=== PATIENT | male | born 1960 | race Caucasian/White ===

== ENCOUNTER → 2020-01-10 08:23 | Outpatient (REF) | payer BC, SELFPAY | LOC: ANHLAB 08:23 | PROVIDERS: PCP Family Medicine; Visit Provider Nurse Practitioner Family | DX: C44.329 Squamous cell carcinoma of skin of other parts of face (principal); C44.41 Basal cell carcinoma of skin of scalp and neck; C44.612 Basal cell carcinoma of skin of right upper limb, including shoulder | CPT/HCPCS: 88305; 88331; 88332 ==

== ENCOUNTER 2020-01-11 14:37 | Outpatient (CLI) | payer BC, SELFPAY ==
--- NOTE | 2020-01-11 14:39 | ECG_ITS ---
Measurements Intervals [place] Rate: 72 P: 19 ND: 157 QRS: -34 QRSD: 102 T: 13 QT: 359 QTc: 393 Interpretive Statements SINUS RHYTHM LEFT AXIS DEVIATION INCOMPLETE RIGHT BUNDLE BRANCH BLOCK DELAYED PRECORDIAL R/S TRANSITION BASELINE ARTIFACT- I, II, III, AVR, AVL, AVF, V6 BORDERLINE ECG Electronically Signed On 01-11-2020 14:56:02 [employer] by Edgar Jacobson D.O.
[2020-01-11 15:15] LABS: Hematocrit 38.8 % (42.0-52.0); Hemoglobin 12.1 g/dL (14.0-18.0)
[2020-01-11 15:26] LABS: INR 1.8; Prothrombin Time 20.2 Seconds (11.1-14.7)
[2020-01-11 15:27] LABS: Blood Urea Nitrogen 20 mg/dL (9-20); Calcium 9.1 mg/dL (8.4-10.2); Carbon Dioxide 29 mmol/L (22-30); Chloride 99 mmol/L (98-107); Estimated Glomerular Filt Rate 44; Glucose 108 mg/dL (75-110); Potassium 4.7 mmol/L (3.4-5.0); Sodium 138 mmol/L (137-145)
== END 2020-01-11 14:38 | disposition home or self-care (01) ==
PROVIDERS: Anesthesiology; PCP Family Medicine; Visit Provider Surgery Plastic and Reconstructive Surgery
DX: I10 Essential (primary) hypertension (principal); N28.9 Disorder of kidney and ureter, unspecified; Z79.01 Long term (current) use of anticoagulants; D64.9 Anemia, unspecified
CPT/HCPCS: 36415; 80048; 85014; 85018; 85610; 85730; 93005

== ENCOUNTER 2020-01-18 02:18 | Day surgery (SDC) | payer BC, SELFPAY ==
[2020-01-11 10:11] VITALS: BMI 28.5
--- NOTE | 2020-01-17 11:41 | WPDANESEPPF ---
Anes - Initial Pre Proc Eval Procedure: Operation Date: 01/18/20 09:00 Proposed Procedures p Excision Squamous Cell Carcinoma Left Cheek with Frozen Section and Closure - Smooth Simpson MD Date/Time: 01/17/20 11:41 Surgeon: Smooth Simpson MD Pre Op Diagnosis: sq cell ca left cheek Patient Data Age: 59 Gender: M Height: 6 ft 2 in Weight: 100.9 kg Allergies Allergy/AdvReac Type Severity Reaction Status Date / Time No Known Allergies Allergy Mild Verified 01/18/20 07:33 Home Medications Medication Instructions Recorded Confirmed Type lisinopril 10 mg tablet 10 mg PO DAILY 11/30/19 01/18/20 History amlodipine 5 mg PO DAILY 01/11/20 01/18/20 History aspirin [Aspir-81] 81 mg PO DAILY 01/11/20 01/18/20 History atorvastatin 40 mg PO DAILY 01/11/20 01/18/20 History carvedilol phosphate [Coreg CR] 10 mg PO BID 01/11/20 01/18/20 History cholecalciferol (vitamin D3) 2,000 unit PO DAILY 01/11/20 01/18/20 History ferrous sulfate 325 mg PO DAILY 01/11/20 01/18/20 History prednisone 5 mg PO DAILY 01/11/20 01/18/20 History tacrolimus [Envarsus XR] 2 mg PO BID 01/11/20 01/18/20 History omeprazole 20 mg PO DAILY 01/18/20 01/18/20 History tamsulosin [Flomax] 0.4 mg PO HS 01/18/20 01/18/20 History warfarin [Coumadin] See Rx Instructions .ROUTE .COMPLEX 01/18/20 01/18/20 History warfarin [Coumadin] See Rx Instructions .ROUTE .COMPLEX 01/18/20 01/18/20 History warfarin [Coumadin] See Rx Instructions .ROUTE .COMPLEX 01/18/20 01/18/20 History Patient hx anesthesia problems: none Family hx anesthesia problems: none PMFSH Past Medical History Medical History (Updated 01/17/20 @ 11:41 by Angel Carson MD) History of actinic keratoses History of basal cell carcinoma (BCC) History of pulmonary embolism History of SCC (squamous cell carcinoma) of skin Hyperlipidemia Hypertension BARRY (obstructive sleep apnea) Other pulmonary embolism without acute cor pulmonale Surgical History Surgical History (Updated 01/17/20 @ 11:41 by Angel Carson MD) H/O kidney transplant Social History Social History Smoking status: Never smoker Alcohol intake: current Anes - Eval Final PreProcedure Day of Procedure 01/17/20 11:41 Patient weight: overweight Heart: regular rate and rhythm Lungs: clear to auscultation Airway: Mallampati scale class II Neurological: alert and oriented Last oral intake: >/= 8 hours ASA classification: III Emergent: no Anesthetic plan: proceed Anesthesia type and monitoring: general LMA and standard monitoring Informed Consent: The patient's anesthetic plan and its attendant risks and benefits were discussed with the patient/family/POA. Questions were solicited and answers provided to the satisfaction of the patient/family/POA.
[2020-01-18 07:11] VITALS: BP 140/77; PULSE 61; RESP 18; TEMP 36.6; O2SAT 100
[2020-01-18 07:53] LABS: INR 1.3; Prothrombin Time 15.7 Seconds (11.1-14.7)
[2020-01-18] MEDS: LACTATED RINGERS 1,000 ML 30 ML IV CONT ×2 (07:58→11:11)
--- NOTE | 2020-01-18 08:36 | WPDHPUPDATE1 ---
History and Physical Update Update Date/Time: 01/18/20 08:36 History and Physical has been reviewed, including an updated exam of the patient. There are NO changes in the patient's condition. Excision left cheek SCC with closure. Risks, benefits, and alternatives have been discussed and questions answered. Patient agrees to proceed with procedure.
[2020-01-18] MEDS: ceFAZolin 2 GM/D5W 50 ML 2 GM/50 ML BAG IVPB (09:09)
[2020-01-18] MEDS: LIDO 1%/EPINEPHRINE 1:100,000 20 ML VIAL INFILTRATE (09:39)
--- NOTE | 2020-01-18 10:53 | SUR.OPER ---
Ebl=30ml
[2020-01-18 11:15] VITALS: BP 129/76; PULSE 70; RESP 10; TEMP 37.1; O2SAT 94
[2020-01-18 11:30] VITALS: BP 129/79; PULSE 62; RESP 12; O2SAT 97
[2020-01-18 11:47] VITALS: BP 128/80; PULSE 65; RESP 10; O2SAT 92
[2020-01-18 11:50] VITALS: BP 137/85; PULSE 61; RESP 16
[2020-01-18 12:20] VITALS: BP 127/80; PULSE 58; RESP 16
--- NOTE | 2020-01-18 16:51 | PM.PROC ---
Procedure Note - Detailed Date of procedure: 01/18/20 Pre-op diagnosis: sq cell ca left cheek Post-op diagnosis: same Procedure performed: 1. Wide excision of SCC with frozen section left cheek 5.2 cm 2. Closure of left cheek 5.2 cm Description of procedure: Patient was marked in the preoperative holding area with his verification. We had discussed the risks, benefits, alternatives in great detail with his family. I want them to be realistic about the risks involved as well as expectations. We discussed local anatomy in the risks to these structures. In particular facial nerve given the already excised depth I want him to be clear that there could be risk of injury to this nerve. I was also very upfront the risk of recurrence. We discussed possible closure options. answered all of his questions to his satisfaction today. Consent was obtained. He was taken to the operating room placed supine on operating table. Anesthesia provided by anesthesiology and prepped and draped in a standard sterile fashion. Surgical time-out was taken. 1% lidocaine with 0.25% Marcaine with epinephrine was used anesthetize locally. Fifteen blade used to excise the wound and SCC. I want to pathology looked over this with pathologist as it was clear there was some small nerve branches present at this location. The pathologist was confident that the deep margin was positive and I needed proceed. He marked out exactly where this was that we proceed to the operating room for excision of this piece only removing was absolutely necessary. Pathology returned as clear. I copiously irrigated with saline solution and verified a strict hemostasis. I closed in many layers to obliterate all space. 4-0 Vicryl on the SMAS, 4-0 Monocryl subdermal and 5 0 nylon in the skin. Dressing was placed. He tolerated well. Anesthesia: GLMA Surgeon: Smooth Simpson MD Estimated blood loss (mL): 30 Drains: No Packing: No Pathology: yes (SCC left cheek. I went with pathology to view this with the pathologist to ensure we were in full agreement of location given the critical anatomy in this location.) Complications: No immediate complications Condition: stable Disposition: PACU
== END 2020-01-18 12:40 | disposition home or self-care (01) ==
PROVIDERS: Anesthesiology; PCP Family Medicine; Visit Provider Surgery Plastic and Reconstructive Surgery
PROC: (CPT 11646; principal; 2020-01-18 09:00)
DX: C44.329 Squamous cell carcinoma of skin of other parts of face (principal); I10 Essential (primary) hypertension; E78.5 Hyperlipidemia, unspecified; G47.33 Obstructive sleep apnea (adult) (pediatric); Z86.711 Personal history of pulmonary embolism; Z79.01 Long term (current) use of anticoagulants; Z79.82 Long term (current) use of aspirin; Z94.0 Kidney transplant status
CPT/HCPCS: 11646; 13132; 36415; 85610; 88305; 88331; 88332; J0690; J1100; J2250; J2405; J2704; J3010; J7120

== ENCOUNTER → 2020-02-21 12:11 | Outpatient (REF) | payer OTHER, SELFPAY | LOC: ANHLAB 12:11 | PROVIDERS: PCP Family Medicine; Visit Provider Surgery Plastic and Reconstructive Surgery | DX: C44.329 Squamous cell carcinoma of skin of other parts of face (principal) | CPT/HCPCS: 88305 ==

== ENCOUNTER → 2020-09-26 14:20 | Outpatient (REF) | payer OTHER, SELFPAY | LOC: ANHLAB 14:20 | PROVIDERS: PCP Family Medicine; Visit Provider Nurse Practitioner | DX: L57.0 Actinic keratosis (principal) | CPT/HCPCS: 88305; 88342 ==

== ENCOUNTER 2021-03-10 09:22 | Emergency (ER) | payer OTHER, SELFPAY ==
[2021-03-10] VITALS (10 sets, daily range): BP systolic 97–120; BP diastolic 52–67; PULSE 68–72; RESP 18–20; TEMP 36; O2SAT 99–100
--- NOTE | ~2021-03-10 | US_ITS ---
EXAMINATION: US venous doppler LE RT DATE: 03/10/2021 10:27 INDICATION: Right lower limb edema. TECHNIQUE: Grayscale ultrasound images without and with compression and Doppler ultrasound images of the right lower extremity veins were obtained. COMPARISON: Ultrasound 06/15/2012 FINDINGS: The visualized portions of right common femoral vein, profunda (deep) femoral vein, femoral vein, pop liteal vein, peroneal veins, posterior tibial veins, and greater saphenous vein outflow are patent. IMPRESSION: 1. No deep venous thrombosis. Reviewed, dictated and finalized at location A.
--- NOTE | 2021-03-10 10:03 | ED.LOWEXIN ---
HPI - Extremity Injury (Lower) General Chief Complaint: Extremity Injury, Lower Stated Complaint: ?leg infection Time Seen by Provider: 03/10/21 09:33 Source: patient Mode of arrival: ambulatory Limitations: no limitations History of Present Illness HPI Narrative: This is a 60-year-old male that presents the emergency department for right lower extremity edema and erythema x5 days. Reports he had recently traveled and noticed it on his way back home. Reports pain to the calf, especially with walking. Reports he has history of metastatic basal cell carcinoma and is currently on chemotherapy. He is on Eliquis, he has been taking this as prescribed. He has an IVC filter. Denies fever, chest pain, or shortness of breath. Related Data Home Medications Medication Instructions Recorded Confirmed lisinopril 10 mg tablet 10 mg PO DAILY 11/30/19 08/01/20 aspirin [Aspir-81] 81 mg PO DAILY 01/11/20 08/01/20 atorvastatin 40 mg PO DAILY 01/11/20 08/01/20 cholecalciferol (vitamin D3) 2,000 unit PO DAILY 01/11/20 08/01/20 ferrous sulfate 325 mg PO DAILY 01/11/20 08/01/20 prednisone 5 mg PO DAILY 01/11/20 08/01/20 omeprazole 20 mg PO DAILY 01/18/20 08/01/20 tamsulosin [Flomax] 0.4 mg PO HS 01/18/20 08/01/20 warfarin [Coumadin] See Rx Instructions .ROUTE .COMPLEX 01/18/20 08/01/20 warfarin [Coumadin] See Rx Instructions .ROUTE .COMPLEX 01/18/20 08/01/20 tacrolimus 1 mg tablet,extended 2 mg PO .QD tablet 07/05/20 08/01/20 release 24 hr carvedilol phosphate 10 mg 10 mg PO DAILY cap 07/11/20 08/01/20 capsule,[id number] multiphase Allergies Allergy/AdvReac Type Severity Reaction Status Date / Time No Known Allergies Allergy Mild Verified 03/10/21 09:32 Review of Systems Review of Systems: Narrative: CONSTITUTIONAL: Denies fever SKIN: Reports erythema and edema MUSCULOSKELETAL: Reports myalgia. NEUROLOGIC: Denies numbness All systems reviewed & are unremarkable except as noted in HPI and below PMFSH Past Medical History Medical History (Updated 03/10/21 @ 12:35 by Yaneth Plasencia PA-C) Atrial fibrillation History of actinic keratoses History of basal cell carcinoma (BCC) History of pulmonary embolism History of SCC (squamous cell carcinoma) of skin Hyperlipidemia Hypertension BARRY (obstructive sleep apnea) Other pulmonary embolism without acute cor pulmonale Surgical History Surgical History H/O kidney transplant History of prostate surgery Family History Family History Mother Hypertension Family history of diabetes mellitus in first degree relative Grandparent Diabetes mellitus Social History Social History Smoking status: Never smoker Alcohol intake: current Exam Narrative: Exam Narrative: GENERAL: Well-appearing, well-nourished, and in no acute distress. HEAD: Normocephalic, atraumatic. EYES: EOMI. CHEST: Clear to auscultation. No respiratory distress. No wheezes rales or rhonchi HEART: Regular rate and rhythm. No murmur heard. Normal peripheral pulses. EXTREMITIES: Normal range of motion. Edema with overlying patchy erythema to the right lower leg extending into the foot. Normal DP pulses. Normal sensation SKIN: Warm, dry, no rash. NEURO: No focal deficits. Alert and oriented x3. PSYCH: Normal mood and affect Course Vital Signs Vital signs: Vital Signs Temperature 96.8 F L 03/10/21 09:26 Pulse Rate 72 03/10/21 09:26 Respiratory Rate 20 03/10/21 09:26 Blood Pressure 97/54 L 03/10/21 09:26 Pulse Oximetry 100 03/10/21 09:26 Temperature 96.8 F L 03/10/21 09:26 Pulse Rate 72 03/10/21 09:26 Respiratory Rate 20 03/10/21 09:26 Blood Pressure 108/61 03/10/21 12:01 Pulse Oximetry 100 03/10/21 09:26 MDM - Extremity Injury (Lower) MDM Narrative Medical decision making narrative: Humberto
[2021-03-10 10:39] LABS: Basophils Percent Auto 0.1 % (0.2-1.2); Eosinophils Percent Auto 0.3 % (0-4.4); Hematocrit 35.5 % (42.0-52.0); Hemoglobin 10.5 g/dL (14.0-18.0); Immature Granulocyte Absolute 0.17 K/mm3 (0.00-0.031); Immature Granulocyte Percent A 1.4 % (0-0.5); Lymphocytes Absolute Auto 0.67 K/mm3 (0.9-3.2); Lymphocytes Percent Auto 5.5 % (18.3-44.2); Mean Corpuscular HGB Conc 29.6 g/dl (32-36); Mean Corpuscular Hemoglobin 24.2 pg (26-34); Mean Platelet Volume 8.2 fl (7.4-10.4); Monocytes Percent Auto 8.4 % (2.6-8.5); Neutrophils Absolute Auto 10.3 K/mm3 (1.3-6.7); Neutrophils Percent Auto 84.3 % (45.5-73.1); Platelet Count Result 231 k/mm3 (150-375); Red Blood Count 4.33 M/mm3 (4.6-6.20); Red Cell Distribution Width 19.5 % (11.5-14.5); White Blood Count 12.2 K/mm3 (4.5-10.0)
[2021-03-10 10:46] LABS: Hypochromasia 1+ (NORMAL); Ovalocytes 2+ (NORMAL); Platelet Estimate Adequate (Adequate)
[2021-03-10 10:49] LABS: INR 1.2; Prothrombin Time 16.1 Seconds (11.1-14.7)
[2021-03-10 10:50] LABS: Partial Thromboplastin Time 33.2 SECONDS (22.3-36.8)
[2021-03-10 10:53] LABS: Anion Gap 0 mmol/L (8-16); Blood Urea Nitrogen 22 mg/dL (9-20); Calcium 8.4 mg/dL (8.4-10.2); Carbon Dioxide 30 mmol/L (22-30); Chloride 103 mmol/L (98-107); Estimated CRCL calculation 58 ml/min; Estimated Glomerular Filt Rate 52; Glucose 118 mg/dL (75-110); Potassium 4.7 mmol/L (3.4-5.0); Sodium 133 mmol/L (137-145)
[2021-03-10 11:02] LABS: CRP 14.9 mg/dL (<1.0)
[2021-03-10 11:15] LABS: Erythrocyte Sedimentation Rate 36 mm/hr (0-20)
== END 2021-03-10 12:47 | disposition home or self-care (01) ==
PROVIDERS: Physician Assistant; Emergency Provider Family Medicine; PCP Family Medicine
DX: L03.115 Cellulitis of right lower limb (principal); I48.91 Unspecified atrial fibrillation; Z86.711 Personal history of pulmonary embolism; E78.5 Hyperlipidemia, unspecified; I10 Essential (primary) hypertension; G47.33 Obstructive sleep apnea (adult) (pediatric); Z85.828 Personal history of other malignant neoplasm of skin; Z79.01 Long term (current) use of anticoagulants; Z79.82 Long term (current) use of aspirin; Z94.0 Kidney transplant status
CPT/HCPCS: 36415; 80048; 85025; 85610; 85652; 85730; 86140; 93971; 99284

== ENCOUNTER 2022-05-17 13:55 | Emergency (ER) | payer OTHER, SELFPAY ==
[2022-05-17 14:03] VITALS: BP 137/60; PULSE 73; RESP 18; TEMP 37.2; O2SAT 98
--- NOTE | 2022-05-17 14:16 | ED.GENADULT ---
HPI - General Adult General Chief complaint: Skin/Abscess/Foreign Body Stated complaint: Rt Side Face History of Present Illness HPI narrative: patient is a 61 y/o male who presents to the via POV accompanied by adult daughter for evaluation of a wound evisceration noted to right cheek that was noticed yesterday. Patient had multiple areas of squamous cell carcinoma removed from face. Surgical wounds closed with sutures by derm. He believes sneezing might have eviscerated wound. He also has been draining a serous drainage. He did recently finish a 5-day course of antibiotics prescribed by dermatology. He has a follow-up appointment on May 19, 2022 Related Data Home Medications Medication Instructions Recorded Confirmed lisinopril 10 mg tablet 10 mg PO DAILY 11/30/19 05/17/22 aspirin 81 mg tablet,delayed 81 mg PO DAILY 01/11/20 05/17/22 release (Aspir-) atorvastatin 40 mg tablet 40 mg PO DAILY 01/11/20 05/17/22 cholecalciferol (vitamin D3) 50 2,000 unit PO DAILY 01/11/20 05/17/22 mcg (2,000 unit) chewable tablet ferrous sulfate 325 mg (65 mg 325 mg PO DAILY 01/11/20 05/17/22 iron) tablet omeprazole 20 mg tablet,delayed 20 mg PO DAILY 01/18/20 05/17/22 release tamsulosin 0.4 mg capsule (Flomax) 0.4 mg PO HS 01/18/20 05/17/22 carvedilol phosphate 10 mg 10 mg PO BID 03/14/21 05/17/22 capsule,[id number] multiphase (Coreg CR) tacrolimus 1 mg tablet,extended 1 mg PO DAILY 03/14/21 05/17/22 release 24 hr (Envarsus XR) Allergies Allergy/AdvReac Type Severity Reaction Status Date / Time No Known Allergies Allergy Mild Verified 05/17/22 13:58 Review of Systems Review of Systems: Denies injury. Pertinent negatives fever, chills, sweats, malaise, poor p.o. intake, change in appetite, headache, LOC, dizziness, streaking, pain,numbness, tingling, loss of sensation, foreign body sensation, deformity, sob, chest pain, and heart palpitations/murmurs. [facility] Past Medical History Medical History (Updated 05/17/22 @ 14:38 by Aashish Reynolds, [facility], ) Atrial fibrillation History of actinic keratoses History of basal cell carcinoma (BCC) History of pulmonary embolism History of SCC (squamous cell carcinoma) of skin Hyperlipidemia Hypertension BARRY (obstructive sleep apnea) Other pulmonary embolism without acute cor pulmonale Surgical History Surgical History H/O kidney transplant History of prostate surgery Family History Family History Mother Hypertension Family history of diabetes mellitus in first degree relative Grandparent Diabetes mellitus Social History Social History Smoking status: Former smoker Alcohol intake: current Comments I have reviewed and agree with the patient's past medical, surgical, social, and family hx as documented by the RN. There is no relevant family history pertinent to the presenting complaint. Exam Narrative: GENERAL: Well-appearing, well-nourished, and in no acute distress. HEAD: Normocephalic. No facial swelling appreciated. EYES: PERRLA and EOMI. No evidence of erythema, swelling, or drainage. ENT: Nares clear, no rhinorrhea or epistaxis.Mucous membranes moist and pink. Uvula is midline without erythema and swelling. No evidence of obstruction, petechial rash, cobblestoning, lesions, ulcers, erythema, swelling, exudates, peritonsillar abscess, tenting, or drooling. Breath odor and voice normal. NECK: Supple. No Lymphadenopathy or nuchal rigidity appreciated. CHEST: Bilateral lung fuchs are clear to auscultation. No respiratory distress. No evidence of cough or pleuritic cp upon examination. HEART: Regular rate and rhythm. No murmur, gallop, or rub heard. EXTREMITIES: Normal range of motion. No edema. SKIN: Warm, dry. Multiple surgical wounds noted to bilat face and left ch
== END 2022-05-17 14:42 | disposition home or self-care (01) ==
PROVIDERS: Emergency Provider Nurse Practitioner Family; PCP Family Medicine
DX: T81.31XA Disruption of external operation (surgical) wound, not elsewhere classified, initial encounter (principal); C44.320 Squamous cell carcinoma of skin of unspecified parts of face; I48.91 Unspecified atrial fibrillation; I10 Essential (primary) hypertension; E78.5 Hyperlipidemia, unspecified; Z86.711 Personal history of pulmonary embolism; Z79.82 Long term (current) use of aspirin; Z87.891 Personal history of nicotine dependence; Z98.890 Other specified postprocedural states
CPT/HCPCS: 99212; G0463

== ENCOUNTER 2024-02-02 10:08 | Outpatient (CLI) | payer BC, SELFPAY ==
--- NOTE | ~2024-02-02 | XR_ITS ---
Left wrist Technique: PA, oblique, lateral, and ulnar deviation views were obtained. Clinical History: Injury Findings: No acute fracture or dislocation is seen. There is moderate degenerative change of the daisy caphe joint. Soft tissues are unremarkable. 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 Reviewed, dictated and finalized at [facility]. 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
== END 2024-02-02 10:09 ==
PROVIDERS: PCP Nurse Practitioner Adult Health; Visit Provider Nurse Practitioner Adult Health
DX: S69.92XA Unspecified injury of left wrist, hand and finger(s), initial encounter (principal); X58.XXXA Exposure to other specified factors, initial encounter; M19.032 Primary osteoarthritis, left wrist
CPT/HCPCS: 73110

== ENCOUNTER 2025-01-29 09:25 | Emergency (ER) | payer BC, MEDICARE, SELFPAY ==
--- NOTE | ~2025-01-29 | XR_ITS ---
EXAMINATION: XR chest 2V DATE: 01/29/2025 09:59 INDICATION: One week of cough TECHNIQUE: frontal and lateral views of the chest were obtained. COMPARISON: Chest CT dated 05/27/2011 FINDINGS: Right internal jugular central venous port catheter with distal tip at the caudal superior vena cava. Streaky and bandlike opacities at the left lower lung zones. No pulmonary edema, pleural effusion or pneumothorax. The cardiomediastinal silhouette is normal. IMPRESSION: 1. Opacities in the left lower lung zone with appearance consistent with discoid atelectasis although differential includes pneumonia. Reviewed, dictated and finalized at location A. IMPRESSION: 1. Opacities in the left lower lung zone with appearance consistent with discoi d atelectasis although differential includes pneumonia.
--- NOTE | 2025-01-29 09:27 | ED_ITS ---
HPI - URI/Sore Throat General Chief Complaint: Upper Respiratory Infection Stated Complaint: Cough / Congestion Time Seen by Provider: 01/29/25 09:43 Source: patient, RN notes reviewed and old records reviewed Mode of arrival: ambulatory Limitations: no limitations History of Present Illness HPI Narrative: 64-year-old male with a history of a kidney transplant, AFib presents to the [facility] with complaints cough and congestion. Reports symptoms started 1 week ago on Wednesday. Denies fevers. Denies chest pain. Reports over the last couple days increased shortness of breath. Related Data Home Medications ?Medication ?Instructions ?Recorded ?Confirmed ?Last Taken ?Type aspirin 81 mg tablet,delayed 81 mg PO DAILY 01/11/20 02/02/24 01/14/20 History release (Aspir-) atorvastatin 40 mg tablet 40 mg PO DAILY 01/11/20 02/02/24 01/17/20 History cholecalciferol (vitamin D3) 50 2,000 unit PO DAILY 01/11/20 02/02/24 01/14/20 History mcg (2,000 unit) chewable tablet ferrous sulfate 325 mg (65 mg 325 mg PO DAILY 01/11/20 02/02/24 01/14/20 History iron) tablet omeprazole 20 mg tablet,delayed 20 mg PO DAILY 01/18/20 02/02/24 01/18/20 History release tamsulosin 0.4 mg capsule (Flomax) 0.4 mg PO HS 01/18/20 02/02/24 01/17/20 History tacrolimus 1 mg tablet,extended 1 mg PO DAILY 03/14/21 02/02/24 Unknown History release 24 hr (Envarsus XR) carvedilol 25 mg tablet 25 mg PO Q12H 07/28/22 02/02/24 Unknown History hydralazine 25 mg tablet 75 mg PO TID 07/28/22 02/02/24 Unknown History magnesium oxide 400 mg (241.3 mg mg PO DAILY 12/30/23 02/02/24 Unknown History magnesium) tablet prednisone 5 mg tablet mg PO DAILY 12/30/23 02/02/24 Unknown History Allergies Allergy/AdvReac Type Severity Reaction Status Date / Time No Known Allergies Allergy Mild Verified 01/29/25 09:32 Review of Systems Review of Systems: All systems reviewed & are unremarkable except as noted in HPI and below Constitutional: Constitutional: Reports no additional constitutional complaints ENT: Reports system reviewed and no additional complaints, except as documented Cardiovascular: Cardiovascular: Reports no additional cardiovascular complaints, Denies chest pain and Denies dyspnea Respiratory: Respiratory: Reports as per HPI, Reports chest congestion, Reports cough and Reports dyspnea Musculoskeletal: Musculoskeletal: Reports no additional musculoskeletal complaints Integumentary/Breasts: Skin/Breast: Reports system reviewed and no additional complaints, except as docu PMFSH Past Medical History Medical History Hematoma of left wrist Left wrist injury Prostate cancer screening Screening for thyroid disorder Anemia Atrial fibrillation BARRY (obstructive sleep apnea) Hyperlipidemia Hypertension History of actinic keratoses History of SCC (squamous cell carcinoma) of skin History of basal cell carcinoma (BCC) History of pulmonary embolism Other pulmonary embolism without acute cor pulmonale Surgical History Surgical History History of prostate surgery H/O kidney transplant Family History Family History Mother Hypertension Family history of diabetes mellitus in first degree relative Grandparent Diabetes mellitus Father No problems noted. Sibling No problems noted. Social History Social History Smoking status: Never smoker Alcohol intake: current Substance use: never Substance use type: does not use Do You Feel Safe in your Home?: Yes Lack of Transportation: No Lack of Food: Never True Current Housing: I Have Housing Concerned About Future Housing: No Difficulty Paying Gas/Electric Bills: No Difficulty Paying for Meds: No Currently Unemployed: No Difficulty w/ Childcare or Family Care: No Comments At the time of my signature, I reviewed and agree with the nursing past medical, surgical, social, and family history. There is no relevant family history pertinent to the patient complaint. Exam Const: General: cooperative, comfortable, no acute distress, well developed, alert, ill appearing chronically; not acutely and well nourished Nutritional Appearance: well nourished Orientation/consciousness: patient oriented x3 Limitations: no limitations HENMT: Head: normal to inspection Ears: hearing grossly normal bilaterally, external ears normal, TM's normal bilaterally, EAC's normal, mastoids normal and no periauricular adenopathy Mouth: Yes lip normal and Yes moist mucous mem branes Eyes: General: appearance normal, both eyes and all related structures Alignment and Position: alignment normal Neck: Neck: normal visual inspection, full ROM, no lymphadenopathy and no meningeal signs Chest: Chest palpation & inspection: normal inspection of the chest Resp: Effort & Inspection: normal respiratory effort and able to speak in complete sentences Auscultation: no crackles, no rales, no rhonchi and wheezes expiratory wheezes and left lower Cardio: Rate: regular rate Skin: General skin exam: normal color and no rashes or lesions noted Neuro: General: patient oriented x3, gait normal, moves all extremities and no meningeal signs Cognition (Neuro): normal cognition Speech: normal speech Gait exam (Neuro): Normal gait present Extrem: General: normal to inspection, full ROM, capillary refill normal and normal gait Psych: Appearance: grossly normal and well kempt Mental Status: mental status grossly normal Speech and movement: Normal speech and movement present and Clear speech present Affect: normal affect Attitude: cooperative Course Course Level of Care: Express Care Visit Vital Signs Vital signs: Vital Signs Temperature 98.2 F 01/29/25 09:36 Pulse Rate 76 01/29/25 09:36 Respiratory Rate 20 01/29/25 09:36 Blood Pressure 148/55 H 01/29/25 09:36 Pulse Oximetry 96 01/29/25 09:36 Oxygen Delivery Room Air 01/29/25 09:36 Temperature 98.2 F 01/29/25 09:36 Pulse Rate 76 01/29/25 09:36 Respiratory Rate 20 01/29/25 09:36 Blood Pressure 148/55 H 01/29/25 09:36 Pulse Oximetry 96 01/29/25 09:36 Oxygen Delivery Room Air 01/29/25 09:36 Reviewed MDM - URI/Sore Throat MDM Narrative Medical decision making narrative: Patient sitting in exam room. Nontoxic, vitals stable. Patient presents with 1 week history of cough and congestion. X-ray shows atelectasis versus pneumonia. Will treat with an antibiotic. Patient appropriate for outpatient treatment with close follow-up. Discharge instructions reviewed with patient, as well as provided in writing per nursing staff. The instructions also include specific and strict return/GO TO THE ER as well as f/u information. All questions have been answered, and the patient deny any further questions with discharge and discharge plan. Some parts of this dictation were generated by voice recognition software and may contain typographical and/or grammatical inaccuracies. Differential Diagnosis Differential diagnosis: Likely upper respiratory infection, otitis media, sinusitis, viral infection, bronchitis, influenza and pharyngitis Imaging Data Radiologist's impression: EXAMINATION: XR chest 2V DATE: 01/29/2025 09:59 INDICATION: One week of cough TECHNIQUE: frontal and lateral views of the chest were obtained. COMPARISON: Chest CT dated 05/27/2011 FINDINGS: Right internal jugular central venous port catheter with distal tip at the caudal superior vena cava. Streaky and bandlike opacities at the left lower lung zones. No pulmonary edema, pleural effusion or pneumothorax. The cardiomediastinal silhouette is normal. IMPRESSION: 1. Opacities in the left lower lung zone with appearance consistent with discoid atelectasis although differential includes pneumonia. Critical Care Time Critical Care Time Critical Care Time: No Discharge Plan Discharge Clinical Impression: Atelectasis Pneumonia Qualifiers: Pneumonia type: due to unspecified organism Laterality: left Lung location: lower lobe of lung Qualified Code(s): J18.9 - Pneumonia, unspecified organism Patient Disposition: Home, Self-Care Condition: Stable Instructions: Antibiotic Form, Pneumonia (ED), Atelectasis (ED) Additional Instructions: Is important that you take 10 deep breaths every hour while awake. Take antibiotic as prescribed Follow-up with primary care provider within 1-2 weeks both [facility] follow-up and to have your blood pressure checked. Today your blood pressure was 148/55. For new or worsening symptoms please go directly to the emergency room Patient Language: Polish Prescriptions: New doxycycline monohydrate 100 mg tablet 100 mg PO BID Qty: 20 0RF No Action prednisone 5 mg tablet PO DAILY magnesium oxide 400 mg (241.3 mg magnesium) tablet PO DAILY carvedilol 25 mg tablet 25 mg PO Q12H Rx Instructions: must administer with a meal/food hydralazine 25 mg tablet 75 mg PO TID atorvastatin 40 mg Tablet 40 mg PO DAILY aspirin [Aspir-81] 81 mg Tablet,Delayed Release (Dr/Ec) 81 mg PO DAILY ferrous sulfate 325 mg (65 mg iron) Tablet 325 mg PO DAILY cholecalciferol (vitamin D3) 2,000 unit Tablet,Chewable 2,000 unit PO DAILY tamsulosin [Flomax] 0.4 mg Capsule 0.4 mg PO HS omeprazole 20 mg Tablet,Delayed Release (Dr/Ec) 20 mg PO DAILY Envarsus XR 1 mg tablet extended release 24 hr 1 mg PO DAILY Eliquis 5 mg tablet 5 mg PO BID Qty: 60 2RF Follow-up/Referrals: Krishna Rosales MD [Primary Care Provider[facility] Time of Disposition: 10:08
[2025-01-29 09:36] VITALS: BP 148/55; PULSE 76; RESP 20; TEMP 36.8; O2SAT 96
--- OUTSIDE RECORDS SUMMARY | 2025-01-29 10:23 | XMS_ITS | Clinical Summary ---
Author Organization [facility] Address [address] [place] [address] Care Team Providers Care Underground Truck Operator Name Role Phone Krishna Rosales MD Primary Care Provider [phone] Allergies No known active allergies Medications predniSONE 5 mg tablet Take 5 mg by mouth daily. 01/01/2022 Active omeprazole 40 MG capsule Take 40 mg by mouth daily. 02/17/2022 Active Tacrolimus ER (ENVARSUS XR) 0.75 MG TABLET SR 24 HR Take 1.5 mg by mouth daily. 03/16/2022 Active carvedilol 25 MG tablet Take 1 tablet by mouth 2 (two) times daily. 10/21/2021 Active atorvastatin 40 MG tablet Take 40 mg by mouth nightly at bedtime. at bedtime. 02/17/2022 Active aspirin 81 MG tablet Take 81 mg by mouth daily. 10/29/2006 Active ELIQUIS 5 MG tablet Take 5 mg by mouth 2 (two) times daily. 04/29/2022 Active ferrous sulfate, 65 mg elemental, 325 (65 FE) MG tablet Take 325 mg by mouth 2 (two) times daily. Active tamsulosin 0.4 MG Cap Take 0.4 mg by mouth nightly. Active vitamin D3, cholecalciferol , 1000 UNIT Tab tablet Take 1,000 Units by mouth 2 (two) times a day. Active calcium carbonate 1500 (600 Ca) MG tablet Take 1,500 mg by mouth every evening. Active Active Problems Problem Noted Date Diagnosed Date TIA (transient ischemic attack) 05/12/2022 Squamous cell cancer of skin of left cheek 04/14 Iron deficiency anemia 02/07/2021 Overview (05/13/2022): Added automatically from request for surgery [id number] Secondary malignant neoplasm of bone ([facility] S/HCC) 01/20/2021 Recurrent squamous cell carcinoma of skin 2019 Overview (05/13/2022): History of multiple basal cell carcinomas and squamous cell carcinomas of the skin in sun-exposed areas, requiring local therapies. 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 Underwent excision with his local treating team followed by recurrence on 04/2020 for which he underwent WLE and parotidectomy and L neck dissection with path showing LN+ disease in 11/29 LNs -> adjuvant RT from 05/13/20 - 07/01/2020. On 09/20/20 CT Neck and Chest demonstrated new soft tissue nodule in the superior mediastinum, and new bilateral upper lobe spiculated groundglass nodules suspicious for recurrent metastatic disease. He then underwent CT guided Bx of the mediastinal mass on 10/03/20 with path revealing metastatic SCC. Patient established care with Dr. Angel on 10/2020. He was started on Pembrolizumab (C3 on 12/23/20). Last Assessment & Plan: -01/10 PET scan notable for diffuse and severe disease progression. -Most relevant to this admission is noted NEW osseous metastases within the right 7th rib, right T7 transverse process, L2 vertebral body, new erosion of the left posterior 9th and 10th ribs, and increased avidity of a C1 vertebral body lesion. -Per Dr. Angel note from 01/13/21 plan is for Carbo/Cetuximab inpatient if possible. However, does not qualify for inpatient per pharmacy. Dr. 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 CMV+ kidney into CMV+ recipient. EBV+ kidney into EBV+ recipient. Patient follows with renal transplant (Dr. Robert) and was last seen on 12/06/20. Patient has been off Myfortic for several years now given hx of BK viremia. Baseline sCr 1.4-1.6. Last Assessment & Plan: -tacro level 4.4, but not true trough -resume home tacro, continue home pred 5 qAM. Check true 24 hour trough, lvl is 1.9. Will not adjust at this time Renal cell carcinoma ([facility]) 5 Stage 5 chronic kidney disease ([facility]) 03/11/2015 Hyperparathyroidism due to renal insufficiency ( [facility]) 03/11/2015 Anemia due to chronic kidney disease 03/11/2015 Renal mass 04/03/2014 Essential hypertension 04/03/2014 Overview (05/13/2022): Last Assessment & Plan: -continue home Lisinopril 10 -Continue home Coreg 25BID Immunizations Name Administration Dates Next Due Influenza (Generic) 12/10/2017,09/15/2016 Influenza Adult (Generic) 08/21/2016,08/21/2015 Pneumococcal (Prevnar 13) 03/11/2015 Social History Tobacco Use Types Packs/Day Years Used Date Smoking Tobacco: Never Smokeless Tobacco: Never Alcohol Use Standard Drinks/Week Comments Yes 0 (1 standard drink = 0.6 oz pur e alcohol) socially Sex and Gender Information Value Date Recorded Sex Assigned at Not on file Legal Sex Male 7:55 PM CDT Gender Identity Not on file Sexual Orientation Not on file Last Filed Vital Signs Vital Sign Reading Time Taken Comments Blood Pressure 162/76 05/13/2022 12:03 PM CDT Pulse 65 05/13/2022 12:03 PM CDT Temperature 37.1 C (98.8 F) 05/13/2022 12:03 PM CDT Respiratory Rate 18 05/13/2022 12:0 3 PM CDT Oxygen Saturation 97% 05/13/2022 12: 03 PM CDT Inhaled Oxygen Concentration - - Weight 84.7 kg (186 lb 12.8 oz) 05/12/2022 8:45 PM CDT Height 188 cm (6' 2 ) 05/12/2022 8:45 PM CDT Body Mass Index 23.98 05/12/2022 8:45 PM CDT Plan of Treatment Health Maintenance Due Date Last Done Comments Colorectal Cancer Screening Colonoscopy (10 Years) 1959 Hepatitis C 1977 DTaP, Tdap and Td Vaccines (1 - Tdap) 1978 Zoster Vaccines (1 of 2) 1978 Pneumococcal Vaccine: 65+ Years (2 of 2 - PPSV23 or PCV20) 05/06/2015 03/11/2015 Pneumococcal Vaccine: Pediatrics (0 to 5 Years) and At-Risk Patients (6 to 64 Years) (2 of 2 - PPSV23 or PCV20) 05/06/2015 03/11/2015 RSV Immunization or 60+ Years (1 - Risk 60-74 years 1-dose series) 2019 COVID-19 Vaccine (3 - Moderna risk series) 04/02/2021 03/05/2021, 02/05/2021 ASCVD LDL 05/13/2023 05/13/2022 Influenza Adult (#1) 2024 12/10/2017, 09/15/2016, 08/21/2016, Additional history exists Meningococcal B Vaccine Aged Out No l onger eligible based on patient's age to complete this topic Meningococcal Vaccine Aged Out No edis colby eligible based on patient's age to complete this topic RSV Immunizations Under 20 Months Aged Out No longer eligible based on patient's age to complete this topic Procedures Procedure Name Priority Date/Time Associated Diagnosis Comments LIPID PANEL Routine 05/13/2022 5:28 AM CDT from Last 3 Months or Most Recently Relevant to Health Maintenance Results * LIPID PANEL (05/13/2022 5:28 AM CDT) CHOLESTEROL 128 <200 MG/DL 05/13/2022 6:39 AM T [facility] TRIGLYCERIDES 51 <150 MG/DL 05/13/2022 6:39 AM T [facility] HDL 49 >40.0 MG/DL 05/13/2022 6:39 AM T [facility] LDL (CALCULATED) 69 <100 MG/DL 05/13/20 6:39 AM T [facility] NON HDL CHOLESTEROL 79 <130 MG/DL 05/13 6:39 AM T [facility] Comment: NOTE: WHEN THE TRIGLYCERIDES ARE >200 mg/dL, NON HDL C IS A SECONDARY TARGET OF THERAPY, WITH A GOAL 30 mg/dL HIGHER THAN THE IDENTIFIED LDL C GOAL. CHOL/HDL RATIO 2.6 0.0 - 4.5 05/13/2022 6:39 AM T [facility] VLDL CALCULATION 10 5 - 55 MG/DL 05/13/2022 6:39 AM T [facility] LIPID INTERPRETATION 05/13/2022 6:39 AM T [facility] Comment: NIH CONCENSUS REPORT RECOMMENDATIONS: ADULT CHILD LOW RISK: CHOLESTEROL <200 <170 TRIGLYCERIDE <150 --- HDL >=60 --- LDL <100 <110 BORDERLINE: CHOLESTEROL 200-239 170-199 TRIGLYCERIDE 150-199 --- HDL 40-59 --- LDL 100-159 110-129 HIGH RISK: CHOLESTEROL >=240 >=200 TRIGLYCERIDE >=200 --- HDL <40 --- LDL >=160 >=130 05/13/2022 5:28 AM CDT Lynn Lcoo MD LABORATORY Final Result [facility] [address] [place] [address], from Last 3 Months or Most Recently Relevant to Health Maintenance [place] [address] Advance Directives * Full Code (Latest Code Status on File) Date Activated Date Inactivated Comments 05/13/2022 8:49 AM 05/13/2022 4:32 PM Care Teams Underground Truck Operator Relationship Specialty Start Date End Date Krishna Rosales MD [address] [place], [place] [id number] PCP - General FAMILY PRACTICE 10/12/20
--- OUTSIDE RECORDS SUMMARY | 2025-01-29 10:23 | XMS_ITS | Encounter Summary ---
Author Organization [facility] Address [facility] [place] [address] Care Team Providers Care Cooler Supervisor Name Role Phone Darlin Perez CRNA Primary Care Provider Unav ailable Krishna Rosales MD Primary Care Provider [phone] Krsihna Rosales MD Primary Care Provider [phone] Encounter Details Date Type Department Care Team (Late st Contact Info) Description 08/21/2014 Abstract [facility] CONVERSION [address] [place] [address] , Generic ConversionMD Social History Tobacco Use Types Packs/Day Years Used Date Smoking Tobacco: Never Assessed Sex and Gender Information Value Date Recorded Sex Assigned at Not on file Legal Sex Male 7:55 PM CDT Gender Identity Not on file Sexual Orientation Not on file documented as of this encounter Plan of Treatment Not on file documented as of this encounter Visit Diagnoses Not on filedocumented in this encounter Care Teams Cooler Supervisor Relationship Specialty Start Date End Date Darlin Perez CRNA PCP - General ANESTHESIOLOGY 03/08/20 10/04/20 Krishna Rosales MD [address] [address] PCP - General FAMILY PRACTICE 10/05/20 10/05/20 Krishna Rosales [place] [address] [address] PCP - General FAMILY PRACTICE 10/12/20 documented as of this encounter
--- OUTSIDE RECORDS SUMMARY | 2025-01-29 10:29 | XMS_ITS ---
Author Organization [facility] Address [address] [place] [address] Care Team Providers Care Independent Contractor Name Role Phone Delmi Peace RN Unavailable [phone] Krishna Rosales MD Primary Care Provider [phone] [facility] Un[facility] [phone] Mame Cast MD Unavailable [phone] Wilbur Angel MD Unavailable [phone] Tong Dubose MD Unavailable [phone] Transplant Episode Kidney Recipient [facility] ([place], [place]) [facility] Organ Received: Left Kidney Transplanted on 10/15/2015 Marked as Active Follow-up on 10/15/2015 Kidney CoordinatorMiross Peace RN Fax: N/A Email: N/A [place] Organ Diagnosis Organ Primary Contributory Kidney Renal Cell Carcinoma Retransplant Diagnosis Organ Primary Contributory Kidney Renal Cell Carcinoma Donor Information Organ ABO Source Meets Risk Criteria HLA Match Mismatches Cross Match Left Kidney Transplanted B Positive Live A: B: DR: Left Kidney Donor Serology Results Anti-CMV CMV IgG: Positive EBV IgG EBV VCA IgG: Positive Anti-HBcAb HBC Total: Negative HBsAg No results on file HBV DNA No results on file Anti-HCV HCV Ab: Negative Anti-HIV I/II HIV Ag/Ab Combo Assay: Nonreactive Anti-HTLV I/II No results on file RPR/VDRL RPR: Nonreactive EBV IgM No results on file HBsAb HBsAb: Negative EBNA No results on file SARS CoV-2 No results on file Care Team Name Role Phone Fax Email Delmi Peace RN Kidney Coordinator [phone] N/A N/A Lisa Pro, AFTAB Secondary Coordinator Secondary Kidney Coordinator [phone] N/A N/A Delmi Peace RN Blanket Folder [phone] N/A N/A Mackenzie Valdes Primary Bundle Wrapper N/A N/A N/A Nathalie Ospina [employer] [phone] N/A N/A Michelle Xiao Secondary Bundle Wrapper N/A N/A N/A Events Post-Transplant Pre-Transplant Admitted: 10/15/2015 Referred: 09/04/2014 Transplanted: 10/15/2015 Evaluation began: 4 Discharged: 10/22/2015 Center waitlisted: 5 Dialysis History Dialysis History Start End Type Comments Center 06/11/2015 10/15/2015 Hemo TTS [facility] D[facility] Information Center Phone Fax Address [facility] [phone] [address] [address]
--- OUTSIDE RECORDS SUMMARY | 2025-01-29 10:29 | XMS_ITS ---
Author Organization [facility] Address [address] [place] [address] Care Team Providers Care Steam Distribution Supervisor Name Role Phone Delmi Peace RN Unavailable [phone] Krishna Rosales MD Primary Care Provider + [phone] [facility] Unavailable [phone] Mame Cast MD Unavailable [phone] Wilbur Angel MD Unavailable [phone] Tong Dubose MD Unavailable [phone] Active Problems Patient Care Coordination No te Formatting of this note migh t be different from the original. 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 He demonstrates excellent healing and has been released from my care and has been instructed to continue comprehensive eye care as scheduled. Assessment & Plan (01/26/2023 9:05 PM CDT): Recurrent left lower lid (LLL) ectropion. Risks, benefits and alternatives were discussed. Risks included but were not limited to pain, infection, bleeding, scarring, eyelid asymmetry, need for additional procedures, and anesthetic morbidity. Following this discussion, the patient wishes to proceed with left lower lid (LLL) ectropion repair with full thickness skin graft. We will schedule this in the near future. Assessment & Plan (10/04/2022 6:32 PM COIN BOX COLLECTOR): Los Shultz is doing well after Left Lower Eyelid Ectropion Repair With Full Thickness Skin Graft - Left on 07/03/2022. He demonstrates excellent healing and has been released from my care and has been instructed to follow up in 4 months. Assessment & Plan (08/20/2022 5:21 PM CDT): Los Shultz is doing well after Left Lower Eyelid Ectropion Repair With Full Thickness Skin Graft - Left on 07/03/2022. He demonstrates excellent healing but demonstrates evidence of nasolacrimal duct (NLD) obstruction. We will trial pred forte (PF) and flonase and he will return in 1 month. Assessment & Plan (07/14/2022 10:49 PM CDT): Los Shultz is doing well after surgery. Continue topical ointment to incisions 1-2 times a day for 1 week or until crusting has resolved. He has been instructed to call for any concerns and will return to clinic for follow up in 4 weeks. 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 Risks, benefits and alternatives were discussed. Risks included but were not limited to pain, infection, bleeding, scarring, eyelid asymmetry, need for additional procedures, and anesthetic morbidity. Following this discussion, the patient wishes to proceed with left lower eyelid ectropion repair with full thickness skin graft. We will schedule this in the near future. 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 D/c vanc/cefepime Iron deficiency anemia 02/07/2021 Overview (02/07/2021): Added automatically from request for surgery [id number] Abnormal finding on GI tract imaging 02/07/2021 Overview (02/07/2021): Added automatically from request for surgery [id number] Metastasis to bone 01/20/2021 Head and neck cancer 01/17/2021 Tingling in extremities 01/13/2021 Overview (01/13/2021): Patient reporting 2-3 sujey hx of shock like onset of tingling to the b/l UEs. He reports the tingling travels down his posterior neck to the b/l arms and down to all fingers. It happens several times per hour but last only several seconds. He most notices this when he is sitting and stretches out his arms such as when driving. Over the past month he has noticed a similar sensation travelling from his lower back to his b/l legs down to his toes most notable when he hunches over when walking. He thinks there may be a slight weakness of the b/l UEs starting may be one month ago. His LEs are within normal limits. No changes to his gait. No bladder/bowel incontinence. Denies any numbness. Assessment & Plan (01/13/2021 8:03 PM COIN BOX COLLECTOR): Please note patient with noted C1 vertebral body metastatic involvement dating back to PET/CT on 10/2020 which was not seen on prior scan 03/2020. Most recent PET was notable for NEW L2 vertebral body involvement in addition to increased avidity of the noted C1 lesion. -Dex 10mg IV x once on arrival -f/u total spine MRI -Dex 4mg PO q6hrs until MRI results and ortho/spine recs -Hold home Pred 4 given steroids as above -ortho spine consult in AM, given stability can await to call team in AM -Rad Onc c/s in AM Assessment & Plan (01/13/2021 8:01 PM COIN BOX COLLECTOR): Please note patient with noted C1 vertebral body metastatic involvement dating back to PET/CT on 10/2020 which was not seen on prior scan 03/2020. Most recent PET was notable for NEW L2 vertebral body involvement in addition to increased avidity of the noted C1 lesion. -Dex 10mg IV x once on arrival -f/u total spine MRI -Dex 4mg PO q6hrs until MRI results and ortho/spine recs -Hold home Pred 4 given steroids as above -ortho spine consult in AM, given stability can await to call team in AM -Rad Onc c/s in AM History of recurrent deep vein thrombosis (DVT) 01/13/2021 Overview (01/15/2021): Hx of DVT dating back to 2009 s/p IVC filter. 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 Has been Eliquis for several years at this time. Last Eliquis dose on AM of 01/13/21 Assessment & Plan (03/19/2021 2:59 PM CDT): - Hx of thrombophilia - RLE duplex: There is chronic deep vein thrombosis (post-thrombotic changes) in the right lower extremity. Superficial vein thrombus in the right lower extremity - c/w apixaban. dvt is chronic and unclear which agent patient was on when this occurred. Assessment & Plan (01/15/2021 5:09 PM COIN BOX COLLECTOR): -hold home Eliquis in s/o possible surgical intervention -Heparin gtt -Resuming Eliquis as ortho spine recommends non-operative management Assessment & Plan (01/13/2021 7:48 PM COIN BOX COLLECTOR): -hold home Eliquis in s/o possible surgical intervention -Heparin gtt -can be restarted on home eliquis if surgical teams note no surgical indication Renal transplant recipient 01/13/2021 Overview (01/13/2021): End-stage renal disease secondary to unknown etiology [...] hx of BK viremia. Baseline sCr 1.4-1.6. Assessment & Plan (03/20/2021 2:56 PM CDT): -tacro level 4.4, but not true trough -resume home tacro, continue home pred 5 qAM. Check true 24 hour trough, lvl is 1.9. Will not adjust at this time Assessment & Plan (01/13/2021 8:09 PM COIN BOX COLLECTOR): -continue home Tacro XR 1mg PO daily -Goal Tacro trough in the s/o acitve cancer 2-3 -check AM tacro level on 01/14, ~ 30min-1hr prior to Tacro dosing -home pred held given steroids as elsewhere -on arrival sCr 1.69 and thus at baseline -May require renal transplant involvement if increasing sCr noted on daily labs -Monitor Is/Os Assessment & Plan (01/13/2021 7:55 PM COIN BOX COLLECTOR): -continue home Tacro 1PO BID -Goal Tacro trough in the s/o acitve cancer 2-3 -check AM tacro level on 01/14 -home pred held given steroids as elsewhere -on arrival sCr 1.69 and thus at baseline -May require renal transplant involvement if increasing sCr noted on daily labs -Monitor Is/Os 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 Squamous cell carcinoma of s kin of unspecified parts of face 04/09/2020 Overview (01/13/2021): History of multiple basal cell carcinomas and [...] dissection with path showing LN+ disease in 1/15 LNs -> adjuvant RT from 05/13/20 - [...] was started on Pembrolizumab (C3 on 12/23/20). Assessment & Plan (01/15/2021 5:09 PM COIN BOX COLLECTOR): -01/10 PET scan notable for diffuse and [...] now - and plan for Xgeva outpatient Assessment & Plan (01/13/2021 7:40 PM COIN BOX COLLECTOR): -01/10 PET scan notable for diffuse and severe disease progression. -Most relevant to this admission is noted NEW osseous metastases within the right 7th rib, right T7 transverse process, L2 vertebral body, new erosion of the left posterior 9th and 10th ribs, and increased avidity of a C1 vertebral body lesion. -Per Dr. Angel note from 01/13/21 plan is for Carbo/Cetuximab inpatient if possible -given noted plan for possible inpatient chemo will plan [facility] this admission - and plan for Xgeva outpatient Anemia 06/16/2019 Essential hypertension 06/16/2019 Assessment & Plan (01/13/2021 8:05 PM COIN BOX COLLECTOR): -continue home Lisinopril 10 -Continue home Coreg 25BID Assessment & Plan (01/13/2021 8:00 PM COIN BOX COLLECTOR): -continue home Coreg 25BID -continue home Lisinopril 10 daily Increased infection risk sta tus post immunosuppressive therapy 06/16/2019 Dyslipidemia 06/16/2019 Assessment & Plan (01/13/2021 8:05 PM COIN BOX COLLECTOR): -continue home Crestor Assessment & Plan (01/13/2021 8:00 PM COIN BOX COLLECTOR): -continue home Atorva 40 QHS High risk medications (not anticoagulants) long- term use 12/10/2017 Dyslipidemia 12/10/2017 Localized retinal edema 07/06/2017 Central serous chorioretinopathy 06/22/2017 Vitreous syneresis 06/22/2017 Anticoagulated on warfarin 12/26/2015 Lymphocele 11/20/2015 Abdominal fluid collection 11/06/2015 Aftercare following organ transplant 11/05/2015 Immunosuppression 11/05/2015 History of kidney transplant 11/05/2015 Renal cell carcinoma 06/28/2015 Anemia due to chronic kidney disease 03/11/2015 Hyperparathyroidism due to renal insufficiency 0 03/11/2015 Stage 5 chronic kidney disease 03/11/2015 End-stage renal disease 11/21/2014 Renal mass 04/03/2014 Hypertension 04/03/2014 Well child visit 03/29/2014 Current Treatment and Therapy Plans Hydration Therapy Plan & IV MAINTENANCE THERAPY PLAN* Plan Start Date:04/07/2021 Plan Provider:Wilbur Angel MD Linked Problems Head and neck cancer (HCC) Treatment Medications No medications scheduled. Past Treatment and Therapy Plans Oncology Chemotherapy Treatment Plan Name Start Date Discontinue Date Treatment Medications Discontinue Reason Plan Provider Cycles Pembrolizumab 21 Day Cycles 11/11/20 20 03/31/2021 pembrolizumab (KEYTRUDA)pembr olizumab (KEYTRUDA) IVPB in 100 mL Provider Discretion Wilbur Angel MD 3 of 24 cycles started Oncology Supportive Care Plan Name Start Date Discontinue Date Treatment Medications Discontinue Reason Plan Provider Denosumab (XGEVA) Injection 01/20/2021 01/25/2024 No medications scheduled. Automatic discontinuation of dormant plans Wilbur Angel MD Oncology Treatment (2) Plan Name Start Date Discontinue Date Treatment Medications Discontinue Reason Plan Provider Cycles CARBOplatin / Cetuximab 21 Day, Cetuximab only starting C7 01/20/2021 10/11/2023 CARBOplatin (PARAPLATIN)CA RBOplatin (PARAPLATIN) IVPB in 250 mLcetuximab (ERBITUX) Therapy Complete Wilbur Angel MD 40 of 41 cycles started Radiation Treatments * Course C3_[id number]_22 07/13/2022 - 08/10/2022 Treatment Period Energy Fraction Dose Fractions Total Dose Plans Planned RT CHEEK 07/13/2022 - 08/10/2022 250 20 / 5,000 Reference Points Delivered PTV_5000 07/13/2022 - 08/10/2022 5,000 * Course C2_C_spine_202002/17/2021 - 06/25/2022 Treatment Period Energy Fraction Dose Fractions Total Dose Plans Planned SBRT C1 SPINE 02/17/2021 - 06/25/2022 700 5 / 3,500 Reference Points Delivered PTV_C1 02/17/2021 - 06/25/2022 3,500 * Course C1 HN 201905/13/2020 - 02/17/2021 Treatment Period Energy Fraction Dose Fractions Total Dose Plans Planned LT PAROTID 05/13/2020 - 02/17/2021 200 15 / 6,600 RESC LT PAROT 06/04/2020 - 02/17/2021 275 1 / 5,500 RESC LT PAROT:1 06/05/2020 - 02/17/2021 275 19 / 5,225 Reference Points Delivered LT PAROTID_NECK 05/13/2020 - 02/17/2021 3,000 RESCAN HN 06/04/2020 - 02/17/2021 5,500 Lifetime Dose Tracking * Chemical Lifetime Dose Automatic Entry Manual Entr y Fluoro Time 0.6 minutes 0.6 minutes 0 minutes Air kerma at the reference point (Ka,r) 2 mGy 2 mGy 0 mGy DLP 18,810.3 mGycm 18,810.3 mGycm 0 mGycm Resolved Problems Problem Noted Date Diagnosed Date Resolved Date Encounter for aftercare foll owing kidney transplant 06/10/2018 01/13/2021 Kidney replaced by transplant 06/10/2018 01/13/2021 Encounter for long-term (cur rent) use of high-risk medication 06/10/2018 01/13/2021
--- OUTSIDE RECORDS SUMMARY | 2025-01-29 10:29 | XMS_ITS | Encounter Summary ---
Author Organization [facility] Address [address] [place] [address] Phone Care Team Providers Care Material Expeditor Name Role Phone Delmi Peace RN Unavailable [phone] Krishna Rosales MD Primary Care Provider + [phone] [phone] Unavailable [phone] Mame Cast MD Unavailable [phone] Wilbur Anegl MD Unavailable [phone] Nicole Grijalva MD Unavailable [phone] Tong Dubose MD Unavailable [phone] Encounter Details Date Type Department Care Team (Late st Contact Info) Description 06/04/2022 Orders Only [facility] Scanning, Provider Social History Tobacco Use Types Packs/Day Years Used Date Smoking Tobacco: Never Smokeless Tobacco: Never Alcohol Use Standard Drinks/Week Comments Yes 0 (1 standard drink = 0.6 oz pur e alcohol) 4 x week AUDIT-C Answer Date Recorded Q1: How often do you have a drink containing alc ohol? 2-3 times a week 05/07/2022 Q2: How many drinks containi ng alcohol do you have on a typical day when you are drinking? 1 or 2 05/07/2022 Q3: How often do you have si x or more drinks on one occasion? Never 05/07/2022 Sex and Gender Information Value Date Recorded Sex Assigned at Not on file Legal Sex Male 1:23 AM RN LABOR AND DELIVERY Gender Identity Male 07/03/2022 5:22 AM CDT Sexual Orientation Straight 12/01/2020 8: 14 PM RN LABOR AND DELIVERY documented as of this encounter Plan of Treatment Not on file documented as of this encounter Procedures Procedure Name Priority Date/Time Associated Diagnosis Comments SCAN - LABS 06/04/2022 documented in this encounter Results * SCAN - LABS (06/04/2022) us Provider Scanning Edited Result - Final documented in this encounter Visit Diagnoses Not on filedocumented in this encounter Care Teams Material Expeditor Relationship Specialty Start Date End Date Krishna Rosales MD [address] [place] [address] PCP - General Family Medicine 06/16/19 Delmi Peace RN [address] [place] [address] Bundler Seasonal Greenery 04/12/18 Smooth Simpson MD [address] [place] [address] Plastic Surgeon Plastic Surgery 04/05/20 Mame Cast MD [address] [place] [address] Radiation Oncologist Radiation Oncology 05/23/20 Wilbur Angel MD [address] [facility] [address] [place] [address] Medical Oncologist/Cardiology Coordinator Medical Oncology 10/24/20 Nicole Grijalva MD [address] [facility] [address] [place] [address] Radiation Oncologist Radiation Oncology 02/05/21 Tong Dubose MD [address] [facility] DEPT OTOLARYNGOLOGY, [address] [address] Surgeon Otolaryngology 06/11/22 documented as of this encounter
--- OUTSIDE RECORDS SUMMARY | 2025-01-29 10:29 | XMS_ITS | Encounter Summary ---
Author Organization [facility] Address [address] [place] [address] Care Team Providers Care Information Clerk Cashier Name Role Phone Delmi Peace RN Unavailable [phone] Krishna Rosales MD Primary Care Provider + [phone] [facility] Un[facility] [phone] Tatyana Up MD Unavailable [phone] Mame Cast MD Unavailable [phone] Wilbur Angel MD Unavailable [phone] Bhavesh Montana MD Unavailable [phone] Nicole Grijalva MD Unavailable [phone] Miscellaneous, Not In File Unavailable Unava ilable Tong Dubose MD Unavailable [phone] Encounter Details Date Type Department Care Team (Late st Contact Info) Description 04/25/2020 Telephone [facility] Imaging [address] [place] [address] Pj Rush, RT Social History Tobacco Use Types Packs/Day Years Used Date Smoking Tobacco: Never Smokeless Tobacco: Never Alcohol Use Standard Drinks/Week Comments Yes 0 (1 standard drink = 0.6 oz pur e alcohol) 4 x week Sex and Gender Information Value Date Recorded Sex Assigned at Not on file Legal Sex Male 1:23 AM BILLING CLINICIAN Gender Identity Male 07/03/2022 5:22 AM CDT Sexual Orientation Straight 12/01/2020 8: 14 PM BILLING CLINICIAN documented as of this encounter Plan of Treatment Not on file documented as of this encounter Visit Diagnoses Not on filedocumented in this encounter Care Teams Information Clerk Cashier Relationship Specialty Start Date End Date Krishna Rosales MD [address] [place] [address] PCP - General Family Medicine 06/16/19 Delmi Peace, AFTAB [address] [place] [address] Sequins Winder 04/12/18 [facility] [address] [place] [id number] Plastic Surgeon Plastic Surgery 04/05/20 Tatyana Up MD [address] [place] [id number] Radiation Oncologist Radiation Oncology 04/26/20 Mame Cast MD [address] [place] [id number] Radiation Oncologist Radiation Oncology 05/23/20 Wilbur Angel MD [address] [facility] [address] [place] [address] Medical Oncologist/Fire Control Officer Medical Oncology 10/24/20 Bhavesh Montana MD [address] [place] [address] Consulting Physician Radiation Oncology 01/14/21 Nicole Grijalva MD [address] [facility] [address] [place] [address] Radiation Oncologist Radiation Oncology 02/05/21 Miscellaneous, Not In File 03/20/21 04/13/22 Tong Dubose MD [address] [facility] DEPT OTOLARYNGOLOGY, [address] [address] Surgeon Otolaryngology 06/11/22 documented as of this encounter
--- OUTSIDE RECORDS SUMMARY | 2025-01-29 10:29 | XMS_ITS | Encounter Summary ---
Author Organization [facility] Address [address] [place] [address] Phone Care Team Providers Care Upholstery Repairer Name Role Phone Delmi Peace RN Unavailable [phone] Krishna Rosales MD Primary Care Provider + [phone] [facility] Unavailable [phone] Mame Cast MD Unavailable [phone] Wilbur Angel MD Unavailable [phone] Tong Dubose MD Unavailable [phone] Encounter Details Date Type Department Care Team (Late st Contact Info) Description 01/12/2025 Results Follow-Up [facility] Dermatology [address] [facility] [address] [place] [address] Shiva Luong MD [address] [facility] [address] [place] [address] Social History Tobacco Use Types Packs/Day Years Used Date Smoking Tobacco: Never Smokeless Tobacco: Never Alcohol Use Standard Drinks/Week Comments Yes 0 (1 standard drink = 0.6 oz pur e alcohol) 4 x week AUDIT-C Answer Date Recorded Q1: How often do you have a drink containing alcohol? 4 or more times a week 07/09/2023 Q2: How many drinks containi ng alcohol do you have on a typical day when you are drinking? 1 or 2 Q3: How often do you have si x or more drinks on one occasion? Never 07/09/2023 Personal Safety Answer Date Recorded Have you ever been in or are you currently in a harmful physical or emotional relationship or is someone making you feel afraid or unsafe? Denies 07/09/2023 Sex and Gender Information Value Date Recorded Sex Assigned at Not on file Legal Sex Male 1:23 AM CANVAS SHOP LABORER Gender Identity Male 07/03/2022 5:22 AM CDT Sexual Orientation Straight 12/01/2020 8: 14 PM CANVAS SHOP LABORER documented as of this encounter Miscellaneous Notes * Result Encounter Note - Shiva Luong MD - 01/12/2025 8:10 AM CANVAS SHOP LABORER Called and LVM with results. Please call and schedule mohs. Thanks! AS SHOP LABORER documented in this encounter Plan of Treatment Not on file documented as of this encounter Visit Diagnoses Not on filedocumented in this encounter Care Teams Upholstery Repairer Relationship Specialty Start Date End Date Krishna Rosales MD [address] [address] PCP - General Family Medicine 06/16/19 Delmi Peace RN [address] [address] Waste Management Specialist 04/12/18 Smooth Simpson MD [address] [place] [address] Plastic Surgeon Plastic Surgery 04/05/20 Mame Cast MD [address] [place] [address] Radiation Oncologist Radiation Oncology 05/23/20 Wilbur Angel MD [address] [facility] [address] [place] [address] Medical Oncologist/Car Ferry Captain Medical Oncology 10/24/20 Tong Dubose MD [address] [facility] DEPT OTOLARYNGOLOGY, [address] [place] [address] Surgeon Otolaryngology 06/11/22 documented as of this encounter
--- OUTSIDE RECORDS SUMMARY | 2025-01-29 10:29 | XMS_ITS | Referral Summary ---
Author Organization [facility] Address [address] [place] [address] Care Team Providers Care Aviation Ordnance Officer Name Role Phone Delmi Peace RN Unavailable [phone] Krishna Rosales MD Primary Care Provider [facility] BoulevardSmooth brock MD Unavailable [phone] Mame Cast MD Unavailable [phone] Wilbur Angel MD Unavailable [phone] Tong Dubose MD Unavailable Encounters Date Type Department Care Team Description 01/15/2025 Documentation [facility] Oncology [address] [facility] [address] [place] [phone] Sachin Pretty RN creatinine result 01/12/2025 Orders Only [facility] Nephrology [address] [facility] 5th [place] [address] [place] [address] Oleksandr Rice MD 01/12/2025 Results Follow-Up [facility] Dermatology [address] [facility] [address] [place] [address] Shiva Luong MD 01/09/2025 Orders Only [facility] [address] [place] [address] Shiva Luong MD Neoplasm of uncertain behavior of skin 01/09/2025 8:00 AM REHAB AID Office Visit [facility] Dermatology [address] [facility] [address] [place] [address] Shiva Luong MD Neoplasm of uncertain behavior of skin (Primary Dx); Actinic keratosis; Seborrheic keratoses; Multiple melanocytic nevi; History of nonmelanoma skin cancer; History of immunosuppressive therapy; High risk medications (not anticoagulants) long-term use; Actinic skin damage 01/08/2025 12:00 PM REHAB AID Lab [facility] [place] - Lab Collection [address] [facility] Floor 6 [place] [address] Squamous cell carcinoma of skin of unspecified parts of face; Head and neck cancer (HCC) 01/08/2025 1:40 PM REHAB AID Office Visit [facility] Oncology [facility] Floor 6 [place] [address] Wilbur Angel MD Head and neck cancer (HCC) 01/08/2025 11:45 AM REHAB AID Lab [facility] Oncology Lab [address] [facility] Floor 6 [place] [address] Head and neck cancer (HCC) 01/08/2025 10:08 AM REHAB AID - 01/08/2025 11:59 PM [facility] Hospital Encounter [facility] [address] [place] [address] Head and neck cancer (HCC) Discharge Disposition: Discharge to home or self care 01/01/2025 Orders Only [facility] Oncology [address] [facility] [address] [place] [address] Wilbur Angel MD Squamous cell carcinoma of skin of unspecified parts of face (Primary Dx) 12/05/2024 Orders Only [facility] Nephrology [address] [facility] 5th [place] [address] [place] [address] Oleksandr Rice MD 11/08/2024 Telephone [facility] Transplant Kidney [address] [facility] [address] Mailstop [phone] [place] [address] Niki Mathews RN After Hours; Abnormal Lab (/) 11/06/2024 Orders Only [facility] Nephrology [address] [facility] 5th [place] [address] [place] [address] Oleksandr Rice MD 11/02/2024 Telephone [facility] [address] [facility] [address] Mailstop [phone] [place] [address] Delmi Peace RN from Last 3 Months Allergies Active Allergy Reactions Criticality Noted Date Comments Iodinated Contrast Media Other (See comments) High 01/08/2025 RENAL TRANSPLANT - NO CONTRAST Medications cholecalciferol (VITAMIN D-3) 2,000 unit tabletIndications:P revention of Vitamin D Deficiency Take 1 tablet (2,000 Units total) by mouth blood collector before breakfast 015 Active ferrous sulfate 325 mg (65 mg of elemental iron) tabletIndications:I yohannes Deficiency Anemia Take 1 tablet (325 mg total) by mouth daily with breakfast Active acetaminophen (TYLENOL) 500 mg tablet Take 2 tablets (1,000 mg total) by mouth every 6 (six) hours as needed for pain For postoperative pain. 120 tablet 1 022 Active aspirin 81 mg enteric coated tabletIndications:p revention of thrombosis Take 1 tablet (81 mg total) by mouth every morning 006 Active apixaban (ELIQUIS) 5 mg tabletIndications:V enous Thrombosis Take 1 tablet (5 mg total) by mouth 2 (two) times a day 022 Active calcium carbonate (OS-KACIE) 1,500 mg (600 mg elemental) tabletIndications:H ypocalcemia Prevention Take 1 tablet (1,500 mg total) by mouth nightly Active clindamycin (CLEOCIN T) 1 % external solution Apply two times daily as needed to scalp for pustular rash 60 mL 3 023 Active mupirocin (BACTROBAN) 2 % ointmentIndications :Minor Bacterial Skin Infections Apply topically 3 (three) times a day 22 g 2 023 Active white petrolatum-mineral oiL ointment Apply 1 Application to left eye nightly 3.5 g 023 Active tamsulosin (FLOMAX) 0.4 mg extended release capsule Take 1 capsule by mouth once daily 90 capsule 3 024 Active omeprazole (PriLOSEC) 40 mg capsule Take 1 capsule by mouth in the morning 90 capsule 3 024 Active acitretin (SORIATANE) 25 mg capsuleIndications: History of immunosuppressive therapy,AK (actinic keratosis),History of nonmelanoma skin cancer,High risk medications (not anticoagulants) long-term use Take 2 capsules (50 mg total) by mouth daily 30 capsule 3 024 Active fluorouraciL (EFUDEX) 5 % cream Apply 2 times daily (once in AM, once in PM) to areas on left side of face and right ear for 14days 40 g 2 024 Active atorvastatin (LIPITOR) 80 mg tablet Take 1 tablet by mouth nightly 90 tablet 3 024 Active sirolimus (RAPAMUNE) 1 mg tabletIndications:i mmunosuppression Take 1 tablet (1 mg total) by mouth daily 30 tablet 11 024 10/11 Active hydrALAZINE (APRESOLINE) 25 mg tablet TAKE 3 TABLETS BY MOUTH THREE TIMES DAILY 270 tablet 11 024 Active carvediloL (COREG) 25 mg tablet Take 1 tablet by mouth twice daily 180 tablet 3 024 Active predniSONE (DELTASONE) 5 mg tablet Take 1 tablet by mouth once daily 90 tablet 3 025 Active predniSONE (DELTASONE) 5 mg tablet Take 1 tablet by mouth once daily 90 tablet 3 024 01/09 Discontinued Active Problems Patient Care Coordination No te Formatting of this note migh t be different from the original. Goal Sirolimus levels should be 4-6 [facility] [phone], [phone] Standing orders q-monthly, PT/INR, Sirolimus q3-Routine Exp.05/06/[phone] Problem Noted Date Diagnosed Date SCC (squamous [...] future. Assessment & Plan (10/04/2022 6:32 PM REHAB AID): Los Shultz is doing well after Left [...] (04/29/2021): Added automatically from request for surgery [id number] Cellulitis of leg, right 03/18/2021 Assessment & [...] (02/07/2021): Added automatically from request for surgery [id number] Abnormal finding on GI tract imaging 02/07/2021 Overview (02/07/2021): Added automatically from request for surgery [id number] Metastasis to bone 01/20/2021 Head and neck [...] numbness. Assessment & Plan (01/13/2021 8:03 PM REHAB AID): Please note patient with noted C1 vertebral [...] AM Assessment & Plan (01/13/2021 8:01 PM REHAB AID): Please note patient with noted C1 vertebral [...] time. Last Eliquis dose on AM of 3/1/21 Assessment & Plan (03/19/2021 2:59 PM CDT): - Hx of thrombophilia - RLE duplex: There is chronic deep vein thrombosis (post-thrombotic changes) in the right lower extremity. Superficial vein thrombus in the right lower extremity - c/w apixaban. dvt is chronic and unclear which agent patient was on when this occurred. Assessment & Plan (01/15/2021 5:09 PM REHAB AID): -hold home Eliquis in s/o possible surgical intervention -Heparin gtt -Resuming Eliquis as ortho spine recommends non-operative management Assessment & Plan (01/13/2021 7:48 PM REHAB AID): -hold home Eliquis in s/o possible surgical [...] time Assessment & Plan (01/13/2021 8:09 PM REHAB AID): -continue home Tacro XR 1mg PO daily -Goal Tacro trough in the s/o acitve cancer 2-3 -check AM tacro level on 01/14, ~ 30min-1hr prior to Tacro dosing -home pred held given steroids as elsewhere -on arrival sCr 1.69 and thus at baseline -May require renal transplant involvement if increasing sCr noted on daily labs -Monitor Is/Os Assessment & Plan (01/13/2021 7:55 PM REHAB AID): -continue home Tacro 1PO BID -Goal Tacro [...] (04/09/2020): Added automatically from request for surgery [id number] Metastatic squamous cell carcinoma to parotid gl and 04/09/2020 Cancer Staging:Pathologic stage from 04/15/2020:Stage IV(rpT3, pN2a, cM0) - Signed by Tatyana Up MD on 04/29/2020 Overview (04/09/2020): Added automatically from request for surgery [id number] Assessment & Plan (03/18/2021 1:44 PM CDT): [...] 12/23/20). Assessment & Plan (01/15/2021 5:09 PM REHAB AID): -01/10 PET scan notable for diffuse and [...] outpatient Assessment & Plan (01/13/2021 7:40 PM REHAB AID): -01/10 PET scan notable for diffuse and [...] 06/16/2019 Assessment & Plan (01/13/2021 8:05 PM REHAB AID): -continue home Lisinopril 10 -Continue home Coreg 25BID Assessment & Plan (01/13/2021 8:00 PM REHAB AID): -continue home Coreg 25BID -continue home Lisinopril 10 daily Increased infection risk sta tus post immunosuppressive therapy 06/16/2019 Dyslipidemia 06/16/2019 Assessment & Plan (01/13/2021 8:05 PM REHAB AID): -continue home Crestor Assessment & Plan (01/13/2021 8:00 PM REHAB AID): -continue home Atorva 40 QHS High risk [...] 04/03/2014 Hypertension 04/03/2014 Well child visit 03/29/2014 Resolved Problems Problem Noted Date Diagnosed Date Resolved Date Encounter for aftercare foll owing kidney transplant 06/10/2018 01/13/2021 Kidney replaced by transplant 06/10/2018 01/13/2021 Encounter for long-term (cur rent) use of high-risk medication 06/10/2018 01/13/2021 Immunizations Immunization Administration Dates Next Due Hep B, Dialysis 03/11/2015 Influenza, Quadrivalent, Hig h Dose, Preservative Free, Intrr 09/27/2020 Influenza, Quadrivalent, Spl it, Preservative Free, Intramuscular 08/21/2016,08/21/2015 Influenza, Trivalent, Preser vative Free, Intramuscular 12/10/2017 Influenza, Unspecified 12/10/2017,2015,08/21/2016,08/21 Moderna SARS-CoV-2 Monovalen t Vaccination (12+ YRS) 03/12/2021,02/05/2021,02/05/2021 Pneumococcal Conjugate PCV 13 03/11/2015 Tdap 09/02/2022 Social History Tobacco Use Types Packs/Day Years Used Date Smoking Tobacco: Never Smokeless Tobacco: Never Tobacco Cessation:Counseling Given: Not Answered Alcohol Use Standard Drinks/Week Comments Yes 0 [...] on file Legal Sex Male 1:23 AM REHAB AID Gender Identity Male 07/03/2022 5:22 AM CDT Sexual Orientation Straight 12/01/2020 8: 14 PM REHAB AID Last Filed Vital Signs Vital Sign Reading Time Taken Comments Blood Pressure 148/65 01/08/2025 12:44 PM REHAB AID Pulse 73 01/08/2025 12:44 PM REHAB AID Temperature 36.4 C (97.6 F) 01/08/2025 12:44 PM REHAB AID Respiratory Rate 18 10/09/2024 11:54 AM REHAB AID Oxygen Saturation 95% 01/08/2025 12:44 PM REHAB AID Inhaled Oxygen Concentration - - Weight 84.9 kg (187 lb 3.2 oz) 01/08/2025 12:44 PM REHAB AID Height 188 cm (6' 2 ) 10/09/2024 8:03 AM REHAB AID Body Mass Index 24.04 10/09/2024 8:03 AM REHAB AID Plan of Treatment Not on file Medical Devices Implanted Type Area Radiation Control Specialist Device Identifier Shelf Expiration Date Model / Serial / Lot [employer] [id number] Xcela 8fr 1.6mm 1 Lumen Power Injectable Attach Catheter Fill - [id number] Implanted:Qty: 1 on 09/18/2021 at [facility] [employer] 05/13/2026 [id number] / / [id number] Explanted Type Area Radiation Control Specialist Device Identifier Shelf Expiration Date Model / Serial / Lot Appian [id number] Clip Ligation Resolution 360 Ultra 235cm Braid Rotation Ctrl - [id number] Explanted:Qty: 1 on 04/22/2021 at [facility] [employer] 02/04/2024 [id number] / / [id number] [employer] [facility] [id number] Clip Ligation Resolution 360 Ultra 235cm Braid Rotation Ctrl - [id number] Explanted:Qty: 1 on 04/22/2021 at [facility] [employer] [facility] 02/04/2024 [id number] / / [id number] [facility] [id number] Clip Ligation Resolution 360 Ultra 235cm Braid Rotation Ctrl - [id number] Explanted:Qty: 1 on 04/22/2021 at [facility] [employer] [facility] 02/04/2024 [id number] / / [id number] [facility] [id number] Clip Ligation Resolution 360 Ultra 235cm Braid Rotation Ctrl - [id number] Explanted:Qty: 1 on 04/22/2021 at [facility] [employer] [facility] 02/04/2024 [id number] / / [id number] [facility] [id number] Clip Ligation Resolution 360 Ultra 235cm Braid Rotation Ctrl - [id number] Explanted:Qty: 1 on 04/22/2021 at [facility] [employer] [facility] 02/04/2024 [id number] / / [id number] Procedures Procedure Name Priority Date/Time Associated Diagnosis Comments SIROLIMUS LEVEL RANDOM Routine 01/12/2025 8:07 AM REHAB AID RENAL FUNCTION PANEL Routine 01/12/2025 8:07 AM REHAB AID CBC WITH AUTO DIFFERENTIAL Routine 01/12/2025 8:07 AM REHAB AID PROTIME-INR Routine 01/12/2025 8:07 AM REHAB AID COPY(IES) SENT TO: Routine 01/12/2025 8: 07 AM REHAB AID SURGICAL PATHOLOGY Routine 01/09/2025 12 :00 AM REHAB AID Neoplasm of uncertain behavior of skin EGFR Routine 01/08/2025 12:10 PM REHAB AID Head and neck cancer (HCC) DIFFERENTIAL AUTO Routine 01/08/2025 12: 10 PM REHAB AID Head and neck cancer (HCC) PHOSPHORUS Routine 01/08/2025 12:10 PM REHAB AID Squamous cell carcinoma of skin of unspecified parts of face MAGNESIUM Routine 01/08/2025 12:10 PM REHAB AID Head and neck cancer (HCC) THYROID FUNCTION CASCADE Routine 01/08/2025 12:10 PM REHAB AID Head and neck cancer (HCC) LACTATE DEHYDROGENASE Routine 01/08/2025 12:10 PM REHAB AID Head and neck cancer (HCC) COMPREHENSIVE METABOLIC PANEL Routine 01/08/2025 12:10 PM REHAB AID Head and neck cancer (HCC) CBC WITH AUTO DIFFERENTIAL Routine 01/08/2025 12:10 PM REHAB AID Head and neck cancer (HCC) CT CHEST ABDOMEN PELVIS W CONTRAST Schedule Routine, Read Routine (OP Routine) 01/08/2025 11:05 AM REHAB AID Head and neck cancer (HCC) CT SOFT TISSUE NECK W CONTRAST Schedule Routine, Read Routine (OP Routine) 01/08/2025 11:05 AM REHAB AID Head and neck cancer (HCC) POCT CREATININE - DEVICE Routine 01/08/2025 10:29 AM REHAB AID SIROLIMUS LEVEL RANDOM Routine 12/05/2024 7:54 AM REHAB AID CBC WITH AUTO DIFFERENTIAL Routine 12/05/2024 7:54 AM REHAB AID RENAL FUNCTION PANEL Routine 12/05/2024 7:54 AM REHAB AID HEPATIC FUNCTION PANEL, SERUM Routine 12/05/2024 7:54 AM REHAB AID LIPID PANEL Routine 12/05/2024 7:54 AM REHAB AID PROTIME-INR Routine 12/05/2024 7:54 AM REHAB AID COPY(IES) SENT TO: Routine 12/05/2024 7: 54 AM REHAB AID SIROLIMUS LEVEL RANDOM Routine 11/06/2024 7:58 AM REHAB AID TACROLIMUS, HIGHLY SENSITIVE, LC/MS/MS Routine 11/06/2024 7:58 AM REHAB AID RENAL FUNCTION PANEL Routine 11/06/2024 7:58 AM REHAB AID CBC WITH AUTO DIFFERENTIAL Routine 11/06/2024 7:58 AM REHAB AID PROTIME-INR Routine 11/06/2024 7:58 AM REHAB AID COPY(IES) SENT TO: Routine 11/06/2024 7: 58 AM REHAB AID COLONOSCOPY 04/22/2021 8:33 AM CDT SERUM HEPATITIS C AB Routine 09/30/2015 2:38 AM REHAB AID from Last 3 Months or Most Recently Relevant to Health Maintenance Results * COPY(IES) SENT TO: (01/12/2025 8:07 AM REHAB AID) COPY(IES) SENT TO: ALICE Comment: [facility] - COPY TO [facility] [address] [place] [address] 01/12/2025 8:07 AM REHAB AID 01/12/2025 8:08 AM REHAB AID Narrative [facility] - 01/16/2025 4:42 PM REHAB AID PAE us Oleksandr Rice MD LAB BLOOD ORDERABLES Final Resu lt [facility] * (ABNORMAL) CBC with auto differential (01/12/2025 8:07 AM REHAB AID) WBC 5.5 3.8 - 10.8 Thousand/u L [facility] RBC, POC 4.57 4.20 - 5.80 Million/uL [facility] Hgb 11.1(L) 13.2 - 17.1 g/dL [facility] Hct 36.4(L) 38.5 - 50.0 % [facility] MCV 79.6(L) 80.0 - 100.0 fL [facility] MCH 24.3(L) 27.0 - 33.0 pg [facility] MCHC 30.5(L) 32.0 - 36.0 g/dL [facility] Comment: For adults, a slight decrease in the calculated MCHC value (in the range of 30 to 32 g/dL) is most likely not clinically significant; however, it should be interpreted with caution in correlation with other red cell parameters and the patient's clinical condition. Rdw 13.7 11.0 - 15.0 % [facility] Platelets 236 140 - 400 Thousand/u L [facility] MPV 9.1 7.5 - 12.5 fL [facility] Neutrophils, abs 3,663 1,500 - 7,800 cells/uL [facility] Lymphocytes, abs 908 850 - 3,900 cells/uL [facility] Monocyte abs 611 200 - 950 cells/uL [facility] Eosinophils, abs 259 15 - 500 cells/uL [facility] Basophils, abs 61 0 - 200 cells/uL [facility] Neutrophils 66.6 % [facility] Lymphocyte pct 16.5 % [facility] Monocytes 11.1 % [facility] Eosinophils 4.7 % [facility] Basophils 1.1 % [facility] 01/12/2025 8:07 AM REHAB AID 01/12/2025 8:08 AM REHAB AID Narrative [facility] - 01/16/2025 4:42 PM REHAB AID PAE us Oleksandr Rice MD LAB BLOOD ORDERABLES Final Resu lt [facility] [address] [place] [address] * Sirolimus level random (01/12/2025 8:07 AM REHAB AID) Pathologist [facility] SIROLIMUS, LC/MS/MS 5.5 3.0 - 18.0 ng/mL [facility] Comment: This test was developed and its analytical performance characteristics have been determined by [employer]. It has not been cleared or approved by the FDA. This assay has been validated pursuant to the CLIA regulations and is used for clinical purposes. 01/12/2025 8:07 AM REHAB AID 01/12/2025 8:08 AM REHAB AID Narrative [facility] - 01/16/2025 4:42 PM REHAB AID PAE Result [facility] Oleksandr Rice MD LAB BLOOD ORDERABLES Final Resu lt Performing Organization Address [facility] Co de Phone Number [facility] [address] [place] [address] * Protime-INR (01/12/2025 8:07 AM REHAB AID) [facility] INR 1.0 [facility] Comment: Reference Range 0.9-1.1 Moderate-intensity Warfarin Therapy 2.0-3.0 Higher-intensity Warfarin Therapy 3.0-4.0 PT 10.7 9.0 - 11.5 sec [facility] Comment: For additional information, please refer to http://education.ScoreStream/faq/USH683 (This link is being provided for informational/ educational purposes only.) 01/12/2025 8:07 AM REHAB AID 01/12/2025 8:08 AM REHAB AID Narrative [facility] - 01/16/2025 4:42 PM REHAB AID PAE Oleksandr Rice MD LAB BLOOD ORDERABLES Final Resu lt Performing Organization Address City/[facility] Co de Phone Number [facility] [address] [place] [address] * (ABNORMAL) Renal function panel (01/12/2025 8:07 AM REHAB AID) [facility] Glucose 99 65 - 99 mg/dL [facility] Comment: Fasting reference interval BUN 25 7 - 25 mg/dL [facility] Creatinine 1.64(H) 0.70 - 1.35 mg/dL [facility] eGFR 46(L) > OR = 60 mL/min/1.7 3m2 [facility] BUN/creat ratio 15 6 - 22 (calc) [facility] Sodium 140 135 - 146 mmol/L [facility] Potassium, pl 4.3 3.5 - 5.3 mmol/L [facility] Chloride 104 98 - 110 mmol/L [facility] CO2 28 20 - 32 mmol/L [facility] Calcium 9.0 8.6 - 10.3 mg/dL [facility] Phosphorus, sr 2.8 2.1 - 4.3 mg/dL [facility] Albumin 4.0 3.6 - 5.1 g/dL [facility] 01/12/2025 8:07 AM REHAB AID 01/12/2025 8:08 AM REHAB AID Narrative [facility] - 01/16/2025 4:42 PM REHAB AID PAE us Oleksandr Rice MD LAB BLOOD ORDERABLES Final Resu lt [facility] [address] [place] [address] * Surgical pathology (01/09/2025 12:00 AM REHAB AID) Tissue (Skin, shave biopsy) 01/09/2025 01/09/2025 12:22 PM REHAB AID Narrative [facility] - 01/11/2025 4:28 PM REHAB AID EPIC results best viewed via link to PDF [facility] [address] [place] [address], [address], [place] [address] [email or web address] Note to Patients: This report may contain a detailed description of human tissue sent by a health care provider to the laboratory for pathologic evaluation. The content of this report is essential for diagnosis and may provide important critical findings. This information may be unfamiliar to patients to review without a medical professional present. It is advised that the patient review this report in the presence of a health care provider who can answer questions and explain the details. FINAL REPORT Patient Information: PATIENT NAME: LOS SHULTZ SEX: M : 1960 (Age: 64) Specimen Information: COLLECTED: 01/09/2025 RECEIVED: 01/09/2025 REPORTED: 01/11/2025 Submitting Physician Information: Shiva Luong M.D. Dermatology [place] [address] ([facility]), [address] [place] [address] [place] [address], DERMATOPATHOLOGY REPORT RESULTS DIAGNOSIS: SKIN, BASE OF RIGHT THUMB, SHAVE BIOPSY: SQUAMOUS CELL CARCINOMA, ACANTHOLYTIC TYPE exr/lac By this signature, I attest that the above diagnosis is based upon my personal examination of the slides(and/or other material indicated in the diagnosis). Ashely Shah M.D. Report Electronically Reviewed and Signed Out By Ashely Shah M.D. 01/11/2025 16:28:06 CLINICAL INFORMATION R/O SCC SPECIMEN DATA MICROSCOPIC DESCRIPTION: Atypical keratinocytes with abundant pink cytoplasms extend from the undersurface of the epidermis into the reticular dermis. There is acantholysis within the cellular aggregates. (C44.92) GROSS DESCRIPTION: Received in a formalin-containing bottle is a superficial fragment of pale martinez, finely scaling, and hair-bearing skin measuring 1.3 by 1.2 by 0.1 cm. The surgical margin is inked blue. The specimen bears a white, crusted, slightly raised area measuring 0.3 by 0.2 by 0.1 cm. The specimen is sectioned into 5 pieces and submitted entirely in a single cassette. Due to shrinkage, measurements may be different than those at the time of procedure. [facility] ICD-9 A; ZSD.1469 Clerical Data A; 33376 The characteristics of special, immunohistochemical, and immunofluorescence stains and in-situ hybridization tests performed by the [facility] were deemed acceptable in ongoing design quality engineer measures and in compliance with regulations drawn from the Clinical Laboratory Improvement Act rw5754 (CLIA '88). Control reactions for all stains performed were deemed adequate and appropriate by a pathologist prior to evaluation of patient tissue. Some diagnoses were rendered with the assistance of laboratory-developed tests utilizing analyte-specific reagents; the performance characteristic of these tests were determined by [facility] and are not cleared or approved by the [place] Food an Drug administration. Laboratory developed test may only be performed in a facility that is certified by the [facility] as a high-complexity laboratory under CLIA '88. These tests are used for clinical purposes and are not investigational. Shiva Luong MD LAB PATHOLOGY ORDERABL ES Final Result Performing Organization Address City/[facility]/ZIP Co de Phone Number [facility] [address] [place] [address] * (ABNORMAL) eGFR (01/08/2025 12:10 PM REHAB AID) eGFR 45(L) >=60 mL/min/1. 73 m2 Comment: Interpretive Data Reference Interval Normal >/= 90 mL/min/1.73m2 Mildly decreased* 60 - 89 mL/min/1.73m2 Mildly to moderately decreased 45 - 59 mL/min/1.73m2 Moderately to severely decreased 30 - 44 mL/min/1.73m2 Severely decreased 15 - 29 mL/min/1.73m2 Kidney Failure < 15 mL/min/1.73m2 *Relative to young adult level Estimated glomerular filtration rate is determined by the 2020 CKD-EPI equation recommended by the National Kidney Foundation (A Unifying Approach to GFR Estimation: Recommendations of the NKF-ASK Task Force on Reassessing the Inclusion of Race in Diagnosing Kidney Disease, JASN 2020). The CKD-EPI equation should not be used for patients with unstable renal function and has not been validated in children and those over 70. Current interpretive data was last reviewed 2021. Blood 01/08/2025 12:1 0 PM REHAB AID 01/08/2025 12:26 PM REHAB AID Pj Tobin NP LAB BLOOD ORDERABLES Susan l Result BOBBI RUIZ [facility] Department [place] [address] * (ABNORMAL) Differential, auto (01/08/2025 12:10 PM REHAB AID) Neutrophil abs 6.0 1.5 - 6.5 K/cumm Comment:Testing performed by : [facility], [address] [place] [phone] Lymphocyte abs 0.6(L) 0.8 - 3.3 K/cumm CERNER BJ Comment:Testing performed by : [facility], [address] [place], [place] [id number] Monocyte abs 0.3 0.2 - 0.8 K/cumm CERNER BJ Comment:Testing performed by : [facility], [address] [place] [phone] Eosinophil abs 0.1 0.0 - 0.5 K/cumm C[facility]ER BJ Comment:Testing performed by : [facility], [address] [place] [phone] Basophil abs 0.0 0.0 - 0.1 K/cumm CERNER BJ Comment:Testing performed by : [facility], [address] [place] [phone] Neutrophil pct 85.1 % [facility] BJ Comment: Interpretive Data Percent cell count reference ranges are not reported, since discordance with absolute values may lead to misinterpretation of CBC data. Current Interpretive Data was last revised on 2018. Testing performed by: [facility], [address] [place] [phone] Lymphocyte pct 7.9 % [facility] Comment: Interpretive Data Percent cell count reference ranges are not reported, since discordance with absolute values may lead to misinterpretation of CBC data. Current Interpretive Data was last revised on 2018. Testing performed by: [facility], [address] [place] [phone] Monocyte pct 4.8 % [facility] Comment: Interpretive Data Percent cell count reference ranges are not reported, since discordance with absolute values may lead to misinterpretation of CBC data. Current Interpretive Data was last revised on 2018. Testing performed by: [facility], [address] [place] [phone] Eosinophil pct 1.8 % [facility] Comment: Interpretive Data Percent cell count reference ranges are not reported, since discordance with absolute values may lead to misinterpretation of CBC data. Current Interpretive Data was last revised on 2018. Testing performed by: [facility], [address] [place] [phone] Basophil pct 0.4 % [facility] Comment: Interpretive Data Percent cell count reference ranges are not reported, since discordance with absolute values may lead to misinterpretation of CBC data. Current Interpretive Data was last revised on 2018. Testing performed by: [facility], [address] [place] [phone] Blood 01/08/2025 12:1 0 PM REHAB AID 01/08/2025 12:25 PM REHAB AID Pj Tobin NP LAB BLOOD ORDERABLES Susan l Result [facility] Department [place] [address] * Thyroid Function [place] (01/08/2025 12:10 PM REHAB AID) Pathologist [facility] TSH 2.36 0.30 - 4.20 mcIUnit/mL Blood 01/08/2025 12:1 0 PM REHAB AID 01/08/2025 12:26 PM REHAB AID Pj Tobin [employer]LEV[employer] LAB BLOOD ORDERABLES Susan l Result [facility] Department [place] [address] * (ABNORMAL) CBC with auto differential (01/08/2025 12:10 PM REHAB AID) WBC 7.1 3.8 - 9.9 K/cumm Comment:Testing performed by : [facility], [address] [place] [address] Hgb 11.1(L) 13.0 - 17.5 g/dL C[facility] BJ Comment:Testing performed by : [facility], [address] [place] [address] Hct 34.5(L) 38.9 - 50.3 % [facility] BJ Comment:Testing performed by : [facility], [address] [place], [place] [phone] Plt 243 150 - 400 K/cumm CERNER BJ Comment:Testing performed by : [facility], [address] [place], [place] [phone] MPV 6.9 6.8 - 10.4 fL [facility] Comment:Testing performed by : [facility], [address] [place] [address] RBC 4.66 4.30 - 5.80 M/cumm CERNER BJ Comment:Testing performed by : [facility], [address] [place] [address] MCV 74.1(L) 81.3 - 96.4 fL [facility]J Comment:Testing performed by : [facility], [address] [place], [place] [phone] MCH 23.8(L) 27.1 - 33.3 pg [facility] BJ Comment:Testing performed by : [facility], [address] [place] [address] MCHC 32.1(L) 32.3 - 35.7 g/dL [facility] Comment:Testing performed by : [facility], [address] [place] [address] RDW CV 15.7(H) 11.1 - 14.9 % [facility] Comment:Testing performed by : [facility], [address] [place] [address] NRBC abs 0.00 0.00 - 0.01 K/cumm CERNER BJ Comment:Testing performed by : [facility], [address] [place] [phone] Blood 01/08/2025 12:1 0 PM REHAB AID 01/08/2025 12:25 PM REHAB AID Pj Tobin NP LAB BLOOD ORDERABLES Susan l Result Performing Organization Address [facility] Co de Phone Number [facility] [place] [address] * Phosphorus (01/08/2025 12:10 PM REHAB AID) Phosphorus, pl 2.9 2.3 - 4.5 mg/dL Blood 01/08/2025 12:1 0 PM REHAB AID 01/08/2025 12:26 PM REHAB AID Wilbur Angel MD LAB BLOOD ORDERABLES Final Res ult Performing Organization Address [facility] Co de Phone Number [facility] [place] [address] * Magnesium (01/08/2025 12:10 PM REHAB AID) Magnesium 2.0 1.4 - 2.5 mg/dL Blood 01/08/2025 12:1 0 PM REHAB AID 01/08/2025 12:26 PM REHAB AID Pj Tobin NP LAB BLOOD ORDERABLES Susan l Result Performing Organization Address [facility] Co de Phone Number [facility] [place] [address] * Lactate dehydrogenase (LD) (01/08/2025 12:10 PM REHAB AID) Lactate dehydrogenase (LDH) 245 100 - 250 Units/L Blood 01/08/2025 12:1 0 PM REHAB AID 01/08/2025 12:26 PM REHAB AID Pj Tobin [employer]LEV[employer] LAB BLOOD ORDERABLES Susan joseph Result [facility] Department [place] [address] * (ABNORMAL) Comprehensive metabolic panel (01/08/2025 12:10 PM REHAB AID) Sodium 140 135 - 145 mmol/L Potassium, pl 4.5 3.3 - 4.9 mmol/L [facility] Chloride 104 97 - 110 mmol/L [facility] CO2 29 22 - 32 mmol/L [facility] Anion gap 7 2 - 15 mmol/L [facility] BUN 27(H) 6 - 25 mg/dL [facility] Creatinine 1.67(H) 0.80 - 1.30 mg/dL [facility] Glucose 100 70 - 199 mg/dL [facility] Comment: Interpretive Data Fasting glucose >/= 126 mg/dl is diagnostic for diabetes. Fasting is defined as no caloric intake for at least 8 hours. Fasting glucose between 100 mg/dl to 125 mg/dl is diagnostic of prediabetes. In a patient with classic symptoms of hyperglycemia or hyperglycemic crisis, a random glucose >/= 200 mg/dl is diagnostic for diabetes. In the absence of unequivocal hyperglycemia, results should be confirmed by repeat testing. The classification and Diagnosis of Diabetes Diabetes Care 202; 46: S19-S40. Current interpretive data was last revised 2022. Calcium 9.5 8.5 - 10.3 mg/dL [facility] Bilirubin, total 0.4 0.1 - 1.2 mg/dL [facility] Protein, pl 7.0 6.5 - 8.5 g/dL [facility] Albumin 3.9 3.5 - 5.0 g/dL [facility] Alk phos 75 40 - 130 Units/L [facility] ALT 26 7 - 55 Units/L [facility] AST 37 10 - 50 Units/L [facility] Blood 01/08/2025 12:1 0 PM REHAB AID 01/08/2025 12:26 PM REHAB AID Pj Tobin NP LAB BLOOD ORDERABLES Susan joseph Result BOBBI RUIZ [facility] Department [place] [address] * CT Chest Abdomen Pelvis W Contrast (01/08/2025 11:05 AM REHAB AID) Anatomical Region Laterality Modality Body N/A Computed Tomogra phy 01/08/2025 11:3 6 AM REHAB AID Impressions 01/08/2025 11:36 AM REHAB AID 1. Multiple new groundglass nodules in both lungs with stable appearance of existing groundglass nodules. Given the relatively quick development of these may be infectious/inflammatory, recommend attention on follow-up. 2. Anterior mediastinal soft tissue nodule/lymph node is stable to slightly decreased in size from prior. 3. No evidence of metastatic disease in the abdomen or pelvis. Electronically signed by: Antonio Jernigan MD, PHD Narrative 01/08/2025 11:36 AM REHAB AID EXAMINATION: Computed tomography of the chest, abdomen and pelvis with intravenous contrast HISTORY: Left cheek squamous cell carcinoma, restaging TECHNIQUE: Transaxial computed tomographic images of the chest, abdomen and pelvis were obtained with intravenous contrast according to the standard protocol after the uneventful administration of 115 mL Opti-Ray 350 intravenous contrast. COMPARISON: CT chest abdomen pelvis 10/09/2024 FINDINGS: Chest: Right internal jugular approach port catheter tip terminates at the superior cavoatrial junction. Unchanged 7 mm groundglass nodule in the left upper lobe (series 3 image 40) with additional scattered groundglass opacities are new from prior, including an adjacent 7 mm nodule more medially at the same slice and a 7 mm lesion in the left upper lobe slightly more inferiorly (series 3 image 47). There is also a new 3 mm right upper lobe nodule (series 3 image 64). Otherwise, no focal consolidation, pleural effusion, or pneumothorax. Normal heart size with no pericardial effusion. Mild atherosclerotic disease of the coronary arteries. Mild atherosclerotic disease in the thoracic aorta. Slightly decreased size of a 9 mm node in the anterior mediastinum (series 2 image 80). No supraclavicular, axillary, mediastinal, or hilar lymphadenopathy. Abdomen/Pelvis: No focal liver lesion. Gallbladder is normal. No biliary duct dilation. Pancreas, spleen, and adrenal glands are normal. [place] kidneys are atrophic with changes of cryoablation to the lower pole left kidney. The right iliac fossa transplant kidney with no hydronephrosis or perinephric collection. Urinary bladder is normal. Prostate gland is mildly enlarged. , Appendix, small bowel, and stomach are normal no mesenteric, retroperitoneal, pelvic, or inguinal lymphadenopathy. No intra-abdominal free air or free fluid. Multiple fat-containing left inguinal hernia. Moderate atherosclerotic disease in the abdominal aorta. Inferior vena cava filter is present. No suspicious osseous lesion or fracture. Procedure Note Antonio Jernigan MD PhD - 01/08/2025 EXAMINATION: Computed tomography of the chest, abdomen and pelvis with intravenous contrast HISTORY: Left cheek squamous cell carcinoma, restaging TECHNIQUE: Transaxial computed tomographic images of the chest, abdomen and pelvis were obtained with intravenous contrast according to the standard protocol after the uneventful administration of 115 mL Opti-Ray 350 intravenous contrast. COMPARISON: CT chest abdomen pelvis 10/09/2024 FINDINGS: Chest: Right internal jugular approach port catheter tip terminates at the superior cavoatrial junction. Unchanged 7 mm groundglass nodule in the left upper lobe (series 3 image 40) with additional scattered groundglass opacities are new from prior, including an adjacent 7 mm nodule more medially at the same slice and a 7 mm lesion in the left upper lobe slightly more inferiorly (series 3 image 47). There is also a new 3 mm right upper lobe nodule (series 3 image 64). Otherwise, no focal consolidation, pleural effusion, or pneumothorax. Normal heart size with no pericardial effusion. Mild atherosclerotic disease of the coronary arteries. Mild atherosclerotic disease in the thoracic aorta. Slightly decreased size of a 9 mm node in the anterior mediastinum (series 2 image 80). No supraclavicular, axillary, mediastinal, or hilar lymphadenopathy. Abdomen/Pelvis: No focal liver lesion. Gallbladder is normal. No biliary duct dilation. Pancreas, spleen, and adrenal glands are normal. [place] kidneys are atrophic with changes of cryoablation to the lower pole left kidney. The right iliac fossa transplant kidney with no hydronephrosis or perinephric collection. Urinary bladder is normal. Prostate gland is mildly enlarged. , Appendix, small bowel, and stomach are normal no mesenteric, retroperitoneal, pelvic, or inguinal lymphadenopathy. No intra-abdominal free air or free fluid. Multiple fat-containing left inguinal hernia. Moderate atherosclerotic disease in the abdominal aorta. Inferior vena cava filter is present. No suspicious osseous lesion or fracture. IMPRESSION: 1. Multiple new groundglass nodules in both lungs with stable appearance of existing groundglass nodules. Given the relatively quick development of these may be infectious/inflammatory, recommend attention on follow-up. 2. Anterior mediastinal soft tissue nodule/lymph node is stable to slightly decreased in size from prior. 3. No evidence of metastatic disease in the abdomen or pelvis. Electronically signed by: Antonio Jernigan MD, PHD us Pj Tobin NP IMG CT PROCEDURES Final R esult * CT Neck Soft Tissue W Contrast (01/08/2025 11:05 AM REHAB AID) Anatomical Region Laterality Modality Head and Neck N/A Computed Tomogra phy 01/08/2025 11:4 6 AM REHAB AID Impressions 01/08/2025 12:07 PM REHAB AID 1. Postoperative findings of left parotid resection and neck dissection without evidence of recurrent disease in the neck. Dictated by: Smooth Portillo M.D. The radiology attending physician has personally reviewed this study, and had reviewed and/or edited this written report and agrees with it. Electronically signed by: Atif Isidro M.D. 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 Patient had parotidectomy and left neck dissection in April 2020 followed by radiation therapy. Patient had history of mediastinal and pulmonary metastasis as well. TECHNIQUE: CT of the neck was performed according to the standard protocol with intravenous contrast. Contrast information: 115 mL Optiray-350 COMPARISON: 10/09/2024 and 07/10/2024 FINDINGS: Postoperative findings of left parotid resection and neck dissection. Unchanged asymmetry of the piriform sinus without a mass-like lesion likely related to collapsed mucosa in the setting of postsurgical and radiation changes. Scattered subcentimeter lymph nodes are seen in the neck. None are pathologically enlarged or abnormally enhancing. The muscles of the neck are normal. Vessels of the neck demonstrate normal course and caliber. Partially imaged right internal jugular approach port catheter. The fascial planes on the right are preserved. The fascial planes on the left including the rental coordinator, sternocleidomastoid, parotid, and vascular spaces are not preserved secondary postsurgical and radiation changes. Left mastoid effusion. The base of the skull and the temporal bones are normal. Limited views of the brain including the cerebellum and brainstem are normal. The limited view of the [place] is unremarkable. The visualized portions of the orbits are normal. The spinal canal is normal in caliber. Moderate multilevel degenerative disc disease throughout the cervical spine, worst at C6-C7. Multilevel facet and uncovertebral hypertrophy. Neural foramina are normal. Please refer to same day CT of the chest are findings in these regions. 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 Patient had parotidectomy and left neck dissection in April 2020 followed by radiation therapy. Patient had history of mediastinal and pulmonary metastasis as well. TECHNIQUE: CT of the neck was performed according to the standard protocol with intravenous contrast. Contrast information: 115 mL Optiray-350 COMPARISON: 10/09/2024 and 07/10/2024 FINDINGS: Postoperative findings of left parotid resection and neck dissection. Unchanged asymmetry of the piriform sinus without a mass-like lesion likely related to collapsed mucosa in the setting of postsurgical and radiation changes. Scattered subcentimeter lymph nodes are seen in the neck. None are pathologically enlarged or abnormally enhancing. The muscles of the neck are normal. Vessels of the neck demonstrate normal course and caliber. Partially imaged right internal jugular approach port catheter. The fascial planes on the right are preserved. The fascial planes on the left including the rental coordinator, sternocleidomastoid, parotid, and vascular spaces are not preserved secondary postsurgical and radiation changes. Left mastoid effusion. The base of the skull and the temporal bones are normal. Limited views of the brain including the cerebellum and brainstem are normal. The limited view of the [place] is unremarkable. The visualized portions of the orbits are normal. The spinal canal is normal in caliber. Moderate multilevel degenerative disc disease throughout the cervical spine, worst at C6-C7. Multilevel facet and uncovertebral hypertrophy. Neural foramina are normal. Please refer to same day CT of the chest are findings in these regions. IMPRESSION: 1. Postoperative findings of left parotid resection and neck dissection without evidence of recurrent disease in the neck. Dictated by: Smooth Portillo M.D. The radiology attending physician has personally reviewed this study, and had reviewed and/or edited this written report and agrees with it. Electronically signed by: Atif Isidro M.D. Pj Tobin NP IMG CT PROCEDURES Final R esult * (ABNORMAL) POCT creatinine (01/08/2025 10:29 AM REHAB AID) Creatinine POC 1.7(H) 0.8 - 1.3 mg/dL Blood 01/08/2025 10:2 9 AM REHAB AID 01/08/2025 10:29 AM REHAB AID Pj Tobin NP LAB POCT ORDERABLES - DEV ICE Final Result Performing Organization Address City/[facility]/ZIP Co de Phone Number [facility] [place] [address] * COPY(IES) SENT TO: (12/05/2024 7:54 AM REHAB AID) COPY(IES) SENT TO: [facility] Comment: [facility] - [facility] TO [facility] [address] [place] [address] 12/05/2024 7:54 AM REHAB AID 12/05/2024 7:55 AM REHAB AID Narrative [facility] - 12/09/2024 3:11 AM REHAB AID PAE Oleksandr Rice MD LAB BLOOD ORDERABLES Final Resu lt [facility] * Hepatic Function Panel, Serum (12/05/2024 7:54 AM REHAB AID) Pathologist [facility] Protein, sr 6.4 6.1 - 8.1 g/dL [facility] Albumin 4.0 3.6 - 5.1 g/dL [facility] GLOBULIN 2.4 1.9 - 3.7 g/dL (calc) [facility] Alb/glob ratio 1.7 1.0 - 2.5 (calc) [facility] Bilirubin, total 0.5 0.2 - 1.2 mg/dL [facility] Bilirubin, direct 0.1 < OR = 0.2 mg/dL [facility] Bilirubin, indirect 0.4 0.2 - 1.2 mg/dL (calc) [facility] Alk phos 62 35 - 144 U/L [facility] AST 29 10 - 35 U/L [facility] ALT (SGPT) 20 9 - 46 U/L [facility] 12/05/2024 7:54 AM REHAB AID 12/05/2024 7:55 AM REHAB AID Narrative [facility] - 12/09/2024 3:11 AM REHAB AID PAE us Oleksandr Rice MD LAB BLOOD ORDERABLES Final Resu lt [facility] [address] [place] [address] * (ABNORMAL) CBC with auto differential (12/05/2024 7:54 AM REHAB AID) Pathologist [facility] WBC 7.0 3.8 - 10.8 Thousand/u L [facility] RBC, POC 4.55 4.20 - 5.80 Million/uL [facility] Hgb 11.4(L) 13.2 - 17.1 g/dL [facility] Hct 37.2(L) 38.5 - 50.0 % [facility] MCV 81.8 80.0 - 100.0 fL [facility] MCH 25.1(L) 27.0 - 33.0 pg [facility] MCHC 30.6(L) 32.0 - 36.0 g/dL [facility] Comment: For adults, a slight decrease in the calculated MCHC value (in the range of 30 to 32 g/dL) is most likely not clinically significant; however, it should be interpreted with caution in correlation with other red cell parameters and the patient's clinical condition. Rdw 12.9 11.0 - 15.0 % [facility] Platelets 233 140 - 400 Thousand/u L [facility] MPV 9.4 7.5 - 12.5 fL [facility] Neutrophils, abs 5,264 1,500 - 7,800 cells/uL [facility] Lymphocytes, abs 728(L) 850 - 3,900 cells/uL [facility] Monocyte abs 742 200 - 950 cells/uL [facility] Eosinophils, abs 217 15 - 500 cells/uL [facility] Basophils, abs 49 0 - 200 cells/uL [facility] Neutrophils 75.2 % [facility] Lymphocyte pct 10.4 % [facility] Monocytes 10.6 % [facility] Eosinophils 3.1 % [facility] Basophils 0.7 % [facility] 12/05/2024 7:54 AM REHAB AID 12/05/2024 7:55 AM REHAB AID Narrative [facility] - 12/09/2024 3:11 AM REHAB AID PAE us Oleksandr Rice MD LAB BLOOD ORDERABLES Final Resu lt [facility] [address] [place] [phone] * Sirolimus level random (12/05/2024 7:54 AM REHAB AID) SIROLIMUS, LC/MS/MS 4.9 3.0 - 18.0 ng/mL [facility] Comment: This test was developed and its analytical performance characteristics have been determined by [employer]. It has not been cleared or approved by the FDA. This assay has been validated pursuant to the CLIA regulations and is used for clinical purposes. 12/05/2024 7:54 AM REHAB AID 12/05/2024 7:55 AM REHAB AID Narrative [facility] - 12/09/2024 3:11 AM REHAB AID PAE Oleksandr Rice MD LAB BLOOD ORDERABLES Final Resu lt Performing Organization Address [facility] de Phone Number [facility] [address] [place] [address] * Protime-INR (12/05/2024 7:54 AM REHAB AID) [facility].0 [facility] Comment: Reference Range 0.9-1.1 Moderate-intensity Warfarin Therapy 2.0-3.0 Higher-intensity Warfarin Therapy 3.0-4.0 PT 10.6 9.0 - 11.5 sec [facility] Comment: For additional information, please refer to http://education.ScoreStream/faq/MZU722 (This link is being provided for informational/ educational purposes only.) 12/05/2024 7:54 AM REHAB AID 12/05/2024 7:55 AM REHAB AID Narrative [facility] - 12/09/2024 3:11 AM REHAB AID PAE Oleksandr Rice MD LAB BLOOD ORDERABLES Final Resu lt Performing Organization Address [facility] Co de Phone Number [facility] [address] [place] [address] * (ABNORMAL) Renal function panel (12/05/2024 7:54 AM REHAB AID) Glucose 100(H) 65 - 99 mg/dL [facility] Comment: Fasting reference interval For someone without known diabetes, a glucose value between 100 and 125 mg/dL is consistent with prediabetes and should be confirmed with a follow-up test. BUN 26(H) 7 - 25 mg/dL [facility] Creatinine 1.85(H) 0.70 - 1.35 mg/dL [facility] eGFR 40(L) > OR = 60 mL/min/1.7 3m2 [facility] BUN/creat ratio 14 6 - 22 (calc) [facility] Sodium 139 135 - 146 mmol/L [facility] Potassium, pl 4.2 3.5 - 5.3 mmol/L [facility] Chloride 102 98 - 110 mmol/L [facility] CO2 31 20 - 32 mmol/L [facility] Calcium 9.1 8.6 - 10.3 mg/dL [facility] Phosphorus, sr 3.0 2.1 - 4.3 mg/dL [facility] Albumin 4.0 3.6 - 5.1 g/dL [facility] 12/05/2024 7:54 AM REHAB AID 12/05/2024 7:55 AM REHAB AID Narrative [facility] - 12/09/2024 3:11 AM REHAB AID PAE us Oleksandr Rice MD LAB BLOOD ORDERABLES Final Resu lt [facility] [address] [place] [address] * (ABNORMAL) Lipid panel (12/05/2024 7:54 AM REHAB AID) Cholesterol 199 <200 mg/dL [facility] HDL 67 > OR = 40 mg/dL [facility] Triglycerides 118 <150 mg/dL [facility] LDL 109(H) mg/dL (calc) [facility] Comment: Reference range: <100 Desirable range <100 mg/dL for primary prevention; <70 mg/dL for patients with CHD or diabetic patients with > or = 2 CHD risk factors. LDL-C is now calculated using the Nitesh calculation, which is a validated novel method providing better accuracy than the Friedewald equation in the estimation of LDL-C. Rogerio KC et al. MYCHAL. 2013;310(19): 8263-9201 (http://education.GapJumpers/faq/XCY466) Chol/HDL ratio 3.0 <5.0 (calc) [facility] Non-HDL, (LDL+VLDL) 132(H) <130 mg/dL (calc) [facility] Comment: For patients with diabetes plus 1 major ASCVD risk factor, treating to a non-HDL-C goal of <100 mg/dL (LDL-C of <70 mg/dL) is considered a therapeutic option. 12/05/2024 7:54 AM REHAB AID 12/05/2024 7:55 AM REHAB AID Narrative [facility] - 12/09/2024 3:11 AM REHAB AID PAE Oleksandr Rice MD LAB BLOOD ORDERABLES Final Resu lt Performing Organization Address [facility] de Phone Number [facility] [address] [place] [address] * (ABNORMAL) Tacrolimus, Highly Sensitive, LC/MS/MS (11/06/2024 7:58 AM REHAB AID) Pathologist [facility] Tacrolimus, Highly Sensitive, LC/MS/MS 1.6(L) mcg/L [facility] Comment: No definitive therapeutic or toxic ranges have been established. Optimal blood drug levels are influenced by type of transplant, patient response, time post- transplant, co-administration of other drugs, and drug formulation. The following trough range is a suggested guideline: 5.0-20.0 mcg/L. 11/06/2024 7:58 AM REHAB AID 11/06/2024 7:58 AM REHAB AID Narrative [facility] - 11/10/2024 8:11 AM REHAB AID PAE Oleksandr Rice MD LAB BLOOD ORDERABLES Final Resu lt Performing Organization Address [facility] Co de Phone Number [facility] [address] [place] [address] * COPY(IES) SENT TO: (11/06/2024 7:58 AM REHAB AID) COPY(IES) SENT TO: [facility] Comment: [facility] - COPY TO ACCT [address] [place] [address] 11/06/2024 7:58 AM REHAB AID 11/06/2024 7:58 AM REHAB AID Narrative [facility] - 11/10/2024 8:11 AM REHAB AID PAE us Oleksandr Rice MD LAB BLOOD ORDERABLES Final Resu lt [facility] * (ABNORMAL) CBC with auto differential (11/06/2024 7:58 AM REHAB AID) Pathologist [facility] WBC 5.2 3.8 - 10.8 Thousand/u L [facility] RBC, POC 4.33 4.20 - 5.80 Million/uL [facility] Hgb 11.4(L) 13.2 - 17.1 g/dL [facility] Hct 37.1(L) 38.5 - 50.0 % [facility] MCV 85.7 80.0 - 100.0 fL [facility] MCH 26.3(L) 27.0 - 33.0 pg [facility] MCHC 30.7(L) 32.0 - 36.0 g/dL [facility] Comment: For adults, a slight decrease in the calculated MCHC value (in the range of 30 to 32 g/dL) is most likely not clinically significant; however, it should be interpreted with caution in correlation with other red cell parameters and the patient's clinical condition. Rdw 12.8 11.0 - 15.0 % [facility] Platelets 237 140 - 400 Thousand/u L [facility] MPV 9.3 7.5 - 12.5 fL [facility] Neutrophils, abs 3,193 1,500 - 7,800 cells/uL [facility] Lymphocytes, abs 962 850 - 3,900 cells/uL [facility] Monocyte abs 764 200 - 950 cells/uL [facility] Eosinophils, abs 229 15 - 500 cells/uL [facility] Basophils, abs 52 0 - 200 cells/uL [facility] Neutrophils 61.4 % [facility] Lymphocyte pct 18.5 % [facility] Monocytes 14.7 % [facility] Eosinophils 4.4 % [facility] Basophils 1.0 % [facility] 11/06/2024 7:58 AM REHAB AID 11/06/2024 7:58 AM REHAB AID Narrative [facility] - 11/10/2024 8:11 AM REHAB AID PAE Oleksandr Rice MD LAB BLOOD ORDERABLES Final Resu lt Performing Organization Address [facility] Co de Phone Number [facility] [address] [place] [address] * Sirolimus level random (11/06/2024 7:58 AM REHAB AID) Pathologist [facility] SIROLIMUS, LC/MS/MS 6.2 3.0 - 18.0 ng/mL [facility] Comment: This test was developed and its analytical performance characteristics have been determined by [employer]. It has not been cleared or approved by the FDA. This assay has been validated pursuant to the CLIA regulations and is used for clinical purposes. 11/06/2024 7:58 AM REHAB AID 11/06/2024 7:58 AM REHAB AID Narrative [facility] - 11/10/2024 8:11 AM REHAB AID PAE Oleksandr Rice MD LAB BLOOD ORDERABLES Final Resu lt Performing Organization Address [facility] Co de Phone Number [facility] [address] [place] [address] * Protime-INR (11/06/2024 7:58 AM REHAB AID) INR 1.0 [facility] Comment: Reference Range 0.9-1.1 Moderate-intensity Warfarin Therapy 2.0-3.0 Higher-intensity Warfarin Therapy 3.0-4.0 PT 10.6 9.0 - 11.5 sec [facility] Comment: For additional information, please refer to http://education.ScoreStream/faq/ODB595 (This link is being provided for informational/ educational purposes only.) 11/06/2024 7:58 AM REHAB AID 11/06/2024 7:58 AM REHAB AID Narrative [facility] - 11/10/2024 8:11 AM REHAB AID PAE Oleksandr Rice MD LAB BLOOD ORDERABLES Final Resu lt [facility] [address] [place] [address] * (ABNORMAL) Renal function panel (11/06/2024 7:58 AM REHAB AID) Glucose 108(H) 65 - 99 mg/dL [facility] Comment: Fasting reference interval For someone without known diabetes, a glucose value between 100 and 125 mg/dL is consistent with prediabetes and should be confirmed with a follow-up test. BUN 27(H) 7 - 25 mg/dL [facility] Creatinine 1.72(H) 0.70 - 1.35 mg/dL [facility] eGFR 44(L) > OR = 60 mL/min/1.7 3m2 [facility] BUN/creat ratio 16 6 - 22 (calc) [facility] Sodium 139 135 - 146 mmol/L [facility] Potassium, pl 4.4 3.5 - 5.3 mmol/L [facility] Chloride 104 98 - 110 mmol/L [facility] CO2 31 20 - 32 mmol/L [facility] Calcium 9.3 8.6 - 10.3 mg/dL [facility] Phosphorus, sr 3.1 2.1 - 4.3 mg/dL [facility] Albumin 4.1 3.6 - 5.1 g/dL [facility] 11/06/2024 7:58 AM REHAB AID 11/06/2024 7:58 AM REHAB AID Narrative [facility] - 11/10/2024 8:11 AM REHAB AID PAE Oleksandr Rice MD LAB BLOOD ORDERABLES Final Resu lt [facility] [address] [address] * COLONOSCOPY (04/22/2021 8:33 AM CDT) Anatomical Region Laterality Modality Other Narrative Procedure Note Tamera Francois MD PhD - 04/22/2021 8:33 AM CDT ENDOSCOPY LAB Patient Name: Los Shultz Procedure Date: 04/22/2021 8:33 AM Date of : 1960 Admit Type: Outpatient Age: 60 Gender: Male Attending MD: Tamera Francois MD,PHD Room: [facility] ENDOSCOPY ROOM 02 Note Status: Finalized Procedure: Colonoscopy Indications: Iron deficiency anemia, Abnormal PET scan of the GI tract Providers: Tamera Francois MD, PHD Referring MD: Krishna Rosales M.D. Medicines: Monitored Anesthesia Care Complications: No immediate complications. Estimated Blood Loss: Estimated blood loss was minimal. Procedure: Pre-Anesthesia Assessment: - Immediately prior to administration ofmedications, the patient was re-assessed for adequacy to receive sedatives. The benefits, risks and alternatives of theprocedure and sedation were discussed and informed consentwas obtained. All questions were answered. Please referto the signed informed consent document in the medical record. The scope was passed under direct vision.The [id number] was introduced through the anusand advanced to the terminal ileum. The colonoscopy was performed without difficulty. The patient tolerated the procedure well. The quality of the bowel preparation was good. The quality of the bowel preparation was evaluated using the BBPS (BostonBowel Preparation Scale) with scores of: Right Colon = 3, Transverse Colon = 3 and Left Colon = 3 (entiremucosa seen well with no residual staining, smallfragments of stool or opaque liquid). The total BBPS score equals 9. The quality of the bowel preparation was evaluated using the BBPS (Maxwell Bowel Preparation Scale) with scores of: Right Colon = 2 (minoramount of residual staining, small fragments of stooland/or opaque liquid, but mucosa seen well), TransverseColon = 2 (minor amount of residual staining, small fragments of stool and/or opaque liquid, but mucosa seen well) and Left Colon = 3 (entire mucosa seenwell with no residual staining, small fragments of stoolor opaque liquid). The total BBPS score equals 7. The bowel preparation used was polyethylene glycol(PEG) via split dose instruction. Bowel prep was administered using a split dose. Findings: The perianal and digital rectal examinations were normal. The terminal ileum appeared normal. A 25 mm polyp was found in the proximal ascending colon. The polypwas Dipti classification Is (protruding, sessile). Preparations were made for mucosal resection. 3.5 mL of Orise gel was injected with adequate lift of the lesion from the muscularis propria. Piecemeal mucosal resection using a snare with Byrd net retrieval was performed. A 25mm area was resected. Resection and retrieval were complete. Arterial spurting occurred after resection. For hemostasis, five hemostaticclips were successfully placed (MR conditional). There was no bleeding atthe end of the procedure. Area was tattooed with an injection of 3 mL of Spot (carbon black). Impression: - The examined portion of the ileum was normal. - One 25 mm polyp in the proximal ascending colon, removed with mucosal resection. Resected and retrieved. Clips (MR conditional) were placed. - Mucosal resection was performed. Resection and retrieval were complete. Recommendation: - Await pathology results. - Repeat colonoscopy in 6 months (45 min) with a better prep for surveillance after piecemeal polypectomy, and to remove remaining colonpolyps. - Resume Eliquis after 3 days, if OK by thephysician prescribing it - In the unusual situation that you developabdominal pain, bleeding, or other significant problems inthe days following this procedure, please call [email or web address] at [phone] or [phone] to speak to my chiropractor assistant. After hours and weekends, please call [phone] and ask for the GI fellow dimension quarry supervisor.Please tell them that Dr. Francois did your procedure and that you were instructed to have the fellow call me orthe physician covering for me to discuss yourcondition. If you have an urgent problem, please go thenearest emergency room and have the ER doctor call shaina during the day or the GI fellow after hours and weekends. Attending Participation: I personally performed the entire procedure. Electronically signed by Tamera Francois MD. Tamera Francois MD, PHD 04/22/2021 9:32:33 AM Number of Addenda: 0 Note Initiated On: 04/22/2021 8:33 AM us Tamera Francois MD PhD ENDOSCOPY PROCEDURES Susan l Result * Serum Hepatitis C ab (09/30/2015 2:38 AM REHAB AID) HCV ab Negative NEG HISTORICAL RESULTS Serum 09/30/2015 2:38 AM REHAB AID Narrative HISTORICAL RESULTS - 09/30/2015 5:17 AM REHAB AID Interpretive Data If confirmation is required, call Laboratory Customer Service to request sample to be sent to [facility] for Hepatitis C Virus (HCV) RNA Detection and Quantitation by Real-Time Reverse Projection Camera Operator-PCR (RT-PCR). Current interpretive data was last revised on 2012 Tong Ann MD LAB BLOOD ORDERABLES Final Result HISTORICAL RESULTS from Last 3 Months or Most Recently Relevant to Health Maintenance Insurance BLUE [employer] [place] CHOICE [place]IC[place] OPEN ACCESS [facility] HUMANA CHOICE MEDICARE PPO Advance Directives For more information, please contact: [phone] * Full Code (Latest Code Status on File) Date Activated Date Inactivated Comments 09/18/2021 9:32 AM 09/18/2021 3:22 PM * Full Code Date Activated Date Inactivated Comments 07/08/2021 8:25 AM 07/08/2021 2:14 PM * Full Code Date Activated Date Inactivated Comments 04/22/2021 7:15 AM 04/22/2021 2:40 PM * Full Code Date Activated Date Inactivated Comments 03/17/2021 3:58 PM 03/20/2021 7:47 PM * Full Code Date Activated Date Inactivated Comments 01/13/2021 5:52 PM 01/15/2021 9:19 PM Care Teams Aviation Ordnance Officer Relationship Specialty Start Date End Date Krishna Rosales MD [address] [place] [address] PCP - General Family Medicine 06/16/19 Delmi Peace, RN [address] [place] [address] Software Verification Engineer 04/12/18 Smooth Simpson MD [address] [place] [address] Plastic Surgeon Plastic Surgery 04/05/20 Mame Cast MD [address] [place] [address] Radiation Oncologist Radiation Oncology 05/23/20 Wilbur Angel MD [address] [facility] [address] [place] [address] Medical Oncologist/Shell Fisherman Medical Oncology 10/24/20 Tong Dubose MD [address] [facility] DEPT OTOLARYNGOLOGY, [address] [place] [address] Surgeon Otolaryngology 06/11/22
--- OUTSIDE RECORDS SUMMARY | 2025-01-29 10:29 | XMS_ITS | Encounter Summary ---
Author Organization [facility] Address [address] [place] [address] Phone Care Team Providers Care Social Worker Assistant Name Role Phone Delmi Peace RN Unavailable [phone] Krishna Rosales MD Primary Care Provider + [phone] [facility] Unavailable [phone] Mame Cast MD Unavailable [phone] Wilbur Angel MD Unavailable [phone] Tong Dubose MD Unavailable [phone] Encounter Details Date Type Department Care Team (Latest Contact Info) Description 07/23/2023 Orders Only [facility] Scanning, Provider Social History Tobacco Use Types [...] on file 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 Gender Identity Male 07/03/2022 5:22 AM CDT Sexual Orientation Straight 12/01/2020 8: 14 PM FUR CUTTING 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 documented as of this encounter Plan of Treatment Not on file documented as of this encounter Procedures Procedure Name Priority Date/Time Associated Diagnosis Comments SCAN - PATHOLOGY 07/23/2023 2:19 PM CDT documented in this encounter Results * SCAN - PATHOLOGY (07/23/2023 2:19 PM CDT) us Provider Scanning Final Result documented in this encounter Visit Diagnoses Not on filedocumented in this encounter Care Teams Social Worker Assistant Relationship Specialty Start Date End Date Krishna Rosales MD [address] [facility] [address] [place] [address] PCP - General Family Medicine 06/16/19 Dlemi Peace, RN [address] [place] [address] Business Unit Director 04/12/18 [facility] [address] [place] [address] Plastic Surgeon Plastic Surgery 04/05/20 Mame Cast MD [address] [place] [address] Radiation Oncologist Radiation Oncology 05/23/20 Wilbur Angel MD [address] [facility] [address] [place] [address] Medical Oncologist/Osha Inspector Medical Oncology 10/24/20 Tong Dubose MD [address] [facility] DEPT OTOLARYNGOLOGY, [address] [address] Surgeon Otolaryngology 06/11/22 documented as of this encounter
--- OUTSIDE RECORDS SUMMARY | 2025-01-29 10:29 | XMS_ITS | Encounter Summary ---
Author Organization [facility] Address [address] [place] [address] Phone Care Team Providers Care Internal Audit Senior Manager Name Role Phone Delmi Peace RN Unavailable [phone] Krishna Rosales MD Primary Care Provider + [phone] [facility] Unavailable [phone] Mame Cast MD Unavailable [phone] Wilbur Angel MD Unavailable [phone] Tong Dubose MD Unavailable [phone] Encounter Details Date Type Department Care Team (Latest Contact Info) Description 02/10/2023 Orders Only [facility] Scanning, Provider Social History Tobacco Use Types Packs/Day Years Used Date Smoking Tobacco: Never Smokeless Tobacco: Never Alcohol Use Standard Drinks/Week Comments Yes 0 (1 standard drink = 0.6 oz pur e alcohol) 4 x week AUDIT-C Answer Date Recorded Q1: How often do you have a drink containing alc ohol? 2-3 times a week 01/22/2023 Q2: How many drinks containi ng alcohol do you have on a typical day when you are drinking? 1 or 2 01/22/2023 Q3: How often do you have si x or more drinks on one occasion? 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 Gender Identity Male 07/03/2022 5:22 AM CDT Sexual Orientation Straight 12/01/2020 8: 14 PM HOST/HOSTESS RESTAURANT documented as of this encounter Plan of Treatment Not on file documented as of this encounter Procedures Procedure Name Priority Date/Time Associated Diagnosis Comments SCAN - PATHOLOGY 02/10/2023 documented in this encounter Results * SCAN - PATHOLOGY (02/10/2023) us Provider Scanning Final Result documented in this encounter Visit Diagnoses Not on filedocumented in this encounter Care Teams Internal Audit Senior Manager Relationship Specialty Start Date End Date Krishna Rosales MD [address] [place] [address] PCP - General Family Medicine 06/16/19 Delmi Peace RN [address] [place] [address] Criminal Justice Professor 04/12/18 [facility] [address] [place] [address] Plastic Surgeon Plastic Surgery 04/05/20 Mame Cast MD [address] [place] [address] Radiation Oncologist Radiation Oncology 05/23/20 Wilbur Angel MD [address] [facility] [address] [place] [address] Medical Oncologist/Logistics Specialist Medical Oncology 10/24/20 Tong Dubose MD [address] [facility] DEPT OTOLARYNGOLOGY, [address] [place] [address] Surgeon Otolaryngology 06/11/22 documented as of this encounter
--- OUTSIDE RECORDS SUMMARY | 2025-01-29 10:29 | XMS_ITS | Encounter Summary ---
Author Organization [facility] Address [address] [place] [address] Phone Care Team Providers Care Retrieval Specialist Name Role Phone Delmi Peace RN Unavailable [phone] Krishna Rosales MD Primary Care Provider + [phone] [facility] Unavailable [phone] Mame Cast MD Unavailable [phone] Wilbur Angel MD Unavailable [phone] Tong Dubose MD Unavailable [phone] Encounter Details Date Type Department Care Team (Latest Contact Info) Description 04/26/2023 Orders Only [facility] Scanning, Provider Social History Tobacco Use Types Packs/Day Years Used Date Smoking Tobacco: Never Smokeless Tobacco: Never Alcohol Use Standard Drinks/Week Comments Yes 0 (1 standard drink = 0.6 oz pur e alcohol) 4 x week AUDIT-C Answer Date Recorded Q1: How often do you have a drink containing alc ohol? Never 02/17/2023 Q2: How many drinks containi ng alcohol do you have on a typical day when you are drinking? 1 or 2 02/17/2023 Q3: How often do you have six or more drinks on one occasion? 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 Gender Identity Male 07/03/2022 5:22 AM CDT Sexual Orientation Straight 12/01/2020 8: 14 PM HOSPITAL HOUSEKEEPER documented as of this encounter Plan of Treatment Not on file documented as of this encounter Procedures Procedure Name Priority Date/Time Associated Diagnosis Comments SCAN - PATHOLOGY 04/26/2023 documented in this encounter Results * SCAN - PATHOLOGY (04/26/2023) us Provider Scanning Final Result documented in this encounter Visit Diagnoses Not on filedocumented in this encounter Care Teams Retrieval Specialist Relationship Specialty Start Date End Date Krishna Rosales MD [address] [place] [address] PCP - General Family Medicine 06/16/19 Delmi Peace RN [address] [place] [address] Usps Letter Carrier 04/12/18 [facility] bro[facility] MD [address] [place] [address] Plastic Surgeon Plastic Surgery 04/05/20 Mame Cast MD [address] [place] [address] Radiation Oncologist Radiation Oncology 05/23/20 Wilbur Angel MD [address] [facility] [address] [place] [address] Medical Oncologist/Crook Operator Medical Oncology 10/24/20 Tong Dubose MD [address] [facility] DEPT OTOLARYNGOLOGY, [address] [place] [address] Surgeon Otolaryngology 06/11/22 documented as of this encounter
--- OUTSIDE RECORDS SUMMARY | 2025-01-29 10:29 | XMS_ITS | Clinical Summary ---
Author Organization [facility] Address [address] [place] [address] Care Team Providers Care Sales Assistant Name Role Phone Delmi Peace RN Unavailable [phone] Krishna Rosales MD Primary Care Provider + [phone] [facility] Unavailable [phone] Mame Cast MD Unavailable [phone] Wilbur Angel MD Unavailable [phone] Tong Dubose MD Unavailable [phone] Allergies Active Allergy Reactions Criticality Noted Date Comments Iodinated Contrast Media Other (See comments) High 01/08/2025 RENAL TRANSPLANT - NO CONTRAST Medications cholecalciferol (VITAMIN D-3) 2,000 unit tabletIndications:P revention of Vitamin D Deficiency Take 1 tablet (2,000 Units total) by mouth supply chain planner before breakfast 015 Active ferrous sulfate 325 [...] Goal Sirolimus levels should be 4-6 [facility] [phone], [phone] Standing orders q-monthly, PT/INR, Sirolimus q3-Routine Exp.05/06/25 [facility] ext [id number] Problem Noted Date Diagnosed Date SCC (squamous [...] future. Assessment & Plan (10/04/2022 6:32 PM PROCESS DEVELOPMENT MANAGER): Los Shultz is doing well after Left [...] (04/29/2021): Added automatically from request for surgery [id number] Cellulitis of leg, right 03/18/2021 Assessment & [...] (02/07/2021): Added automatically from request for surgery [id number] Abnormal finding on GI tract imaging 02/07/2021 Overview (02/07/2021): Added automatically from request for surgery [id number] Metastasis to bone 01/20/2021 Head and neck [...] numbness. Assessment & Plan (01/13/2021 8:03 PM PROCESS DEVELOPMENT MANAGER): Please note patient with noted C1 vertebral [...] AM Assessment & Plan (01/13/2021 8:01 PM PROCESS DEVELOPMENT MANAGER): Please note patient with noted C1 vertebral [...] occurred. Assessment & Plan (01/15/2021 5:09 PM PROCESS DEVELOPMENT MANAGER): -hold home Eliquis in s/o possible surgical intervention -Heparin gtt -Resuming Eliquis as ortho spine recommends non-operative management Assessment & Plan (01/13/2021 7:48 PM PROCESS DEVELOPMENT MANAGER): -hold home Eliquis in s/o possible surgical [...] time Assessment & Plan (01/13/2021 8:09 PM PROCESS DEVELOPMENT MANAGER): -continue home Tacro XR 1mg PO daily -Goal Tacro trough in the s/o acitve cancer 2-3 -check AM tacro level on 01/14, ~ 30min-1hr prior to Tacro dosing -home pred held given steroids as elsewhere -on arrival sCr 1.69 and thus at baseline -May require renal transplant involvement if increasing sCr noted on daily labs -Monitor Is/Os Assessment & Plan (01/13/2021 7:55 PM PROCESS DEVELOPMENT MANAGER): -continue home Tacro 1PO BID -Goal Tacro [...] (04/09/2020): Added automatically from request for surgery [id number] 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 Assessment & Plan (01/15/2021 5:09 PM PROCESS DEVELOPMENT MANAGER): -01/10 PET scan notable for diffuse and [...] outpatient Assessment & Plan (01/13/2021 7:40 PM PROCESS DEVELOPMENT MANAGER): -01/10 PET scan notable for diffuse and [...] 06/16/2019 Assessment & Plan (01/13/2021 8:05 PM PROCESS DEVELOPMENT MANAGER): -continue home Lisinopril 10 -Continue home Coreg 25BID Assessment & Plan (01/13/2021 8:00 PM PROCESS DEVELOPMENT MANAGER): -continue home Coreg 25BID -continue home Lisinopril 10 daily Increased infection risk sta tus post immunosuppressive therapy 06/16/2019 Dyslipidemia 06/16/2019 Assessment & Plan (01/13/2021 8:05 PM PROCESS DEVELOPMENT MANAGER): -continue home Crestor Assessment & Plan (01/13/2021 8:00 PM PROCESS DEVELOPMENT MANAGER): -continue home Atorva 40 QHS High risk [...] rent) use of high-risk medication 06/10/2018 01/13/2021 Encounters Date Type Department Care Team Description 01/15/2025 Documentation [facility] Oncology [address] [facility] [address] [place] [address] Sachin Pretty RN creatinine result 01/12/2025 Orders Only [facility] Nephrology [facility] [facility] 5th [place] [address] [place] [address] Oleksandr Rice MD 01/12/2025 Results Follow-Up [facility] Dermatology [address] [place] [address] Outpatient Health [address] [place] [phone] Shiva Luong MD 01/09/2025 8:00 AM PROCESS DEVELOPMENT MANAGER Office Visit [facility] Dermatology [address] [place] [address] [address] [place] [address] Shiva Luong MD Neoplasm of uncertain behavior of skin (Primary Dx); Actinic keratosis; Seborrheic keratoses; Multiple melanocytic nevi; History of nonmelanoma skin cancer; History of immunosuppressive therapy; High risk medications (not anticoagulants) long-term use; Actinic skin damage 01/09/2025 Orders Only [facility] [address] [place] [address] Shiva Luong MD Neoplasm of uncertain behavior of skin 01/08/2025 1:40 PM PROCESS DEVELOPMENT MANAGER Office Visit [facility] Oncology [address] [place] [address] Floor 6 [place] [address] Wilbur Angel MD Head and neck cancer (HCC) 01/08/2025 12:00 PM PROCESS DEVELOPMENT MANAGER Lab [facility] - Lab Collection [address] [facility] [address] [place] [address] Squamous cell carcinoma of skin of unspecified parts of face; Head and neck cancer (HCC) 01/08/2025 11:45 AM PROCESS DEVELOPMENT MANAGER Lab [facility] Oncology Lab [address] [place] [address] 6 [place] [address] Head and neck cancer (HCC) 01/08/2025 10:08 AM PROCESS DEVELOPMENT MANAGER - 01/08/2025 11:59 PM PROCESS DEVELOPMENT MANAGER Hospital Encounter [facility] [address] [place] [address] Head and neck cancer (HCC) Discharge Disposition: Discharge to home or self care 01/01/2025 Orders Only [facility] Oncology [address] [facility] [address] [place] [phone] Wilbur Angel MD Squamous cell carcinoma of skin of unspecified parts of face (Primary Dx) 12/05/2024 Orders Only [facility] Nephrology [address] [facility] 5th [place] [address] [place] [address] Oleksandr Rice MD 11/08/2024 Telephone [facility] Transplant Kidney [address] [facility] [address] [phone] [place] [address] Niki Mathews RN After Hours; Abnormal Lab (/) 11/06/2024 Orders Only [facility] Nephrology [address] [facility] 5th [place] [address] [place] [address] Oleksandr Rice MD 11/02/2024 Telephone [facility] and [facility] Transplant Kidney [address] [facility] [address] [phone] [place] [address] Delmi Peace, AFTAB from Last 3 Months Immunizations Immunization Administration Dates Next Due Hep B, Dialysis 03/11/2015 Influenza, Quadrivalent, Hig h Dose, Preservative Free, Intrr 09/27/2020 Influenza, Quadrivalent, Spl it, Preservative Free, Intramuscular 08/21/2016,08/21/2015 Influenza, Trivalent, Preser vative Free, Intramuscular 12/10/2017 Influenza, Unspecified 12/10/2017,2015,08/21/2016,08/21 Moderna SARS-CoV-2 Monovalen t Vaccination (12+ YRS) 03/12/2021,02/05/2021,02/05/2021 Pneumococcal Conjugate PCV 13 03/11/2015 Tdap 09/02/2022 Surgical History Surgery Date Site/Laterality Comments US GUIDED BIOPSY RENAL 07/14/2016 N/A ABSCESS CATHETER INJECTION 01/30/2016 N/A ABSCESS CATHETER INJECTION 01/13/2016 N/A ABSCESS TUBE EXCHANGE 01/03/2016 N/A ABSCESS CATHETER INJECTION 01/03/2016 N/A ABSCESS CATHETER INJECTION 12/30/2015 N/A CT GUIDED DRAINAGE PERITONEA L OR RETROPERITONEAL FLUID COLLECTION 12/16/2015 N/A US GUIDED BIOPSY RENAL 05/25/2014 N/A US GUIDED BIOPSY RENAL 12/25/2016 N/A PERCUTANEOUS NEEDLE BIOPSY LUNG LEFT 10/03/2020 Left SQUAMOUS CELL CARCINOMA EXCISION 0 - 05/14/2020 Left Face-wide exc., parotidectomy, selective neck dissection, advancement flap PORT PLACEMENT CHEST >5 YEARS 09/18/2021 N/A Right chest KIDNEY TRANSPLANT 10/15/2015 RENAL CRYOABLATION 11/15/2013 - 11/14/2014 INSERT VENA CAVA FILTER 11/15/2009 - 11/14/2010 ESOPHAGOGASTRODUODENOSCOPY 07/08/2021 Gastritis OTHER SURGICAL HISTORY 04/15/2020 Cervuco-facial flap PAROTIDECTOMY 04/15/2020 - 05/14/2020 US GUIDED LUNG BIOPSY 10/03/2020 SKIN CANCER EXCISION 11/15/2021 - 11/14/2022 right side of nose ORAL SURGERY 05/07/2022 Right right side of jaw COLONOSCOPY EYE SURGERY 07/03/2022 Left eyelid Medical History Medical History Date Comments History of skin cancer Mulitple SCCA and BCC neck, face and forehead s/p excisions Hypertension DXd ~2009 History of pulmonary embolus (PE) 2010 h/o Right DVT/PE ~2009-- Currently treated with Eliquis Metastatic squamous cell car cinoma to lymph node (HCC) 2017 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 2010 Cellulitis of right leg hospital [place] 03/20/21 History of renal cell carcinoma Right kidney CA dxd 2013 s/p multiple cryoablations (last 2013) and s/p kidney tx 10/2015 Hx of adenomatous polyp of colon 04/22/2021 piecemeal EMR Gastric erosion 04/22/2021 Personal history of COVID-19 08/2020 Not hospitalized History of DVT (deep vein thrombosis) 2010 h/o DVT RLE 2009 following traumatic injury to leg TIA (transient ischemic attack) 05/2022 GERD (gastroesophageal reflu x disease) Family History Medical History Relation Name Comments Prostate cancer Brother Skin cancer Mother Relation Name Status Comments Brother Alive Mother Social History Tobacco Use Types Packs/Day Years [...] on file Legal Sex Male 1:23 AM PROCESS DEVELOPMENT MANAGER Gender Identity Male 07/03/2022 5:22 AM CDT Sexual Orientation Straight 12/01/2020 8: 14 PM PROCESS DEVELOPMENT MANAGER Obstetrics History Last Filed Vital Signs Vital Sign Reading Time Taken Comments Blood Pressure 148/65 01/08/2025 12:44 PM PROCESS DEVELOPMENT MANAGER Pulse 73 01/08/2025 12:44 PM PROCESS DEVELOPMENT MANAGER Temperature 36.4 C (97.6 F) 01/08/2025 12:44 PM PROCESS DEVELOPMENT MANAGER Respiratory Rate 18 10/09/2024 11:54 AM PROCESS DEVELOPMENT MANAGER Oxygen Saturation 95% 01/08/2025 12:44 PM PROCESS DEVELOPMENT MANAGER Inhaled Oxygen Concentration - - Weight 84.9 kg (187 lb 3.2 oz) 01/08/2025 12:44 PM PROCESS DEVELOPMENT MANAGER Height 188 cm (6' 2 ) 10/09/2024 8:03 AM PROCESS DEVELOPMENT MANAGER Body Mass Index 24.04 10/09/2024 8:03 AM PROCESS DEVELOPMENT MANAGER Plan of Treatment Health Maintenance Due Date Last Done Comments Depression Screening 1959 Prostate Cancer Screening-PSA 1959 Zoster Vaccine (1 of 2) 1978 Pneumococcal vaccine 65+ (2 of 2 - PPSV23) 05/06/2015 03/11/2015 Fall Risk Assessment 07/09/2024 07/09/2023, 02/04/20 21 Covid-19 Vaccine (5 - 2023-2 5 season) 2024 09/02/2022, 03/12/2021, 02/05/2021, Additional history exists Influenza Vaccine (#1) 2024 , 12/10/2017, 12/10/2017, Additional history exists Well Visit 65+ 2024 Colon Cancer Screening-Colonoscopy 04/22/2031 04/22/2021 DTaP/Tdap/Td Vaccine (2 - Td or Tdap) 09/02/2032 09/02/2022 Hepatitis B Screening Completed 03/11/2015 Hepatitis C Screening Completed 09/30/2015 , 09/30/2015, 01/03/2015 Colon Cancer Screening-CT Colonography Discontinued 04/22/2021 Colon Cancer Screening-DNA Stool Discontinued 04/22/20 Colon Cancer Screening-FIT Discontinued 04/22/2021 Colon Cancer Screening-Sigmoidoscopy Discontinued 04/22/2021 Medical Devices Implanted Type Area Electrician Manager Device Identifier Shelf Expiration Date Model / Serial / Lot [employer] [id number] Xcela 8fr 1.6mm 1 Lumen Power Injectable Attach Catheter Fill - [id number] Implanted:Qty: 1 on 09/18/2021 at [facility] [employer] 05/13/2026 [id number] / / [id number] Explanted Type Area Electrician Manager Device Identifier Shelf Expiration Date Model / Serial / Lot [employer] [id number] Clip Ligation Resolution 360 Ultra 235cm Braid Rotation Ctrl - [id number] Explanted:Qty: 1 on 04/22/2021 at [facility] [employer] 02/04/2024 [id number] / / [id number] [employer] [id number] Clip Ligation Resolution 360 Ultra 235cm Braid Rotation Ctrl - [id number] Explanted:Qty: 1 on 04/22/2021 at [facility] [employer] 02/04/2024 [id number] / / [id number] [employer] [id number] Clip Ligation Resolution 360 Ultra 235cm Braid Rotation Ctrl - [id number] Explanted:Qty: 1 on 04/22/2021 at [facility] [employer] 02/04/2024 [id number] / / [id number] [facility] [id number] Clip Ligation Resolution 360 Ultra 235cm Braid Rotation Ctrl - [id number] Explanted:Qty: 1 on 04/22/2021 at [facility] 02/04/2024 [id number] / / [id number] [facility] [id number] Clip Ligation Resolution 360 Ultra 235cm Braid Rotation Ctrl - [id number] Explanted:Qty: 1 on 04/22/2021 at [facility] 02/04/2024 [id number] / / [id number] Procedures Procedure Name Priority Date/Time Associated Diagnosis Comments SIROLIMUS LEVEL RANDOM Routine 01/12/2025 8:07 AM PROCESS DEVELOPMENT MANAGER RENAL FUNCTION PANEL Routine 01/12/2025 8:07 AM PROCESS DEVELOPMENT MANAGER CBC WITH AUTO DIFFERENTIAL Routine 01/12/2025 8:07 AM PROCESS DEVELOPMENT MANAGER PROTIME-INR Routine 01/12/2025 8:07 AM PROCESS DEVELOPMENT MANAGER COPY(IES) SENT TO: Routine 01/12/2025 8: 07 AM PROCESS DEVELOPMENT MANAGER SURGICAL PATHOLOGY Routine 01/09/2025 12 :00 AM PROCESS DEVELOPMENT MANAGER Neoplasm of uncertain behavior of skin EGFR Routine 01/08/2025 12:10 PM PROCESS DEVELOPMENT MANAGER Head and neck cancer (HCC) DIFFERENTIAL AUTO Routine 01/08/2025 12: 10 PM PROCESS DEVELOPMENT MANAGER Head and neck cancer (HCC) PHOSPHORUS Routine 01/08/2025 12:10 PM PROCESS DEVELOPMENT MANAGER Squamous cell carcinoma of skin of unspecified parts of face MAGNESIUM Routine 01/08/2025 12:10 PM PROCESS DEVELOPMENT MANAGER Head and neck cancer (HCC) THYROID FUNCTION CASCADE Routine 01/08/2025 12:10 PM PROCESS DEVELOPMENT MANAGER Head and neck cancer (HCC) LACTATE DEHYDROGENASE Routine 01/08/2025 12:10 PM PROCESS DEVELOPMENT MANAGER Head and neck cancer (HCC) COMPREHENSIVE METABOLIC PANEL Routine 01/08/2025 12:10 PM PROCESS DEVELOPMENT MANAGER Head and neck cancer (HCC) CBC WITH AUTO DIFFERENTIAL Routine 01/08/2025 12:10 PM PROCESS DEVELOPMENT MANAGER Head and neck cancer (HCC) CT CHEST ABDOMEN PELVIS W CONTRAST Schedule Routine, Read Routine (OP Routine) 01/08/2025 11:05 AM PROCESS DEVELOPMENT MANAGER Head and neck cancer (HCC) CT SOFT TISSUE NECK W CONTRAST Schedule Routine, Read Routine (OP Routine) 01/08/2025 11:05 AM PROCESS DEVELOPMENT MANAGER Head and neck cancer (HCC) POCT CREATININE - DEVICE Routine 01/08/2025 10:29 AM PROCESS DEVELOPMENT MANAGER SIROLIMUS LEVEL RANDOM Routine 12/05/2024 7:54 AM PROCESS DEVELOPMENT MANAGER CBC WITH AUTO DIFFERENTIAL Routine 12/05/2024 7:54 AM PROCESS DEVELOPMENT MANAGER RENAL FUNCTION PANEL Routine 12/05/2024 7:54 AM PROCESS DEVELOPMENT MANAGER HEPATIC FUNCTION PANEL, SERUM Routine 12/05/2024 7:54 AM PROCESS DEVELOPMENT MANAGER LIPID PANEL Routine 12/05/2024 7:54 AM PROCESS DEVELOPMENT MANAGER PROTIME-INR Routine 12/05/2024 7:54 AM PROCESS DEVELOPMENT MANAGER COPY(IES) SENT TO: Routine 12/05/2024 7: 54 AM PROCESS DEVELOPMENT MANAGER SIROLIMUS LEVEL RANDOM Routine 11/06/2024 7:58 AM PROCESS DEVELOPMENT MANAGER TACROLIMUS, HIGHLY SENSITIVE, LC/MS/MS Routine 11/06/2024 7:58 AM PROCESS DEVELOPMENT MANAGER RENAL FUNCTION PANEL Routine 11/06/2024 7:58 AM PROCESS DEVELOPMENT MANAGER CBC WITH AUTO DIFFERENTIAL Routine 11/06/2024 7:58 AM PROCESS DEVELOPMENT MANAGER PROTIME-INR Routine 11/06/2024 7:58 AM PROCESS DEVELOPMENT MANAGER COPY(IES) SENT TO: Routine 11/06/2024 7: 58 AM PROCESS DEVELOPMENT MANAGER COLONOSCOPY 04/22/2021 8:33 AM CDT SERUM HEPATITIS C AB Routine 09/30/2015 2:38 AM PROCESS DEVELOPMENT MANAGER from Last 3 Months or Most Recently Relevant to Health Maintenance Results * COPY(IES) SENT TO: (01/12/2025 8:07 AM PROCESS DEVELOPMENT MANAGER) COPY(IES) SENT TO: [facility] Comment: [facility] - COPY TO [facility] [address] [place] [address] 01/12/2025 8:07 AM PROCESS DEVELOPMENT MANAGER 01/12/2025 8:08 AM PROCESS DEVELOPMENT MANAGER Narrative [facility] - 01/16/2025 4:42 PM PROCESS DEVELOPMENT MANAGER PAE us Oleksandr Rice MD LAB BLOOD ORDERABLES Final Resu lt [facility] * (ABNORMAL) CBC with auto differential (01/12/2025 8:07 AM PROCESS DEVELOPMENT MANAGER) WBC 5.5 3.8 - 10.8 Thousand/u L [...] % [facility] 01/12/2025 8:07 AM PROCESS DEVELOPMENT MANAGER 01/12/2025 8:08 AM PROCESS DEVELOPMENT MANAGER Narrative [facility] - 01/16/2025 4:42 PM PROCESS DEVELOPMENT MANAGER PAE us Oleksandr Rice MD LAB BLOOD ORDERABLES Final Resu lt [facility] [address] [place] [address] * Sirolimus level random (01/12/2025 8:07 AM PROCESS DEVELOPMENT MANAGER) SIROLIMUS, LC/MS/MS 5.5 3.0 - 18.0 ng/mL [facility] Comment: This test was developed and its analytical performance characteristics have been determined by [facility]. It has not been cleared or approved by the FDA. This assay has been validated pursuant to the CLIA regulations and is used for clinical purposes. 01/12/2025 8:07 AM PROCESS DEVELOPMENT MANAGER 01/12/2025 8:08 AM PROCESS DEVELOPMENT MANAGER Narrative [facility] - 01/16/2025 4:42 PM PROCESS DEVELOPMENT MANAGER PAE Oleksandr Rice MD LAB BLOOD ORDERABLES Final Resu lt [facility] [address] [place] [address] * Protime-INR (01/12/2025 8:07 AM PROCESS DEVELOPMENT MANAGER) INR 1.0 [facility] Comment: Reference Range 0.9-1.1 Moderate-intensity Warfarin Therapy 2.0-3.0 Higher-intensity Warfarin Therapy 3.0-4.0 PT 10.7 9.0 - 11.5 sec [facility] Comment: For additional information, please refer to http://education.Averail/faq/BSI189 (This link is being provided for informational/ educational purposes only.) 01/12/2025 8:07 AM PROCESS DEVELOPMENT MANAGER 01/12/2025 8:08 AM PROCESS DEVELOPMENT MANAGER Narrative [facility] - 01/16/2025 4:42 PM PROCESS DEVELOPMENT MANAGER PAE Oleksandr Rice MD LAB BLOOD ORDERABLES Final Resu lt Performing Organization Address [facility]/ZIP Co de Phone Number [facility] [address] [place] [address] * (ABNORMAL) Renal function panel (01/12/2025 8:07 AM PROCESS DEVELOPMENT MANAGER) Glucose 99 65 - 99 mg/dL [facility] [...] g/dL [facility] 01/12/2025 8:07 AM PROCESS DEVELOPMENT MANAGER 01/12/2025 8:08 AM PROCESS DEVELOPMENT MANAGER Narrative [facility] - 01/16/2025 4:42 PM PROCESS DEVELOPMENT MANAGER PAE us Oleksandr Rice MD LAB BLOOD ORDERABLES Final Resu lt [facility] [address] [place] [address] * Surgical pathology (01/09/2025 12:00 AM PROCESS DEVELOPMENT MANAGER) Tissue (Skin, shave biopsy) 01/09/2025 01/09/2025 12:22 PM PROCESS DEVELOPMENT MANAGER Narrative [facility] - 01/11/2025 4:28 PM PROCESS DEVELOPMENT MANAGER EPIC results best viewed via link to PDF [facility] [address] [place] [address], [address], [place] [address] [email or web address] Note to Patients: This report may contain [...] Submitting Physician Information: Shiva Luong M.D. Dermatology [facility] [address] ([facility]), [address] [place] [address], [address] [place] [address], DERMATOPATHOLOGY REPORT RESULTS DIAGNOSIS: SKIN, BASE OF [...] than those at the time of procedure. [facility]/tyc ICD-9 A; ZSD.1469 Clerical Data A; 16331 The characteristics of special, immunohistochemical, and immunofluorescence stains and in-situ hybridization tests performed by the [facility] were deemed acceptable in ongoing quality specialist measures and in compliance with regulations drawn from the Clinical Laboratory Improvement Act ub3749 (CLIA '88). Control reactions for all stains performed were deemed adequate and appropriate by a pathologist prior to evaluation of patient tissue. Some diagnoses were rendered with the assistance of laboratory-developed tests utilizing analyte-specific reagents; the performance characteristic of these tests were determined by [facility] and are not cleared or approved by the [place] Food an Drug administration. Laboratory developed test may only be performed in a facility that is certified by the [facility] as a high-complexity laboratory under CLIA '88. These tests are used for clinical purposes and are not investigational. us Shiva Luong MD LAB PATHOLOGY ORDERABL ES Final Result Performing Organization Address [facility] Co de Phone Number DERMATOPATHOLOGY CENTER [facility] [place] [address] * (ABNORMAL) eGFR (01/08/2025 12:10 PM PROCESS DEVELOPMENT MANAGER) eGFR 45(L) >=60 mL/min/1. 73 m2 Comment: [...] reviewed 2021. Blood 01/08/2025 12:1 0 PM PROCESS DEVELOPMENT MANAGER 01/08/2025 12:26 PM PROCESS DEVELOPMENT MANAGER us Pj Tobin NP LAB BLOOD ORDERABLES Susan l Result BOBBI RUIZ [facility] Department [place] [address] * (ABNORMAL) Differential, auto (01/08/2025 12:10 PM PROCESS DEVELOPMENT MANAGER) Neutrophil abs 6.0 1.5 - 6.5 K/cumm Comment:Testing performed by : [facility] Heme Lab, [address] [place] [address] Lymphocyte abs 0.6(L) 0.8 - 3.3 K/cumm [facility] Comment:Testing performed by : [facility] Heme Lab, [address] [place] [phone] Monocyte abs 0.3 0.2 - 0.8 K/cumm [facility] Comment:Testing performed by : [facility]e [facility], [address] [place] [phone] Eosinophil abs 0.1 0.0 - 0.5 K/cumm [facility] Comment:Testing performed by : [facility]e [facility], [address] [place] [phone] Basophil abs 0.0 0.0 - 0.1 K/cumm [facility] Comment:Testing performed by : [facility], [address] [place], [place] [phone] Neutrophil pct 85.1 % [facility] Comment: Interpretive Data Percent cell count reference ranges are not reported, since discordance with absolute values may lead to misinterpretation of CBC data. Current Interpretive Data was last revised on 2018. Testing performed by: [facility]e [facility], [address] [place] [phone] Lymphocyte pct 7.9 % [facility] Comment: Interpretive Data Percent cell count reference ranges are not reported, since discordance with absolute values may lead to misinterpretation of CBC data. Current Interpretive Data was last revised on 2018. Testing performed by: [facility], [address] [place] [phone] Monocyte pct 4.8 % [facility] Comment: Interpretive Data Percent cell count reference ranges are not reported, since discordance with absolute values may lead to misinterpretation of CBC data. Current Interpretive Data was last revised on 2018. Testing performed by: [facility] Heme Lab, [address] [place] [phone] Eosinophil pct 1.8 % [facility] Comment: Interpretive Data Percent cell count reference ranges are not reported, since discordance with absolute values may lead to misinterpretation of CBC data. Current Interpretive Data was last revised on 2018. Testing performed by: [facility], [address] [place], [place] [id number] Basophil pct 0.4 % [facility] Comment: Interpretive Data Percent cell count reference ranges are not reported, since discordance with absolute values may lead to misinterpretation of CBC data. Current Interpretive Data was last revised on 2018. Testing performed by: [facility], [address] [place] [phone] Blood 01/08/2025 12:1 0 PM PROCESS DEVELOPMENT MANAGER 01/08/2025 12:25 PM PROCESS DEVELOPMENT MANAGER Pj Tobin COIN PURSE FRAMER LAB BLOOD ORDERABLES Susan l Result [facility] Department [place] [address] * Thyroid Function Traill (01/08/2025 12:10 PM PROCESS DEVELOPMENT MANAGER) Pathologist [facility] TSH 2.36 0.30 - 4.20 mcIUnit/mL Blood 01/08/2025 12:1 0 PM PROCESS DEVELOPMENT MANAGER 01/08/2025 12:26 PM PROCESS DEVELOPMENT MANAGER Pj Tobin COIN PURSE FRAMER LAB BLOOD ORDERABLES Susan l Result Performing Organization Address City/[facility]/ZIP Co de Phone Number [facility] Department [place] [address] * (ABNORMAL) CBC with auto differential (01/08/2025 12:10 PM PROCESS DEVELOPMENT MANAGER) WBC 7.1 3.8 - 9.9 K/cumm Comment:Testing performed by : [facility], [address] [place] [phone] Hgb 11.1(L) 13.0 - 17.5 g/dL [facility] Comment:Testing performed by : [facility], [address] [place] [phone] Hct 34.5(L) 38.9 - 50.3 % [facility] Comment:Testing performed by : [facility], [address] [place] [address] Plt 243 150 - 400 K/cumm CERKATIE BJ Comment:Testing performed by : [facility], [address] [place] [address] MPV 6.9 6.8 - 10.4 fL CERKATIE BJ Comment:Testing performed by : [facility], [address] [place] [address] RBC 4.66 4.30 - 5.80 M/cumm CERKATIE BJ Comment:Testing performed by : [facility], [address] [place] [address] MCV 74.1(L) 81.3 - 96.4 fL CERKATIE BJ Comment:Testing performed by : [facility], [address] [place] [address] MCH 23.8(L) 27.1 - 33.3 pg CERKATIE BJ Comment:Testing performed by : [facility], [address] [place] [address] MCHC 32.1(L) 32.3 - 35.7 g/dL CERKATIE BJ Comment:Testing performed by : [facility], [address] [place] [address] RDW CV 15.7(H) 11.1 - 14.9 % CERKATIE BJ Comment:Testing performed by : [facility], [address] [place] [address] NRBC abs 0.00 0.00 - 0.01 K/cumm CERKATIE BJ Comment:Testing performed by : [facility], [address] [place] [address] Blood 01/08/2025 12:1 0 PM PROCESS DEVELOPMENT MANAGER 01/08/2025 12:25 PM PROCESS DEVELOPMENT MANAGER us Pj Tobin NP LAB BLOOD ORDERABLES Susan jake Result BOBBI RUIZ [facility] Department [place] [address] * Phosphorus (01/08/2025 12:10 PM PROCESS DEVELOPMENT MANAGER) Pathologist [facility] Phosphorus, pl 2.9 2.3 - 4.5 mg/dL Blood 01/08/2025 12:1 0 PM PROCESS DEVELOPMENT MANAGER 01/08/2025 12:26 PM PROCESS DEVELOPMENT MANAGER Wilbur Angel MD LAB BLOOD ORDERABLES Final Res ult Performing Organization Address City/[facility] Co de Phone Number [facility] [place] [address] * Magnesium (01/08/2025 12:10 PM PROCESS DEVELOPMENT MANAGER) [facility] Magnesium 2.0 1.4 - 2.5 mg/dL Blood 01/08/2025 12:1 0 PM PROCESS DEVELOPMENT MANAGER 01/08/2025 12:26 PM PROCESS DEVELOPMENT MANAGER Pj Tobin NP LAB BLOOD ORDERABLES Susan l Result Performing Organization Address [facility] Co de Phone Number [facility] [employer] [place] [address] * Lactate dehydrogenase (LD) (01/08/2025 12:10 PM PROCESS DEVELOPMENT MANAGER) [facility] Lactate dehydrogenase (LDH) 245 100 - 250 Units/L Blood 01/08/2025 12:1 0 PM PROCESS DEVELOPMENT MANAGER 01/08/2025 12:26 PM PROCESS DEVELOPMENT MANAGER Pj Tobin NP LAB BLOOD ORDERABLES Susan l Result Performing Organization Address [facility] [place] [address] * (ABNORMAL) Comprehensive metabolic panel (01/08/2025 12:10 PM PROCESS DEVELOPMENT MANAGER) Pathologist [facility] Sodium 140 135 - 145 mmol/L Potassium, pl 4.5 3.3 - 4.9 mmol/L [facility] Chloride 104 97 - 110 mmol/L [facility] CO2 29 22 - 32 mmol/L [facility] Anion gap 7 2 - 15 mmol/L [facility] BUN 27(H) 6 - 25 mg/dL [facility] Creatinine 1.67(H) 0.80 - 1.30 mg/dL [facility] Glucose 100 70 - 199 mg/dL [facility] Comment: Interpretive Data Fasting glucose >/= 126 [...] classification and Diagnosis of Diabetes Diabetes Care 2021; 46: S19-S40. Current interpretive data was last revised 2022. Calcium 9.5 8.5 - 10.3 mg/dL [facility] Bilirubin, total 0.4 0.1 - 1.2 mg/dL [facility] Protein, pl 7.0 6.5 - 8.5 g/dL [facility] Albumin 3.9 3.5 - 5.0 g/dL [facility] Alk phos 75 40 - 130 Units/L [facility] ALT 26 7 - 55 Units/L [facility] AST 37 10 - 50 Units/L [facility] Blood 01/08/2025 12:1 0 PM PROCESS DEVELOPMENT MANAGER 01/08/2025 12:26 PM PROCESS DEVELOPMENT MANAGER us Pj Tobin NP LAB BLOOD ORDERABLES Susan joseph Result [facility] [place] [address] * CT Chest Abdomen Pelvis W Contrast (01/08/2025 11:05 AM PROCESS DEVELOPMENT MANAGER) Anatomical Region Laterality Modality Body N/A Computed Tomogra phy 01/08/2025 11:3 6 AM PROCESS DEVELOPMENT MANAGER Impressions 01/08/2025 11:36 AM PROCESS DEVELOPMENT MANAGER 1. Multiple new groundglass nodules in both [...] Jernigan MD, PHD Narrative 01/08/2025 11:36 AM PROCESS DEVELOPMENT MANAGER EXAMINATION: Computed tomography of the chest, abdomen [...] Pancreas, spleen, and adrenal glands are normal. [place] kidneys are atrophic with changes of cryoablation [...] Pancreas, spleen, and adrenal glands are normal. [place] kidneys are atrophic with changes of cryoablation [...] Soft Tissue W Contrast (01/08/2025 11:05 AM PROCESS DEVELOPMENT MANAGER) Anatomical Region Laterality Modality Head and Neck N/A Computed Tomogra phy 01/08/2025 11:4 6 AM PROCESS DEVELOPMENT MANAGER Impressions 01/08/2025 12:07 PM PROCESS DEVELOPMENT MANAGER 1. Postoperative findings of left parotid resection and neck dissection without evidence of recurrent disease in the neck. Dictated by: Smooth Portillo M.D. The radiology attending physician has personally reviewed this study, and had reviewed and/or edited this written report and agrees with it. Electronically signed by: Atif Isidro M.D. Narrative 01/08/2025 12:07 PM PROCESS DEVELOPMENT MANAGER EXAMINATION: CT of the neck with contrast [...] fascial planes on the left including the signal and communications maintainer, sternocleidomastoid, parotid, and vascular spaces are not preserved secondary postsurgical and radiation changes. Left mastoid effusion. The base of the skull and the temporal bones are normal. Limited views of the brain including the cerebellum and brainstem are normal. The limited view of the [place] is unremarkable. The visualized portions [...] fascial planes on the left including the signal and communications maintainer, sternocleidomastoid, parotid, and vascular spaces are not preserved secondary postsurgical and radiation changes. Left mastoid effusion. The base of the skull and the temporal bones are normal. Limited views of the brain including the cerebellum and brainstem are normal. The limited view of the [place] is unremarkable. The visualized portions [...] disease in the neck. Dictated by: Smooth Lindsey, M.D. The radiology attending physician has personally reviewed this study, and had reviewed and/or edited this written report and agrees with it. Electronically signed by: Atif Isidro M.D. us Pj Tobin COIN PURSE FRAMER IMG CT PROCEDURES Final R esult * (ABNORMAL) POCT creatinine (01/08/2025 10:29 AM PROCESS DEVELOPMENT MANAGER) Creatinine POC 1.7(H) 0.8 - 1.3 mg/dL Blood 01/08/2025 10:2 9 AM PROCESS DEVELOPMENT MANAGER 01/08/2025 10:29 AM PROCESS DEVELOPMENT MANAGER Pj Tobin NP LAB POCT ORDERABLES - DEV ICE Final Result ALINEKATIE [facility] Department [place] [address] * COPY(IES) SENT TO: (12/05/2024 7:54 AM PROCESS DEVELOPMENT MANAGER) COPY(IES) SENT TO: [facility] Comment: [facility] - COPY TO [facility] [address] [place] [address] 12/05/2024 7:54 AM PROCESS DEVELOPMENT MANAGER 12/05/2024 7:55 AM PROCESS DEVELOPMENT MANAGER Narrative [facility] - 12/09/2024 3:11 AM PROCESS DEVELOPMENT MANAGER PAE us Oleksandr Rice MD LAB BLOOD ORDERABLES Final Resu lt [facility] * Hepatic Function Panel, Serum (12/05/2024 7:54 AM PROCESS DEVELOPMENT MANAGER) Protein, sr 6.4 6.1 - 8.1 g/dL [...] U/L [facility] 12/05/2024 7:54 AM PROCESS DEVELOPMENT MANAGER 12/05/2024 7:55 AM PROCESS DEVELOPMENT MANAGER Narrative [facility] - 12/09/2024 3:11 AM PROCESS DEVELOPMENT MANAGER PAE us Oleksandr Rice MD LAB BLOOD ORDERABLES Final Resu lt [facility] [address] [place] [address] * (ABNORMAL) CBC with auto differential (12/05/2024 7:54 AM PROCESS DEVELOPMENT MANAGER) Pathologist [facility] WBC 7.0 3.8 - 10.8 Thousand/u L [...] % [facility] 12/05/2024 7:54 AM PROCESS DEVELOPMENT MANAGER 12/05/2024 7:55 AM PROCESS DEVELOPMENT MANAGER Narrative [facility] - 12/09/2024 3:11 AM PROCESS DEVELOPMENT MANAGER PAE Oleksandr Rice MD LAB BLOOD ORDERABLES Final Resu lt [facility] [address] [place] [address] * Sirolimus level random (12/05/2024 7:54 AM PROCESS DEVELOPMENT MANAGER) SIROLIMUS, LC/MS/MS 4.9 3.0 - 18.0 ng/mL [facility] Comment: This test was developed and its analytical performance characteristics have been determined by [facility]. It has not been cleared or approved by the FDA. This assay has been validated pursuant to the CLIA regulations and is used for clinical purposes. 12/05/2024 7:54 AM PROCESS DEVELOPMENT MANAGER 12/05/2024 7:55 AM PROCESS DEVELOPMENT MANAGER Narrative [facility] - 12/09/2024 3:11 AM PROCESS DEVELOPMENT MANAGER PAE Oleksandr Rice MD LAB BLOOD ORDERABLES Final Resu lt [facility] [address] [place] [address] * Protime-INR (12/05/2024 7:54 AM PROCESS DEVELOPMENT MANAGER) Pathologist [facility] INR 1.0 [facility] Comment: Reference Range 0.9-1.1 Moderate-intensity Warfarin Therapy 2.0-3.0 Higher-intensity Warfarin Therapy 3.0-4.0 PT 10.6 9.0 - 11.5 sec [facility] Comment: For additional information, please refer to http://education.Averail/faq/DUQ928 (This link is being provided for informational/ educational purposes only.) 12/05/2024 7:54 AM PROCESS DEVELOPMENT MANAGER 12/05/2024 7:55 AM PROCESS DEVELOPMENT MANAGER Narrative [facility] - 12/09/2024 3:11 AM PROCESS DEVELOPMENT MANAGER PAE us Oleksandr Rice MD LAB BLOOD ORDERABLES Final Resu lt [facility] [address] [place] [address] * (ABNORMAL) Renal function panel (12/05/2024 7:54 AM PROCESS DEVELOPMENT MANAGER) Pathologist [facility] Glucose 100(H) 65 - 99 mg/dL [facility] [...] g/dL [facility] 12/05/2024 7:54 AM PROCESS DEVELOPMENT MANAGER 12/05/2024 7:55 AM PROCESS DEVELOPMENT MANAGER Narrative [facility] - 12/09/2024 3:11 AM PROCESS DEVELOPMENT MANAGER PAE us Oleksandr Rice MD LAB BLOOD ORDERABLES Final Resu lt [facility] [address] [place] [address] * (ABNORMAL) Lipid panel (12/05/2024 7:54 AM PROCESS DEVELOPMENT MANAGER) Cholesterol 199 <200 mg/dL [facility] [...] factors. LDL-C is now calculated using the Rogerio-Hall calculation, which is a validated novel method providing better accuracy than the Friedewald equation in the estimation of LDL-C. Rogerio KC et al. MYCHAL. 2013;310(19): 8692-0330 (http://education.[employer]/faq/ZRA628) Chol/HDL ratio 3.0 <5.0 (calc) [facility] Non-HDL, (LDL+VLDL) 132(H) <130 mg/dL (calc) [facility] Comment: For patients with diabetes plus 1 major ASCVD risk factor, treating to a non-HDL-C goal of <100 mg/dL (LDL-C of <70 mg/dL) is considered a therapeutic option. 12/05/2024 7:54 AM PROCESS DEVELOPMENT MANAGER 12/05/2024 7:55 AM PROCESS DEVELOPMENT MANAGER Narrative [facility] - 12/09/2024 3:11 AM PROCESS DEVELOPMENT MANAGER PAE Oleksandr Rice MD LAB BLOOD ORDERABLES Final Resu lt Performing Organization Address [facility] de Phone Number [facility] [address] [facility] [place] [address] * (ABNORMAL) Tacrolimus, Highly Sensitive, LC/MS/MS (11/06/2024 7:58 AM PROCESS DEVELOPMENT MANAGER) Tacrolimus, Highly Sensitive, LC/MS/MS 1.6(L) mcg/L [facility] Comment: No definitive therapeutic or toxic ranges have been established. Optimal blood drug levels are influenced by type of transplant, patient response, time post- transplant, co-administration of other drugs, and drug formulation. The following trough range is a suggested guideline: 5.0-20.0 mcg/L. 11/06/2024 7:58 AM PROCESS DEVELOPMENT MANAGER 11/06/2024 7:58 AM PROCESS DEVELOPMENT MANAGER Narrative [facility] - 11/10/2024 8:11 AM PROCESS DEVELOPMENT MANAGER PAE Oleksandr Rice MD LAB BLOOD ORDERABLES Final Resu lt Performing Organization Address [facility] de Phone Number [facility] [address] [facility] [place] [address] * COPY(IES) SENT TO: (11/06/2024 7:58 AM PROCESS DEVELOPMENT MANAGER) COPY(IES) SENT TO: [facility] Comment: [facility] - COPY TO [place] [address] [place] [address] 11/06/2024 7:58 AM PROCESS DEVELOPMENT MANAGER 11/06/2024 7:58 AM PROCESS DEVELOPMENT MANAGER Narrative [facility] - 11/10/2024 8:11 AM PROCESS DEVELOPMENT MANAGER PAE Oleksandr Rice MD LAB BLOOD ORDERABLES Final Resu lt Performing Organization Address City/[facility] Co de Phone Number [facility] * (ABNORMAL) CBC with auto differential (11/06/2024 7:58 AM PROCESS DEVELOPMENT MANAGER) [facility] WBC 5.2 3.8 - 10.8 Thousand/u L [...] % [facility] 11/06/2024 7:58 AM PROCESS DEVELOPMENT MANAGER 11/06/2024 7:58 AM PROCESS DEVELOPMENT MANAGER Narrative [facility] - 11/10/2024 8:11 AM PROCESS DEVELOPMENT MANAGER PAE us Oleksandr Rice MD LAB BLOOD ORDERABLES Final Resu lt Performing Organization Address City/[facility]/ZIP Co de Phone Number [facility] [address] [place] [address] * Sirolimus level random (11/06/2024 7:58 AM PROCESS DEVELOPMENT MANAGER) [facility] SIROLIMUS, LC/MS/MS 6.2 3.0 - 18.0 ng/mL [facility] Comment: This test was developed and its analytical performance characteristics have been determined by [facility]. It has not been cleared or approved by the FDA. This assay has been validated pursuant to the CLIA regulations and is used for clinical purposes. 11/06/2024 7:58 AM PROCESS DEVELOPMENT MANAGER 11/06/2024 7:58 AM PROCESS DEVELOPMENT MANAGER Narrative [facility] - 11/10/2024 8:11 AM PROCESS DEVELOPMENT MANAGER PAE Result [facility] Oleksandr Rice MD LAB BLOOD ORDERABLES Final Resu lt Performing Organization Address [facility] de Phone Number [facility] [address] [place] [address] * Protime-INR (11/06/2024 7:58 AM PROCESS DEVELOPMENT MANAGER) [facility] INR 1.0 [facility] Comment: Reference Range 0.9-1.1 Moderate-intensity Warfarin Therapy 2.0-3.0 Higher-intensity Warfarin Therapy 3.0-4.0 PT 10.6 9.0 - 11.5 sec [facility] Comment: For additional information, please refer to http://education.okay.com.Cognio/faq/CGS615 (This link is being provided for informational/ educational purposes only.) 11/06/2024 7:58 AM PROCESS DEVELOPMENT MANAGER 11/06/2024 7:58 AM PROCESS DEVELOPMENT MANAGER Narrative [facility] - 11/10/2024 8:11 AM PROCESS DEVELOPMENT MANAGER PAE Result [facility] Oleksandr Rice MD LAB BLOOD ORDERABLES Final Resu lt Performing Organization Address [facility] Co de Phone Number [facility] [address] [place] [address] * (ABNORMAL) Renal function panel (11/06/2024 7:58 AM PROCESS DEVELOPMENT MANAGER) Glucose 108(H) 65 - 99 mg/dL [facility] [...] g/dL [facility] 11/06/2024 7:58 AM PROCESS DEVELOPMENT MANAGER 11/06/2024 7:58 AM PROCESS DEVELOPMENT MANAGER Narrative [facility] - 11/10/2024 8:11 AM PROCESS DEVELOPMENT MANAGER PAE us Oleksandr Rice MD LAB BLOOD ORDERABLES Final Resu lt [facility] [address] [facility] [place] [place] [address] * COLONOSCOPY (04/22/2021 8:33 AM CDT) Anatomical Region Laterality Modality Other Narrative Procedure Note Tamera Francois MD PhD - 04/22/2021 8:33 AM CDT ENDOSCOPY LAB Patient Name: Los Shultz Procedure Date: 04/22/2021 8:33 AM Date of : 1960 Admit Type: Outpatient Age: 60 Gender: Male Attending MD: Tamera Francois MD,PHD Room: [facility] ENDOSCOPY ROOM 02 Note Status: Finalized [...] The scope was passed under direct vision.The [id number] was introduced through the anusand advanced to [...] bowel preparation was evaluated using the BBPS ([place] Bowel Preparation Scale) with scores of: Right [...] inthe days following this procedure, please call davidffsima at [phone] or [phone] to speak to my talent assistant. After hours and weekends, please call [phone] and ask for the GI fellow hand button splitter.Please tell them that Dr. Francois did your procedure and that you were instructed to have the fellow call me orthe physician covering for me to discuss yourcondition. If you have an urgent problem, please go thenearest emergency room and have the ER doctor call davidlanesima during the day or the GI fellow after hours and weekends. Attending Participation: I personally performed the entire procedure. Electronically signed by Tamera Francois MD. Tamera Francois MD, PHD 04/22/2021 9:32:33 AM Number of Addenda: 0 Note Initiated On: 04/22/2021 8:33 AM us Tamera Francois MD PhD ENDOSCOPY PROCEDURES Susan l Result * Serum Hepatitis C ab (09/30/2015 2:38 AM PROCESS DEVELOPMENT MANAGER) HCV ab Negative NEG HISTORICAL RESULTS Serum 09/30/2015 2:38 AM PROCESS DEVELOPMENT MANAGER Narrative HISTORICAL RESULTS - 09/30/2015 5:17 AM PROCESS DEVELOPMENT MANAGER Interpretive Data If confirmation is required, call Laboratory Customer Service to request sample to be sent to [facility] for Hepatitis C Virus (HCV) RNA Detection and Quantitation by Real-Time Reverse Staff Midwife/Apprenticeship Director-PCR (RT-PCR). Current interpretive data was last revised on 2012 us Tong Ann MD LAB BLOOD ORDERABLES Final Result HISTORICAL RESULTS from Last 3 Months or Most Recently Relevant to Health Maintenance Insurance [place]ESS [place] CHOICE MEDICARE PPO CHOICE [facility] PPO AL CIGNA OPEN ACCESS CIGNA [facility] HUMANA CHOICE MEDICARE PPO Advance Directives For more information, please contact: [phone] * Full Code (Latest Code Status on [...] 5:52 PM 01/15/2021 9:19 PM Care Teams Sales Assistant Relationship Specialty Start Date End Date Krishna Rosales MD [address] [place] [address] PCP - General Family Medicine 06/16/19 Delmi Peace, AFTAB [address] [place] [address] Offshoring Manager 04/12/18 Smooth Simpson MD [address] [place] [address] Plastic Surgeon Plastic Surgery 04/05/20 Mame Cast MD [address] [place] [address] Radiation Oncologist Radiation Oncology 05/23/20 Wilbur Angel MD [address] [facility] [address] [place] [address] Medical Oncologist/[facility] 10/24/20 Tong Dubose MD [address] [facility] DEPT OTOLARYNGOLOGY, [address] [address] Surgeon Otolaryngology 06/11/22
--- OUTSIDE RECORDS SUMMARY | 2025-01-29 10:29 | XMS_ITS | Encounter Summary ---
Author Organization [facility] Address [address] [place] [address] Phone Care Team Providers Care Business Development Assistant Name Role Phone Delmi Peace RN Unavailable [phone] Krishna Rosales MD Primary Care Provider + [phone] [facility] MD Unavailable [phone] Mame Cast MD Unavailable [phone] Wilbur Angel MD Unavailable [phone] Tong Dubose MD Unavailable [phone] Reason for Referral * MRI/CAT/PET Scan (Routine) - Pending Review Specialty Diagnoses / Procedures Referred By Contac t Referred To Contact Radiology Diagnoses Squamous cell carcinoma of skin of unspecified parts of face Procedures CT chest abdomen pelvis without contrast Wilbur Angel MD [address] [facility] [address] [place] [address] Phone: tel: fax: [address] [address] Referral ID Status Reason Start Date Expiration Date V isits Requested Visits Authorized [id number] Pending Review 01/01/2025 01/31/2026 1 1 R VEHICLE SALESPERSON * MRI/CAT/PET Scan (Routine) - Pending Review Specialty Diagnoses / Procedures Referred By Contac t Referred To Contact Radiology Diagnoses Squamous cell carcinoma of skin of unspecified parts of face Procedures CT Neck Soft Tissue WO Contrast Wilbur Angel MD [address] [facility] [address] [place] [address] Phone: tel: fax: [facility] [address] [place] [address] Referral ID Status Reason Start Date Expiration Date V isits Requested Visits Authorized [id number] Pending Review 01/01/2025 01/31/2026 1 1 R VEHICLE SALESPERSON Encounter Details Date Type Department Care Team (Late st Contact Info) Description 01/01/2025 Orders Only [facility] Oncology [address] [facility] [address] [place] [id number] Wilbur Angel MD [address] [facility] [address] [place] [address] Squamous cell carcinoma of skin of unspecified parts of face (Primary Dx) Social History Tobacco Use Types Packs/Day Years [...] on file Legal Sex Male 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 Gender Identity Male 07/03/2022 5:22 AM CDT Sexual Orientation Straight 12/01/2020 8: 14 PM MOTOR VEHICLE SALESPERSON documented as of this encounter Plan of Treatment Scheduled Orders Name Type Priority Associated Diagnoses Orde r Schedule CBC with auto differential Lab Routine Squamous cell carcinoma of skin of unspecified parts of face Expected: 04/16/2025, Expires: 01/01/2026 Comprehensive metabolic panel Lab Routine Squamous cell carcinoma of skin of unspecified parts of face Expected: 04/16/2025, Expires: 01/01/2026 Lactate dehydrogenase (LD) Lab Routine Squamous cell carcinoma of skin of unspecified parts of face Expected: 04/16/2025, Expires: 01/01/2026 Thyroid Function [place] Lab Routine Squamous cell carcinoma of skin of unspecified parts of face Expected: 04/16/2025, Expires: 01/01/2026 CT Neck Soft Tissue WO Contrast Imaging Schedule Routine, Read Routine (OP Routine) Squamous cell carcinoma of skin of unspecified parts of face Expected: 04/16/2025, Expires: 01/01/2026 CT chest abdomen pelvis without contrast Imaging Schedule Routine, Read Routine (OP Routine) Squamous cell carcinoma of skin of unspecified parts of face Expected: 04/16/2025, Expires: 01/01/2026 Phosphorus Lab Routine Squamous cell carcinoma of skin of unspecified parts of face Expected: 04/16/2025, Expires: 01/01/2026 Magnesium Lab Routine Squamous cell carcinoma of skin of unspecified parts of face Expected: 04/16/2025, Expires: 01/01/2026 documented as of this encounter Results * Phosphorus (01/08/2025 12:10 PM MOTOR VEHICLE SALESPERSON) Phosphorus, pl 2.9 2.3 - 4.5 mg/dL Blood 01/08/2025 12:1 0 PM MOTOR VEHICLE SALESPERSON 01/08/2025 12:26 PM MOTOR VEHICLE SALESPERSON Wilbur Angel MD LAB BLOOD ORDERABLES Final Res ult [facility] Department [place] [address] documented in this encounter Visit Diagnoses Diagnosis Squamous cell carcinoma of skin of unspecified parts of face- Primary documented in this encounter Orders Appointment Requests Count Last Ordered Date Fi rst Ordered Date ONCBCN CLINIC APPOINTMENT REQUEST 1 025 ON[facility]N LAB APPOINTMENT 1 01/01/2025 documented in this encounter Care Teams Business Development Assistant Relationship Specialty Start Date End Date Krishna Rosales MD [address] [place] [address] PCP - General Family Medicine 06/16/19 Delmi Peace, RN [address] [place] [address] Boiler Reliner 04/12/18 Smooth Simpson MD [address] [place] [address] Plastic Surgeon Plastic Surgery 04/05/20 Mame Cast MD [address] [place] [address] Radiation Oncologist Radiation Oncology 05/23/20 Wilbur Angel MD [address] [facility] [address] [place] [address] Medical Oncologist/Project Management It Specialist Medical Oncology 10/24/20 Tong Dubose MD [address] [facility] DEPT OTOLARYNGOLOGY, [address] [place] [address] Surgeon Otolaryngology 06/11/22 documented as of this encounter
--- OUTSIDE RECORDS SUMMARY | 2025-01-29 10:29 | XMS_ITS | Encounter Summary ---
Author Organization [facility] Address [address] [place] [address] Phone Care Team Providers Care Diet Tech Name Role Phone Delmi Peace RN Unavailable [phone] Krishna Rosales MD Primary Care Provider + [phone] [facility] Unavailable [phone] Mame Cast MD Unavailable [phone] Wilbur Angel MD Unavailable [phone] Tong Dubose MD Unavailable [phone] Encounter Details Date Type Department Care Team (Latest Contact Info) Description 07/13/2023 Orders Only [facility] Scanning, Provider Social [...] on file Legal 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 Gender Identity Male 07/03/2022 5:22 AM CDT Sexual Orientation Straight 12/01/2020 8: 14 PM DRIVER 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 documented as of this encounter Plan of Treatment Not on file documented as of this encounter Procedures Procedure Name Priority Date/Time Associated Diagnosis Comments SCAN - PATHOLOGY 07/13/2023 10:51 AM CDT documented in this encounter Results * SCAN - PATHOLOGY (07/13/2023 10:51 AM CDT) us Provider Scanning Final Result documented in this encounter Visit Diagnoses Not on filedocumented in this encounter Care Teams Diet Tech Relationship Specialty Start Date End Date Krishna Rosales MD [address] [place] [address] PCP - General Family Medicine 06/16/19 Delmi Peace, RN [address] [place] [address] Field Captain 04/12/18 [facility] [address] [place] [address] Plastic Surgeon Plastic Surgery 04/05/20 Mame Cast MD [address] [place] [address] Radiation Oncologist Radiation Oncology 05/23/20 Wilbur Angel MD [address] [facility] [address] [place] [address] Medical Oncologist/Loom Blower Medical Oncology 10/24/20 Tong Dubose MD [address] [facility] DEPT OTOLARYNGOLOGY, [address] [address] Surgeon Otolaryngology 06/11/22 documented as of this encounter
== END 2025-01-29 10:13 | disposition home or self-care (01) ==
PROVIDERS: Emergency Provider Nurse Practitioner; PCP Family Medicine
DX: J98.11 Atelectasis (principal); J18.9 Pneumonia, unspecified organism; Z79.82 Long term (current) use of aspirin; I48.91 Unspecified atrial fibrillation; E78.5 Hyperlipidemia, unspecified; I10 Essential (primary) hypertension; Z86.711 Personal history of pulmonary embolism; Z85.828 Personal history of other malignant neoplasm of skin; Z94.0 Kidney transplant status
CPT/HCPCS: 71046; 99213; G0463

== ENCOUNTER 2025-02-19 08:18 | Outpatient (CLI) | payer MEDICARE, BC, SELFPAY ==
--- NOTE | ~2025-02-19 | XR_ITS ---
Clinical Indication: Atelectasis PA and lateral views of the chest: Comparison: None Findings: Right-sided Mediport in place. The lungs are clear, without evidence of focal consolidation or pleural effusion. Cardiomediastinal silhouette is within normal limits. Bones and soft tissues a re unremarkable. Impression: Clear lungs. Right-sided Mediport. Reviewed, dictated and finalized at location . Impression: Clear lungs. Right-sided Mediport.
== END 2025-02-19 08:19 | disposition home or self-care (01) ==
LOC: MICIMG 08:20
PROVIDERS: PCP Family Medicine; Visit Provider Nurse Practitioner Family
DX: J98.11 Atelectasis (principal)
CPT/HCPCS: 71046

== ENCOUNTER 2025-04-02 15:48 | Outpatient (CLI) | payer MEDICARE, BC, SELFPAY ==
--- OUTSIDE RECORDS SUMMARY | 2025-04-02 15:52 | XMS_ITS ---
Author Organization [facility] Address [address] [place] [address] Care Team Providers Care Wheel Braider Name Role Phone Delmi Peace RN Unavailable [phone] Krishna Rosales MD Primary Care Provider + [phone] [facility] Unavailable [phone] Mame Cast MD Unavailable [phone] Wilbur Angel MD Unavailable [phone] Tong Dubose MD Unavailable [phone] Active Problems Patient Care Coordination No te Formatting of this note migh t be different from the original. Goal Sirolimus levels should be 4-6 [facility] [id number], [id number] Standing orders q-monthly, PT/INR, Sirolimus q3-Routine Exp.05/06/25 [facility] Oncology CM ext [id number] Problem Noted Date Diagnosed Date SCC (squamous [...] future. Assessment & Plan (10/04/2022 6:32 PM TRIM MACHINE ADJUSTER): [place] is doing well after Left [...] (04/29/2021): Added automatically from request for surgery [id number] Cellulitis of leg, right 03/18/2021 Assessment & [...] (02/07/2021): Added automatically from request for surgery [id number] Abnormal finding on GI tract imaging 02/07/2021 Overview (02/07/2021): Added automatically from request for surgery [id number] Metastasis to bone 01/20/2021 Head and neck [...] numbness. Assessment & Plan (01/13/2021 8:03 PM TRIM MACHINE ADJUSTER): Please note patient with noted C1 vertebral [...] AM Assessment & Plan (01/13/2021 8:01 PM TRIM MACHINE ADJUSTER): Please note patient with noted C1 vertebral [...] occurred. Assessment & Plan (01/15/2021 5:09 PM TRIM MACHINE ADJUSTER): -hold home Eliquis in s/o possible surgical intervention -Heparin gtt -Resuming Eliquis as ortho spine recommends non-operative management Assessment & Plan (01/13/2021 7:48 PM TRIM MACHINE ADJUSTER): -hold home Eliquis in s/o possible surgical [...] time Assessment & Plan (01/13/2021 8:09 PM TRIM MACHINE ADJUSTER): -continue home Tacro XR 1mg PO daily -Goal Tacro trough in the s/o acitve cancer 2-3 -check AM tacro level on 01/14, ~ 30min-1hr prior to Tacro dosing -home pred held given steroids as elsewhere -on arrival sCr 1.69 and thus at baseline -May require renal transplant involvement if increasing sCr noted on daily labs -Monitor Is/Os Assessment & Plan (01/13/2021 7:55 PM TRIM MACHINE ADJUSTER): -continue home Tacro 1PO BID -Goal Tacro [...] (04/09/2020): Added automatically from request for surgery [id number] 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 Assessment & Plan (01/15/2021 5:09 PM TRIM MACHINE ADJUSTER): -01/10 PET scan notable for diffuse and [...] outpatient Assessment & Plan (01/13/2021 7:40 PM TRIM MACHINE ADJUSTER): -01/10 PET scan notable for diffuse and [...] 06/16/2019 Assessment & Plan (01/13/2021 8:05 PM TRIM MACHINE ADJUSTER): -continue home Lisinopril 10 -Continue home Coreg 25BID Assessment & Plan (01/13/2021 8:00 PM TRIM MACHINE ADJUSTER): -continue home Coreg 25BID -continue home Lisinopril 10 daily Increased infection risk sta tus post immunosuppressive therapy 06/16/2019 Dyslipidemia 06/16/2019 Assessment & Plan (01/13/2021 8:05 PM TRIM MACHINE ADJUSTER): -continue home Crestor Assessment & Plan (01/13/2021 8:00 PM TRIM MACHINE ADJUSTER): -continue home Atorva 40 QHS High risk [...] of 24 cycles started Oncology Supportive Care Therapy Plan Plan Name Start Date Discontinue Date Treatment [...]
--- OUTSIDE RECORDS SUMMARY | 2025-04-02 15:52 | XMS_ITS | Encounter Summary ---
Author Organization [facility] [employer] [facility] Address [address] [place] [address] Care Team Providers Care Link Trainer Operator Name Role Phone Unavailable Primary Care Provider Unavailabl e Encounter Details Date Type Department Care Team ([facility] Contact Info) Description 04/02/2025 3:00 PM CDT Office Visit [facility] Oncology and Hematology - Kalpesh [address] [facility] [address] [place] [address] Marin Rhodes MD [address] [facility] [address] [place] [address] Chronic anemia (Primary Dx) Social History Tobacco Use Types Packs/Day Years Used Date Smoking Tobacco: Never Smokeless Tobacco: Never Alcohol Use Standard Drinks/Week Comments Yes 0 (1 standard drink = 0.6 oz pur e alcohol) occasional Sex and Gender Information Value Date Recorded Sex Assigned at Not on file Legal Sex Male 10:47 AM CDT Gender Identity Not on file Sexual Orientation Not on file documented as of this encounter Last Filed Vital Signs Vital Sign Reading Time Taken Comments Blood Pressure 129/69 04/02/2025 3:00 PM CDT Pulse 71 04/02/2025 3:00 PM CDT Temperature 37.1 C (98.7 F) 04/02/2025 3:00 PM CDT Respiratory Rate 15 04/02/2025 3:00 PM CDT Oxygen Saturation 96% 04/02/2025 3:00 PM CDT Inhaled Oxygen Concentration - - Weight 86.1 kg (189 lb 12.8 oz) 04/02/2025 3:00 PM CDT Height - - Body Mass Index - - documented in this encounter Plan of Treatment Upcoming Encounters Date Type Department Care Team (Late Contact Info) Description 04/10/2025 4:30 PM CDT Telephone Check Up [facility] Oncology and Hematology - Kalpesh [address] [facility] [address] [place] [address] Marin Rhodes MD [address] [facility] [address] [place] [address] Scheduled Orders Name Type Priority Associated Diagnoses Orde r Schedule FERRITIN Lab Routine Chronic anemia Expected: 04/02/2025, Expires: 04/02/2026 CBC WITH DIFFERENTIAL Lab Stat Chronic anemia Expected: 04/02/2025, Expires: 04/02/2026 COMPREHENSIVE METABOLIC PANEL Lab Stat Chronic anemia Expected: 04/02/2025, Expires: 04/02/2026 IRON, TIBC, AND PERCENT SATURATION Lab Routine Chronic anemia Expected: 04/02/2025, Expires: 04/02/2026 METHYLMALONIC ACID Lab Routine Chronic anemia Expected: 04/02/2025, Expires: 04/02/2026 TRANSFERRIN RECEPTOR TFR SOLUBLE Lab Routine Chronic anemia Expected: 04/02/2025, Expires: 04/02/2026 VITAMIN B12 AND FOLATE Lab Routine Chronic anemia Expected: 04/02/2025, Expires: 04/02/2026 documented as of this encounter Visit Diagnoses Diagnosis Chronic anemia- Primary Anemia, unspecified documented in this encounter
--- OUTSIDE RECORDS SUMMARY | 2025-04-02 15:52 | XMS_ITS | Encounter Summary ---
Author Organization [facility] Address [address] [place] [address] Phone Care Team Providers Care Hygiene Teacher Name Role Phone Delmi Peace RN Unavailable [phone] Krishna Rosales MD Primary Care Provider + [phone] [facility] Unavailable [phone] Mame Cast MD Unavailable [phone] Wilbur Angel MD Unavailable [phone] Nicole Grijalva MD Unavailable [phone] Tong Dubose MD Unavailable [phone] Encounter Details Date Type Department Care Team [...] on file Legal Sex Male 1:23 AM MILITARY EXCHANGE WIRELESS MANAGER Gender Identity Male 07/03/2022 5:22 AM CDT Sexual Orientation Straight 12/01/2020 8: 14 PM MILITARY EXCHANGE WIRELESS MANAGER documented as of this encounter Plan of Treatment Not on file documented as of this encounter Procedures Procedure Name Priority Date/Time Associated Diagnosis Comments SCAN - LABS 06/04/2022 documented in this encounter Results * SCAN - LABS (06/04/2022) us Provider Scanning Edited Result - Final documented in this encounter Visit Diagnoses Not on filedocumented in this encounter Care Teams Hygiene Teacher Relationship Specialty Start Date End Date Krishna Rosales MD [address] [place] [address] PCP - General Family Medicine 06/16/19 Delmi Peace RN [address] [place] [address] Design Project Manager 04/12/18 Smooth Simpson MD [address] [place] [address] Plastic Surgeon Plastic Surgery 04/05/20 Mame Cast MD [address] [place] [address] Radiation Oncologist Radiation Oncology 05/23/20 Wilbur Angel MD [address] [facility] [address] [place] [address] Medical Oncologist/Boiler Attendant Medical Oncology 10/24/20 Nicole Grijalva MD [address] [facility] [address] [place] [address] Radiation Oncologist Radiation Oncology 02/05/21 Tong Dubose MD [address] [facility] DEPT OTOLARY[facility]OLOGY, [address] [address] Surgeon Otolaryngology 06/11/22 documented as of this encounter
--- OUTSIDE RECORDS SUMMARY | 2025-04-02 15:52 | XMS_ITS | Encounter Summary ---
Author Organization [facility] Address [address] [place] [address] Phone Care Team Providers Care Process Development Technician Name Role Phone Delmi Peace RN Unavailable [phone] Krishna Rosales MD Primary Care Provider + [phone] [facility] Unavailable [phone] Mame Cast MD Unavailable [phone] Wilbur Angel MD Unavailable [phone] Tong Dubose MD Unavailable [phone] Reason for Referral * MRI/CAT/PET Scan (Routine) - Pending Review Specialty Diagnoses / Procedures Referred By Contac t Referred To Contact Radiology Diagnoses Squamous cell carcinoma of skin of unspecified parts of face Procedures CT chest abdomen pelvis without contrast Wilbur Angel MD [address] [facility] [address] [place] [address] Phone: tel: fax: [address] [address] Referral ID Status Reason Start Date Expiration Date V isits Requested Visits Authorized [id number] Pending Review 01/01/2025 01/31/2026 1 1 LE MAKER * MRI/CAT/PET Scan (Routine) - Pending Review Specialty Diagnoses / Procedures Referred By Contac t Referred To Contact Radiology Diagnoses Squamous cell carcinoma of skin of unspecified parts of face Procedures CT Neck Soft Tissue WO Contrast Wilbur Angel MD [address] [facility] [address] [place] [address] Phone: tel: fax: [facility] [address] [place] [address] Referral ID Status Reason Start Date Expiration Date V isits Requested Visits Authorized [id number] Pending Review 01/01/2025 01/31/2026 1 1 LE MAKER Encounter Details Date Type Department Care Team (Late st Contact Info) Description 01/01/2025 Orders Only [facility] Oncology [address] [facility] [address] [place] [id number] Wilbur Angel MD [address] [facility] [address] [place] [address] Squamous cell carcinoma of skin of unspecified [...] on file Legal Sex Male 1:23 AM NIPPLE MAKER Gender Identity Male 07/03/2022 5:22 AM CDT Sexual Orientation Straight 12/01/2020 8: 14 PM NIPPLE MAKER documented as of this encounter Plan of Treatment Scheduled Orders Name Type Priority Associated Diagnoses Orde r Schedule CBC with auto differential Lab Routine Squamous cell carcinoma of skin of unspecified parts of face Expected: 04/23/2025, Expires: 01/04/2026 Comprehensive metabolic panel Lab Routine Squamous cell carcinoma of skin of unspecified parts of face Expected: 04/23/2025, Expires: 01/04/2026 Lactate dehydrogenase (LD) Lab Routine Squamous cell carcinoma of skin of unspecified parts of face Expected: 04/23/2025, Expires: 01/04/2026 Thyroid Function [place] Lab Routine Squamous cell carcinoma of skin of unspecified parts of face Expected: 04/23/2025, Expires: 01/04/2026 CT Neck Soft Tissue WO Contrast Imaging [...] skin of unspecified parts of face Expected: 04/23/2025, Expires: 01/04/2026 Magnesium Lab Routine Squamous cell carcinoma of skin of unspecified parts of face Expected: 04/23/2025, Expires: 01/04/2026 documented as of this encounter Results * Phosphorus (01/08/2025 12:10 PM NIPPLE MAKER) Phosphorus, pl 2.9 2.3 - 4.5 mg/dL Blood 01/08/2025 12:1 0 PM NIPPLE MAKER 01/08/2025 12:26 PM NIPPLE MAKER us Wilbur Angel MD LAB BLOOD ORDERABLES Final Res ult [facility] One [facility] Department [place] [address] documented in this encounter Visit Diagnoses Diagnosis Squamous cell carcinoma of skin of unspecified parts of face- Primary documented in this encounter Orders Appointment Requests Count Last Ordered Date Fi rst Ordered Date ONCBCN CLINIC APPOINTMENT REQUEST 1 025 ONCBCN LAB APPOINTMENT 1 01/01/2025 documented in this encounter Care Teams Process Development Technician Relationship Specialty Start Date End Date Krishna Rosales MD [address] [place] [address] PCP - General Family Medicine 06/16/19 Delmi Peace, RN [address] [place] [address] Tank House Operator Helper 04/12/18 Smooth Simpson MD [address] [place] [address] Plastic Surgeon Plastic Surgery 04/05/20 Mame Cast MD [address] [place] [address] Radiation Oncologist Radiation Oncology 05/23/20 Wilbur Angel MD [address] [facility] [address] [place] [address] Medical Oncologist/Surgical Assistant Medical Oncology 10/24/20 Tong Dubose MD [address] [facility] DEPT OTOLARYNGOLOGY, [address] [place] [address] Surgeon Otolaryngology 06/11/22 documented as of this encounter
--- OUTSIDE RECORDS SUMMARY | 2025-04-02 15:52 | XMS_ITS | Referral Summary ---
Author Organization [facility] Address [address] [facility] [place] [address] Care Team Providers Care Leather Softener Name Role Phone Delmi Peace RN Unavailable [phone] Krishna Rosales MD Primary Care Provider [facility] MD Unavailable [phone] Mame Cast MD Unavailable [phone] Wilbur Angel MD Unavailable [phone] Tong Dubose MD Unavailable [phone] Encounters Date Type Department Care Team Description 03/30/2025 Telephone [facility] Otolaryngology [address] [place] [address] Glenny Ceron MS 03/30/2025 Telephone [facility] Dermatology [address] [facility] Outpatient Health [address] [place] [phone] Shiva Luong MD Prior Auth 03/14/2025 Orders Only [facility] Nephrology [address] [facility] Advanced Medicine 5th [place] [address] [place] [phone] Oleksandr Rice MD 02/06/2025 Orders Only [facility] Nephrology [address] [facility] Advanced Medicine 5th [place] [address] [place] [phone] Oleksandr Rice MD 01/15/2025 Documentation [facility] Oncology [address] [facility] [address] [place] [phone] Sachin Pretty RN creatinine result 01/12/2025 Orders Only [facility] Scanning, Provider 01/12/2025 Orders Only [facility] Nephrology [address] [facility] 5th [place] [address] [place] [address] Oleksandr Rice MD 01/12/2025 Results Follow-Up [facility] Dermatology [address] [place] [address] Outpatient Health [address] [place] [phone] Shiva Luong MD Surgical pathology 01/09/2025 Orders Only [facility] [address] [place] [address] Shiva Luong MD Neoplasm of uncertain behavior of skin 01/09/2025 8:00 AM SUBSTANCE ABUSE CLINICIAN Office Visit [facility] Dermatology [address] [place] [address] Outpatient Health [address] [place] [phone] Shiva Luong MD Neoplasm of uncertain behavior of skin (Primary Dx); Actinic keratosis; Seborrheic keratoses; Multiple melanocytic nevi; History of nonmelanoma skin cancer; History of immunosuppressive therapy; High risk medications (not anticoagulants) long-term use; Actinic skin damage 01/08/2025 12:00 PM SUBSTANCE ABUSE CLINICIAN Lab [facility] [place] - Lab Collection [address] [place] [address] Floor 6 [place] [address] Squamous cell carcinoma of skin of unspecified parts of face; Head and neck cancer (HCC) 01/08/2025 1:40 PM SUBSTANCE ABUSE CLINICIAN Office Visit [facility] Oncology [address] [place] [address] Floor [address] [place] [address] Wilbur Angel MD Head and neck cancer (HCC) 01/08/2025 11:45 AM SUBSTANCE ABUSE CLINICIAN Lab [facility] Oncology Lab [address] [place] [address] Floor 6 [place] [address] Head and neck cancer (HCC) 01/08/2025 10:08 AM SUBSTANCE ABUSE CLINICIAN - 01/08/2025 11:59 PM [facility] Hospital Encounter [facility] [address] [place] [address] Head and neck cancer (HCC) Discharge Disposition: Discharge to home or self care from Last 3 Months Allergies Active Allergy Reactions Criticality Noted Date Comments Iodinated Contrast Media Other (See comments) High 01/08/2025 RENAL TRANSPLANT - NO CONTRAST Medications cholecalciferol (VITAMIN D-3) 2,000 unit tabletIndications:Pr evention of Vitamin D Deficiency Take 1 tablet (2,000 Units total) by mouth zipper repairer before breakfast 10/15/20 15 Active ferrous sulfate 325 mg (65 mg of elemental iron) tabletIndications:Ir on Deficiency Anemia Take 1 tablet (325 mg total) by mouth daily with breakfast Active acetaminophen (TYLENOL) 500 mg tablet Take 2 tablets (1,000 mg total) by mouth every 6 (six) hours as needed for pain For postoperative pain. 120 tablet 1 05/07/20 22 Active aspirin 81 mg enteric coated tabletIndications:pr evention of thrombosis Take 1 tablet (81 mg total) by mouth every morning 10/29/20 06 Active apixaban (ELIQUIS) 5 mg tabletIndications:Ve nous Thrombosis Take 1 tablet (5 mg total) by mouth 2 (two) times a day 04/29/20 22 Active calcium carbonate (OS-KACIE) 1,500 mg (600 mg elemental) tabletIndications:Hy pocalcemia Prevention Take 1 tablet (1,500 mg total) by mouth nightly Active clindamycin (CLEOCIN T) 1 % external solution Apply two times daily as needed to scalp for pustular rash 60 mL 3 02/11/20 23 Active mupirocin (BACTROBAN) 2 % ointmentIndications: Minor Bacterial Skin Infections Apply topically 3 (three) times a day 22 g 2 06/02/20 23 Active white petrolatum-mineral oiL ointment Apply 1 Application to left eye nightly 3.5 g 07/09/20 23 Active tamsulosin (FLOMAX) 0.4 mg extended release capsule Take 1 capsule by mouth once daily 90 capsule 3 06/05/20 24 Active omeprazole (PriLOSEC) 40 mg capsule Take 1 capsule by mouth in the morning 90 capsule 3 09/18/20 24 Active acitretin (SORIATANE) 25 mg capsuleIndications:H istory of immunosuppressive therapy,AK (actinic keratosis),History of nonmelanoma skin cancer,High risk medications (not anticoagulants) long-term use Take 2 capsules (50 mg total) by mouth daily 30 capsule 3 10/09/20 24 Active fluorouraciL (EFUDEX) 5 % cream Apply 2 times daily (once in AM, once in PM) to areas on left side of face and right ear for 14days 40 g 2 10/09/20 24 Active atorvastatin (LIPITOR) 80 mg tablet Take 1 tablet by mouth nightly 90 tablet 3 10/11/20 24 Active sirolimus (RAPAMUNE) 1 mg tabletIndications:im munosuppression Take 1 tablet (1 mg total) by mouth daily 30 tablet 11 10/11/20 24 2024 Active hydrALAZINE (APRESOLINE) 25 mg tablet TAKE 3 TABLETS BY MOUTH THREE TIMES DAILY 270 tablet 11 10/23/20 24 Active carvediloL (COREG) 25 mg tablet Take 1 tablet by mouth twice daily 180 tablet 3 11/06/20 24 Active predniSONE (DELTASONE) 5 mg tablet Take 1 tablet by mouth once daily 90 tablet 3 01/09/20 25 Active Active Problems Patient Care Coordination No te Formatting of this note migh t be different from the original. Goal Sirolimus levels should be 4-6 [facility] [phone], [phone] Standing orders q-monthly, PT/INR, Sirolimus q3-Routine Exp.05/06/25 [facility] Oncology ext [id number] Problem Noted Date Diagnosed Date SCC (squamous [...] future. Assessment & Plan (10/04/2022 6:32 PM SUBSTANCE ABUSE CLINICIAN): Los Shultz is doing well after Left [...] (04/29/2021): Added automatically from request for surgery [id number] Cellulitis of leg, right 03/18/2021 Assessment & [...] (02/07/2021): Added automatically from request for surgery [id number] Abnormal finding on GI tract imaging 02/07/2021 Overview (02/07/2021): Added automatically from request for surgery [id number] Metastasis to bone 01/20/2021 Head and neck [...] numbness. Assessment & Plan (01/13/2021 8:03 PM SUBSTANCE ABUSE CLINICIAN): Please note patient with noted C1 vertebral [...] AM Assessment & Plan (01/13/2021 8:01 PM SUBSTANCE ABUSE CLINICIAN): Please note patient with noted C1 vertebral [...] occurred. Assessment & Plan (01/15/2021 5:09 PM SUBSTANCE ABUSE CLINICIAN): -hold home Eliquis in s/o possible surgical intervention -Heparin gtt -Resuming Eliquis as ortho spine recommends non-operative management Assessment & Plan (01/13/2021 7:48 PM SUBSTANCE ABUSE CLINICIAN): -hold home Eliquis in s/o possible surgical [...] time Assessment & Plan (01/13/2021 8:09 PM SUBSTANCE ABUSE CLINICIAN): -continue home Tacro XR 1mg PO daily -Goal Tacro trough in the s/o acitve cancer 2-3 -check AM tacro level on 01/14, ~ 30min-1hr prior to Tacro dosing -home pred held given steroids as elsewhere -on arrival sCr 1.69 and thus at baseline -May require renal transplant involvement if increasing sCr noted on daily labs -Monitor Is/Os Assessment & Plan (01/13/2021 7:55 PM SUBSTANCE ABUSE CLINICIAN): -continue home Tacro 1PO BID -Goal Tacro [...] (04/09/2020): Added automatically from request for surgery [id number] Metastatic squamous cell carcinoma to parotid gl and 04/09/2020 Cancer Staging:Pathologic stage from 04/15/2020:Stage IV(rpT3, pN2a, cM0) - Signed by Tatyana Up MD on 04/29/2020 Overview (04/09/2020): Added automatically from request for surgery [id number] Assessment & Plan (03/18/2021 1:44 PM CDT): -Medon c/s -Hold chemo for now -PET CT [...] dissection with path showing LN+ disease in 115 LNs -> adjuvant RT from 05/13/20 - [...] 12/23/20). Assessment & Plan (01/15/2021 5:09 PM SUBSTANCE ABUSE CLINICIAN): -01/10 PET scan notable for diffuse and [...] outpatient Assessment & Plan (01/13/2021 7:40 PM SUBSTANCE ABUSE CLINICIAN): -01/10 PET scan notable for diffuse and [...] 06/16/2019 Assessment & Plan (01/13/2021 8:05 PM SUBSTANCE ABUSE CLINICIAN): -continue home Lisinopril 10 -Continue home Coreg 25BID Assessment & Plan (01/13/2021 8:00 PM SUBSTANCE ABUSE CLINICIAN): -continue home Coreg 25BID -continue home Lisinopril 10 daily Increased infection risk sta tus post immunosuppressive therapy 06/16/2019 Dyslipidemia 06/16/2019 Assessment & Plan (01/13/2021 8:05 PM SUBSTANCE ABUSE CLINICIAN): -continue home Crestor Assessment & Plan (01/13/2021 8:00 PM SUBSTANCE ABUSE CLINICIAN): -continue home Atorva 40 QHS High risk [...] on file Legal Sex Male 1:23 AM SUBSTANCE ABUSE CLINICIAN Gender Identity Male 07/03/2022 5:22 AM CDT Sexual Orientation Straight 12/01/2020 8: 14 PM SUBSTANCE ABUSE CLINICIAN Last Filed Vital Signs Vital Sign Reading Time Taken Comments Blood Pressure 148/65 01/08/2025 12:44 PM SUBSTANCE ABUSE CLINICIAN Pulse 73 01/08/2025 12:44 PM SUBSTANCE ABUSE CLINICIAN Temperature 36.4 C (97.6 F) 01/08/2025 12:44 PM SUBSTANCE ABUSE CLINICIAN Respiratory Rate 18 10/09/2024 11:54 AM SUBSTANCE ABUSE CLINICIAN Oxygen Saturation 95% 01/08/2025 12:44 PM SUBSTANCE ABUSE CLINICIAN Inhaled Oxygen Concentration - - Weight 84.9 kg (187 lb 3.2 oz) 01/08/2025 12:44 PM SUBSTANCE ABUSE CLINICIAN Height 188 cm (6' 2 ) 10/09/2024 8:03 AM SUBSTANCE ABUSE CLINICIAN Body Mass Index 24.04 10/09/2024 8:03 AM SUBSTANCE ABUSE CLINICIAN Plan of Treatment Not on file Medical Devices Implanted Type Area Passenger Barge Master Device Identifier Shelf Expiration Date Model / Serial / Lot [employer] [id number] Xcela 8fr 1.6mm 1 Lumen Power Injectable Attach Catheter Fill - [id number] Implanted:Qty: 1 on 09/18/2021 at [facility] [employer] 05/13/2026 [id number] / / [id number] Explanted Type Area Passenger Barge Master Device Identifier Shelf Expiration Date Model / Serial / Lot Career Element [id number] Clip Ligation Resolution 360 Ultra 235cm Braid Rotation Ctrl - [id number] Explanted:Qty: 1 on 04/22/2021 at [facility] [employer] 02/04/2024 [id number] / / [id number] [employer] [id number] Clip Ligation Resolution 360 Ultra 235cm Braid Rotation Ctrl - [id number] Explanted:Qty: 1 on 04/22/2021 at [facility] [employer] 02/04/2024 [id number] / / [id number] [employer] [id number] Clip Ligation Resolution 360 Ultra 235cm Braid Rotation Ctrl - [id number] Explanted:Qty: 1 on 04/22/2021 at [facility] [employer] 02/04/2024 [id number] / / [id number] [employer] [id number] Clip Ligation Resolution 360 Ultra 235cm Braid Rotation Ctrl - [id number] Explanted:Qty: 1 on 04/22/2021 at [facility] [employer] 02/04/2024 [id number] / / [id number] [employer] [id number] Clip Ligation Resolution 360 Ultra 235cm Braid Rotation Ctrl - [id number] Explanted:Qty: 1 on 04/22/2021 at [facility] [employer] 02/04/2024 [id number] / / [id number] Procedures Procedure Name Priority Date/Time Associated Diagnosis Comments SIROLIMUS LEVEL RANDOM Routine 03/14/2025 8:52 AM CDT CBC WITH AUTO DIFFERENTIAL Routine 03/14/2025 8:52 AM CDT RENAL FUNCTION PANEL Routine 03/14/2025 8:52 AM CDT HEPATIC FUNCTION PANEL, SERUM Routine 03/14/2025 8:52 AM CDT LIPID PANEL Routine 03/14/2025 8:52 AM CDT PROTIME-INR Routine 03/14/2025 8:52 AM CDT COPY(IES) SENT TO: Routine 03/14/2025 8: 52 AM CDT SIROLIMUS LEVEL RANDOM Routine 02/06/2025 7:43 AM CDT CBC WITH AUTO DIFFERENTIAL Routine 02/06/2025 7:43 AM CDT RENAL FUNCTION PANEL Routine 02/06/2025 7:43 AM CDT PROTIME-INR Routine 02/06/2025 7:43 AM CDT COPY(IES) SENT TO: Routine 02/06/2025 7: 43 AM CDT SIROLIMUS LEVEL RANDOM Routine 01/12/2025 8:07 AM SUBSTANCE ABUSE CLINICIAN RENAL FUNCTION PANEL Routine 01/12/2025 8:07 AM SUBSTANCE ABUSE CLINICIAN CBC WITH AUTO DIFFERENTIAL Routine 01/12/2025 8:07 AM SUBSTANCE ABUSE CLINICIAN PROTIME-INR Routine 01/12/2025 8:07 AM SUBSTANCE ABUSE CLINICIAN COPY(IES) SENT TO: Routine 01/12/2025 8: 07 AM SUBSTANCE ABUSE CLINICIAN SCAN - LABS 01/12/2025 SURGICAL PATHOLOGY Routine 01/09/2025 12 :00 AM SUBSTANCE ABUSE CLINICIAN Neoplasm of uncertain behavior of skin EGFR Routine 01/08/2025 12:10 PM SUBSTANCE ABUSE CLINICIAN Head and neck cancer (HCC) DIFFERENTIAL AUTO Routine 01/08/2025 12: 10 PM SUBSTANCE ABUSE CLINICIAN Head and neck cancer (HCC) PHOSPHORUS Routine 01/08/2025 12:10 PM SUBSTANCE ABUSE CLINICIAN Squamous cell carcinoma of skin of unspecified parts of face MAGNESIUM Routine 01/08/2025 12:10 PM SUBSTANCE ABUSE CLINICIAN Head and neck cancer (HCC) THYROID FUNCTION CASCADE Routine 01/08/2025 12:10 PM SUBSTANCE ABUSE CLINICIAN Head and neck cancer (HCC) LACTATE DEHYDROGENASE Routine 01/08/2025 12:10 PM SUBSTANCE ABUSE CLINICIAN Head and neck cancer (HCC) COMPREHENSIVE METABOLIC PANEL Routine 01/08/2025 12:10 PM SUBSTANCE ABUSE CLINICIAN Head and neck cancer (HCC) CBC WITH AUTO DIFFERENTIAL Routine 01/08/2025 12:10 PM SUBSTANCE ABUSE CLINICIAN Head and neck cancer (HCC) CT CHEST ABDOMEN PELVIS W CONTRAST Schedule Routine, Read Routine (OP Routine) 01/08/2025 11:05 AM SUBSTANCE ABUSE CLINICIAN Head and neck cancer (HCC) CT SOFT TISSUE NECK W CONTRAST Schedule Routine, Read Routine (OP Routine) 01/08/2025 11:05 AM SUBSTANCE ABUSE CLINICIAN Head and neck cancer (HCC) POCT CREATININE - DEVICE Routine 01/08/2025 10:29 AM SUBSTANCE ABUSE CLINICIAN COLONOSCOPY 04/22/2021 8:33 AM CDT SERUM HEPATITIS C AB Routine 09/30/2015 2:38 AM SUBSTANCE ABUSE CLINICIAN from Last 3 Months or Most Recently Relevant to Health Maintenance Results * COPY(IES) SENT TO: (03/14/2025 8:52 AM CDT) COPY(IES) SENT TO: [facility] Comment: [facility] - COPY TO [facility] [address] [place] [address] 03/14/2025 8:52 AM CDT 03/14/2025 8:52 AM CDT Narrative [facility] - 03/15/2025 8:44 PM CDT PAE FASTING:YES FASTING: YES us Oleksandr Rice MD LAB BLOOD ORDERABLES Final Resu lt [facility] * Hepatic Function Panel, Serum (03/14/2025 8:52 AM CDT) Protein, sr 6.1 6.1 - 8.1 g/dL [facility] Albumin 3.8 3.6 - 5.1 g/dL [facility] GLOBULIN 2.3 1.9 - 3.7 g/dL (calc) [facility] Alb/glob ratio 1.7 1.0 - 2.5 (calc) [facility] Bilirubin, total 0.5 0.2 - 1.2 mg/dL [facility] Bilirubin, direct 0.1 < OR = 0.2 mg/dL [facility] Bilirubin, indirect 0.4 0.2 - 1.2 mg/dL (calc) [facility] Alk phos 56 35 - 144 U/L [facility] AST 24 10 - 35 U/L [facility] ALT (SGPT) 16 9 - 46 U/L [facility] 03/14/2025 8:52 AM CDT 03/14/2025 8:52 AM CDT Narrative [facility] - 03/15/2025 8:44 PM CDT PAE FASTING:YES FASTING: YES us Oleksandr Rice MD LAB BLOOD ORDERABLES Final Resu lt [facility] [address] [facility] [place] [id number] * (ABNORMAL) CBC with auto differential (03/14/2025 8:52 AM CDT) WBC 4.8 3.8 - 10.8 Thousand/u L [facility] RBC, POC 4.54 4.20 - 5.80 Million/uL [facility] Hgb 10.6(L) 13.2 - 17.1 g/dL [facility] Hct 36.6(L) 38.5 - 50.0 % [facility] MCV 80.6 80.0 - 100.0 fL [facility] MCH 23.3(L) 27.0 - 33.0 pg [facility] MCHC 29.0(L) 32.0 - 36.0 g/dL [facility] Comment: For adults, a slight decrease in the calculated MCHC value (in the range of 30 to 32 g/dL) is most likely not clinically significant; however, it should be interpreted with caution in correlation with other red cell parameters and the patient's clinical condition. Rdw 15.3(H) 11.0 - 15.0 % [facility] Platelets 270 140 - 400 Thousand/u L [facility] MPV 9.4 7.5 - 12.5 fL [facility] Neutrophils, abs 3,019 1,500 - 7,800 cells/uL [facility] Lymphocytes, abs 854 850 - 3,900 cells/uL [facility] Monocyte abs 667 200 - 950 cells/uL [facility] Eosinophils, abs 221 15 - 500 cells/uL [facility] Basophils, abs 38 0 - 200 cells/uL [facility] Neutrophils 62.9 % [facility] Lymphocyte pct 17.8 % [facility] Monocytes 13.9 % [facility] Eosinophils 4.6 % [facility] Basophils 0.8 % [facility] 03/14/2025 8:52 AM CDT 03/14/2025 8:52 AM CDT Narrative [facility] - 03/15/2025 8:44 PM CDT PAE FASTING:YES FASTING: YES us Oleksandr Rice MD LAB BLOOD ORDERABLES Final Resu lt [facility] [address] [place] [address] * Sirolimus level random (03/14/2025 8:52 AM CDT) SIROLIMUS, LC/MS/MS 4.1 3.0 - 18.0 ng/mL [facility] Comment: This test was developed and its analytical performance characteristics have been determined by [employer]. It has not been cleared or approved by the FDA. This assay has been validated pursuant to the CLIA regulations and is used for clinical purposes. 03/14/2025 8:52 AM CDT 03/14/2025 8:52 AM CDT Narrative [facility] - 03/15/2025 8:44 PM CDT PAE FASTING:YES FASTING: YES [id number]|2025-04-02 15:52:00|2025-04-02 15:52:00|XMS_ITS|AVTAR AGUDELO|External Medical Summaries|[id number]|" Clinical Summary Created on: April 02, 2025 Los Shultz : 1960 Sex: Male [facility] Address [address] [place] [address] Care Team Providers Care Leather Softener Name Role Phone Unavailable Primary Care Provider Unavailabl e Allergies Active Allergy Reactions Criticality Noted Date Comments Iodinated Contrast Media Other (See Comments) High 01/08/2025 RENAL TRANSPLANT - NO CONTRAST Medications sirolimus (RAPAMUNE) 1 mg tablet Take 1 mg by mouth daily. 10/11/2024 Active predniSONE (DELTASONE) 5 mg tablet Take 5 mg by mouth daily. 01/09/2025 Active aspirin (EDMUNDO CHEWABLE) 81 mg Tablet, Chewable Take 81 mg by mouth daily. Active omeprazole (PriLOSEC) 40 mg Capsule, Delayed Release(E.C.) Take 40 mg by mouth daily. Active cholecalciferol, vitamin D3, 1,000 unit Take 1,000 Units by mouth 2 times daily. Active hydrALAZINE (APRESOLINE) 25 mg tablet Take 25 mg by mouth 3 times daily. 10/23/2024 Active carvediloL (COREG) 25 mg tablet Take 25 mg by mouth 2 times daily. Active tamsulosin (FLOMAX) 0.4 mg capsule Take 0.4 mg by mouth daily. Active atorvastatin (LIPITOR) 80 mg tablet Take 80 mg by mouth daily at bedtime. 10/11/2024 Active Eliquis 5 mg tablet Take 5 mg by mouth 2 times daily. Active ferrous sulfate 325 mg (65 mg iron) tablet Take 325 mg by mouth daily with breakfast. Active calcium as CARBONATE (CALTRATE) 1,500 mg (600 mg elemental) Tablet Take 1,500 mg by mouth daily at bedtime. Active Active Problems No known active problems Encounters Date Type Department Care Team Description 04/02/2025 3:00 PM CDT Office Visit [facility] [address] [place] [address] Marin Rhodes MD Chronic anemia (Primary Dx) from Last 3 Months Family History Medical History Relation Name Comments Pancreatic Cancer Brother 1 Skin Cancer Brother 2 No Known Problems Brother 3 No Known Problems Brother 4 No Known Problems Child 1 No Known Problems Child 2 No Known Problems Child 3 No Known Problems Child 4 No Known Problems Father Skin Cancer Mother No Known Problems Sister 1 No Known Problems Sister 2 No Known Problems Sister 3 Relation Name Status Comments Brother 1 Alive Brother 2 Alive Brother 3 Alive Brother 4 Alive Child 1 Alive Child 2 Alive Child 3 Alive Child 4 Alive Father Mother Alive Sister 1 Alive Sister 2 Alive Sister 3 Alive Social History Tobacco Use Types Packs/Day Years [...] - - Body Mass Index - - Plan of Treatment Upcoming Encounters Date Type Department Care Team (Late st Contact Info) Description 04/10/2025 4:30 PM CDT Telephone Check Up [facility] Oncology and Hematology [address] [place] [address] Marin Rhodes MD [address] [facility] [address] [place] [address] Health Maintenance Due Date Last Done Comments ZOSTER VACCINE (1 of 2) 1978 FIT-DNA Q 3 years 2004 FIT/FOBT Q 1 year 2004 Flex Sig/CT Colonography Q 5 years 2004 PNEUMOCOCCAL VACCINE 50+ YEA RS (2 of 2 - PPSV23) 05/06/2015 03/11/2015 RSV VACCINE (60+ or ) (1 - Risk 60-74 years 1-dose series) 2019 COVID-19 Vaccine (3 - Moderna risk series) 04/09/2021 03/12/2021, 02/05/2021 INFLUENZA VACCINE (#1) 2024 09/27/2020, 2017 Preventative Visit- Commercial 11/15/2024 COLORECTAL SCREENING 04/22/2031 04/22/2021, 04/22/20 Colorectal Cancer Screening 04/22/2031 DTAP/TDAP/TD VACCINES (2 - Td or Tdap) 09/02/2032 Insurance [employer] PPO [facility] BLUE ACCESS/TRUE BLUE PPO "
--- OUTSIDE RECORDS SUMMARY | 2025-04-02 15:52 | XMS_ITS ---
Author Organization [facility] Address [address] [place] [address] Care Team Providers Care Assembly Machine Set Up Mechanic Name Role Phone Delmi Peace RN Unavailable [phone] Krishna Rosales MD Primary Care Provider [phone] [facility] Unavailable [phone] Mame Cast MD Unavailable [phone] Wilbur Angel MD Unavailable [phone] Tong Dubose MD Unavailable [phone] Transplant Episode Kidney Recipient [facility] ([place], [place]) [facility] Organ Received: Left Kidney Transplanted on 10/15/2015 Marked as Active Follow-up on 10/15/2015 Kidney CoordinatorMiross Peace RN Fax: N/A Email: N/A [place] Organ Diagnosis Organ Primary Contributory Kidney Renal [...] Fax Email Delmi Peace RN Kidney Coordinator [phone] N/A N/A Lisa Pro, AFTAB Secondary Coordinator Secondary Kidney Coordinator [phone] N/A N/A Delmi Peace RN Dry Wall Installations Mechanic [phone] N/A N/A Mackenzie Valdes Primary Advertising Consultant N/A N/A N/A Nathalie Ospina Care Taker [phone] N/A N/A Michelle Xiao Secondary Advertising Consultant N/A N/A N/A Events Post-Transplant Pre-Transplant Admitted: 10/15/2015 Referred: 09/04/2014 Transplanted: 10/15/2015 Evaluation began: 4 Discharged: 10/22/2015 Center waitlisted: 5 Dialysis History Dialysis History Start End Type Comments Center 06/11/2015 10/15/2015 Hemo TTS [facility] Dialysis Center Information Center Phone Fax Address [facility] [phone] [address] [facility] [address]
--- OUTSIDE RECORDS SUMMARY | 2025-04-02 15:52 | XMS_ITS | Clinical Summary ---
Author Organization [facility] Address [address] [place] [address] Care Team Providers Care Economic Research Assistant Name Role Phone Krishna Rosales MD Primary Care Provider [phone] Allergies No known active allergies Medications predniSONE [...] (05/13/2022): Added automatically from request for surgery [id number] Secondary malignant neoplasm of bone (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 HHS/HCC) 04/09/2020 Overview (05/13/2022): Added automatically from request for surgery [id number] Last Assessment & Plan: -Medonc c/s -Hold chemo for now -PET CT with Complete metabolic response of soft tissue and osseous lesions. 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) 5 Stage 5 chronic kidney disease ([facility]) 03/11/2015 Hyperparathyroidism due to renal insufficiency ( [facility]) 03/11/2015 Anemia due to chronic kidney disease 03/11/2015 Renal mass 04/03/2014 Essential hypertension 04/03/2014 Overview (05/13/2022): Last Assessment & Plan: -continue home Lisinopril 10 -Continue home Coreg 25BID Immunizations Immunization Administration Dates Next Due Influenza (Generic) 12/10/2017,09/15/2016 [...] C 1977 DTaP, Tdap and Td Vaccines ( 1 - Tdap) 1978 Zoster Vaccines (1 of 2) 1978 Pneumococcal Vaccine: 50+ Years (2 of 2 - PPSV23) 05/06/2015 03/11/2015 RSV Immunization or 60+ Years (1 - Risk 60-74 years 1-dose series) 2019 COVID-19 Vaccine (3 - Modern a risk series) 04/02/2021 03/05/2021, 02/05/2021 ASCVD LDL 05/13/2023 05/13/2022 Meningococcal B Vaccine Aged Out No l onger eligible based on patient's age to complete this topic Meningococcal Vaccine Aged Out No edis colby eligible based on patient's age to complete this topic RSV Immunizations Under 20 Months Aged Out No longer eligible b ased on patient's age to complete this topic Procedures Procedure Name Priority Date/Time Associated Diagnosis Comments LIPID PANEL Routine 05/13/2022 5:28 AM CDT from Last 3 Months or Most Recently Relevant to Health Maintenance Results * LIPID PANEL (05/13/2022 5:28 AM CDT) CHOLESTEROL 128 <200 MG/DL 05/13/2022 6:39 AM CDT [facility] TRIGLYCERIDES 51 <150 MG/DL 05/13/2022 6:39 AM CDT [facility] HDL 49 >40.0 MG/DL 05/13/2022 6:39 AM CDT [facility] LDL (CALCULATED) 69 <100 MG/DL 05/13/20 6:39 AM CDT [facility] NON HDL CHOLESTEROL 79 <130 MG/DL 05/13 6:39 AM CDT [facility] Comment: NOTE: WHEN THE TRIGLYCERIDES ARE >200 mg/dL, NON HDL C IS A SECONDARY TARGET OF THERAPY, WITH A GOAL 30 mg/dL HIGHER THAN THE IDENTIFIED LDL C GOAL. CHOL/HDL RATIO 2.6 0.0 - 4.5 05/13/2022 6:39 AM CDT [facility] VLDL CALCULATION 10 5 - 55 MG/DL 05/13/2022 6:39 AM T [facility] LIPID INTERPRETATION 05/13/2022 6:39 AM T [facility] Comment: NIH CONCENSUS REPORT RECOMMENDATIONS: ADULT CHILD LOW RISK: CHOLESTEROL <200 <170 TRIGLYCERIDE <150 --- HDL >=60 --- LDL <100 <110 BORDERLINE: CHOLESTEROL 200-239 170-199 TRIGLYCERIDE 150-199 --- HDL 40-59 --- LDL 100-159 110-129 HIGH RISK: CHOLESTEROL >=240 >=200 TRIGLYCERIDE >=200 --- HDL <40 --- LDL >=160 >=130 05/13/2022 5:28 AM CDT us Lynn Loco MD LABORATORY Final Result [facility] [address] [place] [address], [place] [phone] from Last 3 Months or Most Recently Relevant to Health Maintenance Insurance [employer] Advance Directives * Full Code (Latest Code Status on File) Date Activated Date Inactivated Comments 05/13/2022 8:49 AM 05/13/2022 4:32 PM Care Teams Economic Research Assistant Relationship Specialty Start Date End Date Krishna Rosales MD [address] [place], [place] [id number] PCP - General FAMILY PRACTICE 10/12/20
--- OUTSIDE RECORDS SUMMARY | 2025-04-02 15:52 | XMS_ITS | Encounter Summary ---
Author Organization [facility] [email or web address] [facility] Address [address] [place] [address] Phone Care Team Providers Care Primary Teacher Name Role Phone Delmi Peace RN Unavailable [phone] Krishna Rosales MD Primary Care Provider + [phone] [facility] Unavailable [phone] Mame Cast MD Unavailable [phone] Wilbur Angel MD Unavailable [phone] Tong Dubose MD Unavailable [phone] Encounter Details Date Type Department Care Team [...] on file Legal Sex Male 1:23 AM QA SOFTWARE TEST ENGINEER Gender Identity Male 07/03/2022 5:22 AM CDT Sexual Orientation Straight 12/01/2020 8: 14 PM QA SOFTWARE TEST ENGINEER documented as of this encounter Plan of Treatment Not on file documented as of this encounter Procedures Procedure Name Priority Date/Time Associated Diagnosis Comments SCAN - PATHOLOGY 07/13/2023 10:51 AM CDT documented in this encounter Results * SCAN - PATHOLOGY (07/13/2023 10:51 AM CDT) us Provider Scanning Final Result documented in this encounter Visit Diagnoses Not on filedocumented in this encounter Care Teams Primary Teacher Relationship Specialty Start Date End Date Krishna Rosales MD [address] [place] [address] PCP - General Family Medicine 06/16/19 Delmi Peace, RN [address] [place] [address] [employer] Driver 04/12/18 [facility] [address] [place] [address] Plastic Surgeon Plastic Surgery 04/05/20 Mame Cast MD [address] [place] [address] Radiation Oncologist Radiation Oncology 05/23/20 Wilbur Angel MD [address] [facility] [address] [place] [address] Medical Oncologist/Pipe Stress Engineer Medical Oncology 10/24/20 Tong Dubose MD [address] [facility] DEPT OTOLARYNGOLOGY, [address] [address] Surgeon Otolaryngology 06/11/22 documented as of this encounter
--- OUTSIDE RECORDS SUMMARY | 2025-04-02 15:52 | XMS_ITS | Encounter Summary ---
Author Organization [facility] Address [address] [place] [address] Care Team Providers Care Director Of Software Development Name Role Phone Delmi Peace RN Unavailable [phone] Krishna Rosales MD Primary Care Provider + [phone] [facility] Un[facility] [phone] Tatyana Up MD Unavailable [phone] Mame Cast MD Unavailable [phone] Wilbur Angel MD Unavailable [phone] Bhavesh Montana MD Unavailable + [phone] Nicole Grijalva MD Unavailable [phone] Miscellaneous, Not In File Unavailable Unava ilable Tong Dubose MD Unavailable [phone] Encounter Details Date Type Department Care Team (Late st Contact Info) Description 04/25/2020 Telephone [facility] [address] [place] [address] Pj Rush, RT Social History Tobacco Use Types Packs/Day Years Used Date Smoking Tobacco: Never Smokeless Tobacco: Never Alcohol Use Standard Drinks/Week Comments Yes 0 (1 standard drink = 0.6 oz pur e alcohol) 4 x week Sex and Gender Information Value Date Recorded Sex Assigned at Not on file Legal Sex Male 1:23 AM SOLID FIBER PASTER OPERATOR Gender Identity Male 07/03/2022 5:22 AM CDT Sexual Orientation Straight 12/01/2020 8: 14 PM SOLID FIBER PASTER OPERATOR documented as of this encounter Plan of Treatment Not on file documented as of this encounter Visit Diagnoses Not on filedocumented in this encounter Care Teams Director Of Software Development Relationship Specialty Start Date End Date Krishna Rosales MD [address] [place] [address] PCP - General Family Medicine 06/16/19 Delmi Peace, AFTAB [address] [place] [address] Paper Steamer 04/12/18 [facility] [address] [place] [address] Plastic Surgeon Plastic Surgery 04/05/20 Tatyana Up MD [address] [place] [address] Radiation Oncologist Radiation Oncology 04/26/20 Mame Cast MD [address] [place] [address] Radiation Oncologist Radiation Oncology 05/23/20 Wilbur Angel MD [address] [facility] [address] [place] [address] Medical Oncologist/Special Education Educational Assistant Medical Oncology 10/24/20 Bhavesh Montana MD [address] [place] [address] Consulting Physician Radiation Oncology 01/14/21 Nicole Grijalva MD [address] [facility] [address] [place] [address] Radiation Oncologist Radiation Oncology 02/05/21 Miscellaneous, Not In File 03/20/21 04/13/22 Tong Dubose MD [address] [facility] DEPT OTOLARYNGOLOGY, [address] [address] Surgeon Otolaryngology 06/11/22 documented as of this encounter
--- OUTSIDE RECORDS SUMMARY | 2025-04-02 15:52 | XMS_ITS | Clinical Summary ---
Author Organization [facility] Address [address] [place] [address] Care Team Providers Care Translator/Interpreter Name Role Phone Delmi Peace RN Unavailable [phone] Krishna Rosales MD Primary Care Provider + [phone] [facility] Un[facility] [phone] Mame Cast MD Unavailable [phone] Wilbur Angel MD Unavailable [phone] Tong Dubose MD Unavailable [phone] Allergies Active Allergy Reactions Criticality Noted Date Comments Iodinated Contrast Media Other (See comments) High 01/08/2025 RENAL TRANSPLANT - NO CONTRAST Medications cholecalciferol (VITAMIN D-3) 2,000 unit tabletIndications:Pr evention of Vitamin D Deficiency Take 1 tablet (2,000 Units total) by mouth stem maker before breakfast 10/15/20 15 Active ferrous sulfate [...] Goal Sirolimus levels should be 4-6 [facility] [id number], [phone] Standing orders q-monthly, PT/INR, Sirolimus q3-Routine Exp.05/06/25 [facility] Oncology ext [id number] Problem Noted Date Diagnosed Date SCC (squamous [...] future. Assessment & Plan (10/04/2022 6:32 PM WATERWORKS PUMP STATION OPERATOR): Los Shultz is doing well after Left [...] (04/29/2021): Added automatically from request for surgery [id number] Cellulitis of leg, right 03/18/2021 Assessment & [...] (02/07/2021): Added automatically from request for surgery [id number] Abnormal finding on GI tract imaging 02/07/2021 Overview (02/07/2021): Added automatically from request for surgery [id number] Metastasis to bone 01/20/2021 Head and neck [...] numbness. Assessment & Plan (01/13/2021 8:03 PM WATERWORKS PUMP STATION OPERATOR): Please note patient with noted C1 vertebral [...] AM Assessment & Plan (01/13/2021 8:01 PM WATERWORKS PUMP STATION OPERATOR): Please note patient with noted C1 vertebral [...] occurred. Assessment & Plan (01/15/2021 5:09 PM WATERWORKS PUMP STATION OPERATOR): -hold home Eliquis in s/o possible surgical intervention -Heparin gtt -Resuming Eliquis as ortho spine recommends non-operative management Assessment & Plan (01/13/2021 7:48 PM WATERWORKS PUMP STATION OPERATOR): -hold home Eliquis in s/o possible surgical [...] time Assessment & Plan (01/13/2021 8:09 PM WATERWORKS PUMP STATION OPERATOR): -continue home Tacro XR 1mg PO daily -Goal Tacro trough in the s/o acitve cancer 2-3 -check AM tacro level on 01/14, ~ 30min-1hr prior to Tacro dosing -home pred held given steroids as elsewhere -on arrival sCr 1.69 and thus at baseline -May require renal transplant involvement if increasing sCr noted on daily labs -Monitor Is/Os Assessment & Plan (01/13/2021 7:55 PM WATERWORKS PUMP STATION OPERATOR): -continue home Tacro 1PO BID -Goal Tacro [...] (04/09/2020): Added automatically from request for surgery [id number] 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 Assessment & Plan (01/15/2021 5:09 PM WATERWORKS PUMP STATION OPERATOR): -01/10 PET scan notable for diffuse and [...] outpatient Assessment & Plan (01/13/2021 7:40 PM WATERWORKS PUMP STATION OPERATOR): -01/10 PET scan notable for diffuse and [...] possible inpatient chemo will plan to consult [facility] during this admission - and plan for Xgeva outpatient Anemia 06/16/2019 Essential hypertension 06/16/2019 Assessment & Plan (01/13/2021 8:05 PM WATERWORKS PUMP STATION OPERATOR): -continue home Lisinopril 10 -Continue home Coreg 25BID Assessment & Plan (01/13/2021 8:00 PM WATERWORKS PUMP STATION OPERATOR): -continue home Coreg 25BID -continue home Lisinopril 10 daily Increased infection risk sta tus post immunosuppressive therapy 06/16/2019 Dyslipidemia 06/16/2019 Assessment & Plan (01/13/2021 8:05 PM WATERWORKS PUMP STATION OPERATOR): -continue home Crestor Assessment & Plan (01/13/2021 8:00 PM WATERWORKS PUMP STATION OPERATOR): -continue home Atorva 40 QHS High risk [...] Type Department Care Team Description 03/30/2025 Telephone [facility] Otolaryngology [address] [place] [address] lGenny Ceron MS 03/30/2025 Telephone [facility] [address] [place] [address] Shiva Luong MD Prior Auth 03/14/2025 Orders Only [facility] Nephrology [address] [facility] Advanced Medicine 5th [place] [address] [place] [address] Oleksandr Rice MD 02/06/2025 Orders Only [facility] Nephrology [facility] 5th [place] [address] [place] [address] Oleksandr Rice MD 01/15/2025 Documentation [facility] Oncology [address] [facility] [address] [place] [address] Sachin Pretty RN creatinine result 01/12/2025 Orders Only [facility] Scanning, Provider 01/12/2025 Orders Only [facility] Nephrology [address] [place] [address] Medicine [facility] [place] [address] [place] [address] Oleksandr Rice MD 01/12/2025 Results Follow-Up [facility] Dermatology [address] [place] [address] Outpatient [facility] [address] [place] [address] Shiva Luong MD Surgical pathology 01/09/2025 8:00 AM WATERWORKS PUMP STATION OPERATOR Office Visit [facility] Dermatology [address] [place] [address] Health [address] [place] [address] Shiva Luong MD Neoplasm of uncertain behavior of skin (Primary Dx); Actinic keratosis; Seborrheic keratoses; Multiple melanocytic nevi; History of nonmelanoma skin cancer; History of immunosuppressive therapy; High risk medications (not anticoagulants) long-term use; Actinic skin damage 01/09/2025 Orders Only [facility] [address] [place] [address] Shiva Luong MD Neoplasm of uncertain behavior of skin 01/08/2025 1:40 PM WATERWORKS PUMP STATION OPERATOR Office Visit [facility] Oncology [address] [facility] Floor 6 [place] [address] Wilbur Angel MD Head and neck cancer (HCC) 01/08/2025 12:00 PM WATERWORKS PUMP STATION OPERATOR Lab [facility] - Lab Collection [address] [facility] 6 [place] [address] Squamous cell carcinoma of skin of unspecified parts of face; Head and neck cancer (HCC) 01/08/2025 11:45 AM WATERWORKS PUMP STATION OPERATOR Lab [facility] Oncology Lab [address] [facility] 6 [place] [address] Head and neck cancer (HCC) 01/08/2025 10:08 AM WATERWORKS PUMP STATION OPERATOR - 01/08/2025 11:59 PM WATERWORKS PUMP STATION OPERATOR Hospital Encounter [facility] [address] [place] [address] Head and neck cancer (HCC) Discharge Disposition: Discharge to home or self care from Last 3 Months Immunizations Immunization Administration [...] DXd ~2009 History of pulmonary embolus (PE) 2009 h/o Right DVT/PE ~2009-- Currently treated with Eliquis 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 Cellulitis of right leg [facility] [place] 03/20/21 History of renal cell carcinoma Right kidney CA dxd 2013 s/p multiple cryoablations (last 2013) and s/p kidney tx 10/2015 Hx of adenomatous polyp of colon 04/22/2021 piecemeal EMR Gastric erosion 04/22/2021 Personal history of COVID-19 08/2020 Not hospitalized History of DVT (deep vein thrombosis) 2009 h/o DVT RLE 2009 following traumatic injury [...] on file Legal Sex Male 1:23 AM WATERWORKS PUMP STATION OPERATOR Gender Identity Male 07/03/2022 5:22 AM CDT Sexual Orientation Straight 12/01/2020 8: 14 PM WATERWORKS PUMP STATION OPERATOR Obstetrics History Last Filed Vital Signs Vital Sign Reading Time Taken Comments Blood Pressure 148/65 01/08/2025 12:44 PM WATERWORKS PUMP STATION OPERATOR Pulse 73 01/08/2025 12:44 PM WATERWORKS PUMP STATION OPERATOR Temperature 36.4 C (97.6 F) 01/08/2025 12:44 PM WATERWORKS PUMP STATION OPERATOR Respiratory Rate 18 10/09/2024 11:54 AM WATERWORKS PUMP STATION OPERATOR Oxygen Saturation 95% 01/08/2025 12:44 PM WATERWORKS PUMP STATION OPERATOR Inhaled Oxygen Concentration - - Weight 84.9 kg (187 lb 3.2 oz) 01/08/2025 12:44 PM WATERWORKS PUMP STATION OPERATOR Height 188 cm (6' 2 ) 10/09/2024 8:03 AM WATERWORKS PUMP STATION OPERATOR Body Mass Index 24.04 10/09/2024 8:03 AM WATERWORKS PUMP STATION OPERATOR Plan of Treatment Health Maintenance Due Date Last Done Comments Depression Screening 1960 Prostate Cancer Screening-PSA 1960 Zoster Vaccine (1 of 2) 1978 Pneumococcal vaccine 65+ (2 of 2 - PPSV23) 05/06/2015 03/11/2015 Fall Risk Assessment 07/09/2024 07/09/2023, 02/04/20 21 Covid-19 Vaccine ( - 2023-2 5 season) 2024 09/02/2022, 03/12/2021, 02/05/2021, Additional history exists Well Visit 65+ 2024 Influenza Vaccine (Season Ended) 2025 09/27/2020, 12/10/2017, 12/10/2017, Additional history exists Colon Cancer Screening-Colonoscopy 04/22/2031 04/22/2021 DTaP/Tdap/Td Vaccine (2 - Td or Tdap) 09/02/2032 09/02/2022 Hepatitis B Screening Completed 03/11/2015 Hepatitis C Screening Completed 09/30/2015 , 09/30/2015, 01/03/2015 Colon Cancer Screening-CT Colonography Discontinued 04/22/2021 Colon Cancer Screening-DNA Stool Discontinued 04/22/20 Colon Cancer Screening-FIT Discontinued 04/22/2021 Colon Cancer Screening-Sigmoidoscopy Discontinued 04/22/2021 Medical Devices Implanted Type Area Traffic Control Operator Device Identifier Shelf Expiration Date Model / Serial / Lot [employer] [id number] Xcela 8fr 1.6mm 1 Lumen Power Injectable Attach Catheter Fill - [id number] Implanted:Qty: 1 on 09/18/[address] [facility] [employer] 05/13/2026 [id number] / / [id number] Explanted Type Area Traffic Control Operator Device Identifier Shelf Expiration Date Model / Serial / Lot [employer] [id number] Clip Ligation Resolution 360 Ultra 235cm Braid Rotation Ctrl - [id number] Explanted:Qty: 1 on 04/22/2021 at [facility] [employer] 02/04/2024 [id number] / / [id number] [employer] [id number] Clip Ligation Resolution 360 Ultra 235cm Braid Rotation Ctrl - [id number] Explanted:Qty: 1 on 04/22/2021 at [facility] [employer] 02/04/2024 [id number] / / [id number] [employer] [id number] Clip Ligation Resolution 360 Ultra 235cm Braid Rotation Ctrl - [id number] Explanted:Qty: 1 on 04/22/2021 at [facility] [employer] 02/04/2024 [id number] / / [id number] [employer] [id number] Clip Ligation Resolution 360 Ultra 235cm Braid Rotation Ctrl - [id number] Explanted:Qty: 1 on 04/22/2021 at [facility] [employer] 02/04/2024 [id number] / / [id number] [employer] [id number] Clip Ligation Resolution 360 Ultra 235cm Braid Rotation Ctrl - [id number] Explanted:Qty: 1 on 04/22/2021 at [facility] 02/04/2024 [id number] / / [id number] Procedures Procedure Name Priority Date/Time Associated Diagnosis [...] SIROLIMUS LEVEL RANDOM Routine 01/12/2025 8:07 AM WATERWORKS PUMP STATION OPERATOR RENAL FUNCTION PANEL Routine 01/12/2025 8:07 AM WATERWORKS PUMP STATION OPERATOR CBC WITH AUTO DIFFERENTIAL Routine 01/12/2025 8:07 AM WATERWORKS PUMP STATION OPERATOR PROTIME-INR Routine 01/12/2025 8:07 AM WATERWORKS PUMP STATION OPERATOR COPY(IES) SENT TO: Routine 01/12/2025 8: 07 AM WATERWORKS PUMP STATION OPERATOR SCAN - LABS 01/12/2025 SURGICAL PATHOLOGY Routine 01/09/2025 12 :00 AM WATERWORKS PUMP STATION OPERATOR Neoplasm of uncertain behavior of skin EGFR Routine 01/08/2025 12:10 PM WATERWORKS PUMP STATION OPERATOR Head and neck cancer (HCC) DIFFERENTIAL AUTO Routine 01/08/2025 12: 10 PM WATERWORKS PUMP STATION OPERATOR Head and neck cancer (HCC) PHOSPHORUS Routine 01/08/2025 12:10 PM WATERWORKS PUMP STATION OPERATOR Squamous cell carcinoma of skin of unspecified parts of face MAGNESIUM Routine 01/08/2025 12:10 PM WATERWORKS PUMP STATION OPERATOR Head and neck cancer (HCC) THYROID FUNCTION CASCADE Routine 01/08/2025 12:10 PM WATERWORKS PUMP STATION OPERATOR Head and neck cancer (HCC) LACTATE DEHYDROGENASE Routine 01/08/2025 12:10 PM WATERWORKS PUMP STATION OPERATOR Head and neck cancer (HCC) COMPREHENSIVE METABOLIC PANEL Routine 01/08/2025 12:10 PM WATERWORKS PUMP STATION OPERATOR Head and neck cancer (HCC) CBC WITH AUTO DIFFERENTIAL Routine 01/08/2025 12:10 PM WATERWORKS PUMP STATION OPERATOR Head and neck cancer (HCC) CT CHEST ABDOMEN PELVIS W CONTRAST Schedule Routine, Read Routine (OP Routine) 01/08/2025 11:05 AM WATERWORKS PUMP STATION OPERATOR Head and neck cancer (HCC) CT SOFT TISSUE NECK W CONTRAST Schedule Routine, Read Routine (OP Routine) 01/08/2025 11:05 AM WATERWORKS PUMP STATION OPERATOR Head and neck cancer (HCC) POCT CREATININE - DEVICE Routine 01/08/2025 10:29 AM WATERWORKS PUMP STATION OPERATOR COLONOSCOPY 04/22/2021 8:33 AM CDT SERUM HEPATITIS C AB Routine 09/30/2015 2:38 AM WATERWORKS PUMP STATION OPERATOR from Last 3 Months or Most Recently Relevant to Health Maintenance Results * COPY(IES) SENT TO: (03/14/2025 8:52 AM CDT) COPY(IES) SENT TO: ALICE Comment: [facility]NEY - COPY TO [facility] [address] [place] [address] 03/14/2025 8:52 AM CDT 03/14/2025 8:52 AM [...] MD LAB BLOOD ORDERABLES Final Resu lt [employer] [address] [address] [place] [id number]|2025-04-02 15:52:00|2025-04-02 15:52:00|XMS_ITS|BKG DAEMON|External Medical Summaries|[id number]|" Encounter Summary Created on: April 02, 2025 Los Shultz : 1960 Sex: Male Author Organization [facility] Address [address] [place] [address] Care Team Providers Care Translator/Interpreter Name Role Phone Darlin Perez CRNA Primary Care Provider Unav ailable Krishna Rosales MD Primary Care Provider [phone] Krishna Rosales MD Primary Care Provider [phone] Encounter Details Date Type Department Care Team (Late st Contact Info) Description 08/21/2014 Abstract [facility] CONVERSION [address] [place] [address] , Generic Conversion, Social History Tobacco Use Types Packs/Day Years [...] on filedocumented in this encounter Care Teams Translator/Interpreter Relationship Specialty Start Date End Date Darlin Perez CRNA PCP - General ANESTHESIOLOGY 03/08/20 10/04/20 Krishna Rosales MD [address] [place] [address] PCP - General FAMILY PRACTICE 10/05/20 10/05/20 Krishna Rosales MD [address] [place] [address] PCP - General FAMILY PRACTICE 10/12/20 documented as of this encounter "
--- OUTSIDE RECORDS SUMMARY | 2025-04-02 15:52 | XMS_ITS | Encounter Summary ---
Author Organization [facility] Address [address] [place] [address] Phone Care Team Providers Care Quality Specialist Name Role Phone Delmi Peace RN Unavailable [phone] Krishna Rosales MD Primary Care Provider + [phone] [facility] brock MD Unavailable [phone] Mame Cast MD Unavailable [phone] Wilbur Angel MD Unavailable [phone] Tong Dubose MD Unavailable [phone] Encounter Details Date Type Department Care Team [...] on file Legal Sex Male 1:23 AM SUPERVISORY HISTORIAN Gender Identity Male 07/03/2022 5:22 AM CDT Sexual Orientation Straight 12/01/2020 8: 14 PM SUPERVISORY HISTORIAN documented as of this encounter Plan of Treatment Not on file documented as of this encounter Procedures Procedure Name Priority Date/Time Associated Diagnosis Comments SCAN - PATHOLOGY 07/23/2023 2:19 PM CDT documented in this encounter Results * SCAN - PATHOLOGY (07/23/2023 2:19 PM CDT) us Provider Scanning Final Result documented in this encounter Visit Diagnoses Not on filedocumented in this encounter Care Teams Quality Specialist Relationship Specialty Start Date End Date Krishna Rosales MD [address] [facility] [address] [place] [address] PCP - General Family Medicine 06/16/19 Delmi Peace, RN [address] [place] [address] Concrete Foreman 04/12/[address] [facility] brock MD [address] [place] [address] Plastic Surgeon Plastic Surgery 04/05/20 Mame Cast MD [address] [place] [address] Radiation Oncologist Radiation Oncology 05/23/20 Wilbur Angel MD [address] [facility] [address] [place] [address] Medical Oncologist/Assistant Technician Medical Oncology 10/24/20 Tong Dubose MD [address] [facility] DEPT OTOLARYNGOLOGY, [address] [address] Surgeon Otolaryngology 06/11/22 documented as of this encounter
--- OUTSIDE RECORDS SUMMARY | 2025-04-02 15:53 | XMS_ITS | Encounter Summary ---
Author Organization [facility] Address [address] [place] [address] Phone Care Team Providers Care Chemistry Tutor Name Role Phone Delmi Peace RN Unavailable [phone] Krishna Rosalse MD Primary Care Provider + [phone] [facility] Unavailable [phone] Mame Cast MD Unavailable [phone] Wilbur Angel MD Unavailable [phone] Tong Dubose MD Unavailable [phone] Encounter Details Date Type Department Care Team (Latest Contact Info) Description 01/12/2025 Orders Only [facility] Scanning, Provider Social [...] on file Legal Sex Male 1:23 AM 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 DEVELOPER Gender Identity Male 07/03/2022 5:22 AM CDT Sexual Orientation Straight 12/01/2020 8: 14 PM 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 DEVELOPER documented as of this encounter Plan of Treatment Not on file documented as of this encounter Procedures Procedure Name Priority Date/Time Associated Diagnosis Comments SCAN - LABS 01/12/2025 documented in this encounter Results * SCAN - LABS (01/12/2025) us Provider Scanning Final Result documented in this encounter Visit Diagnoses Not on filedocumented in this encounter Care Teams Chemistry Tutor Relationship Specialty Start Date End Date Krishna Rosales MD [address] [place] [address] PCP - General Family Medicine 06/16/19 Delmi Peace, RN [address] [place] [address] Travel Trailer Components Assembler 04/12/18 Smooth Simpson MD [address] [place] [address] Plastic Surgeon Plastic Surgery 04/05/20 Mame Cast MD [address] [place] [address] Radiation Oncologist Radiation Oncology 05/23/20 Wilbur Angel MD [address] [facility] [address] [place] [address] Medical Oncologist/Can Sterilizer Medical Oncology 10/24/20 Tong Dubose MD [address] [facility] DEPT OTOLARYNGOLOGY, [address] [place] [address] Surgeon Otolaryngology 06/11/22 documented as of this encounter
--- OUTSIDE RECORDS SUMMARY | 2025-04-02 15:53 | XMS_ITS | Encounter Summary ---
Author Organization [facility] Address [address] [place] [address] Phone Care Team Providers Care Production Control Pegboard Clerk Name Role Phone Delmi Peace RN Unavailable [phone] Krishna Rosales MD Primary Care Provider + [phone] [facility] Unavailable [phone] Mame Cast MD Unavailable [phone] Wilbur Angel MD Unavailable [phone] Tong Dubose MD Unavailable Encounter Details Date Type Department Care Team [...] on file Legal Sex Male 1:23 AM DIRECTOR OF SERVICES Gender Identity Male 07/03/2022 5:22 AM CDT Sexual Orientation Straight 12/01/2020 8: 14 PM DIRECTOR OF SERVICES documented as of this encounter Plan of Treatment Not on file documented as of this encounter Procedures Procedure Name Priority Date/Time Associated Diagnosis Comments SCAN - PATHOLOGY 02/10/2023 documented in this encounter Results * SCAN - PATHOLOGY (02/10/2023) us Provider Scanning Final Result documented in this encounter Visit Diagnoses Not on filedocumented in this encounter Care Teams Production Control Pegboard Clerk Relationship Specialty Start Date End Date Krishna Rosales MD [address] [place] [address] PCP - General Family Medicine 06/16/19 Delmi Peace RN [address] [place] [address] Detective Supervisor 04/12/18 [facility] [address] [place] [address] Plastic Surgeon Plastic Surgery 04/05/20 Mame Cast MD [address] [place] [address] Radiation Oncologist Radiation Oncology 05/23/20 Wilbur Angel MD [address] [facility] [address] [place] [address] Medical Oncologist/Sports Book Board Attendant Medical Oncology 10/24/20 Tong Dubose MD [address] [facility] DEPT OTOLARYNGOLOGY, [address] [place] [address] Surgeon Otolaryngology 06/11/22 documented as of this encounter
--- OUTSIDE RECORDS SUMMARY | 2025-04-02 15:53 | XMS_ITS | Encounter Summary ---
Author Organization [facility] Address [address] [place] [address] Phone Care Team Providers Care Supervisor Multifocal Lens Name Role Phone Delmi Peace RN Unavailable [phone] Krishna Rosales MD Primary Care Provider + [phone] [facility] Unavailable [phone] Mame Cast MD Unavailable [phone] Wilbur Angel MD Unavailable [phone] Tong Dubose MD Unavailable [phone] Reason for Visit * Reason Onset Date Comments Prior Auth 03/30/2025 Encounter Details Date Type Department Care Team (Late st Contact Info) Description 03/30/2025 Telephone [facility] Dermatology [facility] Out[facility] Health [address] [place] [address] Shiva Luong MD [address] [facility] [address] [place] [address] Prior Auth Social History Tobacco Use Types Packs/Day Years [...] when you are drinking? 1 or 2 3 Q3: How often do you have si [...] on file Legal Sex Male 1:23 AM COUNSELOR MARRIAGE AND FAMILY Gender Identity Male 07/03/2022 5:22 AM CDT Sexual Orientation Straight 12/01/2020 8: 14 PM COUNSELOR MARRIAGE AND FAMILY documented as of this encounter Miscellaneous Notes * Telephone Encounter - Elizabeth Magana - 03/30/2025 8:55 AM CDT Images from the original note were not included. documented in this encounter Plan of Treatment Not on file documented as of this encounter Visit Diagnoses Not on filedocumented in this encounter Care Teams Supervisor Multifocal Lens Relationship Specialty Start Date End Date Krishna Rosales MD [address] [address] PCP - General Family Medicine 06/16/19 Delmi Peace, RN [address] [address] Needle Loom Setter 04/12/18 Smooth Simpson MD [address] [place] [address] Plastic Surgeon Plastic Surgery 04/05/20 Mame Cast MD [address] [place] [address] Radiation Oncologist Radiation Oncology 05/23/20 Wilbur Angel MD [address] [facility] [address] [place] [address] Medical Oncologist/Manager Developmental Medical Oncology 10/24/20 Tong Dubose MD [address] [facility] DEPT OTOLARYNGOLOGY, [address] [place] [address] Surgeon Otolaryngology 06/11/22 documented as of this encounter
--- OUTSIDE RECORDS SUMMARY | 2025-04-02 15:53 | XMS_ITS | Encounter Summary ---
Author Organization [facility] Address [address] [place] [address] Phone Care Team Providers Care Laundrette Owner Name Role Phone Delmi Peace RN Unavailable [phone] Krishna Rosales MD Primary Care Provider + [phone] [facility] Unavailable [phone] Mame Cast MD Unavailable [phone] Wilbur Angel MD Unavailable [phone] Tong Dubose MD Unavailable [phone] Encounter Details Date Type Department Care Team [...] on file Legal Sex Male 1:23 AM UNDERWRITING CLERK Gender Identity Male 07/03/2022 5:22 AM CDT Sexual Orientation Straight 12/01/2020 8: 14 PM UNDERWRITING CLERK documented as of this encounter Plan of Treatment Not on file documented as of this encounter Procedures Procedure Name Priority Date/Time Associated Diagnosis Comments SCAN - PATHOLOGY 04/26/2023 documented in this encounter Results * SCAN - PATHOLOGY (04/26/2023) us Provider Scanning Final Result documented in this encounter Visit Diagnoses Not on filedocumented in this encounter Care Teams Laundrette Owner Relationship Specialty Start Date End Date Krishna Rosales MD [address] [place] [address] PCP - General Family Medicine 06/16/19 Delmi Pecae RN [address] [place] [address] Animal Keeper Head 04/12/18 [facility] [address] [place] [address] Plastic Surgeon Plastic Surgery 04/05/20 Mame Cast MD [address] [place] [address] Radiation Oncologist Radiation Oncology 05/23/20 Wilbur Angel MD [address] [facility] [place] [facility] [address] [place] [address] Medical Oncologist/Brickmason Medical Oncology 10/24/20 Tong Dubose MD [address] [facility] [place] [facility] DEPT OTOLARYNGOLOGY, [address] [place] [address] Surgeon Otolaryngology 06/11/22 documented as of this encounter
[2025-04-02 16:01] LABS: Basophils Absolute Auto 0.1 K/mm3 (0.0-0.1); Basophils Percent Auto 1.2 % (0.2-1.2); Eosinophils Absolute Auto 0.1 K/mm3 (0-0.3); Eosinophils Percent Auto 1.2 % (0-4.4); Hemoglobin 11.2 g/dL (14.0-18.0); Immature Granulocyte Absolute 0.02 K/mm3 (0.00-0.031); Immature Granulocyte Percent A 0.4 % (0-0.5); Lymphocytes Absolute Auto 0.58 K/mm3 (0.9-3.2); Lymphocytes Percent Auto 11.9 % (18.3-44.2); Mean Corpuscular HGB Conc 30.3 g/dl (32-36); Mean Corpuscular Hemoglobin 23.8 pg (26-34); Mean Corpuscular Volume 78.6 fl (80-100); Mean Platelet Volume 8.8 fl (7.4-10.4); Monocytes Absolute Auto 0.5 K/mm3 (0.1-0.6); Monocytes Percent Auto 9.9 % (2.6-8.5); Neutrophils Absolute Auto 3.7 K/mm3 (1.3-6.7); Neutrophils Percent Auto 75.4 % (45.5-73.1); Platelet Count Result 221 k/mm3 (150-375); Red Blood Count 4.71 M/mm3 (4.6-6.20); Red Cell Distribution Width 15.6 % (11.5-14.5); White Blood Count 4.9 K/mm3 (4.5-10.0)
[2025-04-02 16:36] LABS: Iron 42 ug/dL (49-181)
[2025-04-02 16:38] LABS: Alanine Aminotransferase 25 U/L (6-50); Alkaline Phosphatase 66 U/L (38-126); Anion Gap 3 mmol/L (4-12); Aspartate Amino Transferase 43 U/L (17-59); Bilirubin,Total 0.6 mg/dL (0.2-1.3); Blood Urea Nitrogen 27 mg/dL (9-20); Calcium 8.9 mg/dL (8.4-10.2); Carbon Dioxide 28 mmol/L (22-30); Chloride 106 mmol/L (98-107); Estimated Glomerular Filt Rate 39; Glucose 108 mg/dL (65-110); Potassium 4.8 mmol/L (3.4-5.0); Sodium 137 mmol/L (137-145)
[2025-04-02 16:46] LABS: Percent Iron Saturation 16 % (20-50)
[2025-04-02 17:44] LABS: Folic Acid 8.5 ng/mL (2.76->20)
[2025-04-05 12:52] LABS: Soluble Transferrin Receptor 2.54 mg/L (0.76-1.76)
[2025-04-05 19:39] LABS: Methylmalonic Acid 253 nmol/L (69-390)
== END 2025-04-02 15:49 | disposition home or self-care (01) ==
PROVIDERS: PCP Family Medicine; Visit Provider Internal Medicine Hematology & Oncology
DX: D64.9 Anemia, unspecified (principal)
CPT/HCPCS: 36415; 80053; 82607; 82728; 82746; 83540; 83550; 83921; 84238; 85025

== ENCOUNTER 2025-05-01 09:51 | Outpatient (CLI) | payer BC, MEDICARE, SELFPAY ==
[2025-05-01 10:14] LABS: Hematocrit 35.3 % (42.0-52.0); Hemoglobin 10.7 g/dL (14.0-18.0); Mean Corpuscular HGB Conc 30.3 g/dl (32-36); Mean Corpuscular Hemoglobin 23.8 pg (26-34); Mean Corpuscular Volume 78.4 fl (80-100); Mean Platelet Volume 8.5 fl (7.4-10.4); Platelet Count Result 207 k/mm3 (150-375); Red Cell Distribution Width 15.3 % (11.5-14.5); White Blood Count 6.3 K/mm3 (4.5-10.0)
--- OUTSIDE RECORDS SUMMARY | 2025-05-01 10:52 | XMS_ITS | Encounter Summary ---
Author Organization [facility] Address [address] [place] [address] Phone Care Team Providers Care University Dean Name Role Phone Delmi Peace RN Unavailable [phone] Krishna Rosales MD Primary Care Provider [phone] [facility] Un[facility] [phone] Mame Cast MD Unavailable [phone] Wilbur Angel MD Unavailable [phone] Tong Dubose MD Unavailable [phone] Reason for Visit * Reason Onset Date Comments Prior Auth 04/30/2025 Encounter Details Date Type Department Care Team (Late st Contact Info) Description 04/30/2025 Telephone [facility] Dermatology [facility] [address] [place] [address] Shiva Luong MD [address] [facility] [address] [place] [address] Prior Auth Social History Tobacco [...] on file Legal Sex Male 1:23 AM APPLICATIONS SALES REPRESENTATIVE Gender Identity Male 07/03/2022 5:22 AM CDT Sexual Orientation Straight 12/01/2020 8: 14 PM APPLICATIONS SALES REPRESENTATIVE documented as of this encounter Miscellaneous Notes * Telephone Encounter - Elizabeth Magana - 04/30/2025 6:59 AM CDT Images from the original note were not included. * Telephone Encounter - Elizabeth Magana - 04/30/2025 6:54 AM CDT Images from the original note were not included. documented in this encounter Plan of Treatment Not on file documented as of this encounter Visit Diagnoses Not on filedocumented in this encounter Care Teams University Dean Relationship Specialty Start Date End Date Krishna Rosales MD [address] [place] [address] PCP - General Family Medicine 06/16/19 Delmi Peace, AFTAB [address] [facility] [address] [place] [address] Electric Meter Repairer Helper 04/12/18 Smooth Simpson MD [address] [place] [address] Plastic Surgeon Plastic Surgery 04/05/20 Mame Cast MD [address] [place] [address] Radiation Oncologist Radiation Oncology 05/23/20 Wilbur Angel MD [address] [facility] [address] [place], [place] [id number] Medical Oncologist/Learning And Development Coordinator Medical Oncology 10/24/20 Tong Dubose MD [address] [facility] DEPT OTOLARYNGOLOGY, [address] [place] [address] Surgeon Otolaryngology 06/11/22 documented as of this encounter
--- OUTSIDE RECORDS SUMMARY | 2025-05-01 10:52 | XMS_ITS | Clinical Summary ---
Author Organization [facility] Address [address] [place] [address] Care Team Providers Care Senior Care Manager Name Role Phone Delmi Peace RN Unavailable [phone] Krishna Rosales MD Primary Care Provider [phone] [facility] Unavailable [phone] Mame Cast MD Unavailable [phone] Wilbur Angel MD Unavailable [phone] Tong Dubose MD Unavailable [phone] Allergies Active Allergy Reactions Criticality Noted Date Comments Iodinated Contrast Media Other (See comments) High 01/08/2025 RENAL TRANSPLANT - NO CONTRAST Medications cholecalciferol (VITAMIN D-3) 2,000 unit tabletIndications:Pr evention of Vitamin D Deficiency Take 1 tablet (2,000 Units total) by mouth 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 120 tablet 1 022 Active aspirin 81 mg enteric coated tabletIndications:pr evention of thrombosis Take 1 tablet (81 mg total) by mouth every morning 006 Active apixaban (ELIQUIS) 5 mg tabletIndications:Ve nous [...] 3 023 Active mupirocin (BACTROBAN) 2 % ointmentIndications: Minor [...] the morning 90 capsule 3 024 Active atorvastatin (LIPITOR) 80 mg tablet Take 1 tablet by mouth nightly 90 tablet 3 024 Active sirolimus (RAPAMUNE) 1 mg tabletIndications:im munosuppression Take 1 tablet (1 mg total) by mouth daily 30 tablet 11 024 2024 Active hydrALAZINE (APRESOLINE) 25 mg tablet TAKE 3 TABLETS BY MOUTH THREE TIMES DAILY 270 tablet 11 024 Active carvediloL (COREG) 25 mg tablet Take 1 tablet by mouth twice daily 180 tablet 3 024 Active predniSONE (DELTASONE) 5 mg tablet Take 1 tablet by mouth once daily 90 tablet 3 025 Active ciprofloxacin (CILOXAN) 0.3 % ophthalmic solution INSTILL 1 DROP INTO AFFECTED EYE THREE TIMES DAILY STARTING 2 DAYS PRIOR TO SURGERY, CONTINUING FOR 1 WEEK AFTER SURGERY 025 Active ketorolac (ACULAR) 0.5 % ophthalmic solution INSTILL 1 DROP INTO AFFECTED EYE THREE TIMES DAILY STARTING 2 DAYS BEFORE SURGERY, CONTINUING FOR 2 WEEKS AFTER SURGERY 025 Active prednisoLONE acetate (PRED FORTE) 1 % ophthalmic suspension INSTILL 1 DROP INTO AFFECTED EYE THREE TIMES DAILY STARTING AFTER SURGERY, CONTINUE FOR 3 WEEKS 025 Active acitretin (SORIATANE) 25 mg capsuleIndications:H istory of nonmelanoma skin cancer,History of immunosuppressive therapy,High risk medications (not anticoagulants) long-term use,AK (actinic keratosis) Take 2 capsules (50 mg total) by mouth every other day 30 capsule 3 025 Active fluorouraciL (EFUDEX) 5 % creamIndications:Act inic keratosis Apply 2 times daily (once in AM, once in PM) to areas on left and right side of face, chest red spots for at least 2 weeks 40 g 2 025 Active acitretin (SORIATANE) 25 mg capsuleIndications:H istory of immunosuppressive therapy,AK (actinic keratosis),History of nonmelanoma skin cancer,High risk medications (not anticoagulants) long-term use Take 2 capsules (50 mg total) by mouth daily 30 capsule 3 024 2024 Disconti nued(Reo rder) fluorouraciL (EFUDEX) 5 % cream Apply 2 times daily (once in AM, once in PM) to areas on left side of face and right ear for 14days 40 g 2 024 2024 Disconti nued(Reo rder) acitretin (SORIATANE) 25 mg capsuleIndications:H istory of nonmelanoma skin cancer,History of immunosuppressive therapy,High risk medications (not anticoagulants) long-term use,AK (actinic keratosis) Take 2 capsules (50 mg total) by mouth every other day 30 capsule 3 025 2024 Disconti nued(Reo rder) fluorouraciL (EFUDEX) 5 % creamIndications:Act inic keratosis Apply 2 times daily (once in AM, once in PM) to areas on left and right side of face, chest red spots 40 g 2 025 2024 Disconti nued(Reo rder) acitretin (SORIATANE) 25 mg capsuleIndications:H istory of nonmelanoma skin cancer,History of immunosuppressive therapy,High risk medications (not anticoagulants) long-term use,AK (actinic keratosis) Take 2 capsules (50 mg total) by mouth every other day 30 capsule 3 025 2024 Disconti nued(Reo rder) fluorouraciL (EFUDEX) 5 % creamIndications:Act inic keratosis Apply 2 times daily (once in AM, once in PM) to areas on left and right side of face, chest red spots 40 g 2 025 2024 Disconti nued(Reo rder) Active Problems Patient Care Coordination No te Formatting of this note migh t be different from the original. Goal Sirolimus levels should be 4-6 [facility] [phone], [phone] Standing orders q-monthly, PT/INR, Sirolimus q3-Routine Exp.11/05/25 [facility] Oncology ext [id number] Problem Noted Date Diagnosed Date SCC (squamous [...] future. Assessment & Plan (10/04/2022 6:32 PM PHYSICAL THERAPY AIDE): [place] Sh[place] is doing well after Left [...] (04/29/2021): Added automatically from request for surgery [id number] Cellulitis of leg, right 03/18/2021 Assessment & [...] (02/07/2021): Added automatically from request for surgery [id number] Abnormal finding on GI tract imaging 02/07/2021 Overview (02/07/2021): Added automatically from request for surgery [id number] Metastasis to bone 01/20/2021 Head and neck [...] numbness. Assessment & Plan (01/13/2021 8:03 PM PHYSICAL THERAPY AIDE): Please note patient with noted C1 vertebral [...] AM Assessment & Plan (01/13/2021 8:01 PM PHYSICAL THERAPY AIDE): Please note patient with noted C1 vertebral [...] occurred. Assessment & Plan (01/15/2021 5:09 PM PHYSICAL THERAPY AIDE): -hold home Eliquis in s/o possible surgical intervention -Heparin gtt -Resuming Eliquis as ortho spine recommends non-operative management Assessment & Plan (01/13/2021 7:48 PM PHYSICAL THERAPY AIDE): -hold home Eliquis in s/o possible surgical [...] time Assessment & Plan (01/13/2021 8:09 PM PHYSICAL THERAPY AIDE): -continue home Tacro XR 1mg PO daily -Goal Tacro trough in the s/o acitve cancer 2-3 -check AM tacro level on 01/14, ~ 30min-1hr prior to Tacro dosing -home pred held given steroids as elsewhere -on arrival sCr 1.69 and thus at baseline -May require renal transplant involvement if increasing sCr noted on daily labs -Monitor Is/Os Assessment & Plan (01/13/2021 7:55 PM PHYSICAL THERAPY AIDE): -continue home Tacro 1PO BID -Goal Tacro [...] (04/09/2020): Added automatically from request for surgery [id number] Metastatic squamous cell carcinoma to parotid gl and 04/09/2020 Cancer Staging:Pathologic stage from 04/15/2020:Stage IV(rpT3, pN2a, cM0) - Signed by Tatyana Up MD on 04/29/2020 Overview (04/09/2020): Added automatically from request for surgery [id number] Assessment & Plan (03/18/2021 1:44 PM CDT): [...] 12/23/20). Assessment & Plan (01/15/2021 5:09 PM PHYSICAL THERAPY AIDE): -01/10 PET scan notable for diffuse and [...] outpatient Assessment & Plan (01/13/2021 7:40 PM PHYSICAL THERAPY AIDE): -01/10 PET scan notable for diffuse and [...] 06/16/2019 Assessment & Plan (01/13/2021 8:05 PM PHYSICAL THERAPY AIDE): -continue home Lisinopril 10 -Continue home Coreg 25BID Assessment & Plan (01/13/2021 8:00 PM PHYSICAL THERAPY AIDE): -continue home Coreg 25BID -continue home Lisinopril 10 daily Increased infection risk sta tus post immunosuppressive therapy 06/16/2019 Dyslipidemia 06/16/2019 Assessment & Plan (01/13/2021 8:05 PM PHYSICAL THERAPY AIDE): -continue home Crestor Assessment & Plan (01/13/2021 8:00 PM PHYSICAL THERAPY AIDE): -continue home Atorva 40 QHS High risk [...] Encounters Date Type Department Care Team Description 04/30/2025 Orders Only [facility] Dermatology [address] [place] [address] Health [address] [place] [address] Shiva Luong MD Actinic keratosis 04/30/2025 Telephone [facility] Dermatology [address] [place] [address] [address] [place] [address] Shiva Luong MD Prior Auth 04/26/2025 Results Follow-Up [address] [place] [address] Shiva Luong MD Surgical pathology 04/26/2025 Orders Only [address] [place] [address] Shiva Luong MD History of nonmelanoma skin cancer; History of immunosuppressive therapy; High risk medications (not anticoagulants) long-term use; AK (actinic keratosis); Actinic keratosis 04/24/2025 9:00 AM CDT Office Visit [facility] Department of Otolaryngology Head-Neck Division [address] [place] [address] Lisa Gottlieb PA Impacted cerumen of left ear (Primary Dx) 04/24/[address] Health [address] [place] [address] Moira Boucher, [facility] ED Dispensing Pharmacy 04/24/[address] [place] [address] Shiva Luong MD Prior Auth 04/24/2025 Orders Only [facility] [address] [place] [address] Shiva Luong MD Neoplasm of uncertain behavior of skin 04/23/2025 1:30 PM CDT Office Visit [facility] Dermatology [address] Outpatient Health [address] [place] [address] Shiva Luong MD Actinic keratosis (Primary Dx); Seborrheic keratoses; Multiple melanocytic nevi; History of nonmelanoma skin cancer; History of immunosuppressive therapy; High risk medications (not anticoagulants) long-term use; Actinic skin damage; Neoplasm of uncertain behavior of skin; AK (actinic keratosis) 04/23/2025 12:20 PM CDT Office Visit [facility] Oncology [address] [place] [address] Wilbur Angel MD Abnormal CT scan, neck (Primary Dx); Squamous cell carcinoma of skin of unspecified parts of face; Head and neck cancer (HCC) 04/23/2025 11:30 AM CDT Lab [facility] Oncology Lab [address] [place] [address] Squamous cell carcinoma of skin of unspecified parts of face; Head and neck cancer (HCC) 04/23/2025 10:15 AM CDT Lab [facility] - Lab Collection [address] [facility] [address] 6 [place] [address] Head and neck cancer (HCC) 04/23/2025 8:41 AM CDT - 04/23/2025 11:59 PM CDT Hospital Encounter [facility] - [place] [address] [facility] [address] 8 [place] [address] Squamous cell carcinoma of skin of unspecified parts of face Discharge Disposition: Discharge to home or self care 03/30/2025 Telephone [facility] Otolaryngology [facility] [place] [address] Glenny Ceron MS 03/30/2025 Telephone [facility] Dermatology [address] [place] [address] Outpatient Health [address] [place] [address] Shiva Luong MD Prior Auth 03/14/2025 Orders Only [facility] Nephrology [address] [facility] Advanced Medicine 5th [place] [address] [place] [address] Oleksandr Rice MD 02/06/2025 Orders Only [facility] Nephrology [address] [facility] Medicine 5th [place] [address] [place] [address] Oleksandr Rice MD from Last 3 Months Immunizations Immunization Administration [...] filter 2009 Cellulitis of right leg hospital [place] 03/20/21 [...] on file Legal Sex Male 1:23 AM PHYSICAL THERAPY AIDE Gender Identity Male 07/03/2022 5:22 AM CDT Sexual Orientation Straight 12/01/2020 8: 14 PM PHYSICAL THERAPY AIDE Obstetrics History Last Filed Vital Signs Vital Sign Reading Time Taken Comments Blood Pressure 139/54 04/23/2025 11:01 AM CDT Pulse 63 04/23/2025 11:01 AM CDT Temperature 36.5 C (97.7 F) 04/23/2025 11:01 AM CDT Respiratory Rate 18 04/23/2025 11:01 AM CDT Oxygen Saturation 98% 04/23/2025 11:01 AM CDT Inhaled Oxygen Concentration - - Weight 88.3 kg (194 lb 9.6 oz) 04/24/2025 8:59 A M CDT Height 183.6 cm (6' 0.28) 04/23/2025 11:01 AM C DT Body Mass Index 26.19 04/23/2025 11:01 AM CDT Plan of Treatment Health Maintenance Due [...] 04/22/2021 Colon Cancer Screening-DNA Stool Discontinued 04/22/20 21 Colon Cancer Screening-FIT Discontinued 04/22/2021 Colon Cancer Screening-Sigmoidoscopy Discontinued 04/22/2021 Medical Devices Implanted Type Area [employer]cher[employer] Helper Device Identifier Shelf Expiration Date Model / Serial / Lot [employer] [id number] Xcela 8fr 1.6mm 1 Lumen Power Injectable Attach Catheter Fill - [id number] Implanted:Qty: 1 on 09/18/2021 at [facility] [employer] 05/13/2026 [id number] / / [id number] Explanted Type Area Chicken Hatchery Helper Device Identifier Shelf Expiration Date Model / Serial / Lot [employer] Juana [id number] Clip Ligation Resolution 360 Ultra 235cm Braid Rotation Ctrl - [id number] Explanted:Qty: 1 on 04/22/2021 at [facility] [employer] 02/04/2024 [id number] / / [id number] [employer] [id number] Clip Ligation Resolution 360 Ultra 235cm Braid Rotation Ctrl - [id number] Explanted:Qty: 1 on 04/22/2021 at [facility] [employer] 02/04/2024 [id number] / / [id number] [employer] [id number] Clip Ligation Resolution 360 Ultra 235cm Braid Rotation Ctrl - [id number] Explanted:Qty: 1 on 04/22/2021 at [facility] [employer] 02/04/2024 [id number] / / [id number] [employer] [id number] Clip Ligation Resolution 360 Ultra 235cm Braid Rotation Ctrl - [id number] Explanted:Qty: 1 on 04/22/2021 at [facility] [employer] 02/04/2024 [id number] / / [id number] [employer] [id number] Clip Ligation Resolution 360 Ultra 235cm Braid Rotation Ctrl - [id number] Explanted:Qty: 1 on 04/22/2021 at [facility] [employer] 02/04/2024 [id number] / / [id number] Procedures Procedure Name Priority Date/Time Associated Diagnosis Comments DIFFERENTIAL AUTO Routine 04/23/2025 10: 22 AM CDT Head and neck cancer (HCC) CBC WITH AUTO DIFFERENTIAL Routine 04/23/2025 10:22 AM CDT Head and neck cancer (HCC) EGFR Routine 04/23/2025 10:22 AM CDT Head and neck cancer (HCC) THYROID FUNCTION CASCADE Routine 04/23/2025 10:22 AM CDT Head and neck cancer (HCC) LACTATE DEHYDROGENASE Routine 04/23/2025 10:22 AM CDT Head and neck cancer (HCC) COMPREHENSIVE METABOLIC PANEL Routine 04/23/2025 10:22 AM CDT Head and neck cancer (HCC) MAGNESIUM Routine 04/23/2025 10:22 AM CDT Head and neck cancer (HCC) PHOSPHORUS Routine 04/23/2025 10:22 AM CDT Head and neck cancer (HCC) CT CHEST ABDOMEN PELVIS WO CONTRAST Schedule Routine, Read Routine (OP Routine) 04/23/2025 9:24 AM CDT Squamous cell carcinoma of skin of unspecified parts of face CT SOFT TISSUE NECK WO CONTRAST Schedule Routine, Read Routine (OP Routine) 04/23/2025 9:24 AM CDT Squamous cell carcinoma of skin of unspecified parts of face SURGICAL PATHOLOGY Routine 04/23/2025 12 :00 AM CDT Neoplasm of uncertain behavior of skin SIROLIMUS LEVEL RANDOM Routine 03/14/2025 8:52 AM [...] TO: Routine 02/06/2025 7: 43 AM CDT COLONOSCOPY 04/22/2021 8:33 AM CDT SERUM HEPATITIS C AB Routine 09/30/2015 2:38 AM PHYSICAL THERAPY AIDE from Last 3 Months or Most Recently Relevant to Health Maintenance Results * (ABNORMAL) Differential, auto (04/23/2025 10:22 AM CDT) Neutrophil abs 4.94 1.50 - 6.50 K/cumm Comment:Testing performed by : [facility]e [facility], [address] [place] [id number] Lymphocyte abs 0.52(L) 0.80 - 3.30 K/cumm CERNER BJ Comment:Testing performed by : [facility], [address] [place] [address] Monocyte abs 0.52 0.20 - 0.80 K/cumm CERNER BJ Comment:Testing performed by : [facility], [address] [place] [address] Eosinophil abs 0.11 0.00 - 0.50 K/cumm CERNER BJ Comment:Testing performed by : [facility], [address] [place] [address] Basophil abs 0.05 0.00 - 0.10 K/cumm CERNER BJ Comment:Testing performed by : [facility], [address] [place] [phone] Neutrophil pct 80.5 % CERKATIE BJ Comment: Interpretive Data Percent cell count reference ranges are not reported, since discordance with absolute values may lead to misinterpretation of CBC data. Current Interpretive Data was last revised on 2018. Testing performed by: [facility], [address] [place] [phone] Lymphocyte pct 8.4 % CERKATIE RUIZ Comment: Interpretive Data Percent cell count reference ranges are not reported, since discordance with absolute values may lead to misinterpretation of CBC data. Current Interpretive Data was last revised on 2018. Testing performed by: [facility], [address] [place] [phone] Monocyte pct 8.5 % CERKATIE RUIZ Comment: Interpretive Data Percent cell count reference ranges are not reported, since discordance with absolute values may lead to misinterpretation of CBC data. Current Interpretive Data was last revised on 2018. Testing performed by: [facility], [address] [place] [phone] Eosinophil pct 1.8 % CERKATIE RUIZ Comment: Interpretive Data Percent cell count reference ranges are not reported, since discordance with absolute values may lead to misinterpretation of CBC data. Current Interpretive Data was last revised on 2018. Testing performed by: [facility], [address] [place] [phone] Basophil pct 0.8 % CERKATIE RUIZ Comment: Interpretive Data Percent cell count reference ranges are not reported, since discordance with absolute values may lead to misinterpretation of CBC data. Current Interpretive Data was last revised on 2018. Testing performed by: [facility], [address] [place] [phone] Blood 04/23/2025 10:2 2 AM CDT 04/23/2025 10:32 AM CDT us Wilbur Angel MD LAB BLOOD ORDERABLES Final Res ult [facility] Department [place] [address] * (ABNORMAL) CBC with auto differential (04/23/2025 10:22 AM CDT) WBC 6.13 3.80 - 9.90 K/cumm Comment:Testing performed by : [facility], [address] [place] [address] Hgb 11.1(L) 13.0 - 17.5 g/dL CERKATIE BJ Comment:Testing performed by : [facility], [address] [place] [address] Hct 34.0(L) 38.9 - 50.3 % CERKATIE BJ Comment:Testing performed by : [facility], [address] [place] [address] Plt 233 150 - 400 K/cumm CERKATIE BJ Comment:Testing performed by : [facility], [address] [place] [address] MPV 6.4(L) 6.8 - 10.4 fL CERKATIE BJ Comment:Testing performed by : [facility], [address] [place] [address] RBC 4.73 4.30 - 5.80 M/cumm CERKATIE BJ Comment:Testing performed by : [facility], [address] [place] [address] MCV 71.9(L) 81.3 - 96.4 fL CERKATIE BJ Comment:Testing performed by : [facility], [address] [place] [address] MCH 23.5(L) 27.1 - 33.3 pg CERKATIE BJ Comment:Testing performed by : [facility], [address] [place] [address] MCHC 32.6 32.3 - 35.7 g/dL CERKATIE BJ Comment:Testing performed by : [facility], [address] [place] [address] RDW CV 16.7(H) 11.1 - 14.9 % BOBBI RUIZ Comment:Testing performed by : [facility], [address] [place] [phone] NRBC abs 0.00 0.00 - 0.01 K/cumm BOBBI RUIZ Comment:Testing performed by : [facility], [address] [place] [phone] Blood 04/23/2025 10:2 2 AM CDT 04/23/2025 10:32 AM CDT us Wilbur Angel MD LAB BLOOD ORDERABLES Final Res ult [facility] Department [place] [address] * (ABNORMAL) eGFR (04/23/2025 10:22 AM CDT) eGFR 44(L) >=60 mL/min/1. 73 m2 Comment: Interpretive Data [...] of Race in Diagnosing Kidney Disease, JASN 202). The CKD-EPI equation should not be used for patients with unstable renal function and has not been validated in children and those over 70. Current interpretive data was last reviewed 2021. Blood 04/23/2025 10:2 2 AM CDT 04/23/2025 10:36 AM CDT us Wilbur Angel MD LAB BLOOD ORDERABLES Final Res ult Performing Organization Address City/[facility] Co de Phone Number [facility] [place] [address] * Thyroid Function [place] (04/23/2025 10:22 AM CDT) TSH 2.50 0.30 - 4.20 mcIUnit/mL Blood 04/23/2025 10:2 2 AM CDT 04/23/2025 10:36 AM CDT Wilbur Angel MD LAB BLOOD ORDERABLES Final Res ult Performing Organization Address [facility] [place] [address] * Phosphorus (04/23/2025 10:22 AM CDT) Phosphorus, pl 2.5 2.3 - 4.5 mg/dL Blood 04/23/2025 10:2 2 AM CDT 04/23/2025 10:36 AM CDT us Wilbur Angel MD LAB BLOOD ORDERABLES Final Res ult Performing Organization Address [facility] Co de Phone Number [facility] [place] [address] * Magnesium (04/23/2025 10:22 AM CDT) Magnesium 2.2 1.4 - 2.5 mg/dL Blood 04/23/2025 10:2 2 AM CDT 04/23/2025 10:36 AM CDT us Wilbur Angel MD LAB BLOOD ORDERABLES Final Res ult Performing Organization Address City/[facility] Co de Phone Number [facility] Department [place] [address] * Lactate dehydrogenase (LD) (04/23/2025 10:22 AM CDT) Lactate dehydrogenase (LDH) 241 100 - 250 Units/L Blood 04/23/2025 10:2 2 AM CDT 04/23/2025 10:36 AM CDT Wilbur Angel MD LAB BLOOD ORDERABLES Final Res ult [facility] Department [place] [address] * (ABNORMAL) Comprehensive metabolic panel (04/23/2025 10:22 AM CDT) Pathologist [facility] Sodium 141 135 - 145 mmol/L Potassium, pl 4.4 3.3 - 4.9 mmol/L [facility] Chloride 106 97 - 110 mmol/L [facility] CO2 27 22 - 32 mmol/L [facility] Anion gap 8 2 - 15 mmol/L [facility] BUN 25 6 - 25 mg/dL [facility] Creatinine 1.70(H) 0.80 - 1.30 mg/dL [facility] Glucose 105 70 - 199 mg/dL [facility] Comment: Interpretive Data Fasting glucose >/= 126 [...] interpretive data was last revised 2022. Calcium 9.0 8.5 - 10.3 mg/dL [facility] Bilirubin, total 0.3 0.1 - 1.2 mg/dL [facility] Protein, pl 6.8 6.5 - 8.5 g/dL [facility] Albumin 4.0 3.5 - 5.0 g/dL [facility] Alk phos 76 40 - 130 Units/L [facility] ALT 23 7 - 55 Units/L [facility] AST 32 10 - 50 Units/L [facility] Blood 04/23/2025 10:2 2 AM CDT 04/23/2025 10:36 AM CDT Wilbur Angel MD LAB BLOOD ORDERABLES Final Res ult [facility] Department [place] [address] * CT chest abdomen pelvis without contrast (04/23/2025 9:24 AM CDT) Anatomical Region Laterality Modality Body N/A Computed Tomogra phy 04/23/2025 10:0 4 AM CDT Impressions 04/24/2025 1:34 PM CDT 1. Resolution of some of the previously seen pulmonary nodules with certain persistent nodules and new nodules/foci of groundglass opacity. These findings are all overall suggestive of an inflammatory process, such as a drug reaction, or atypical infectious process. 2. Anterior mediastinal soft tissue nodule similar in appearance to prior study. No new evidence of metastatic disease. Dictated by: Mariusz Ogden MD The radiology attending physician has personally reviewed this study, and had reviewed and/or edited this written report and agrees with it. Electronically signed by: Anne Archuleta M.D. 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 COMPARISON: 01/08/2025 FINDINGS: Chest: Thyroid is normal. There is no supra-clavicular a or axillary lymphadenopathy. The 0.9 cm anterior mediastinal soft tissue nodule is similar in appearance to prior study. The heart is enlarged, there is no pericardial effusion. There are aortic valve and coronary artery calcifications are thoracic aorta and the pulmonary artery are normal in caliber. The esophagus is nondilated. There is a right chest port catheter which terminates at the supraclavicular junction. There are resolution of some of the pulmonary nodules seen on prior study with persistence of certain nodules and new nodules. For example, a 3 mm groundglass nodule in the right upper lobe on prior study has resolved, while left upper lobe nodules at series 4 image 47 are persistent decreased groundglass and increased solid component compared to prior study. There are also new nodules in the left upper lobe (series 4 image 38) and new foci of peribronchovascular groundglass consolidation. Left lung base basilar groundglass is slightly increased compared to prior study mild left anteromedial pleural thickening similar to prior study. Abdomen/Pelvis: No focal liver lesions. The gallbladder is normal, there is no periductal dilatation. No focal pancreatic lesions. Calcified splenic granulomata are noted. Adrenal glands are normal. The [place] kidneys are atrophic with left renal cryoablation change, similar in appearance to prior study (series 5 image 49). There are postoperative findings of right iliac fossa renal transplant. The bladder is normal. The prostate is mildly enlarged. There is no bowel obstruction, ascites, or pneumoperitoneum. The appendix is normal. The abdominal aorta is normal caliber of mild aortoiliac atherosclerosis. There is a inferior vena cava filter in place. No abdominopelvic adenopathy. There is a small fat-containing left inguinal hernia. No suspicious osseous lesion. 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 COMPARISON: 01/08/2025 FINDINGS: Chest: Thyroid is normal. There is no supra-clavicular a or axillary lymphadenopathy. The 0.9 cm anterior mediastinal soft tissue nodule is similar in appearance to prior study. The heart is enlarged, there is no pericardial effusion. There are aortic valve and coronary artery calcifications are thoracic aorta and the pulmonary artery are normal in caliber. The esophagus is nondilated. There is a right chest port catheter which terminates at the supraclavicular junction. There are resolution of some of the pulmonary nodules seen on prior study with persistence of certain nodules and new nodules. For example, a 3 mm groundglass nodule in the right upper lobe on prior study has resolved, while left upper lobe nodules at series 4 image 47 are persistent decreased groundglass and increased solid component compared to prior study. There are also new nodules in the left upper lobe (series 4 image 38) and new foci of peribronchovascular groundglass consolidation. Left lung base basilar groundglass is slightly increased compared to prior study mild left anteromedial pleural thickening similar to prior study. Abdomen/Pelvis: No focal liver lesions. The gallbladder is normal, there is no periductal dilatation. No focal pancreatic lesions. Calcified splenic granulomata are noted. Adrenal glands are normal. The [place] kidneys are atrophic with left renal cryoablation change, similar in appearance to prior study (series 5 image 49). There are postoperative findings of right iliac fossa renal transplant. The bladder is normal. The prostate is mildly enlarged. There is no bowel obstruction, ascites, or pneumoperitoneum. The appendix is normal. The abdominal aorta is normal caliber of mild aortoiliac atherosclerosis. There is a inferior vena cava filter in place. No abdominopelvic adenopathy. There is a small fat-containing left inguinal hernia. No suspicious osseous lesion. IMPRESSION: 1. Resolution of some of the previously seen pulmonary nodules with certain persistent nodules and new nodules/foci of groundglass opacity. These findings are all overall suggestive of an inflammatory process, such as a drug reaction, or atypical infectious process. 2. Anterior mediastinal soft tissue nodule similar in appearance to prior study. No new evidence of metastatic disease. Dictated by: Mariusz Ogden MD The radiology attending physician has personally reviewed this study, and had reviewed and/or edited this written report and agrees with it. Electronically signed by: Anne Archuleta M.D. Wilbur Angel MD IM CT PROCEDURES Final Result * CT Neck Soft Tissue WO Contrast (04/23/2025 9:24 AM CDT) Anatomical Region Laterality Modality Head and Neck N/A Computed Tomogra phy 04/23/2025 10:3 3 AM CDT Impressions 04/23/2025 10:33 AM CDT Suboptimal for oncologic evaluation due to lack of intravenous contrast. Within the limitation of the study, no unenhanced CT evidence of tumor recurrence nor cervical lymphadenopathy. Recommend repeat of study with contrast when patient is able. Interval progression of soft tissues changes versus chronic fracture at the lateral mass of C1. Giving accompanying tongue findings are correct further relation with MR cervical spine with contrast. Recommend follow up of the Incidental skull base findings Additional Imaging less than 1 month with R cervical spine with contrast. Electronically signed by: Yolette Cavazos M.D. Narrative 04/23/2025 10:33 AM CDT EXAMINATION: CT of the neck without contrast HISTORY: 63 y.o. 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 Healing well doing moist wound care. TECHNIQUE: CT of the neck was performed according to the standard protocol without intravenous contrast. COMPARISON: CT neck dated 01/08/2025. FINDINGS: Surgical changes of left parotid resection and neck dissection are again demonstrated. No gross nodular masses are are seen. Persistent post radiation edema with mass effect noted at the left epiglottis and hypopharynx. Fatty atrophy of the left tongue is slightly progressed. Scattered subcentimeter lymph nodes are seen in the neck. None are pathologically enlarged. The visualized airway is widely patent. Asymmetric fatty atrophy of the left submandibular gland. Mild asymmetric fatty atrophy of the left hemitongue is also seen. Again noted is asymmetric fullness of the left piriform sinus without focal nodular masses. The base of the skull and the temporal bones are normal. Limited views of the brain including the cerebellum and brainstem are normal. The visualized portions of the orbits are normal. Left mastoid effusion. A grade 1 anterolisthesis of C5-C6 and C7-T1. Multilevel degenerative changes of the cervical spine, worse at C6-C7 level. Interval progression of soft tissues changes versus chronic fracture at the lateral mass of C1. Giving accompanying tongue findings are correct further relation with MR cervical spine with contrast. Please refer to separately dictated concurrent CT chest for chest findings details. Procedure Note Yolette Maxwell MD - 04/23/2025 EXAMINATION: CT of the neck without contrast HISTORY: 63 y.o. 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 Healing well doing moist wound care. TECHNIQUE: CT of the neck was performed according to the standard protocol without intravenous contrast. COMPARISON: CT neck dated 01/08/2025. FINDINGS: Surgical changes of left parotid resection and neck dissection are again demonstrated. No gross nodular masses are are seen. Persistent post radiation edema with mass effect noted at the left epiglottis and hypopharynx. Fatty atrophy of the left tongue is slightly progressed. Scattered subcentimeter lymph nodes are seen in the neck. None are pathologically enlarged. The visualized airway is widely patent. Asymmetric fatty atrophy of the left submandibular gland. Mild asymmetric fatty atrophy of the left hemitongue is also seen. Again noted is asymmetric fullness of the left piriform sinus without focal nodular masses. The base of the skull and the temporal bones are normal. Limited views of the brain including the cerebellum and brainstem are normal. The visualized portions of the orbits are normal. Left mastoid effusion. A grade 1 anterolisthesis of C5-C6 and C7-T1. Multilevel degenerative changes of the cervical spine, worse at C6-C7 level. Interval progression of soft tissues changes versus chronic fracture at the lateral mass of C1. Giving accompanying tongue findings are correct further relation with MR cervical spine with contrast. Please refer to separately dictated concurrent CT chest for chest findings details. IMPRESSION: Suboptimal for oncologic evaluation due to lack of intravenous contrast. Within the limitation of the study, no unenhanced CT evidence of tumor recurrence nor cervical lymphadenopathy. Recommend repeat of study with contrast when patient is able. Interval progression of soft tissues changes versus chronic fracture at the lateral mass of C1. Giving accompanying tongue findings are correct further relation with MR cervical spine with contrast. Recommend follow up of the Incidental skull base findings Additional Imaging less than 1 month with R cervical spine with contrast. Electronically signed by: Yolette Cavazos M.D. Wilbur Angel MD IMG CT PROCEDURES Final Result * Surgical pathology (04/23/2025 12:00 AM CDT) Tissue (Skin, shave biopsy) 04/23/2025 04/24/2025 6:14 AM CDT [facility] - 04/25/2025 1:39 PM CDT EPIC results best viewed via link to PDF [facility] Dermat[facility] [place] [address], [place] [address] [email or web address] Note to Patients: This report may contain [...] : 1960 (Age: 64) Specimen Information: COLLECTED: 04/23/2025 RECEIVED: 04/24/2025 REPORTED: 04/25/2025 Submitting Physician Information: Shiva Luong M.D. Dermatology [facility] ([facility]), [address] [place] [address], DERMATOPATHOLOGY REPORT RESULTS DIAGNOSIS: SKIN, LEFT UPPER CHEST, SHAVE BIOPSY: BASAL CELL CARCINOMA migel/ajrr By this signature, I attest that the above diagnosis is based upon my personal examination of the slides(and/or other material indicated in the diagnosis). López Arzate M.D. Report Electronically Reviewed and Signed Out By López Arzate M.D. 04/25/2025 13:39:48 CLINICAL INFORMATION R/O BCC, SCC SPECIMEN DATA MICROSCOPIC DESCRIPTION: Irregular aggregates of atypical basal epithelial cells with palisading of their peripheral nuclei are present within the dermis. (C44.91) GROSS DESCRIPTION: Received in a formalin-containing bottle is a superficial fragment of dome- shaped, pale martinez and scaly skin measuring 1.1 by 1.0 by 0.3 cm. The surgical margin is inked blue. The specimen bears a centrally located, pink-martinez, slightly crusted area measuring 0.9 by 0.8 cm. The specimen is sectioned into 4 pieces and submitted entirely in a single cassette. Due to shrinkage, measurements may be different than those at the time of procedure. exr/mxf ICD-9 A; ZSD.176 Clerical Data A; 16194 The characteristics of special, immunohistochemical, and immunofluorescence stains and in-situ hybridization tests performed by the [facility] were deemed acceptable in ongoing quality assurance clerk measures and in compliance with regulations drawn from the Clinical Laboratory Improvement Act xd7051 (CLIA '88). Control reactions for all stains performed were deemed adequate and appropriate by a pathologist prior to evaluation of patient tissue. Some diagnoses were rendered with the assistance of laboratory-developed tests utilizing analyte-specific reagents; the performance characteristic of these tests were determined by [facility] and are not cleared or approved by the [place] Food an Drug administration. Laboratory developed test may only be performed in a facility that is certified by the [facility] as a high-complexity laboratory under CLIA '88. These tests are used for clinical purposes and are not investigational. Shiva Luong MD LAB PATHOLOGY ORDERABL ES Final Result Performing Organization Address City/[facility]/ZIP Co de Phone Number DERMATOPATHOLOGY CENTER [address] [place] [id number] * COPY(IES) SENT TO: (03/14/2025 8:52 AM CDT) COPY(IES) SENT TO: ALICE Comment: [facility] - COPY TO [address] [address] 03/14/2025 8:52 AM CDT 03/14/2025 8:52 AM CDT Narrative [facility] - 03/15/2025 8:44 PM CDT PAE FASTING:YES FASTING: YES Oleksandr Rice MD LAB BLOOD ORDERABLES Final [...] BLOOD ORDERABLES Final Resu lt [facility] [address] [facility] [place] [address] * (ABNORMAL) CBC with auto differential (03/14/2025 8:52 AM CDT) [facility] WBC 4.8 3.8 - 10.8 Thousand/u L [...] BLOOD ORDERABLES Final Resu lt [facility] [address] [place] [address] * Sirolimus level random (03/14/2025 8:52 AM CDT) SIROLIMUS, LC/MS/MS 4.1 3.0 - 18.0 ng/mL [facility] Comment: This test was developed and its analytical performance characteristics have been determined by [facility]. It has not been cleared or approved by the FDA. This assay has been validated pursuant to the CLIA regulations and is used for clinical purposes. 03/14/2025 8:52 AM CDT 03/14/2025 8:52 AM CDT Narrative [facility] - 03/15/2025 8:44 PM CDT PAE FASTING:YES FASTING: YES Oleksandr Rice MD LAB BLOOD ORDERABLES Final Resu Performing Organization Address [facility] de Phone Number [facility] [address] [place] [address] * Protime-INR (03/14/2025 8:52 AM CDT) Pathologist [facility] INR 1.0 [facility] Comment: Reference Range 0.9-1.1 Moderate-intensity Warfarin Therapy 2.0-3.0 Higher-intensity Warfarin Therapy 3.0-4.0 PT 10.5 9.0 - 11.5 sec [facility] Comment: For additional information, please refer to http://education.[employer]/faq/HTH489 (This link is being provided for informational/ educational purposes only.) 03/14/2025 8:52 AM CDT 03/14/2025 8:52 AM CDT Narrative [facility] - 03/15/2025 8:44 PM CDT PAE FASTING:YES FASTING: YES Oleksandr Rice MD LAB BLOOD ORDERABLES Final Resu Performing Organization Address [facility] de Phone Number [facility] [address] [place] [address] * (ABNORMAL) Renal function panel (03/14/2025 8:52 AM CDT) Glucose 100(H) 65 - 99 mg/dL [facility] Comment: Fasting reference interval For someone without known diabetes, a glucose value between 100 and 125 mg/dL is consistent with prediabetes and should be confirmed with a follow-up test. BUN 34(H) 7 - 25 mg/dL [facility] Creatinine 1.77(H) 0.70 - 1.35 mg/dL [facility] eGFR 42(L) > OR = 60 mL/min/1.7 3m2 [facility] BUN/creat ratio 19 6 - 22 (calc) [facility] Sodium 141 135 - 146 mmol/L [facility] Potassium, pl 4.1 3.5 - 5.3 mmol/L [facility] Chloride 106 98 - 110 mmol/L [facility] CO2 29 20 - 32 mmol/L [facility] Calcium 9.1 8.6 - 10.3 mg/dL [facility] Phosphorus, sr 3.4 2.1 - 4.3 mg/dL [facility] Albumin 3.8 3.6 - 5.1 g/dL [facility] 03/14/2025 8:52 AM CDT 03/14/2025 8:52 AM CDT Narrative [facility] - 03/15/2025 8:44 PM CDT PAE FASTING:YES FASTING: YES us Oleksandr Rice MD LAB BLOOD ORDERABLES Final Resu lt [facility] [address] [place] [address] * (ABNORMAL) Lipid panel (03/14/2025 8:52 AM CDT) Cholesterol 211(H) <200 mg/dL [facility] HDL 79 > OR = 40 mg/dL [facility] Triglycerides 91 <150 mg/dL [facility] LDL 113(H) mg/dL (calc) [facility] Comment: Reference [...] LDL-C. Rogerio KC et al. MYCHAL. 2013;310(19): 2068-9609 (http://education.[employer]/faq/SQI264) Chol/HDL ratio 2.7 <5.0 (calc) [facility] Non-HDL, (LDL+VLDL) 132(H) <130 mg/dL (calc) [facility] Comment: For patients with diabetes plus 1 major ASCVD risk factor, treating to a non-HDL-C goal of <100 mg/dL (LDL-C of <70 mg/dL) is considered a therapeutic option. 03/14/2025 8:52 AM CDT 03/14/2025 8:52 AM CDT Narrative [facility] - 03/15/2025 8:44 PM CDT PAE FASTING:YES FASTING: YES Oleksandr Rice MD LAB BLOOD ORDERABLES Final Resu lt Performing Organization Address City/[facility]/ZIP Co de Phone Number [facility] [address] [place] [address] * COPY(IES) SENT TO: (02/06/2025 7:43 AM CDT) COPY(IES) SENT TO: ALICE Comment: [facility] - COPY TO [facility] [address] [place] [address] 02/06/2025 7:43 AM CDT 02/06/2025 7:45 AM CDT Narrative [facility] - 02/09/2025 11:15 AM CDT PAE us Oleksandr Rice MD LAB BLOOD ORDERABLES Final Resu lt [facility] * (ABNORMAL) CBC with auto differential (02/06/2025 7:43 AM CDT) WBC 5.1 3.8 - 10.8 Thousand/u L [facility] RBC, POC 4.26 4.20 - 5.80 Million/uL [facility] Hgb 10.0(L) 13.2 - 17.1 g/dL [facility] Hct 33.3(L) 38.5 - 50.0 % [facility] MCV 78.2(L) 80.0 - 100.0 fL [facility] MCH 23.5(L) 27.0 - 33.0 pg [facility] MCHC 30.0(L) 32.0 - 36.0 g/dL [facility] Comment: For adults, a slight decrease in the calculated MCHC value (in the range of 30 to 32 g/dL) is most likely not clinically significant; however, it should be interpreted with caution in correlation with other red cell parameters and the patient's clinical condition. Rdw 14.5 11.0 - 15.0 % [facility] Platelets 367 140 - 400 Thousand/u L [facility] MPV 8.5 7.5 - 12.5 fL [facility] Neutrophils, abs 3,488 1,500 - 7,800 cells/uL [facility] Lymphocytes, abs 816(L) 850 - 3,900 cells/uL [facility] Monocyte abs 546 200 - 950 cells/uL [facility] Eosinophils, abs 199 15 - 500 cells/uL [facility] Basophils, abs 51 0 - 200 cells/uL [facility] Neutrophils 68.4 % [facility] Lymphocyte pct 16.0 % [facility] Monocytes 10.7 % [facility] Eosinophils 3.9 % [facility] Basophils 1.0 % [facility] 02/06/2025 7:43 AM CDT 02/06/2025 7:45 AM CDT Narrative [facility] - 02/09/2025 11:15 AM CDT PAE us Oleksandr Rice MD LAB BLOOD ORDERABLES Final Resu lt [facility] [address] [place] [address] * Sirolimus level random (02/06/2025 7:43 AM CDT) Pathologist [facility] SIROLIMUS, LC/MS/MS 6.3 3.0 - 18.0 ng/mL [facility] Comment: This test was developed and its analytical performance characteristics have been determined by [facility]. It has not been cleared or approved by the FDA. This assay has been validated pursuant to the CLIA regulations and is used for clinical purposes. 02/06/2025 7:43 AM CDT 02/06/2025 7:45 AM CDT Narrative [facility] - 02/09/2025 11:15 AM CDT PAE Oleksandr Rice MD LAB BLOOD ORDERABLES Final Resu lt Performing Organization Address [facility] Co de Phone Number [facility] [address] [place] [address] * Protime-INR (02/06/2025 7:43 AM CDT) [facility] INR 1.0 [facility] Comment: Reference Range 0.9-1.1 Moderate-intensity Warfarin Therapy 2.0-3.0 Higher-intensity Warfarin Therapy 3.0-4.0 PT 11.0 9.0 - 11.5 sec [facility] Comment: For additional information, please refer to http://education.MediaMogul/faq/AHD502 (This link is being provided for informational/ educational purposes only.) 02/06/2025 7:43 AM CDT 02/06/2025 7:45 AM CDT Narrative [facility] - 02/09/2025 11:15 AM CDT PAE Oleksandr Rice MD LAB BLOOD ORDERABLES Final Resu lt Performing Organization Address City/[facility] Co de Phone Number [facility] [address] [place] [address] * (ABNORMAL) Renal function panel (02/06/2025 7:43 AM CDT) [facility] Glucose 93 65 - 99 mg/dL [facility] Comment: Fasting reference interval BUN 26(H) 7 - 25 mg/dL [facility] Creatinine 1.69(H) 0.70 - 1.35 mg/dL [facility] eGFR 44(L) > OR = 60 mL/min/1.7 3m2 [facility] BUN/creat ratio 15 6 - 22 (calc) [facility] Sodium 139 135 - 146 mmol/L [facility] Potassium, pl 4.4 3.5 - 5.3 mmol/L [facility] Chloride 104 98 - 110 mmol/L [facility] CO2 30 20 - 32 mmol/L [facility] Calcium 8.9 8.6 - 10.3 mg/dL [facility] Phosphorus, sr 3.1 2.1 - 4.3 mg/dL [facility] Albumin 3.8 3.6 - 5.1 g/dL [facility] 02/06/2025 7:43 AM CDT 02/06/2025 7:45 AM CDT Narrative [facility] - 02/09/2025 11:15 AM CDT PAE us Oleksandr Rice MD LAB BLOOD ORDERABLES Final Resu lt [facility] [address] [address] * COLONOSCOPY (04/22/2021 8:33 AM CDT) Anatomical Region Laterality Modality Other Narrative Procedure Note Tamera Francois MD PhD - 04/22/2021 8:33 AM CDT ENDOSCOPY LAB Patient Name: Los Shultz Procedure Date: 04/22/2021 8:33 AM Date of : 1960 Admit Type: Outpatient Age: 60 Gender: Male Attending MD: Tamera Francois MD,PHD Room: [facility] ENDOSCOPY ROOM 02 Note Status: Finalized Procedure: [...] The scope was passed under direct vision.The [id number] was introduced through the anusand advanced to [...] bowel preparation was evaluated using the BBPS (Seanor Bowel Preparation Scale) with scores of: Right [...] inthe days following this procedure, please call shaina at [phone] or [phone] to speak to my assurance assistant. 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 Francois did your procedure and that you were instructed to have the fellow call me orthe physician covering for me to discuss yourcondition. If you have an urgent problem, please go thenearest emergency room and have the ER doctor call myoffice during the day or the GI fellow after hours and weekends. Attending Participation: I personally performed the entire procedure. Electronically signed by Tamera Francois MD. Tamera Francois MD, PHD 04/22/2021 9:32:33 AM Number of Addenda: 0 Note Initiated On: 04/22/2021 8:33 AM us Tamera Francois MD PhD ENDOSCOPY PROCEDURES Susan l Result * Serum Hepatitis C ab (09/30/2015 2:38 AM PHYSICAL THERAPY AIDE) HCV ab Negative NEG HISTORICAL RESULTS Serum 09/30/2015 2:38 AM PHYSICAL THERAPY AIDE Narrative HISTORICAL RESULTS - 09/30/2015 5:17 AM PHYSICAL THERAPY AIDE Interpretive Data If confirmation is required, call Laboratory Customer Service to request sample to be sent to [facility] for Hepatitis C Virus (HCV) RNA Detection and Quantitation by Real-Time Reverse Cupola Hoist Operator-PCR (RT-PCR). Current interpretive data was last revised on 2012 us Tong Ann MD LAB BLOOD ORDERABLES Final Result HISTORICAL RESULTS from Last 3 Months or Most Recently Relevant to Health Maintenance Insurance [facility] [employer] CHOICE MEDICARE PPO CHOICE [facility] [place] OPEN ACCESS C[employer]NA [facility][1] [employer] CHOICE MEDICARE PPO Advance Directives For more information, please contact: [phone] * Full Code (Latest Code Status on [...] 5:52 PM 01/15/2021 9:19 PM Care Teams Senior Care Manager Relationship Specialty Start Date End Date Krishna Rosales MD [address] [facility] [address] [place] [address] PCP - General Family Medicine 06/16/19 Delmi Peace, AFTAB [address] [facility] [address] [place] [address] Four Horse Hitch Driver 04/12/18 Smooth Simpson MD [address] [place] [address] Plastic Surgeon Plastic Surgery 04/05/20 Mame Cast MD [address] [place] [address] Radiation Oncologist Radiation Oncology 05/23/20 Wilbur Angel MD [address] [facility] [address] [place] [address] Medical Oncologist/Ross Lift Operator Medical Oncology 10/24/20 Tong Dubose MD [address] [facility] DEPT OTOLARYNGOLOGY, [facility] [address] [place] [address] Surgeon Otolaryngology 06/11/22
--- OUTSIDE RECORDS SUMMARY | 2025-05-01 10:52 | XMS_ITS | Encounter Summary ---
Author Organization [facility] [employer] [facility] Address [address] [place] [address] Phone Care Team Providers Care Lug Loader Name Role Phone Delmi Peace RN Unavailable [phone] Krishna Rosales MD Primary Care Provider [phone] [facility] Un[facility] [phone] Mame Cast MD Unavailable [phone] Wilbur Angel MD Unavailable [phone] Tong Dubose MD Unavailable [phone] Encounter Details Date Type Department Care Team [...] on file Legal Sex Male 1:23 AM RIDING DOUBLE Gender Identity Male 07/03/2022 5:22 AM CDT Sexual Orientation Straight 12/01/2020 8: 14 PM RIDING DOUBLE documented as of this encounter Plan of Treatment Not on file documented as of this encounter Procedures Procedure Name Priority Date/Time Associated Diagnosis Comments SCAN - LABS 01/12/2025 documented in this encounter Results * SCAN - LABS (01/12/2025) us Provider Scanning Final Result documented in this encounter Visit Diagnoses Not on filedocumented in this encounter Care Teams Lug Loader Relationship Specialty Start Date End Date Krishna Rosales MD [address] [place] [address] PCP - General Family Medicine 06/16/19 Delmi Peace, RN [address] [place] [address] Cafeteria Manager 04/12/18 Smooth Smipson MD [address] [place] [address] Plastic Surgeon Plastic Surgery 04/05/20 Mame Cast MD [address] [place] [address] Radiation Oncologist Radiation Oncology 05/23/20 Wilbur Angel MD [address] [facility] [address] [place] [address] Medical Oncologist/Internal Recruiter Medical Oncology 10/24/20 Tong uDbose MD [address] [facility] DEPT OTOLARYNGOLOGY, [address] [place] [address] Surgeon Otolaryngology 06/11/22 documented as of this encounter
--- OUTSIDE RECORDS SUMMARY | 2025-05-01 10:52 | XMS_ITS | Referral Summary ---
Author Organization [facility] Address [address] [facility] [place] [address] Care Team Providers Care Rotary Machine Operator Name Role Phone Delmi Peace RN Unavailable [phone] Krishna Rosales MD Primary Care Provider [phone] [facility] MD Unavailable [phone] Mame Cast MD Unavailable [phone] Wilbur Angel MD Unavailable [phone] Tong Dubose MD Unavailable [phone] Encounters Date Type Department Care Team Description 04/30/2025 Orders Only [facility] Dermatology [address] [place] [address] Outpatient Health [address] [place] [address] Shiva Luong MD Actinic keratosis 04/30/2025 Telephone [facility] Dermatology [address] [place] [address] Outpatient Health [address] [place] [address] Shiva Luong MD Prior Auth 04/26/2025 Results Follow-Up [facility] Dermatology [address] [place] [address] Outpatient Health [address] [place] [address] Shiva Luong MD Surgical pathology 04/26/2025 Orders Only [facility] Dermatology [address] [place] [address] Outpatient Health [address] [place] [address] Shiva Luong MD History of nonmelanoma skin cancer; History of immunosuppressive therapy; High risk medications (not anticoagulants) long-term use; AK (actinic keratosis); Actinic keratosis 04/24/2025 Telephone [facility] Dermatology [address] [facility] [address] [place] [address] Moira Boucher [facility] 04/24/2025 Telephone [facility] Dermatology [facility] [address] [place] [address] Shiva Luong MD Prior Auth 04/24/2025 Orders Only [facility] [address] [place] [address] Shiva Luong MD Neoplasm of uncertain behavior of skin 04/24/2025 9:00 AM CDT Office Visit [facility] Department of Otolaryngology Head-Neck Division [address] [place] [address] 5 [place] [phone] Lisa Gottlieb PA Impacted cerumen of left ear (Primary Dx) 04/23/2025 10:15 AM CDT Lab [facility] [place] - Lab Collection [address] [place] [address] 6 [place] [address] Head and neck cancer (HCC) 04/23/2025 1:30 PM CDT Office Visit [facility] Dermatology [address] [place] [address] Outpatient Health [address] [place] [phone] Shiva Luong MD Actinic keratosis (Primary Dx); Seborrheic keratoses; Multiple melanocytic nevi; History of nonmelanoma skin cancer; History of immunosuppressive therapy; High risk medications (not anticoagulants) long-term use; Actinic skin damage; Neoplasm of uncertain behavior of skin; AK (actinic keratosis) 04/23/2025 11:30 AM CDT Lab [facility] Oncology Lab [address] [place] [address] 6 [place] [address] Squamous cell carcinoma of skin of unspecified parts of face; Head and neck cancer (HCC) 04/23/2025 12:20 PM CDT Office Visit [facility] Oncology [address] [place] [address] 6 [place] [address] Wilbur Angel MD Abnormal CT scan, neck (Primary Dx); Squamous cell carcinoma of skin of unspecified parts of face; Head and neck cancer (HCC) 04/23/2025 8:41 AM CDT - 04/23/2025 11:59 PM CDT Hospital Encounter [facility] [place] - CT [address] [facility] 8 [place] [address] Squamous cell carcinoma of skin of unspecified parts of face Discharge Disposition: Discharge to home or self care 03/30/2025 Telephone [facility] Otolaryngology [address] [place] [address] Glenny Ceron MS 03/30/2025 Telephone [facility] Dermatology [address] [facility] [address] [place] [phone] Shiva Luong MD Prior Auth 03/14/2025 Orders Only [facility]phrology [facility] Advanced Medicine 5th [place] [address] [place] [address] Oleksandr Rice MD 02/06/2025 Orders Only [facility] Nephrology [address] [place] [address] 5th [place] [address] [place] [address] Oleksandr Riec MD from Last 3 Months Allergies Active Allergy Reactions Criticality Noted Date Comments Iodinated Contrast Media Other (See comments) High 01/08/2025 RENAL TRANSPLANT - NO CONTRAST Medications cholecalciferol (VITAMIN D-3) 2,000 unit tabletIndications:Pr evention of Vitamin D Deficiency Take 1 tablet (2,000 Units total) by mouth patient case manager before breakfast 015 Active ferrous sulfate 325 [...] Goal Sirolimus levels should be 4-6 [facility] [phone], [phone] Standing orders q-monthly, PT/INR, Sirolimus q3-Routine Exp.11/05/25 [facility] Oncology ext [id number] Problem Noted Date Diagnosed Date SCC (squamous [...] future. 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 Assessment & Plan (01/13/2021 8:03 PM STEAM PLANT CONTROL ROOM OPERATOR): Please note patient with noted C1 [...] AM Assessment & Plan (01/13/2021 8:01 PM STEAM PLANT CONTROL ROOM OPERATOR): Please note patient with noted C1 [...] occurred. Assessment & Plan (01/15/2021 5:09 PM STEAM PLANT CONTROL ROOM OPERATOR): -hold home Eliquis in s/o possible surgical intervention -Heparin gtt -Resuming Eliquis as ortho spine recommends non-operative management Assessment & Plan (01/13/2021 7:48 PM STEAM PLANT CONTROL ROOM OPERATOR): -hold home Eliquis in s/o possible [...] time Assessment & Plan (01/13/2021 8:09 PM STEAM PLANT CONTROL ROOM OPERATOR): -continue home Tacro XR 1mg PO [...] Is/Os Assessment & Plan (01/13/2021 7:55 PM STEAM PLANT CONTROL ROOM OPERATOR): -continue home Tacro 1PO BID -Goal [...] (04/09/2020): Added automatically from request for surgery [id number] Metastatic 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 Assessment & Plan (01/15/2021 5:09 PM STEAM PLANT CONTROL ROOM OPERATOR): -01/10 PET scan notable for diffuse [...] outpatient Assessment & Plan (01/13/2021 7:40 PM STEAM PLANT CONTROL ROOM OPERATOR): -01/10 PET scan notable for diffuse [...] 06/16/2019 Assessment & Plan (01/13/2021 8:05 PM STEAM PLANT CONTROL ROOM OPERATOR): -continue home Lisinopril 10 -Continue home Coreg 25BID Assessment & Plan (01/13/2021 8:00 PM STEAM PLANT CONTROL ROOM OPERATOR): -continue home Coreg 25BID -continue home Lisinopril 10 daily Increased infection risk sta tus post immunosuppressive therapy 06/16/2019 Dyslipidemia 06/16/2019 Assessment & Plan (01/13/2021 8:05 PM STEAM PLANT CONTROL ROOM OPERATOR): -continue home Crestor Assessment & Plan (01/13/2021 8:00 PM STEAM PLANT CONTROL ROOM OPERATOR): -continue home Atorva 40 QHS High [...] on file Legal Sex Male 1:23 AM STEAM PLANT CONTROL ROOM OPERATOR Gender Identity Male 07/03/2022 5:22 AM CDT Sexual Orientation Straight 12/01/2020 8: 14 PM STEAM PLANT CONTROL ROOM OPERATOR Last Filed Vital Signs Vital Sign Reading [...] 04/23/2025 11:01 AM CDT Plan of Treatment Not on file Medical Devices Implanted Type Area Finance Insurance Manager Device Identifier Shelf Expiration Date Model / Serial / Lot [employer] [id number] Xcela 8fr 1.6mm 1 Lumen Power Injectable Attach Catheter Fill - [id number] Implanted:Qty: 1 on 09/18/2021 at [facility] [employer] 05/13/2026 [id number] / / [id number] Explanted Type Area Finance Insurance Manager Device Identifier Shelf Expiration Date Model / Serial / Lot [employer] [place] [id number] Clip Ligation Resolution 360 Ultra 235cm Braid Rotation Ctrl - [id number] Explanted:Qty: 1 on 04/22/2021 at [facility] [employer] 02/04/2024 [id number] / / [id number] [employer]ana [id number] Clip Ligation Resolution 360 Ultra 235cm Braid Rotation Ctrl - [id number] Explanted:Qty: 1 on 04/22/2021 at [facility] [employer] 02/04/2024 [id number] / / [id number] [employer] [id number] Clip Ligation Resolution 360 Ultra 235cm Braid Rotation Ctrl - [id number] Explanted:Qty: 1 on 04/22/2021 at [facility] [employer] 02/04/2024 [id number] / / [id number] [employer] Juana [id number] Clip Ligation Resolution 360 Ultra 235cm Braid Rotation Ctrl - [id number] Explanted:Qty: 1 on 04/22/2021 at [facility] [employer] 02/04/2024 [id number] / / [id number] [employer] [id number] Clip Ligation Resolution 360 Ultra 235cm Braid Rotation Ctrl - [id number] Explanted:Qty: 1 on 04/22/2021 at [facility] [employer] [facility] 02/04/2024 [id number] / / [id number] Procedures Procedure Name Priority Date/Time Associated Diagnosis [...] HEPATITIS C AB Routine 09/30/2015 2:38 AM STEAM PLANT CONTROL ROOM OPERATOR from Last 3 Months or Most Recently Relevant to Health Maintenance Results * (ABNORMAL) Differential, auto (04/23/2025 10:22 AM CDT) Neutrophil abs 4.94 1.50 - 6.50 K/cumm Comment:Testing performed by : [facility], [address] [place] [phone] Lymphocyte abs 0.52(L) 0.80 - 3.30 K/cumm [facility] Comment:Testing performed by : [facility], [address] [place] [phone] Monocyte abs 0.52 0.20 - 0.80 K/cumm [facility] Comment:Testing performed by : [facility], [address] [place] [phone] Eosinophil abs 0.11 0.00 - 0.50 K/cumm [facility] Comment:Testing performed by : [facility], [address] [place] [phone] Basophil abs 0.05 0.00 - 0.10 K/cumm [facility] Comment:Testing performed by : [facility], [address] [place] [phone] Neutrophil pct 80.5 % [facility] Comment: Interpretive Data Percent cell count reference ranges are not reported, since discordance with absolute values may lead to misinterpretation of CBC data. Current Interpretive Data was last revised on 2018. Testing performed by: [facility], [address] [place] [phone] Lymphocyte pct 8.4 % [facility] Comment: Interpretive Data Percent cell count reference ranges are not reported, since discordance with absolute values may lead to misinterpretation of CBC data. Current Interpretive Data was last revised on 2018. Testing performed by: [facility], [address] [place] [phone] Monocyte pct 8.5 % [facility] Comment: Interpretive Data Percent cell count reference ranges are not reported, since discordance with absolute values may lead to misinterpretation of CBC data. Current Interpretive Data was last revised on 2018. Testing performed by: [facility], [address] [place] [phone] Eosinophil pct 1.8 % [facility] Comment: Interpretive Data Percent cell count reference ranges are not reported, since discordance with absolute values may lead to misinterpretation of CBC data. Current Interpretive Data was last revised on 2018. Testing performed by: [facility], [address] [place] [phone] Basophil pct 0.8 % [facility] Comment: Interpretive Data Percent cell count reference ranges are not reported, since discordance with absolute values may lead to misinterpretation of CBC data. Current Interpretive Data was last revised on 2018. Testing performed by: [facility], [address] [place] [address] Blood 04/23/2025 10:2 2 AM CDT 04/23/2025 10:32 AM CDT Wilbur Angel MD LAB BLOOD ORDERABLES Final Res ult [facility] Department [place] [address] * (ABNORMAL) CBC with auto differential (04/23/2025 10:22 AM CDT) WBC 6.13 3.80 - 9.90 K/cumm Comment:Testing performed by : [facility], [address] [place] [address] Hgb 11.1(L) 13.0 - 17.5 g/dL [facility] Comment:Testing performed by : [facility], [address] [place] [address] Hct 34.0(L) 38.9 - 50.3 % [facility] Comment:Testing performed by : [facility], [address] [place] [address] Plt 233 150 - 400 K/cumm [facility] Comment:Testing performed by : [facility], [address] [place] [address] MPV 6.4(L) 6.8 - 10.4 fL [facility] Comment:Testing performed by : [facility], [address] [place] [address] RBC 4.73 4.30 - 5.80 M/cumm [facility] Comment:Testing performed by : [facility], [address] [place] [address] MCV 71.9(L) 81.3 - 96.4 fL [facility] Comment:Testing performed by : [facility], [address] [place] [phone] MCH 23.5(L) 27.1 - 33.3 pg [facility] Comment:Testing performed by : [facility], [address] [place], [place] [phone] MCHC 32.6 32.3 - 35.7 g/dL [facility] Comment:Testing performed by : [facility], [address] [place], [place] [phone] RDW CV 16.7(H) 11.1 - 14.9 % [facility] Comment:Testing performed by : [facility], [address] [place], [place] [phone] NRBC abs 0.00 0.00 - 0.01 K/cumm [facility] Comment:Testing performed by : [facility], [address] [place], [place] [phone] Blood 04/23/2025 10:2 2 AM CDT 04/23/2025 10:32 AM CDT Wilbur Angel MD LAB BLOOD ORDERABLES Final Res ult [facility] Department [place] [address] * (ABNORMAL) eGFR (04/23/2025 10:22 AM CDT) [...] MD LAB BLOOD ORDERABLES Final Res ult [facility] [place] [address] * Thyroid Function Rheems (04/23/2025 10:22 AM CDT) TSH 2.50 0.30 - 4.20 mcIUnit/mL Blood 04/23/2025 10:2 2 AM CDT 04/23/2025 10:36 AM CDT Wilbur Angel MD LAB BLOOD ORDERABLES Final Res ult Performing Organization Address City/[facility] Co de Phone Number [facility] [place] [email or web address] [address] * Phosphorus (04/23/2025 10:22 AM CDT) Phosphorus, pl 2.5 2.3 - 4.5 mg/dL Blood 04/23/2025 10:2 2 AM CDT 04/23/2025 10:36 AM CDT Wilbur Angel MD LAB BLOOD ORDERABLES Final Res ult Performing Organization Address City/[facility] Co de Phone Number [facility] [email or web address] [address] * Magnesium (04/23/2025 10:22 AM CDT) Magnesium 2.2 1.4 - 2.5 mg/dL Blood 04/23/2025 10:2 2 AM CDT 04/23/2025 10:36 AM CDT Wilbur Angel MD LAB BLOOD ORDERABLES Final Res ult Performing Organization Address City/[facility]/ZIP Co de Phone Number [facility] Department [place] [address] * Lactate dehydrogenase (LD) (04/23/2025 10:22 AM CDT) Lactate dehydrogenase (LDH) 241 100 - 250 Units/L Blood 04/23/2025 10:2 2 AM CDT 04/23/2025 10:36 AM CDT Wilbur Angel MD LAB BLOOD ORDERABLES Final Res ult Performing Organization Address [facility] de Phone Number [facility] Department [place] [address] * (ABNORMAL) Comprehensive metabolic panel (04/23/2025 10:22 AM CDT) Pathologist [facility] Sodium 141 135 - 145 mmol/L Potassium, pl 4.4 3.3 - 4.9 mmol/L [facility] Chloride 106 97 - 110 mmol/L [facility] CO2 27 22 - 32 mmol/L [facility] Anion gap 8 2 - 15 mmol/L [facility] BUN 25 6 - 25 mg/dL [facility] Creatinine 1.70(H) 0.80 - 1.30 mg/dL [facility] Glucose 105 70 - 199 mg/dL [facility] Comment: Interpretive Data Fasting glucose >/= 126 [...] 2022. Calcium 9.0 8.5 - 10.3 mg/dL [facility] Bilirubin, total 0.3 0.1 - 1.2 mg/dL [facility] Protein, pl 6.8 6.5 - 8.5 g/dL [facility] Albumin 4.0 3.5 - 5.0 g/dL [facility] Alk phos 76 40 - 130 Units/L [facility] ALT 23 7 - 55 Units/L [facility] AST 32 10 - 50 Units/L [facility] Blood 04/23/2025 10:2 2 AM CDT 04/23/2025 10:36 AM CDT us Wilbur Angel MD LAB BLOOD ORDERABLES Final Res ult [facility] Department [place] [address] * CT chest abdomen pelvis without contrast [...] are noted. Adrenal glands are normal. The [place] kidneys are atrophic with left renal cryoablation [...] are noted. Adrenal glands are normal. The [place] kidneys are atrophic with left renal cryoablation [...] by: Anne Archuleta M.D. Wilbur Angel MD IMG CT PROCEDURES Final Result * CT Neck [...] male with a history of kidney transplant (2014) and metastatic cutaneous SCC s/p radiation now [...] shave biopsy) 04/23/2025 04/24/2025 6:14 AM CDT [facility] - 04/25/2025 1:39 PM CDT EPIC results best viewed via link to PDF [facility] D[facility]at[facility] [place] [address], [address], [place] [address] [email or web address] Note to Patients: This report may contain [...] Submitting Physician Information: Shiva Luong M.D. Dermatology [facility] [address] ([facility]), [address], [address] [place] [address], DERMATOPATHOLOGY REPORT RESULTS DIAGNOSIS: SKIN, LEFT UPPER [...] exr/mxf ICD-9 A; ZSD.176 Clerical Data A; 89490 The characteristics of special, immunohistochemical, and immunofluorescence stains and in-situ hybridization tests performed by the [facility]erm[facility] were deemed acceptable in ongoing clinical quality assurance specialist measures and in compliance with regulations drawn from the Clinical Laboratory Improvement Act ys4967 (CLIA '88). Control reactions for all stains performed were deemed adequate and appropriate by a pathologist prior to evaluation of patient tissue. Some diagnoses were rendered with the assistance of laboratory-developed tests utilizing analyte-specific reagents; the performance characteristic of these tests were determined by [facility] and are not cleared or approved by the [place] Food an Drug administration. Laboratory developed test may only be performed in a facility that is certified by the [facility] as a high-complexity laboratory under CLIA '88. These tests are used for clinical purposes and are not investigational. us Shiva Luong MD LAB PATHOLOGY ORDERABL ES Final Result DERMATOPATHOLOGY CENTER [address] [place] [id number] * COPY(IES) SENT TO: (03/14/2025 8:52 AM CDT) COPY(IES) SENT TO: [facility] Comment: [facility] - [facility]Y TO [facility] [address] [place] [address] 03/14/2025 8:52 AM CDT 03/14/2025 8:52 AM CDT Narrative [facility] - 03/15/2025 8:44 PM CDT PAE FASTING:YES FASTING: YES Oleksandr Rice MD LAB BLOOD ORDERABLES Final Resu lt Performing Organization Address [facility] Co de Phone Number [facility] * Hepatic Function Panel, Serum (03/14/2025 [...] ORDERABLES Final Resu lt Performing Organization Address [facility] Co de Phone Number [facility] [address] [address] * (ABNORMAL) CBC with auto differential (03/14/2025 [...] BLOOD ORDERABLES Final Resu lt [facility] [address] [place] [address] * Sirolimus level random (03/14/2025 8:52 AM CDT) Pathologist [facility] SIROLIMUS, LC/MS/MS 4.1 3.0 - 18.0 ng/mL [facility] mickey Matute Comment: This test was developed and its analytical performance characteristics have been determined by [facility]. It has not been cleared or approved by the FDA. This assay has been validated pursuant to the CLIA regulations and is used for clinical purposes. 03/14/2025 8:52 AM CDT 03/14/2025 8:52 AM CDT Narrative [facility] - 03/15/2025 8:44 PM CDT PAE FASTING:YES FASTING: YES Oleksandr Rice MD LAB BLOOD ORDERABLES Final Resu lt Performing Organization Address [facility] de Phone Number [facility] [address] [place] [address] * Protime-INR (03/14/2025 8:52 AM CDT) [facility] INR 1.0 [facility] Comment: Reference Range 0.9-1.1 Moderate-intensity Warfarin Therapy 2.0-3.0 Higher-intensity Warfarin Therapy 3.0-4.0 PT 10.5 9.0 - 11.5 sec [facility] Comment: For additional information, please refer to http://education.City BeBe/faq/XLI339 (This link is being provided for informational/ educational purposes only.) 03/14/2025 8:52 AM CDT 03/14/2025 8:52 AM CDT Narrative [facility] - 03/15/2025 8:44 PM CDT PAE FASTING:YES FASTING: YES Oleksandr Rice MD LAB BLOOD ORDERABLES Final Resu lt Performing Organization Address [facility] de Phone Number [facility] [address] [place] [address] * (ABNORMAL) Renal function panel (03/14/2025 8:52 [...] BLOOD ORDERABLES Final Resu lt [facility] [address] [address] [address] * (ABNORMAL) Lipid panel (03/14/2025 8:52 AM [...] equation in the estimation of LDL-C. Rogerio SS et al. MYCHAL. 2013;310(19): 9468-4866 (http://education.[employer]/faq/DUS047) Chol/HDL ratio 2.7 <5.0 (calc) [facility] [...] BLOOD ORDERABLES Final Resu lt [facility] [address] [place] [address] * COPY(IES) SENT TO: (02/06/2025 7:43 AM CDT) COPY(IES) SENT TO: [facility] Comment: [facility] - COPY [facility] [address] [place] [address] 02/06/2025 7:43 AM CDT 02/06/2025 7:45 AM [...] ORDERABLES Final Resu lt Performing Organization Address City/[facility]/ZIP Co de Phone Number [facility] [employer] [facility] [address] [place] [address] * Sirolimus level random (02/06/2025 7:43 AM CDT) Pathologist [facility] SIROLIMUS, LC/MS/MS 6.3 3.0 - 18.0 ng/mL [facility] mickey Giovani Comment: This test was developed and its analytical performance characteristics have been determined by [facility]. It has not been cleared or approved by the FDA. This assay has been validated pursuant to the CLIA regulations and is used for clinical purposes. 02/06/2025 7:43 AM CDT 02/06/2025 7:45 AM CDT Narrative QUEST - 02/09/2025 11:15 AM CDT PAE Oleksandr Rice MD LAB BLOOD ORDERABLES Final Resu lt Performing Organization Address City/[facility] Co de Phone Number EndoIn[facility]ightPhillip [place] [address] [place] [address] * Protime-INR (02/06/2025 7:43 AM CDT) Pathologist [facility] INR 1.0 [facility] Comment: Reference Range 0.9-1.1 Moderate-intensity Warfarin Therapy 2.0-3.0 Higher-intensity Warfarin Therapy 3.0-4.0 PT 11.0 9.0 - 11.5 sec [facility] Comment: For additional information, please refer to http://education.City BeBe/faq/ERH002 (This link is being provided for informational/ educational purposes only.) 02/06/2025 7:43 AM CDT 02/06/2025 7:45 AM CDT Narrative QUEST - 02/09/2025 11:15 AM CDT PAE us Oleksandr Rice MD LAB BLOOD ORDERABLES Final Resu lt ALICE [facility] [address] [place] [address] * (ABNORMAL) Renal function panel (02/06/2025 7:43 AM CDT) Glucose 93 65 - 99 mg/dL [facility] [...] BLOOD ORDERABLES Final Resu lt QUEST [facility] [address] [place] [address] * COLONOSCOPY (04/22/2021 8:33 AM CDT) Anatomical Region Laterality Modality Other Narrative Procedure Note Tamera Francois MD PhD - 04/22/2021 8:33 AM CDT ENDOSCOPY LAB Patient Name: Los Shultz Procedure Date: 04/22/2021 8:33 AM Date of : 1960 Admit Type: Outpatient Age: 60 Gender: Male Attending MD: Tamera Francois MD,PHD Room: [facility] ENDOSCOPY ROOM 02 Note Status: Finalized [...] The scope was passed under direct vision.The [id number] was introduced through the anusand advanced to [...] bowel preparation was evaluated using the BBPS ([place] Bowel Preparation Scale) with scores of: Right [...] following this procedure, please call shaina at [phone] or [phone] to speak to my recreational assistant. After hours and weekends, please call [phone] and ask for the GI fellow tombstone setter.Please tell them that Dr. Francois did your procedure and that you were instructed to have the fellow call me orthe physician covering for me to discuss yourcondition. If you have an urgent problem, [facility] and have the ER doctor [...] Serum Hepatitis C ab (09/30/2015 2:38 AM STEAM PLANT CONTROL ROOM OPERATOR) HCV ab Negative NEG HISTORICAL RESULTS Serum 09/30/2015 2:38 AM STEAM PLANT CONTROL ROOM OPERATOR Narrative HISTORICAL RESULTS - 09/30/2015 5:17 AM STEAM PLANT CONTROL ROOM OPERATOR Interpretive Data If confirmation is required, call Laboratory Customer Service to request sample to be sent to [facility] for Hepatitis C Virus (HCV) RNA Detection and Quantitation by Real-Time Reverse Hooker Off-PCR (RT-PCR). Current interpretive data was last revised on 2012 us Tong Ann MD LAB BLOOD ORDERABLES Final Result HISTORICAL RESULTS from Last 3 Months or Most Recently Relevant to Health Maintenance Insurance BLUE ACCESS [place] HUMANA CHOICE MEDICARE PPO CHOICE [facility] PPO AL CIGNA OPEN ACCESS CIGNA [facility] HUMANA CHOICE MEDICARE PPO Advance Directives For more information, please contact: [phone] * Full Code (Latest Code Status on [...] 5:52 PM 01/15/2021 9:19 PM Care Teams Rotary Machine Operator Relationship Specialty Start Date End Date Krishna Rosales MD [address] [facility] [address] [place] [address] PCP - General Family Medicine 06/16/19 Delmi Peace, AFTAB [address] [facility] [address] [place] [address] Securities Vault Supervisor 04/12/18 Smooth Simpson MD [address] [place] [address] Plastic Surgeon Plastic Surgery 04/05/20 Mame Cast MD [address] [place] [address] Radiation Oncologist Radiation Oncology 05/23/20 Wilbur Angel MD [address] [facility] [address] [place] [address] Medical Oncologist/Body Design Checker Medical Oncology 10/24/20 Tong Dubose MD [address] [facility] DEPT OTOLARYNGOLOGY, [address] [address] Surgeon Otolaryngology 06/11/22
--- OUTSIDE RECORDS SUMMARY | 2025-05-01 10:52 | XMS_ITS | Encounter Summary ---
Author Organization 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 Gender Identity Male 07/03/2022 5:22 AM CDT Sexual Orientation Straight 12/01/2020 8: 14 PM SPIKE 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 documented as of this encounter Plan of Treatment Not on file documented as of this encounter Procedures Procedure Name Priority Date/Time Associated Diagnosis Comments SCAN - PATHOLOGY 04/26/2023 documented in this encounter Results * SCAN - PATHOLOGY (04/26/2023) us Provider Scanning Final Result documented in this encounter Visit Diagnoses Not on filedocumented in this encounter Care Teams Floral Design Teacher Relationship Specialty Start Date End Date Krishna Rosales MD [address] [place] [address] PCP - General Family Medicine 06/16/19 Delmi Peace RN [address] [place] [address] Cover Machine Operator 04/12/18 [facility] [address] [place] [address] Plastic Surgeon Plastic Surgery 04/05/20 Mame Cast MD [address] [place] [address] Radiation Oncologist Radiation Oncology 05/23/20 Wilbur Angel MD [address] [facility] [address] [place] [address] Medical Oncologist/Public Health Worker Medical Oncology 10/24/20 Tong Dubose MD [address] [facility] DEPT OTOLARYNGOLOGY, [address] [place] [address] Surgeon Otolaryngology 06/11/22 documented as of this encounter
--- OUTSIDE RECORDS SUMMARY | 2025-05-01 10:52 | XMS_ITS | Encounter Summary ---
Author Organization [facility] [employer] [facility] Address [address] [place] [address] Phone Care Team Providers Care Tumbler Dyeing Machine Operator Name Role Phone Delmi Peace RN Unavailable [phone] Krishna Rosales MD Primary Care Provider + [phone] [facility] brock MD Unavailable +[phone] Mame Cast MD Unavailable [phone] Wilbur Angel MD Unavailable [phone] Tong Dubose MD Unavailable [phone] Encounter Details Date Type Department Care Team [...] on file Legal Sex Male 1:23 AM HEADER 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 Gender Identity Male 07/03/2022 5:22 AM CDT Sexual Orientation Straight 12/01/2020 8: 14 PM HEADER 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 documented as of this encounter [...] on filedocumented in this encounter Care Teams Tumbler Dyeing Machine Operator Relationship Specialty Start Date End Date Krishna Rosales MD [address] [facility] [address] [place] [address] PCP - General Family Medicine 06/16/19 Delmi Peace, RN [address] [place] [address] Farmhand 04/12/18 [facility] bro[facility] MD [address] [place] [address] Plastic Surgeon Plastic Surgery 04/05/20 Mame Cast MD [address] [place] [address] Radiation Oncologist Radiation Oncology 05/23/20 Wilbur Angel MD [address] [facility] [address] [place] [address] Medical Oncologist/Life Enrichment Specialist Medical Oncology 10/24/20 Tong Dubose MD [address] [facility] DEPT OTOLARYNGOLOGY, [address] [address] Surgeon Otolaryngology 06/11/22 documented as of this encounter
--- OUTSIDE RECORDS SUMMARY | 2025-05-01 10:52 | XMS_ITS | Encounter Summary ---
Author Organization [facility] Address [address] [place] [address] Phone Care Team Providers Care Engine Monitor Name Role Phone Delmi Peace RN Unavailable [phone] Krishna Rosales MD Primary Care Provider + [phone] [facility] brock MD Unavailable +[phone] Mame Cast MD Unavailable +[phone] Wilbur Angel MD Unavailable [phone] Tong Dubose MD Unavailable [phone] Reason for Visit * Reason Onset Date Comments Prior Auth 04/24/2025 Encounter Details Date Type Department Care Team (Late st Contact Info) Description 04/24/2025 Telephone [facility] Dermatology [facility]1 [facility] Outpatient Health [address] [place] [address] Shiva Luong MD [address] [facility] [address] [place] [address] Prior Auth Social History Tobacco [...] on file Legal Sex Male 1:23 AM TRANSLATIONAL SPECIALIST Gender Identity Male 07/03/2022 5:22 AM CDT Sexual Orientation Straight 12/01/2020 8: 14 PM TRANSLATIONAL SPECIALIST documented as of this encounter Miscellaneous Notes * Telephone Encounter - Elizabeth Magana - 04/24/2025 12:14 PM CDT Images from the original note were not included. documented in this encounter Plan of Treatment Not on file documented as of this encounter Visit Diagnoses Not on filedocumented in this encounter Care Teams Engine Monitor Relationship Specialty Start Date End Date Krishna Rosales MD [address] [address] PCP - General Family Medicine 06/16/19 Delmi Peace, RN [address] [address] Outbound Supervisor 04/12/18 Smooth Simpson MD [address] [place] [address] Plastic Surgeon Plastic Surgery 04/05/20 Mame Cast MD [address] [place] [address] Radiation Oncologist Radiation Oncology 05/23/20 Wilbur Angel MD 49[address] [facility] [address] [place] [address] Medical Oncologist/Cash Management Coordinator Medical Oncology 10/24/20 Tong Dubose MD 49[address] [facility] DEPT OTOLARYNGOLOGY, [address] [place] [address] Surgeon Otolaryngology 06/11/22 documented as of this encounter
--- OUTSIDE RECORDS SUMMARY | 2025-05-01 10:52 | XMS_ITS | Encounter Summary ---
Author Organization [facility] Address [address] [place] [address] Phone Care Team Providers Care Window Air Conditioner Installer Name Role Phone Delmi Peace RN Unavailable [phone] Krishna Rosales MD Primary Care Provider + [phone] [facility] brock MD Unavailable +[phone] Mame Cast MD Unavailable [phone] Wilbur Angel MD Unavailable [phone] Tong Dubose MD Unavailable [phone] Encounter Details Date Type Department Care Team [...] on file Legal Sex Male 1:23 AM CODING SPECIALIST Gender Identity Male 07/03/2022 5:22 AM CDT Sexual Orientation Straight 12/01/2020 8: 14 PM CODING SPECIALIST documented as of this encounter Plan of Treatment Not on file documented as of this encounter Procedures Procedure Name Priority Date/Time Associated Diagnosis Comments SCAN - PATHOLOGY 07/13/2023 10:51 AM CDT documented in this encounter Results * SCAN - PATHOLOGY (07/13/2023 10:51 AM CDT) us Provider Scanning Final Result documented in this encounter Visit Diagnoses Not on filedocumented in this encounter Care Teams Window Air Conditioner Installer Relationship Specialty Start Date End Date Krishna Rosales MD [address] [place] [address] PCP - General Family Medicine 06/16/19 Delmi Peace, RN [address] [place] [address] Dredge Or Barge Shore Hand 04/12/18 [facility] centerSm[facility] brock MD [address] [place] [address] Plastic Surgeon Plastic Surgery 04/05/20 Mame Cast MD [address] [place] [address] Radiation Oncologist Radiation Oncology 05/23/20 Wilbur Angel MD [address] [facility] [address] [place] [address] Medical Oncologist/Financial Controller Medical Oncology 10/24/20 Tong Dubose MD 49[address] [facility] DEPT OTOLARYNGOLOGY, [address] [address] Surgeon Otolaryngology 06/11/22 documented as of this encounter
--- OUTSIDE RECORDS SUMMARY | 2025-05-01 10:52 | XMS_ITS | Encounter Summary ---
Author Organization [facility] Address [address] [place] [address] Phone Care Team Providers Care Cocoa Bean Cleaner Name Role Phone Delmi Peace RN Unavailable [phone] Krishna Rosales MD Primary Care Provider [phone] [facility] ErSmooth brock MD Unavailable [phone] Mame Cast MD Unavailable +[phone] Wilbur Angel MD Unavailable [phone] Tong Dubose MD Unavailable [phone] Encounter Details Date Type Department Care Team (Late st Contact Info) Description 04/30/2025 Orders Only [facility] Dermatology [address] [facility] Outpatient Health [address] [place] [address] Shiva Luong MD [address] [facility] [address] [place] [address] Actinic keratosis Social History Tobacco Use Types Packs/Day Years [...] on file Legal Sex Male 1:23 AM DEVULCANIZER CHARGER Gender Identity Male 07/03/2022 5:22 AM CDT Sexual Orientation Straight 12/01/2020 8: 14 PM DEVULCANIZER CHARGER documented as of this encounter Ordered Prescriptions Prescription Sig Dispense Quantity Refills Last Filled Start Date End Date fluorouraciL (EFUDEX) 5 % creamIndications:Ac tinic keratosis Apply 2 times daily (once in AM, once in PM) to areas on left and right side of face, chest red spots for at least 2 weeks 40 g 2 04/30/2025 documented in this encounter Progress Notes * Shiva Luong MD - 04/30/2025 2:59 PM CDT Prescription change. documented in this encounter Plan of Treatment Not on file documented as of this encounter Visit Diagnoses Diagnosis Actinic keratosis documented in this encounter Discontinued Medications Medication Sig Discontinue Reason Start Date End Da te fluorouraciL (EFUDEX) 5 % creamIndications:Actinic keratosis Apply 2 times daily (once in AM, once in PM) to areas on left and right side of face, chest red spots Reorder 04/26/2025 04/30/2025 documented as of this encounter Care Teams Cocoa Bean Cleaner Relationship Specialty Start Date End Date Krishna Rosales MD [address] [address] PCP - General Family Medicine 06/16/19 Delmi Peace RN [address] [address] Gun Fitter 04/12/18 Smooth Simpson MD [address] [place] [address] Plastic Surgeon Plastic Surgery 04/05/20 Mame Cast MD [address] [place] [address] Radiation Oncologist Radiation Oncology 05/23/20 Wilbur Angel MD 49[address] [facility] [address] [place], [place] [address] Medical Oncologist/Sizing End Bander Medical Oncology 10/24/20 Tong Dubose MD 49[address] [facility] DEPT OTOLARYNGOLOGY, [address] [place] [address] Surgeon Otolaryngology 06/11/22 documented as of this encounter
--- OUTSIDE RECORDS SUMMARY | 2025-05-01 10:52 | XMS_ITS | Encounter Summary ---
Author Organization [facility] Address [address] [place] [address] Care Team Providers Care Dehydrator Tender Name Role Phone Delmi Peace RN Unavailable [phone] Krishna Rosales MD Primary Care Provider + [phone] [facility] MD Unavailable [phone] Tatyana Up MD Unavailable [phone] Mame Cast MD Unavailable [phone] Wilbur Angel MD Unavailable [phone] Bhavesh Montana MD Unavailable + [phone] Nicole Grijalva MD Unavailable [phone] Miscellaneous, Not In File Unavailable Unava ilable Tong Dubose MD Unavailable [phone] Encounter Details Date Type Department Care Team (Late st Contact Info) Description 04/25/[address] [facility] [address] [place] [address] Pj Rush, RT Social History Tobacco Use Types Packs/Day Years Used Date Smoking Tobacco: Never Smokeless Tobacco: Never Alcohol Use Standard Drinks/Week Comments Yes 0 (1 standard drink = 0.6 oz pur e alcohol) 4 x week Sex and Gender Information Value Date Recorded Sex Assigned at Not on file Legal Sex Male 1:23 AM POWER SHOVEL ENGINEER Gender Identity Male 07/03/2022 5:22 AM CDT Sexual Orientation Straight 12/01/2020 8: 14 PM POWER SHOVEL ENGINEER documented as of this encounter Plan of Treatment Not on file documented as of this encounter Visit Diagnoses Not on filedocumented in this encounter Care Teams Dehydrator Tender Relationship Specialty Start Date End Date Krishna Rosales MD [address] [place] [address] PCP - General Family Medicine 06/16/19 Delmi Peace, AFTAB [address] [place] [address] Chief Legal Officer 04/12/18 [facility] hospital[facility] brock MD [address] [place] [address] Plastic Surgeon Plastic Surgery 04/05/20 Tatyana Up MD [address] [place] [address] Radiation Oncologist Radiation Oncology 04/26/20 Mame Cast MD [address] [place] [address] Radiation Oncologist Radiation Oncology 05/23/20 Wilbur Angel MD [address] [facility] [address] [place] [address] Medical Oncologist/Active Directory Architect Medical Oncology 10/24/20 Bhavesh Montana MD [address] [place] [address] Consulting Physician Radiation Oncology 01/14/21 Nicole Grijalva MD [address] [facility] [address] [place] [address] Radiation Oncologist Radiation Oncology 02/05/21 Miscellaneous, Not In File 03/20/21 04/13/22 Tong Dubose MD [address] [facility] DEPT OTOLARYNGOLOGY, [address] [address] Surgeon Otolaryngology 06/11/22 documented as of this encounter
--- OUTSIDE RECORDS SUMMARY | 2025-05-01 10:52 | XMS_ITS | Encounter Summary ---
Author Organization [facility] [employer] [facility] Address [address] [place] [address] Phone Care Team Providers Care Bench Hand Name Role Phone Delmi Peace RN Unavailable [phone] Krishna Rosales MD Primary Care Provider + [phone] [facility] brock MD Unavailable +[phone] Mame Cast MD Unavailable [phone] Wilbur Angel MD Unavailable [phone] Tong Dubose MD Unavailable [phone] Encounter Details Date Type Department Care Team [...] on file Legal Sex Male 1:23 AM RISK CONTROL MANAGER Gender Identity Male 07/03/2022 5:22 AM CDT Sexual Orientation Straight 12/01/2020 8: 14 PM RISK CONTROL MANAGER documented as of this encounter Plan of Treatment Not on file documented as of this encounter Procedures Procedure Name Priority Date/Time Associated Diagnosis Comments SCAN - PATHOLOGY 02/10/2023 documented in this encounter Results * SCAN - PATHOLOGY (02/10/2023) us Provider Scanning Final Result documented in this encounter Visit Diagnoses Not on filedocumented in this encounter Care Teams Bench Hand Relationship Specialty Start Date End Date Krishna Rosales MD [address] [place] [address] PCP - General Family Medicine 06/16/19 Delmi Peace RN [address] [place] [address] Aircraft Electrician 04/12/18 [facility] brock MD [address] [place] [address] Plastic Surgeon Plastic Surgery 04/05/20 Mame Cast MD [address] [place] [address] Radiation Oncologist Radiation Oncology 05/23/20 Wilbur Angel MD [address] [facility] [address] [place] [address] Medical Oncologist/Granulator Tender Medical Oncology 10/24/20 Tong Dubose MD [address] [facility] DEPT OTOLARYNGOLOGY, [address] [place] [address] Surgeon Otolaryngology 06/11/22 documented as of this encounter
--- OUTSIDE RECORDS SUMMARY | 2025-05-01 10:52 | XMS_ITS ---
Author Organization [facility] Address [address] [place] [address] Care Team Providers Care Lacquer Spray Booth Operator Name Role Phone Delmi Peace RN Unavailable [phone] Krishna Rosales MD Primary Care Provider + [phone] [facility] MD Unavailable +[phone] Mame Cast MD Unavailable +[phone] Wilbur Angel MD Unavailable [phone] Tong Dubose MD Unavailable [phone] Transplant Episode Kidney Recipient [facility] ([place], [place]) [facility] Organ Received: Left Kidney Transplanted on 10/15/2015 Marked as Active Follow-up on 10/15/2015 Kidney CoordinatorMiross Peace RN Fax: N/A Email: N/A Douglas Organ Diagnosis Organ Primary Contributory Kidney Renal [...] Fax Email Delmi Peace RN Kidney Coordinator [phone] N/A N/A Lisa Pro, AFTAB Secondary Coordinator Secondary Kidney Coordinator [phone] N/A N/A Delmi Peace RN Back End Web Developer [phone] N/A N/A Mackenzie Valdes Primary Casino Investigator N/A N/A N/A Nathalie Ospina Chair Post Machine Operator [phone] N/A N/A Michelle Xiao Secondary Casino Investigator N/A N/A N/A Events Post-Transplant Pre-Transplant Admitted: 10/15/2015 Referred: 09/04/2014 Transplanted: 10/15/2015 Evaluation began: 4 Discharged: 10/22/2015 Center waitlisted: 5 Dialysis History Dialysis History Start End Type Comments Center 06/11/2015 10/15/2015 Hemo TTS [facility] Dialysis Center Information Center Phone Fax Address [facility] [phone] [address] [facility] [address]
--- OUTSIDE RECORDS SUMMARY | 2025-05-01 10:52 | XMS_ITS ---
Author Organization [facility] Address [address] [place] [address] Care Team Providers Care Barrel Washer Name Role Phone Delmi Peace RN Unavailable [phone] Krishna Rosales MD Primary Care Provider + [phone] [facility] MD Unavailable [phone] Mame Cast MD Unavailable [phone] Wilbur Angel MD Unavailable [phone] Tong Dubose MD Unavailable [phone] Active Problems Patient Care Coordination No te Formatting of this note migh t be different from the original. Goal Sirolimus levels should be 4-6 [facility] [phone], [phone] Standing orders q-monthly, PT/INR, Sirolimus q3-Routine Exp.11/05/25 [facility] Oncology CM ext [id number] Problem Noted Date Diagnosed Date SCC (squamous [...] future. Assessment & Plan (10/04/2022 6:32 PM MECHANICAL TECH): Los Shultz is doing well after Left [...] (04/29/2021): Added automatically from request for surgery [id number] Cellulitis of leg, right 03/18/2021 Assessment & [...] (02/07/2021): Added automatically from request for surgery [id number] Abnormal finding on GI tract imaging 02/07/2021 Overview (02/07/2021): Added automatically from request for surgery [id number] Metastasis to bone 01/20/2021 Head and neck [...] numbness. Assessment & Plan (01/13/2021 8:03 PM MECHANICAL TECH): Please note patient with noted C1 vertebral [...] AM Assessment & Plan (01/13/2021 8:01 PM MECHANICAL TECH): Please note patient with noted C1 vertebral [...] occurred. Assessment & Plan (01/15/2021 5:09 PM MECHANICAL TECH): -hold home Eliquis in s/o possible surgical intervention -Heparin gtt -Resuming Eliquis as ortho spine recommends non-operative management Assessment & Plan (01/13/2021 7:48 PM MECHANICAL TECH): -hold home Eliquis in s/o possible surgical [...] time Assessment & Plan (01/13/2021 8:09 PM MECHANICAL TECH): -continue home Tacro XR 1mg PO daily -Goal Tacro trough in the s/o acitve cancer 2-3 -check AM tacro level on 01/14, ~ 30min-1hr prior to Tacro dosing -home pred held given steroids as elsewhere -on arrival sCr 1.69 and thus at baseline -May require renal transplant involvement if increasing sCr noted on daily labs -Monitor Is/Os Assessment & Plan (01/13/2021 7:55 PM MECHANICAL TECH): -continue home Tacro 1PO BID -Goal Tacro [...] (04/09/2020): Added automatically from request for surgery [id number] 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 Assessment & Plan (01/15/2021 5:09 PM MECHANICAL TECH): -01/10 PET scan notable for diffuse and [...] outpatient Assessment & Plan (01/13/2021 7:40 PM MECHANICAL TECH): -01/10 PET scan notable for diffuse and [...] 06/16/2019 Assessment & Plan (01/13/2021 8:05 PM MECHANICAL TECH): -continue home Lisinopril 10 -Continue home Coreg 25BID Assessment & Plan (01/13/2021 8:00 PM MECHANICAL TECH): -continue home Coreg 25BID -continue home Lisinopril 10 daily Increased infection risk sta tus post immunosuppressive therapy 06/16/2019 Dyslipidemia 06/16/2019 Assessment & Plan (01/13/2021 8:05 PM MECHANICAL TECH): -continue home Crestor Assessment & Plan (01/13/2021 8:00 PM MECHANICAL TECH): -continue home Atorva 40 QHS High risk [...] 2 mGy 2 mGy 0 mGy DLP 20,045.3 mGycm 20,045.3 mGycm 0 mGycm Resolved Problems Problem Noted Date Diagnosed Date Resolved Date Encounter for aftercare foll owing kidney transplant 06/10/2018 01/13/2021 Kidney replaced by transplant 06/10/2018 01/13/2021 Encounter for long-term (cur rent) use of high-risk medication 06/10/2018 01/13/2021
--- OUTSIDE RECORDS SUMMARY | 2025-05-01 10:52 | XMS_ITS | Encounter Summary ---
Author Organization [facility] Address [address] [place] [address] Phone Care Team Providers Care Sheet Metal Lay Out Worker Name Role Phone Delmi Peace RN Unavailable [phone] Krishna Rosales MD Primary Care Provider + [phone] [facility] Unavailable [phone] Mame Cast MD Unavailable [phone] Wilbur Angel MD Unavailable [phone] Tong Dubose MD Unavailable [phone] Reason for Referral * MRI/CAT/PET Scan (Routine) - Closed Specialty Diagnoses / Procedures Referred By Contac t Referred To Contact Radiology Diagnoses Squamous cell carcinoma of skin of unspecified parts of face Procedures CT chest abdomen pelvis without contrast Wilbur Angel MD [address] [facility] [address] [place] [address] Phone: tel: fax: [address] [address] Referral ID Status Reason Start Date Expiration Date Visits Re quested Visits Authorized [id number] Closed 01/01/2025 01/31/2026 1 1 MINER BLASTING * MRI/CAT/PET Scan (Routine) - Closed Specialty Diagnoses / Procedures Referred By Contac t Referred To Contact Radiology Diagnoses Squamous cell carcinoma of skin of unspecified parts of face Procedures CT Neck Soft Tissue WO Contrast Wilbur Angel MD [address] [facility] [address] [place] [address] Phone: tel: fax: [facility] [address] [facility] [place] [address] Referral ID Status Reason Start Date Expiration Date Visits Re quested Visits Authorized [id number] Closed 01/01/2025 01/31/2026 1 1 MINER BLASTING Encounter Details Date Type Department Care Team (Late st Contact Info) Description 01/01/2025 Orders Only [facility] Oncology [address] [facility] [address] [place] [address] Wilbur Angel MD [address] [facility] [address] [place] [address] Squamous cell carcinoma of skin of unspecified [...] on file Legal Sex Male 1:23 AM MUCK MINER BLASTING Gender Identity Male 07/03/2022 5:22 AM CDT Sexual Orientation Straight 12/01/2020 8: 14 PM MUCK MINER BLASTING documented as of this encounter Plan of [...] face Expected: 04/23/2025, Expires: 01/04/2026 Thyroid Function [facility] Routine Squamous cell carcinoma of skin of unspecified parts of face Expected: 04/23/2025, Expires: 01/04/2026 Phosphorus Lab Routine Squamous cell carcinoma of skin of unspecified parts of face Expected: 04/23/2025, Expires: 01/04/2026 Magnesium Lab Routine Squamous cell carcinoma of skin of unspecified parts of face Expected: 04/23/2025, Expires: 01/04/2026 documented as of this encounter Results * CT chest abdomen pelvis without contrast [...] are noted. Adrenal glands are normal. The [place] kidneys are atrophic with left renal cryoablation [...] are noted. Adrenal glands are normal. The [place] kidneys are atrophic with left renal cryoablation [...] MD IMG CT PROCEDURES Final Result * Phosphorus (01/08/2025 12:10 PM MUCK MINER BLASTING) Phosphorus, pl 2.9 2.3 - 4.5 mg/dL Blood 01/08/2025 12:1 0 PM MUCK MINER BLASTING 01/08/2025 12:26 PM MUCK MINER BLASTING Wilbur Angel MD LAB BLOOD ORDERABLES Final Res ult Performing Organization Address City/State/[facility] Co de Phone Number [facility] Department [place] [address] documented in this encounter Visit Diagnoses Diagnosis Squamous cell carcinoma of skin of unspecified parts of face- Primary Squamous cell carcinoma of skin of unspecified parts of face documented in this encounter Orders Appointment Requests Count Last Ordered Date Fi rst Ordered Date ONCBCN CLINIC APPOINTMENT REQUEST 1 025 ONCBCN LAB APPOINTMENT 1 04/23/2025 documented in this encounter Care Teams Sheet Metal Lay Out Worker Relationship Specialty Start Date End Date Krishna Rosales MD [address] [place] [address] PCP - General Family Medicine 06/16/19 Delmi Peace, AFTAB [address] [place] [address] Linter Tender 04/12/18 Smooth Simpson MD [address] [place] [address] Plastic Surgeon Plastic Surgery 04/05/20 Mame Cast MD [address] [place] [address] Radiation Oncologist Radiation Oncology 05/23/20 Wilbur Angel MD [address] [facility] [address] [place] [address] Medical Oncologist/Spot Welder Medical Oncology 10/24/20 Tong Dubose MD [address] [facility] DEPT OTOLARYNGOLOGY, [address] [place] [address] Surgeon Otolaryngology 06/11/22 documented as of this encounter
--- OUTSIDE RECORDS SUMMARY | 2025-05-01 10:52 | XMS_ITS | Clinical Summary ---
Author Organization [facility] Naun Escalante Address [address] [place] [address] Care Team Providers Care Exterminator Helper Termite Name Role Phone Unavailable Primary Care Provider [...] Encounters Date Type Department Care Team Description 04/13/2025 Orders Only [facility] Oncology and Hematology - Kalpesh [address] [place] [address] Marin Rhodes MD 04/10/2025 4:30 PM CDT Telephone Check Up [facility] Oncology and Hematology [facility] [address] [place] [address] Marin Rhodes MD Chronic anemia (Primary Dx) 04/06/2025 External Device Data STL ABSTRACTION Provider, Abstract 04/05/2025 External Device Data STL ABSTRACTION Provider, Abstract 04/05/2025 External Device Data STL ABSTRACTION Provider, Abstract 04/05/2025 Orders Only [facility] Oncology and Hematology - Kalpesh [address] [place] [address] Marin Rhodes MD 04/04/2025 External Device Data STL ABSTRACTION Provider, Abstract 04/04/2025 External Device Data STL ABSTRACTION Provider, Abstract 04/02/2025 3:00 PM CDT Office Visit [facility] Oncology and Hematology [facility] [address] [place] [address] Marin Rhodes MD Chronic anemia (Primary Dx) [...] Care Team (Late st Contact Info) Description 07/12/2025 1:15 PM CDT Office Visit [facility] Oncology and Hematology [facility] [address] [facility] [address] [place] [address] Marin Rhodes MD [address] [facility] [address] [place] [address] Health Maintenance Due Date Last [...] Commercial 11/15/2024 COLORECTAL SCREENING 04/22/2031 04/22/2021, 04/22/20 21 Colorectal Cancer Screening 04/22/2031 DTAP/TDAP/TD VACCINES (2 - Td or Tdap) 09/02/2032 Procedures Procedure Name Priority Date/Time Associated Diagnosis Comments TRANSFERRIN RECEPTOR TFR SOLUBLE Routine 04/02/2025 4:49 PM CDT COMPREHENSIVE METABOLIC PANEL Routine 04/02/2025 1:40 PM CDT from Last 3 Months Results * TRANSFERRIN RECEPTOR TFR SOLUBLE (04/02/2025 4:49 PM CDT) Blood Marin Rhodes MD CHEMISTRY ORDERABLES Final Resu lt * COMPREHENSIVE METABOLIC PANEL (04/02/2025 1:40 PM CDT) Blood Marin Rhodes MD CHEMISTRY ORDERABLES Final Resu lt from Last 3 Months Insurance [employer] CHOICE PPO MCR [facility] BLUE ACCESS/TRUE BLUE PPO
--- OUTSIDE RECORDS SUMMARY | 2025-05-01 10:52 | XMS_ITS | Encounter Summary ---
Author Organization [facility] Address [address] [place] [address] Phone Care Team Providers Care Tempering Machine Operator Name Role Phone Delmi Peace RN Unavailable [phone] Krishna Rosales MD Primary Care Provider + [phone] [facility] Unavailable [phone] Mame Cast MD Unavailable [phone] Wilbur Angel MD Unavailable [phone] Tong Dubose MD Unavailable [phone] Encounter Details Date Type Department Care Team (Late st Contact Info) Description 04/26/2025 Results Follow-Up [facility] Dermatology [address] [facility] [address] [place] [address] Shiva Luong MD [address] [facility] [address] [place] [address] Surgical pathology Social History Tobacco Use Types Packs/Day Years [...] on file Legal 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 Please schedule mohs x2. 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 Thanks! documented in this encounter Plan of Treatment Not on file documented as of this encounter Visit Diagnoses Not on filedocumented in this encounter Care Teams Tempering Machine Operator Relationship Specialty Start Date End Date Krishna Rosales MD [address] [address] PCP - General Family Medicine 06/16/19 Delmi Peace RN [address] [address] Film Composer 04/12/18 Smooth Simpson MD [address] [place] [address] Plastic Surgeon Plastic Surgery 04/05/20 Mame Cast MD [address] [place] [address] Radiation Oncologist Radiation Oncology 05/23/20 Wilbur Angel MD [address] [facility] [address] [place] [address] Medical Oncologist/Furnace Combustion Analyst Medical Oncology 10/24/20 Tong Dubose MD [address] [facility] DEPT OTOLARYNGOLOGY, [address] [place] [id number] Surgeon Otolaryngology 06/11/22 documented as of this encounter
--- OUTSIDE RECORDS SUMMARY | 2025-05-01 10:52 | XMS_ITS | Encounter Summary ---
Author Organization [facility] Address [address] [place] [address] Phone Care Team Providers Care Farm Manager Name Role Phone Delmi Peace RN Unavailable [phone] Krishna Rosales MD Primary Care Provider + [phone] [facility] Unavailable [phone] Mame Cast MD Unavailable [phone] Wilbur Angel MD Unavailable [phone] Nicole Grijalva MD Unavailable [phone] Tong Dubose MD Unavailable [phone] Encounter Details Date Type Department Care Team [...] on file Legal 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 Gender Identity Male 07/03/2022 5:22 AM CDT Sexual Orientation Straight 12/01/2020 8: 14 PM SUPERVISOR AUDIT CLERKS documented as of this encounter Plan of Treatment Not on file documented as of this encounter Procedures Procedure Name Priority Date/Time Associated Diagnosis Comments SCAN - LABS 06/04/2022 documented in this encounter Results * SCAN - LABS (06/04/2022) us Provider Scanning Edited Result - Final documented in this encounter Visit Diagnoses Not on filedocumented in this encounter Care Teams Farm Manager Relationship Specialty Start Date End Date Krishna Rosales MD [address] [place] [address] PCP - General Family Medicine 06/16/19 Delmi Peace RN [address] [place] [address] Automatic Silk Screen Printer 04/12/18 Smooth Simpson MD [address] [place] [address] Plastic Surgeon Plastic Surgery 04/05/20 Mame Cast MD [address] [place] [address] Radiation Oncologist Radiation Oncology 05/23/20 Wilbur Angel MD [address] [facility] [address] [place] [address] Medical Oncologist/Security Guards Dispatcher Medical Oncology 10/24/20 Nicole Grijalva MD [address] [facility] [address] [place] [address] Radiation Oncologist Radiation Oncology 02/05/21 Tong Dubose MD [address] [facility] DEPT OTOLARYNGOLOGY, [address] [address] Surgeon Otolaryngology 06/11/22 documented as of this encounter
[2025-05-01 11:14] LABS: Iron 39 ug/dL (49-181)
[2025-05-01 11:15] LABS: Anion Gap 5 mmol/L (4-12); Blood Urea Nitrogen 22 mg/dL (9-20); Calcium 8.7 mg/dL (8.4-10.2); Carbon Dioxide 25 mmol/L (22-30); Chloride 106 mmol/L (98-107); Estimated Glomerular Filt Rate 42; Glucose 105 mg/dL (65-110); Potassium 4.4 mmol/L (3.4-5.0); Sodium 136 mmol/L (137-145)
[2025-05-01 11:26] LABS: Percent Iron Saturation 16 % (20-50)
== END 2025-05-01 09:52 | disposition home or self-care (01) ==
LOC: ANHLAB 09:52
PROVIDERS: PCP Family Medicine; Visit Provider Internal Medicine Hematology & Oncology
DX: D64.9 Anemia, unspecified (principal)
CPT/HCPCS: 36415; 80048; 82728; 83540; 83550; 85027

== ENCOUNTER 2025-07-09 08:21 | Outpatient (CLI) | payer BC, MEDICARE, SELFPAY ==
--- OUTSIDE RECORDS SUMMARY | 2025-07-09 08:32 | XMS_ITS | Encounter Summary ---
Author Organization [facility] Address [address] [place] [address] Phone Care Team Providers Care Supervisor Electronics Assembly Name Role Phone Delmi Peace RN Unavailable [phone] rKishna Rosales MD Primary Care Provider + [phone] [facility] Unavailable [phone] Mame Cast MD Unavailable [phone] Wilbur Angel MD Unavailable [phone] Tong Dubose MD Unavailable [phone] Reason for Referral * MRI/CAT/PET Scan (Routine) - Closed Specialty Diagnoses / Procedures Referred By Contac t Referred To Contact Radiology Diagnoses Squamous cell carcinoma of skin of unspecified parts of face Procedures CT chest abdomen pelvis without contrast Wilbur Angel MD [address] [facility] [address] [place] [address] Phone: tel: fax: [address] [address] Referral ID Status Reason Start Date Expiration Date Visits Re quested Visits Authorized [id number] Closed 01/01/2025 01/31/2026 1 1 ICAL MOLECULAR GENETICIST * MRI/CAT/PET Scan (Routine) - Closed Specialty Diagnoses / Procedures Referred By Contac t Referred To Contact Radiology Diagnoses Squamous cell carcinoma of skin of unspecified parts of face Procedures CT Neck Soft Tissue WO Contrast Wilbur Angel MD [address] [facility] [address] [place] [address] Phone: tel: fax: [facility] [place] [address] Referral ID Status Reason Start Date Expiration Date Visits Re quested Visits Authorized [id number] Closed 01/01/2025 01/31/2026 1 1 ICAL MOLECULAR GENETICIST Encounter Details Date Type Department Care Team (Late st Contact Info) Description 01/01/2025 Orders Only [facility] Medicine Oncology [address] [facility] [address] [place] [address] Wilbur Angel MD [address] [facility] [address] [place] [address] Squamous cell carcinoma of skin of unspecified [...] on file Legal Sex Male 1:23 AM CLINICAL MOLECULAR GENETICIST Gender Identity Male 07/03/2022 5:22 AM CDT Sexual Orientation Straight 12/01/2020 8: 14 PM CLINICAL MOLECULAR GENETICIST documented as of this encounter Plan of [...] face Expected: 04/23/2025, Expires: 01/04/2026 Thyroid Function [place] [facility] Routine Squamous cell carcinoma of skin [...] are noted. Adrenal glands are normal. The [place] kidneys are atrophic with left renal cryoablation [...] are noted. Adrenal glands are normal. The [place] kidneys are atrophic with left renal cryoablation [...] Final Result * Phosphorus (01/08/2025 12:10 PM CLINICAL MOLECULAR GENETICIST) Phosphorus, pl 2.9 2.3 - 4.5 mg/dL Blood 01/08/2025 12:1 0 PM CLINICAL MOLECULAR GENETICIST 01/08/2025 12:26 PM CLINICAL MOLECULAR GENETICIST Wilbur Angel MD LAB BLOOD ORDERABLES Final Res ult Performing Organization Address City/State/[facility] Co de Phone Number [facility] Department [place] [address] documented in this encounter Visit Diagnoses Diagnosis Squamous cell carcinoma of skin of unspecified parts of face- Primary Squamous cell carcinoma of skin of unspecified parts of face documented in this encounter Orders Appointment Requests Count Last Ordered Date Fi rst Ordered Date ONCBCN CLINIC APPOINTMENT REQUEST 1 025 ONCBCN LAB APPOINTMENT 1 04/23/2025 documented in this encounter Care Teams Supervisor Electronics Assembly Relationship Specialty Start Date End Date Krishna Rosales MD [address] [place] [address] PCP - General Family Medicine 06/16/19 Delmi Peace, AFTAB [address] [place] [address] Presser Hand 04/12/18 Smooth Simpson MD [address] [place] [address] Plastic Surgeon Plastic Surgery 04/05/20 Mame Cast MD [address] [place] [address] Radiation Oncologist Radiation Oncology 05/23/20 Wilbur Angel MD [address] [facility] [address] [place] [address] Medical Oncologist/Alterations Expert Medical Oncology 10/24/20 Tong Dubose MD [address] [facility] DEPT OTOLARYNGOLOGY, [address] [place] [address] Surgeon Otolaryngology 06/11/22 documented as of this encounter
--- OUTSIDE RECORDS SUMMARY | 2025-07-09 08:32 | XMS_ITS | Clinical Summary ---
Author Organization [facility] Address [address] [place] [address] Care Team Providers Care Machine Load Clerk Name Role Phone Delmi Peace RN Unavailable [phone] Krishna Rosales MD Primary Care Provider [phone] [facility] Unavailable [phone] Mame Cast MD Unavailable [phone] Wilbur Angel MD Unavailable [phone] Tong Dubose MD Unavailable [phone] Allergies Active Allergy Reactions Criticality Noted Date Comments Iodinated Contrast Media Other (See comments) High 01/08/2025 RENAL TRANSPLANT - NO CONTRAST Medications cholecalciferol (VITAMIN D-3) 2,000 unit tabletIndications:Pr evention of Vitamin D Deficiency Take 1 tablet (2,000 Units total) 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 before 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 10/15/20 15 Active ferrous sulfate [...] eye nightly 3.5 g 07/09/20 23 Active omeprazole (PriLOSEC) 40 mg capsule Take 1 capsule by mouth in the morning 90 capsule 3 09/18/20 24 Active atorvastatin (LIPITOR) 80 mg tablet [...] daily 90 tablet 3 01/09/20 25 Active ciprofloxacin (CILOXAN) 0.3 % ophthalmic solution INSTILL 1 DROP INTO AFFECTED EYE THREE TIMES DAILY STARTING 2 DAYS PRIOR TO SURGERY, CONTINUING FOR 1 WEEK AFTER SURGERY 04/18/20 25 Active ketorolac (ACULAR) 0.5 % ophthalmic solution INSTILL 1 DROP INTO AFFECTED EYE THREE TIMES DAILY STARTING 2 DAYS BEFORE SURGERY, CONTINUING FOR 2 WEEKS AFTER SURGERY 04/18/20 25 Active prednisoLONE acetate (PRED FORTE) 1 % ophthalmic suspension INSTILL 1 DROP INTO AFFECTED EYE THREE TIMES DAILY STARTING AFTER SURGERY, CONTINUE FOR 3 WEEKS 03/26/20 25 Active acitretin (SORIATANE) 25 mg capsuleIndications:H istory of nonmelanoma skin cancer,History of immunosuppressive therapy,High risk medications (not anticoagulants) long-term use,AK (actinic keratosis) Take 2 capsules (50 mg total) by mouth every other day 30 capsule 3 04/26/20 25 Active fluorouraciL (EFUDEX) 5 % creamIndications:Act inic keratosis Apply 2 times daily (once in AM, once in PM) to areas on left and right side of face, chest red spots for at least 2 weeks 40 g 2 05/02/20 25 Active tamsulosin (FLOMAX) 0.4 mg extended release capsule Take 1 capsule by mouth once daily 90 capsule 3 06/05/20 25 Active Active Problems Patient Care Coordination No te Formatting of this note migh t be different from the original. Goal Sirolimus levels should be 4-6 [facility] [phone], [phone] Standing orders q-monthly, PT/INR, Sirolimus q3-Routine Exp.11/05/25 [facility] Oncology ext [id number] Problem Noted Date Diagnosed Date SCC (squamous [...] future. Assessment & Plan (10/04/2022 6:32 PM CIRCULAR HEAD SAW OPERATOR): [place] is doing well after [...] (04/29/2021): Added automatically from request for surgery [id number] Cellulitis of leg, right 03/18/2021 Assessment & [...] (02/07/2021): Added automatically from request for surgery [id number] Abnormal finding on GI tract imaging 02/07/2021 Overview (02/07/2021): Added automatically from request for surgery [id number] Metastasis to bone 01/20/2021 Head and neck [...] numbness. Assessment & Plan (01/13/2021 8:03 PM CIRCULAR HEAD SAW OPERATOR): Please note patient with noted C1 [...] AM Assessment & Plan (01/13/2021 8:01 PM CIRCULAR HEAD SAW OPERATOR): Please note patient with noted C1 [...] occurred. Assessment & Plan (01/15/2021 5:09 PM CIRCULAR HEAD SAW OPERATOR): -hold home Eliquis in s/o possible surgical intervention -Heparin gtt -Resuming Eliquis as ortho spine recommends non-operative management Assessment & Plan (01/13/2021 7:48 PM CIRCULAR HEAD SAW OPERATOR): -hold home Eliquis in s/o possible [...] time Assessment & Plan (01/13/2021 8:09 PM CIRCULAR HEAD SAW OPERATOR): -continue home Tacro XR 1mg PO [...] Is/Os Assessment & Plan (01/13/2021 7:55 PM CIRCULAR HEAD SAW OPERATOR): -continue home Tacro 1PO BID -Goal [...] (04/09/2020): Added automatically from request for surgery [id number] Metastatic squamous cell carcinoma to parotid gl and 04/09/2020 Cancer Staging:Pathologic stage from 04/15/2020:Stage IV(rpT3, pN2a, cM0) - Signed by Tatyana Up MD on 04/29/2020 Overview (04/09/2020): Added automatically from request for surgery [id number] Assessment & Plan (03/18/2021 1:44 PM CDT[facility] -PET CT [...] 12/23/20). Assessment & Plan (01/15/2021 5:09 PM CIRCULAR HEAD SAW OPERATOR): -01/10 PET scan notable for diffuse [...] outpatient Assessment & Plan (01/13/2021 7:40 PM CIRCULAR HEAD SAW OPERATOR): -01/10 PET scan notable for diffuse [...] possible inpatient chemo will plan to consult [place] during this admission - and plan for Xgeva outpatient Anemia 06/16/2019 Essential hypertension 06/16/2019 Assessment & Plan (01/13/2021 8:05 PM CIRCULAR HEAD SAW OPERATOR): -continue home Lisinopril 10 -Continue home Coreg 25BID Assessment & Plan (01/13/2021 8:00 PM CIRCULAR HEAD SAW OPERATOR): -continue home Coreg 25BID -continue home Lisinopril 10 daily Increased infection risk sta tus post immunosuppressive therapy 06/16/2019 Dyslipidemia 06/16/2019 Assessment & Plan (01/13/2021 8:05 PM CIRCULAR HEAD SAW OPERATOR): -continue home Crestor Assessment & Plan (01/13/2021 8:00 PM CIRCULAR HEAD SAW OPERATOR): -continue home Atorva 40 QHS High [...] Encounters Date Type Department Care Team Description 05/14/2025 9:00 AM CDT Procedure visit [facility] Medicine Dermatology [address] [place] [address] Health [address] [place] [address] Shiva Luong MD BCC (basal cell carcinoma), chest (Primary Dx); SCC (squamous cell carcinoma), hand, right 05/11/2025 6:04 AM CDT - 05/11/2025 11:59 PM CDT Hospital Encounter [facility] - MRI [address] [facility] Floor 8 [place] [address] Squamous cell carcinoma of skin of unspecified parts of face; Head and neck cancer (HCC); Abnormal CT scan, neck Discharge Disposition: Discharge to home or self care 05/02/[address] [place] [address] Moira Boucher, [facility] Medication Approval 04/30/2025 Orders Only [facility] Dermatology [address] [place] [address] Health [address] [place] [address] Shiva Luong MD Actinic keratosis 04/30/2025 Telephone [facility] Dermatology [address] [place] [address] Health [address] [place] [address] Shiva Luong MD Prior Auth 04/26/2025 Results Follow-Up [facility] Dermatology [address] [place] [address] [address] [place] [address] Shiva Luong MD Surgical pathology 04/26/2025 Orders Only [facility] Dermatology [address] [place] [address] Health [address] [place] [address] Shiva Luong MD History of nonmelanoma skin cancer; History of immunosuppressive therapy; High risk medications (not anticoagulants) long-term use; AK (actinic keratosis); Actinic keratosis 04/24/2025 9:00 AM CDT Office Visit [facility] Otolaryngology Head-Neck Division [facility] Floor 5 [place] [address] Lisa Gottlieb PA Impacted cerumen of left ear (Primary Dx) 04/24/2025 Telephone [facility] Dermatology [address] [place] [address] Health [address] [place] [phone] Moira Boucher, [facility] Dispensing Pharmacy 04/24/2025 Telephone [facility] Dermatology [address] [place] [address] [place] [address] Shiva Luong MD Prior Auth 04/24/2025 Orders Only [facility] Pathology Outreach [address] [place] [address] Shiva Luong MD Neoplasm of uncertain behavior of skin 04/23/2025 1:30 PM CDT Office Visit [facility] Dermatology [address] [place] [address] Health [address] [place] [address] Shiva Luong MD Actinic keratosis (Primary Dx); Seborrheic keratoses; Multiple melanocytic nevi; History of nonmelanoma skin cancer; History of immunosuppressive therapy; High risk medications (not anticoagulants) long-term use; Actinic skin damage; Neoplasm of uncertain behavior of skin; AK (actinic keratosis) 04/23/2025 12:20 PM CDT Office Visit [facility] Oncology [address] [place] [address] 6 [place] [phone] Wilbur Angel MD Abnormal CT scan, neck (Primary Dx); Squamous cell carcinoma of skin of unspecified parts of face; Head and neck cancer (HCC) 04/23/2025 11:30 AM CDT Lab [facility] Oncology Lab [address] [place] [address] 6 [place] [address] Squamous cell carcinoma of skin of unspecified parts of face; Head and neck cancer (HCC) 04/23/2025 10:15 AM CDT Lab [facility] - Lab Collection [address] Floor 6 [place] [id number] Head and neck cancer (HCC) 04/23/2025 8:41 AM CDT - 04/23/2025 11:59 PM CDT Hospital Encounter [facility] - CT [address] Floor 8 [place] [address] Squamous cell carcinoma of skin of unspecified [...] targeted tx ESRD (end stage renal disease) 2014 s /p renal transplant 2014 Thrombophilia genetic/chronic DVT RLE. [...] on file Legal Sex Male 1:23 AM CIRCULAR HEAD SAW OPERATOR Gender Identity Male 07/03/2022 5:22 AM CDT Sexual Orientation Straight 12/01/2020 8: 14 PM CIRCULAR HEAD SAW OPERATOR Obstetrics History Last Filed Vital Signs Vital Sign Reading Time Taken Comments Blood Pressure 154/77 05/14/2025 8:37 AM CDT Pulse 54 05/14/2025 8:37 AM CDT Temperature 36.5 C (97.7 F) 04/23/2025 11:01 AM CDT Respiratory Rate 18 04/23/2025 11:01 AM CDT Oxygen Saturation 95% 05/14/2025 8:37 AM CDT Inhaled Oxygen Concentration - - [...] Pneumococcal vaccine 65+ (2 of 2 - PPSV23, PCV20, or PCV21) 05/06/2015 03/11/2015 Fall Risk Assessment 07/09/2024 07/09/2023, 02/04/20 21 Covid-19 Vaccine (5 - 2023-2 5 season) 2024 09/02/2022, 03/12/2021, 02/05/2021, Additional history exists Well Visit 65+ 2024 Influenza Vaccine (#1) 2025 , 12/10/2017, 12/10/2017, Additional history exists Colon Cancer Screening-Colonoscopy 04/22/2031 04/22/2021 DTaP/Tdap/Td Vaccine (2 - Td or Tdap) 09/02/2032 09/02/2022 Hepatitis B Screening Completed 03/11/2015 Hepatitis C Screening Completed 09/30/2015 , 09/30/2015, 01/03/2015 Colon Cancer Screening-CT Colonography Discontinued 04/22/2021 Colon Cancer Screening-DNA Stool Discontinued 04/22/20 Colon Cancer Screening-FIT Discontinued 04/22/2021 Colon Cancer Screening-Sigmoidoscopy Discontinued 04/22/2021 Medical Devices Implanted Type Area Environmental Scientist Device Identifier Shelf Expiration Date Model / Serial / Lot [employer] [id number] Xcela 8fr 1.6mm 1 Lumen Power Injectable Attach Catheter Fill - [id number] Implanted:Qty: 1 on 09/18/2021 at [facility] [employer] 05/13/2026 [id number] / / [id number] Explanted Type Area Environmental Scientist Device Identifier Shelf Expiration Date Model / Serial / Lot Personaling [id number] Clip Ligation Resolution 360 Ultra 235cm Braid Rotation Ctrl - [id number] Explanted:Qty: 1 on 04/22/2021 at [facility] [employer] 02/04/2024 [id number] / / [id number] Personaling [id number] Clip Ligation Resolution 360 Ultra 235cm Braid Rotation Ctrl - [id number] Explanted:Qty: 1 on 04/22/2021 at [facility] [employer] 02/04/2024 [id number] / / [id number] Personaling [id number] Clip Ligation Resolution 360 Ultra 235cm Braid Rotation Ctrl - [id number] Explanted:Qty: 1 on 04/22/2021 at [facility] [employer] 02/04/2024 [id number] / / [id number] Personaling [id number] Clip Ligation Resolution 360 Ultra 235cm Braid Rotation Ctrl - [id number] Explanted:Qty: 1 on 04/22/2021 at [facility] [employer] 02/04/2024 [id number] / / [id number] Personaling [id number] Clip Ligation Resolution 360 Ultra 235cm Braid Rotation Ctrl - [id number] Explanted:Qty: 1 on 04/22/2021 at [facility] [employer] 02/04/2024 [id number] / / [id number] Procedures Procedure Name Priority Date/Time Associated Diagnosis Comments MRI CERVICAL SPINE W WO CONTRAST Schedule Routine, Read Routine (OP Routine) 05/11/2025 6:50 AM CDT Squamous cell carcinoma of skin of unspecified parts of face Head and neck cancer (HCC) Abnormal CT scan, neck DIFFERENTIAL AUTO Routine 04/23/2025 10: 22 AM [...] CDT Neoplasm of uncertain behavior of skin COLONOSCOPY 04/22/2021 8:33 AM CDT SERUM HEPATITIS C AB Routine 09/30/2015 2:38 AM CIRCULAR HEAD SAW OPERATOR from Last 3 Months or Most Recently Relevant to Health Maintenance Results * MRI Cervical Spine W WO Contrast (05/11/2025 6:50 AM CDT) Anatomical Region Laterality Modality Spine N/A Magnetic Resonan ce 05/11/2025 2:08 PM CDT Impressions 05/11/2025 6:44 PM CDT 1. Patchy enhancement involving the left lateral condyle is less conspicuous compared to prior exam from 01/13/2021, and corresponds to sclerotic lesion seen on prior CT. This finding likely represents evolving metastases. Recommend attention on follow-up imaging. 2. Multilevel degenerative changes of the cervical spine with varying degree neural foraminal stenosis as detailed above. 3. Enhancement of the bilateral C4-C5 facets, likely represents synovitis. Dictated by: Aida Lynn D.O. The radiology attending physician has personally reviewed this study, and had reviewed and/or edited this written report and agrees with it. Electronically signed by: Ryan Lorenzo MD, PHD Narrative 05/11/2025 6:44 PM CDT EXAMINATION: Magnetic resonance imaging (MRI) of the cervical spine without and with contrast HISTORY: HX SCCA of head/neck; CT Neck wo contrast (04/23/25) reported interval progression of soft tissues changes versus chronic fracture at the lateral mass of C1. Given accompanying tongue findings are correct further relation w/ MR cervical spine wwo contrast. Requesting imaging for further evaluation HX SCCA of head/neck; CT Neck wo contrast (04/23/25) reported interval progression of soft tissues TECHNIQUE: Multiplanar multi-weighted MRI of the cervical spine was performed without and with intravenous contrast using CT soft tissue neck 05/04/2025 the standard protocol. Contrast information: 16 mL Gadoterate Meglumine IV COMPARISON: MRI total spine 01/13/2021 CT soft tissue neck 04/23/2025 FINDINGS: There is straightening of the cervical spine. There is anterolisthesis of C7 over T1. There is patchy enhancement of the left lateral mass of C1 corresponding to sclerosis on comparison CT, less conspicuous compared to comparison MRI dated 01/13/2021 No acute fracture is identified. . The visualized portions of the skull base and the posterior fossa are normal. The spinal cord demonstrates normal signal intensity on all sequences. Multilevel intervertebral disc desiccation with height loss at C6-C7. There is annular fissure at C6-C7 No soft tissue abnormality is identified. Normal signal voids are present in the vertebral arteries. Multilevel cervical spondylosis as demonstrated by osteophytosis, uncovertebral hypertrophy and facet arthropathy. At C5-C6, there is severe left neural foraminal stenosis. At C4-C5, there is severe bilateral neural foraminal stenosis. At C6-C7 there is severe bilateral neural foraminal stenosis. There is moderate spinal canal stenosis at the level of C5-C6. There is enhancement of the bilateral C4-C5 facet likely represents synovitis. Procedure Note Ryan Lorenzo MD PhD - 05/11/2025 EXAMINATION: Magnetic resonance imaging (MRI) of the cervical spine without and with contrast HISTORY: HX SCCA of head/neck; CT Neck wo contrast (04/23/25) reported interval progression of soft tissues changes versus chronic fracture at the lateral mass of C1. Given accompanying tongue findings are correct further relation w/ MR cervical spine wwo contrast. Requesting imaging for further evaluation HX SCCA of head/neck; CT Neck wo contrast (04/23/25) reported interval progression of soft tissues TECHNIQUE: Multiplanar multi-weighted MRI of the cervical spine was performed without and with intravenous contrast using CT soft tissue neck 05/04/2025 the standard protocol. Contrast information: 16 mL Gadoterate Meglumine IV COMPARISON: MRI total spine 01/13/2021 CT soft tissue neck 04/23/2025 FINDINGS: There is straightening of the cervical spine. There is anterolisthesis of C7 over T1. There is patchy enhancement of the left lateral mass of C1 corresponding to sclerosis on comparison CT, less conspicuous compared to comparison MRI dated 01/13/2021 No acute fracture is identified. . The visualized portions of the skull base and the posterior fossa are normal. The spinal cord demonstrates normal signal intensity on all sequences. Multilevel intervertebral disc desiccation with height loss at C6-C7. There is annular fissure at C6-C7 No soft tissue abnormality is identified. Normal signal voids are present in the vertebral arteries. Multilevel cervical spondylosis as demonstrated by osteophytosis, uncovertebral hypertrophy and facet arthropathy. At C5-C6, there is severe left neural foraminal stenosis. At C4-C5, there is severe bilateral neural foraminal stenosis. At C6-C7 there is severe bilateral neural foraminal stenosis. There is moderate spinal canal stenosis at the level of C5-C6. There is enhancement of the bilateral C4-C5 facet likely represents synovitis. IMPRESSION: 1. Patchy enhancement involving the left lateral condyle is less conspicuous compared to prior exam from 01/13/2021, and corresponds to sclerotic lesion seen on prior CT. This finding likely represents evolving metastases. Recommend attention on follow-up imaging. 2. Multilevel degenerative changes of the cervical spine with varying degree neural foraminal stenosis as detailed above. 3. Enhancement of the bilateral C4-C5 facets, likely represents synovitis. Dictated by: Aida Lynn D.O. The radiology attending physician has personally reviewed this study, and had reviewed and/or edited this written report and agrees with it. Electronically signed by: Ryan Lorenzo MD, PHD Pj [employer]in PRODUCTION AIDE IM MRI PROCEDURES Final Result * (ABNORMAL) Differential, auto (04/23/2025 10:22 AM CDT) Neutrophil abs 4.94 1.50 - 6.50 K/cumm Comment:Testing performed by : [facility], [address] [place] [address] Lymphocyte abs 0.52(L) 0.80 - 3.30 K/cumm CERNER BJ Comment:Testing performed by : [facility], [address] [place] [address] Monocyte abs 0.52 0.20 - 0.80 K/cumm CERNER [facility] Comment:Testing performed by : [facility], [address] [place] [address] Eosinophil abs 0.11 0.00 - 0.50 K/cumm CERNER [facility] Comment:Testing performed by : [facility], [address] [place] [address] Basophil abs 0.05 0.00 - 0.10 K/cumm CERNER [facility] Comment:Testing performed by : [facility], [address] [place] [phone] Neutrophil pct 80.5 % CERKATIE RUIZ Comment: Interpretive Data Percent cell count reference ranges are not reported, since discordance with absolute values may lead to misinterpretation of CBC data. Current Interpretive Data was last revised on 2018. Testing performed by: [facility], [address] [place] [phone] Lymphocyte pct 8.4 % BOBBI RUIZ Comment: Interpretive Data Percent cell count reference ranges are not reported, since discordance with absolute values may lead to misinterpretation of CBC data. Current Interpretive Data was last revised on 2018. Testing performed by: [facility], [address] [place] [phone] Monocyte pct 8.5 % BOBBI RUIZ Comment: Interpretive Data Percent cell count reference ranges are not reported, since discordance with absolute values may lead to misinterpretation of CBC data. Current Interpretive Data was last revised on 2018. Testing performed by: [facility], [address] [place] [phone] Eosinophil pct 1.8 % BOBBI RUIZ Comment: Interpretive Data Percent cell count reference ranges are not reported, since discordance with absolute values may lead to misinterpretation of CBC data. Current Interpretive Data was last revised on 2018. Testing performed by: [facility], [address] [place] [phone] Basophil pct 0.8 % BOBBI RUIZ Comment: Interpretive Data Percent cell count reference ranges are not reported, since discordance with absolute values may lead to misinterpretation of CBC data. Current Interpretive Data was last revised on 2018. Testing performed by: [facility], [address] [place] [phone] Blood 04/23/2025 10:2 2 AM CDT 04/23/2025 10:32 AM CDT us Wilbur Angel MD LAB BLOOD ORDERABLES Final Res ult BOBBI RUIZH [facility] [place] [address] * (ABNORMAL) CBC with auto differential (04/23/2025 10:22 AM CDT) WBC 6.13 3.80 - 9.90 K/cumm Comment:Testing performed by : [facility], [address] [place] [address] Hgb 11.1(L) 13.0 - 17.5 g/dL CERKATIE RUIZ Comment:Testing performed by : [facility], [address] [place] [address] Hct 34.0(L) 38.9 - 50.3 % CERKATIE RUIZ Comment:Testing performed by : [facility], [address] [place] [address] Plt 233 150 - 400 K/cumm BOBBI RUIZ Comment:Testing performed by : [facility], [address] [place] [address] MPV 6.4(L) 6.8 - 10.4 fL CERK[facility]IE [facility] Comment:Testing performed by : [facility], [address] [place] [address] RBC 4.73 4.30 - 5.80 M/cumm CERKATIE BJ Comment:Testing performed by : [facility], [address] [place] [address] MCV 71.9(L) 81.3 - 96.4 fL CERKATIE BJ Comment:Testing performed by : [facility], [address] [place] [address] MCH 23.5(L) 27.1 - 33.3 pg CERKATIE BJ Comment:Testing performed by : [facility], [address] [place] [address] MCHC 32.6 32.3 - 35.7 g/dL CERKATIE BJ Comment:Testing performed by : [facility], [address] [place] [address] RDW CV 16.7(H) 11.1 - 14.9 % BOBBI RUIZ Comment:Testing performed by : [facility], [address] [place] [phone] NRBC abs 0.00 0.00 - 0.01 K/cumm BOBBI RUIZ Comment:Testing performed by : [facility], [address] [place] [phone] Blood 04/23/2025 10:2 2 AM CDT 04/23/2025 10:32 AM CDT Wilbur Angel MD LAB BLOOD ORDERABLES Final Res ult BOBBI RUIZ [facility] [place] [address] * (ABNORMAL) eGFR (04/23/2025 10:22 AM CDT) [...] ORDERABLES Final Res ult Performing Organization Address [facility] Co de Phone Number [facility] [place] [address] * Thyroid Function [place] (04/23/2025 10:22 AM CDT) TSH 2.50 0.30 - 4.20 mcIUnit/mL Blood 04/23/2025 10:2 2 AM CDT 04/23/2025 10:36 AM CDT us Wilbur Anegl MD LAB BLOOD ORDERABLES Final Res ult Performing Organization Address [facility] [place] [address] * Phosphorus (04/23/2025 10:22 AM CDT) Phosphorus, pl 2.5 2.3 - 4.5 mg/dL Blood 04/23/2025 10:2 2 AM CDT 04/23/2025 10:36 AM CDT us Wilbur Angel MD LAB BLOOD ORDERABLES Final Res ult Performing Organization Address [facility] Co de Phone Number [facility] [place] [address] * Magnesium (04/23/2025 10:22 AM CDT) Magnesium 2.2 1.4 - 2.5 mg/dL Blood 04/23/2025 10:2 2 AM CDT 04/23/2025 10:36 AM CDT us Wilbur Angel MD LAB BLOOD ORDERABLES Final Res ult Performing Organization Address [facility] [facility] Co de Phone Number [facility] [place] [address] * Lactate dehydrogenase (LD) (04/23/2025 10:22 AM CDT) Lactate dehydrogenase (LDH) 241 100 - 250 Units/L Blood 04/23/2025 10:2 2 AM CDT 04/23/2025 10:36 AM CDT Wilbur Angel MD LAB BLOOD ORDERABLES Final Res ult [facility] [place] [address] * (ABNORMAL) Comprehensive metabolic panel (04/23/2025 10:22 AM CDT) Pathologist [facility] Sodium 141 135 - 145 mmol/L Potassium, pl 4.4 3.3 - 4.9 mmol/L [facility] Chloride 106 97 - 110 mmol/L [facility] CO2 27 22 - 32 mmol/L [facility] Anion gap 8 2 - 15 mmol/L [facility] BUN 25 6 - 25 mg/dL [facility] Creatinine 1.70(H) 0.80 - 1.30 mg/dL [facility] Glucose 105 70 - 199 mg/dL [facility] Comment: Interpretive Data Fasting glucose >/= 126 [...] 2022. Calcium 9.0 8.5 - 10.3 mg/dL [facility] Bilirubin, total 0.3 0.1 - 1.2 mg/dL [facility] Protein, pl 6.8 6.5 - 8.5 g/dL [facility] Albumin 4.0 3.5 - 5.0 g/dL [facility] Alk phos 76 40 - 130 Units/L [facility] ALT 23 7 - 55 Units/L [facility] AST 32 10 - 50 Units/L [facility] Blood 04/23/2025 10:2 2 AM CDT 04/23/2025 10:36 AM CDT us Wilbur Angel MD LAB BLOOD ORDERABLES Final Res ult [facility] [place] [address] * CT chest abdomen pelvis without contrast [...] are noted. Adrenal glands are normal. The [facility] kidneys are atrophic with left renal cryoablation [...] are noted. Adrenal glands are normal. The [facility] kidneys are atrophic with left renal cryoablation [...] shave biopsy) 04/23/2025 04/24/2025 6:14 AM CDT [facility] - 04/25/2025 1:39 PM CDT EPIC results best viewed via link to PDF [facility] Dermatopathology [place] [address], [address], [place] [address] [email or web address] Note to Patients: This report may [...] Submitting Physician Information: Shiva Luong M.D. Dermatology [facility] ([facility] [address], [address] [place] [address], DERMATOPATHOLOGY REPORT RESULTS DIAGNOSIS: SKIN, LEFT UPPER CHEST, SHAVE BIOPSY: BASAL CELL CARCINOMA [facility]/ajrr By this signature, I attest that the [...] exr/mxf ICD-9 A; ZSD.176 Clerical Data A; 72759 The characteristics of special, immunohistochemical, and immunofluorescence stains and in-situ hybridization tests performed by the [facility] were deemed acceptable in ongoing quality control representative measures and in compliance with regulations drawn from the Clinical Laboratory Improvement Act df6369 (CLIA '88). Control reactions for all stains performed were deemed adequate and appropriate by a pathologist prior to evaluation of patient tissue. Some diagnoses were rendered with the assistance of laboratory-developed tests utilizing analyte-specific reagents; the performance characteristic of these tests were determined by [facility] and are not cleared or approved by the [place] Food an Drug administration. Laboratory developed test may only be performed in a facility that is certified by the [facility] as a high-complexity laboratory under CLIA '88. These tests are used for clinical purposes and are not investigational. Shiva Luong MD LAB PATHOLOGY ORDERABL ES Final Result [facility] CENTER [address] [place] [address] * COLONOSCOPY (04/22/2021 8:33 AM CDT) Anatomical Region Laterality Modality Other Narrative Procedure Note Tamera Francois MD PhD - 04/22/2021 8:33 AM CDT ENDOSCOPY LAB Patient Name: Los Shultz Procedure Date: 04/22/2021 8:33 AM Date of : 1960 Admit Type: Outpatient Age: 60 Gender: Male Attending MD: Tamera Francois MD,PHD Room: [facility] ENDOSCOPY ROOM 02 Note Status: Finalized [...] The scope was passed under direct vision.The [id number] was introduced through the anusand advanced to [...] bowel preparation was evaluated using the BBPS (Sycamore Bowel Preparation Scale) with scores of: Right [...] following this procedure, please call shaina at [phone] or [phone] to speak to my surgical dental assistant. After hours and weekends, please call [phone] and ask for the GI fellow banquet server on call.Please tell them that Dr. Francois did your [...] Serum Hepatitis C ab (09/30/2015 2:38 AM CIRCULAR HEAD SAW OPERATOR) HCV ab Negative NEG HISTORICAL RESULTS Serum 09/30/2015 2:38 AM CIRCULAR HEAD SAW OPERATOR Narrative HISTORICAL RESULTS - 09/30/2015 5:17 AM CIRCULAR HEAD SAW OPERATOR Interpretive Data If confirmation is required, call Laboratory Customer Service to request sample to be sent to [facility] for Hepatitis C Virus (HCV) RNA Detection and Quantitation by Real-Time Reverse Jewelry Setter-PCR (RT-PCR). Current interpretive data was last revised on 2012 us Tong Ann MD LAB BLOOD ORDERABLES Final Result HISTORICAL RESULTS from Last 3 Months or Most Recently Relevant to Health Maintenance Insurance [employer] [facility] HUMANA CHOICE MEDICARE PPO CHOICE [facility] [place] ACCESS CIGNA [employer] [facility] HUMANA CHOICE MEDICARE PPO Advance Directives For more information, please contact: [phone] * Full Code (Latest Code Status on [...] 5:52 PM 01/15/2021 9:19 PM Care Teams Machine Load Clerk Relationship Specialty Start Date End Date Krishna Rosales MD [address] [place] [address] PCP - General Family Medicine 06/16/19 Delmi Peace, RN [address] [place] [address] Home Economics Teacher 04/12/18 Smooth Simpson MD [address] [place] [address] Plastic Surgeon Plastic Surgery 04/05/20 Mame Cast MD [address] [place] [address] Radiation Oncologist Radiation Oncology 05/23/20 Wilbur Angel MD [address] [facility] [address] [place] [address] Medical Oncologist/Disintegrator Medical Oncology 10/24/20 Tong Dubose MD [address] [facility] DEPT OTOLARYNGOLOGY, [address] [place] [address] Surgeon Otolaryngology 06/11/22
--- OUTSIDE RECORDS SUMMARY | 2025-07-09 08:33 | XMS_ITS ---
Author Organization [facility] Address [address] [place] [address] Care Team Providers Care Reach Lift Truck Driver Name Role Phone Delmi Peace RN Unavailable [phone] Krishna Rosales MD Primary Care Provider + [phone] [facility] Unavailable [phone] Mame Cast MD Unavailable [phone] Wilbur Angel MD Unavailable [phone] Tong Dubose MD Unavailable [phone] Active Problems Patient Care Coordination No te Formatting of this note migh t be different from the original. Goal Sirolimus levels should be 4-6 [facility] [id number], [id number] Standing orders q-monthly, PT/INR, Sirolimus q3-Routine Exp.11/05/25 [facility] CM ext [id number] Problem Noted Date Diagnosed Date SCC (squamous [...] future. Assessment & Plan (10/04/2022 6:32 PM JOURNEYMAN PIPE WELDER): Los Shultz is doing well after Left [...] (04/29/2021): Added automatically from request for surgery [id number] Cellulitis of leg, right 03/18/2021 Assessment & [...] (02/07/2021): Added automatically from request for surgery [id number] Abnormal finding on GI tract imaging 02/07/2021 Overview (02/07/2021): Added automatically from request for surgery [id number] Metastasis to bone 01/20/2021 Head and neck [...] numbness. Assessment & Plan (01/13/2021 8:03 PM JOURNEYMAN PIPE WELDER): Please note patient with noted C1 vertebral [...] AM Assessment & Plan (01/13/2021 8:01 PM JOURNEYMAN PIPE WELDER): Please note patient with noted C1 vertebral [...] occurred. Assessment & Plan (01/15/2021 5:09 PM JOURNEYMAN PIPE WELDER): -hold home Eliquis in s/o possible surgical intervention -Heparin gtt -Resuming Eliquis as ortho spine recommends non-operative management Assessment & Plan (01/13/2021 7:48 PM JOURNEYMAN PIPE WELDER): -hold home Eliquis in s/o possible surgical [...] time Assessment & Plan (01/13/2021 8:09 PM JOURNEYMAN PIPE WELDER): -continue home Tacro XR 1mg PO daily -Goal Tacro trough in the s/o acitve cancer 2-3 -check AM tacro level on 01/14, ~ 30min-1hr prior to Tacro dosing -home pred held given steroids as elsewhere -on arrival sCr 1.69 and thus at baseline -May require renal transplant involvement if increasing sCr noted on daily labs -Monitor Is/Os Assessment & Plan (01/13/2021 7:55 PM JOURNEYMAN PIPE WELDER): -continue home Tacro 1PO BID -Goal Tacro [...] (04/09/2020): Added automatically from request for surgery [id number] 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 Assessment & Plan (01/15/2021 5:09 PM JOURNEYMAN PIPE WELDER): -01/10 PET scan notable for diffuse and [...] outpatient Assessment & Plan (01/13/2021 7:40 PM JOURNEYMAN PIPE WELDER): -01/10 PET scan notable for diffuse and [...] 06/16/2019 Assessment & Plan (01/13/2021 8:05 PM JOURNEYMAN PIPE WELDER): -continue home Lisinopril 10 -Continue home Coreg 25BID Assessment & Plan (01/13/2021 8:00 PM JOURNEYMAN PIPE WELDER): -continue home Coreg 25BID -continue home Lisinopril 10 daily Increased infection risk sta tus post immunosuppressive therapy 06/16/2019 Dyslipidemia 06/16/2019 Assessment & Plan (01/13/2021 8:05 PM JOURNEYMAN PIPE WELDER): -continue home Crestor Assessment & Plan (01/13/2021 8:00 PM JOURNEYMAN PIPE WELDER): -continue home Atorva 40 QHS High risk [...]
--- OUTSIDE RECORDS SUMMARY | 2025-07-09 08:33 | XMS_ITS | Encounter Summary ---
Author Organization [facility] Address [address] [place] [address] Phone Care Team Providers Care Tape Edge Machine Operator Name Role Phone Delmi Peace RN Unavailable [phone] Krishna Rosales MD Primary Care Provider + [phone] [facility] MD Unavailable [phone] Mame Cast MD Unavailable [phone] Wilbur Angel MD Unavailable [phone] Tong Dubose MD Unavailable [phone] Encounter Details Date Type Department Care Team [...] on file Legal Sex Male 1:23 AM ELECTRICAL/INSTRUMENT TECHNICIAN Gender Identity Male 07/03/2022 5:22 AM CDT Sexual Orientation Straight 12/01/2020 8: 14 PM ELECTRICAL/INSTRUMENT TECHNICIAN documented as of this encounter Plan [...] on filedocumented in this encounter Care Teams Tape Edge Machine Operator Relationship Specialty Start Date End Date Krishna Rosales MD [address] [facility] [address] [place] [address] PCP - General Family Medicine 06/16/19 Delmi Peace, RN [address] [place] [address] Electric Milkers Installer 04/12/18 [facility] MD [address] [place] [address] Plastic Surgeon Plastic Surgery 04/05/20 Mame Cast MD [address] [place] [address] Radiation Oncologist Radiation Oncology 05/23/20 Wilbur Angel MD [address] [facility] [address] [place] [address] Medical Oncologist/Advanced Practice Professional Medical Oncology 10/24/20 Tong Dubose MD [address] [facility] DEPT OTOLARYNGOLOGY, [address] [address] Surgeon Otolaryngology 06/11/22 documented as of this encounter
--- OUTSIDE RECORDS SUMMARY | 2025-07-09 08:33 | XMS_ITS | Clinical Summary ---
Author Organization [facility] Address [address] [place] [address] Care Team Providers Care Drug Abuse Social Worker Name Role Phone Krishna Rosales MD Primary Care Provider [phone] Allergies No known active allergies Medications predniSONE [...] (05/13/2022): Added automatically from request for surgery [id number] Secondary malignant neoplasm of bone ([facility] HH S/HCC) 01/20/2021 Recurrent squamous cell carcinoma [...] squamous cell car cinoma to parotid gland ([facility] HHS/HCC) 04/09/2020 Overview (05/13/2022): Added automatically from request for surgery [id number] Last Assessment & Plan: -Medonc c/s -Hold chemo for now -PET CT with Complete metabolic response of soft tissue and osseous lesions. 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..] 8:45 PM CDT Height 188 cm (6' 2) 05/12/2022 8:45 PM CDT Body Mass Index [...] 128 <200 MG/DL 05/13/2022 6:39 AM CDT [facility] TRIGLYCERIDES 51 <150 MG/DL 05/13/2022 6:39 AM CDT [facility] HDL 49 >40.0 MG/DL 05/13/2022 6:39 AM CDT [facility] LDL (CALCULATED) 69 <100 MG/DL 05/13/20 6:39 AM CDT [facility] NON HDL CHOLESTEROL 79 <130 MG/DL 05/13 6:39 AM CDT [facility] Comment: NOTE: WHEN THE TRIGLYCERIDES ARE >200 mg/dL, NON HDL C IS A SECONDARY TARGET OF THERAPY, WITH A GOAL 30 mg/dL HIGHER THAN THE IDENTIFIED LDL C GOAL. CHOL/HDL RATIO 2.6 0.0 - 4.5 05/13/2022 6:39 AM CDT [facility] VLDL CALCULATION 10 5 - 55 MG/DL 05/13/2022 6:39 AM T [facility] LIPID INTERPRETATION 05/13/2022 6:39 AM T [facility] Comment: NIH CONCENSUS REPORT RECOMMENDATIONS: ADULT CHILD LOW RISK: CHOLESTEROL <200 <170 TRIGLYCERIDE <150 --- HDL >=60 --- LDL <100 <110 BORDERLINE: CHOLESTEROL 200-239 170-199 TRIGLYCERIDE 150-199 --- HDL 40-59 --- LDL 100-159 110-129 HIGH RISK: CHOLESTEROL >=240 >=200 TRIGLYCERIDE >=200 --- HDL <40 --- LDL >=160 >=130 05/13/2022 5:28 AM CDT us Lynn Loco MD LABORATORY Final Result [facility] [address] [place] [address], [place] [phone] from Last 3 Months or Most Recently Relevant to Health Maintenance Insurance [employer] Advance Directives * Full Code (Latest Code Status on File) Date Activated Date Inactivated Comments 05/13/2022 8:49 AM 05/13/2022 4:32 PM Care Teams Drug Abuse Social Worker Relationship Specialty Start Date End Date Krishna Rosales MD [address] [place], [place] [id number] PCP - General FAMILY PRACTICE 10/12/20
--- OUTSIDE RECORDS SUMMARY | 2025-07-09 08:33 | XMS_ITS | Encounter Summary ---
Author Organization [facility] Address [address] [place] [address] Phone Care Team Providers Care Valet Parker Name Role Phone Delmi Peace RN Unavailable [phone] Krishna Rosales MD Primary Care Provider + [phone] [facility] Unavailable [phone] Mame Cast MD Unavailable [phone] Wilbur Angel MD Unavailable [phone] Tong Dubose MD Unavailable Encounter Details [...] on file Legal Sex Male 1:23 AM FIRER LOW PRESSURE Gender Identity Male 07/03/2022 5:22 AM CDT Sexual Orientation Straight 12/01/2020 8: 14 PM FIRER LOW PRESSURE documented as of this encounter Plan of Treatment Not on file documented as of this encounter Procedures Procedure Name Priority Date/Time Associated Diagnosis Comments SCAN - PATHOLOGY 02/10/2023 documented in this encounter Results * SCAN - PATHOLOGY (02/10/2023) us Provider Scanning Final Result documented in this encounter Visit Diagnoses Not on filedocumented in this encounter Care Teams Valet Parker Relationship Specialty Start Date End Date Krishna Rosales MD [address] [place] [address] PCP - General Family Medicine 06/16/19 Delmi Peace RN [address] [place] [address] Labor Specialist 04/12/18 [facility] [address] [place] [address] Plastic Surgeon Plastic Surgery 04/05/20 Mame Cast MD [address] [place] [address] Radiation Oncologist Radiation Oncology 05/23/20 Wilbur Angel MD [address] [facility] [address] [place] [address] Medical Oncologist/Wastewater Process Engineer Medical Oncology 10/24/20 Tong Dubose MD [address] [facility] DEPT OTOLARYNGOLOGY, [address] [place] [address] Surgeon Otolaryngology 06/11/22 documented as of this encounter
--- OUTSIDE RECORDS SUMMARY | 2025-07-09 08:33 | XMS_ITS | Encounter Summary ---
Author Organization [facility] Address [address] [place] [address] Phone Care Team Providers Care Airline Mechanic Name Role Phone Delmi Peace RN Unavailable [phone] Krishna Rosales MD Primary Care Provider + [phone] [facility] Unavailable [phone] Mame Cast MD Unavailable [phone] Wilbur Angel MD Unavailable [phone] Tong Dubose MD Unavailable [phone] Encounter Details Date Type Department Care Team [...] on file Legal Sex Male 1:23 AM BATTERY 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 Gender Identity Male 07/03/2022 5:22 AM CDT Sexual Orientation Straight 12/01/2020 8: 14 PM BATTERY 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 documented as of this encounter Plan of Treatment Not on file documented as of this encounter Procedures Procedure Name Priority Date/Time Associated Diagnosis Comments SCAN - LABS 01/12/2025 documented in this encounter Results * SCAN - LABS (01/12/2025) us Provider Scanning Final Result documented in this encounter Visit Diagnoses Not on filedocumented in this encounter Care Teams Airline Mechanic Relationship Specialty Start Date End Date Krishna Rosales MD [address] [place] [address] PCP - General Family Medicine 06/16/19 Delmi Peace, RN [address] [place] [address] Boat Hop 04/12/18 Smooth Simpson MD [address] [place] [address] Plastic Surgeon Plastic Surgery 04/05/20 Mame Cast MD [address] [place] [address] Radiation Oncologist Radiation Oncology 05/23/20 Wilbur Angel MD [address] [facility] [address] [place] [address] Medical Oncologist/Registration Manager Medical Oncology 10/24/20 Tong Dubose MD [address] [facility] DEPT OT[facility]ARY[facility]OLOGY, [address] [place] [address] Surgeon Otolaryngology 06/11/22 documented as of this encounter
--- OUTSIDE RECORDS SUMMARY | 2025-07-09 08:33 | XMS_ITS | Encounter Summary ---
Author Organization [facility] Address [facility] [place] [address] Care Team Providers Care Graining Press Operator Name Role Phone Darlin Perez CRNA Primary Care Provider Unav ailable Krishna Rosales MD Primary Care Provider [phone] Krishna Rosales MD Primary Care Provider [phone] Encounter Details Date Type Department Care Team (Late st Contact Info) Description 08/21/2014 Abstract [facility] CONVERSION [address] [place] [address] , Generic ConversionMD Social History Tobacco Use [...] on filedocumented in this encounter Care Teams Graining Press Operator Relationship Specialty Start Date End Date Darlin Perez CRNA PCP - General ANESTHESIOLOGY 03/08/20 10/04/20 Krishna Rosales [place] [address] [address] PCP - General FAMILY PRACTICE 10/05/20 10/05/20 Krishna Rosales MD [address] [address] PCP - General FAMILY PRACTICE 10/12/20 documented as of this encounter
--- OUTSIDE RECORDS SUMMARY | 2025-07-09 08:33 | XMS_ITS | Encounter Summary ---
Author Organization [facility] Address [address] [place] [address] Phone Care Team Providers Care Brass Wind Instrument Maker Name Role Phone Delmi Peace RN Unavailable [phone] Krishna Rosales MD Primary Care Provider + [phone] [facility] MD Unavailable [phone] Mame Cast MD Unavailable [phone] Wilbur Angel MD Unavailable [phone] Nicole Grijalva MD Unavailable [phone] Tong Dubose MD Unavailable [phone] Encounter Details Date Type Department Care Team [...] on file Legal Sex Male 1:23 AM ENDLESS BELT FINISHER Gender Identity Male 07/03/2022 5:22 AM CDT Sexual Orientation Straight 12/01/2020 8: 14 PM ENDLESS BELT FINISHER documented as of this encounter Plan of Treatment Not on file documented as of this encounter Procedures Procedure Name Priority Date/Time Associated Diagnosis Comments SCAN - LABS 06/04/2022 documented in this encounter Results * SCAN - LABS (06/04/2022) us Provider Scanning Edited Result - Final documented in this encounter Visit Diagnoses Not on filedocumented in this encounter Care Teams Brass Wind Instrument Maker Relationship Specialty Start Date End Date Krishna Rosales MD [address] [place] [address] PCP - General Family Medicine 06/16/19 Delmi Peace RN [address] [place] [address] Interactive Media Project Manager 04/12/18 Smooth Simpson MD [address] [place] [address] Plastic Surgeon Plastic Surgery 04/05/20 Mame Cast MD [address] [place] [address] Radiation Oncologist Radiation Oncology 05/23/20 Wilbur Angel MD [address] [facility] [address] [place] [address] Medical Oncologist/Oiler Helper Medical Oncology 10/24/20 Nicole Grijalva MD [address] [facility] [address] [place] [address] Radiation Oncologist Radiation Oncology 02/05/21 Tong Dubose MD [address] [facility] DEPT OTOLARYNGOLOGY, [address] [address] Surgeon Otolaryngology 06/11/22 documented as of this encounter
--- OUTSIDE RECORDS SUMMARY | 2025-07-09 08:33 | XMS_ITS | Encounter Summary ---
Author Organization [facility] Address [address] [place] [address] Care Team Providers Care Assembly Inspector Name Role Phone Delmi Peace RN Unavailable [phone] Krishna Rosales MD Primary Care Provider + [phone] [facility] Unavailable [phone] Tatyana Up MD Unavailable [phone] Mame Cast MD Unavailable [phone] Wilbur Angel MD Unavailable [phone] Bhavesh Montana MD Unavailable + [phone] Nicole Grijalva MD Unavailable [phone] Miscellaneous, Not In File Unavailable Unava ilable Tong Dubose MD Unavailable [phone] Encounter Details Date Type Department Care Team (Late st Contact Info) Description 04/25/2020 Telephone [facility] [address] [facility] [place] [address] Pj Rush, RT Social History Tobacco Use Types Packs/Day Years Used Date Smoking Tobacco: Never Smokeless Tobacco: Never Alcohol Use Standard Drinks/Week Comments Yes 0 (1 standard drink = 0.6 oz pur e alcohol) 4 x week Sex and Gender Information Value Date Recorded Sex Assigned at Not on file Legal Sex Male 1:23 AM SENIOR ENERGY CONSULTANT Gender Identity Male 07/03/2022 5:22 AM CDT Sexual Orientation Straight 12/01/2020 8 :14 PM SENIOR ENERGY CONSULTANT documented as of this encounter Plan of Treatment Not on file documented as of this encounter Visit Diagnoses Not on filedocumented in this encounter Care Teams Assembly Inspector Relationship Specialty Start Date End Date Krishna Rosales MD [address] [place] [address] PCP - General Family Medicine 06/16/19 Delmi Peace, AFTAB [address] [place] [address] Broom Machine Operator 04/12/18 [facility] [address] [place] [address] Plastic Surgeon Plastic Surgery 04/05/20 Tatyana Up MD [address] [place] [address] Radiation Oncologist Radiation Oncology 04/26/20 Mame Cast MD [address] [place] [address] Radiation Oncologist Radiation Oncology 05/23/20 Wilbur Angel MD [address] [place] [address] Medical Oncologist/Comber Fixer Medical Oncology 10/24/20 Bhavesh Montana MD [address] [place] [address] Consulting Physician Radiation Oncology 01/14/21 Nicole Grijalva MD [address] [facility] [address] [place] [address] Radiation Oncologist Radiation Oncology 02/05/21 Miscellaneous, Not In File 03/20/21 04/13/22 Tong Dubose MD [address] [facility] DEPT OTOLARYNGOLOGY, [address] [address] Surgeon Otolaryngology 06/11/22 documented as of this encounter
--- OUTSIDE RECORDS SUMMARY | 2025-07-09 08:33 | XMS_ITS | Encounter Summary ---
Author Organization [facility] Address [address] [place] [address] Phone Care Team Providers Care Cable Mechanic Name Role Phone Delmi Peace RN Unavailable [phone] Krishna Rosales MD Primary Care Provider + [phone] [facility] Unavailable [phone] Mame Cast MD Unavailable [phone] Wilbur Angel MD Unavailable [phone] Tong Dubose MD Unavailable [phone] Encounter Details Date Type Department Care Team [...] on file Legal Sex Male 1:23 AM CROSS CUT SAWYER Gender Identity Male 07/03/2022 5:22 AM CDT Sexual Orientation Straight 12/01/2020 8: 14 PM CROSS CUT SAWYER documented as of this encounter Plan of Treatment Not on file documented as of this encounter Procedures Procedure Name Priority Date/Time Associated Diagnosis Comments SCAN - PATHOLOGY 07/13/2023 10:51 AM CDT documented in this encounter Results * SCAN - PATHOLOGY (07/13/2023 10:51 AM CDT) us Provider Scanning Final Result documented in this encounter Visit Diagnoses Not on filedocumented in this encounter Care Teams Cable Mechanic Relationship Specialty Start Date End Date Krishna Rosales MD [address] [place] [address] PCP - General Family Medicine 06/16/19 Delmi Peace, RN [address] [place] [address] Industrial Aerial Installer 04/12/18 [facility] [address] [place] [address] Plastic Surgeon Plastic Surgery 04/05/20 Mame Cast MD [address] [place] [address] Radiation Oncologist Radiation Oncology 05/23/20 Wilbur Angel MD [address] [facility] [address] [place] [address] Medical Oncologist/Mission Worker Medical Oncology 10/24/20 Tong Dubose MD [address] [facility] DEPT OTOLARYNGOLOGY, [address] [address] Surgeon Otolaryngology 06/11/22 documented as of this encounter
--- OUTSIDE RECORDS SUMMARY | 2025-07-09 08:33 | XMS_ITS | Encounter Summary ---
Author Organization [facility] Address [address] [place] [address] Phone Care Team Providers Care Survey Worker Name Role Phone Delmi Peace RN Unavailable [phone] Krishna Rosales MD Primary Care Provider + [phone] [facility] Unavailable [phone] Mame Cast MD Unavailable [phone] Wilbur Angel MD Unavailable [phone] Tong Dubose MD Unavailable Encounter Details [...] on file Legal Sex Male 1:23 AM MOLECULAR BIOLOGY PROFESSOR Gender Identity Male 07/03/2022 5:22 AM CDT Sexual Orientation Straight 12/01/2020 8: 14 PM MOLECULAR BIOLOGY PROFESSOR documented as of this encounter Plan of Treatment Not on file documented as of this encounter Procedures Procedure Name Priority Date/Time Associated Diagnosis Comments SCAN - PATHOLOGY 04/26/2023 documented in this encounter Results * SCAN - PATHOLOGY (04/26/2023) us Provider Scanning Final Result documented in this encounter Visit Diagnoses Not on filedocumented in this encounter Care Teams Survey Worker Relationship Specialty Start Date End Date Krishna Rosales MD [address] [place] [address] PCP - General Family Medicine 06/16/19 Delmi Peace RN [address] [place] [address] Veneer Cutter 04/12/18 [facility] [address] [place] [address] Plastic Surgeon Plastic Surgery 04/05/20 Mame Cast MD [address] [place] [address] Radiation Oncologist Radiation Oncology 05/23/20 Wilbur Angel MD [address] [facility] [address] [place] [address] Medical Oncologist/Hand Alterations Tailor Medical Oncology 10/24/20 Tong Dubose MD [address] [facility] DEPT OTOLARYNGOLOGY, [address] [place] [address] Surgeon Otolaryngology 06/11/22 documented as of this encounter
--- OUTSIDE RECORDS SUMMARY | 2025-07-09 08:33 | XMS_ITS ---
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 Marked as Active Follow-up on 10/15/2015 Kidney CoordinatorMiross Peace RN Fax: N/A Email: N/A [place] Organ Diagnosis Organ Primary Contributory Kidney Renal [...] Fax Email Delmi Peace RN Kidney Coordinator [phone] N/A N/A Bri Gaitan Primary Chemotherapist N/A N/A N/A Lisa Pro RN Secondary Coordinator Secondary Kidney Coordinator [phone] N/A N/A Delmi Peace RN Cyber Intel Planner [phone] N/A N/A Nathalie Ospina Acquisitions Editor [phone] N/A N/A Michelle Xiao Secondary Chemotherapist N/A N/A N/A Events Post-Transplant Pre-Transplant Admitted: 10/15/2015 Referred: 09/04/2014 Transplanted: 10/15/2015 Evaluation began: 4 Discharged: 10/22/2015 Center waitlisted: 5 Dialysis History Dialysis History Start End Type Comments Center 06/11/2015 10/15/2015 [facility] D[facility] Information Center Phone Fax Address [facility] [phone] [address] [facility] [address]
--- OUTSIDE RECORDS SUMMARY | 2025-07-09 08:33 | XMS_ITS | Clinical Summary ---
Author Organization [facility] Naun Escalante Address [address] [place] [address] Care Team Providers Care Yardage Estimator Name Role Phone Unavailable Primary Care Provider [...] Encounters Date Type Department Care Team Description 05/07/2025 Orders Only [facility] Oncology and Hematology - [address] [place] [address] Marin Rhodes MD 05/02/2025 Orders Only [facility] Oncology and Hematology - [address] [place] [address] Marin Rhodes MD 04/13/2025 Orders Only [facility] Oncology and Hematology - [address] [place] [phone] Marin Rhodes MD 04/10/2025 4:30 PM CDT Telephone Check Up [facility] Oncology and Hematology - [address] [place] [address] Marin Rhodes MD Chronic anemia (Primary Dx) [...] Description 07/12/2025 1:15 PM CDT Office Visit [facility] Oncology and Hematology [facility] [address] [facility] [address] [place] [address] Marin Rhodes MD [address] [facility] [address] [place] [address] Health Maintenance Due Date Last Done Comments ZOSTER VACCINE (1 of 2) 1978 FIT-DNA Q 3 years 2004 FIT/FOBT Q 1 year 2004 Flex Sig/CT Colonography Q 5 years 2004 PNEUMOCOCCAL VACCINE 50+ YEA RS (2 of 2 - PPSV23, PCV20, or PCV21) 05/06/2015 03/11/2015 RSV VACCINE (60+ or ) (1 - Risk 60-74 years 1-dose series) 2019 COVID-19 Vaccine (3 - Moderna risk series) 04/09/2021 03/12/2021, 02/05/2021 Preventative Visit- Commercial 11/15/2024 INFLUENZA VACCINE (#1) 2025 09/27/2020, 2017 COLORECTAL SCREENING 04/22/2031 04/22/2021, 04/22/20 21 Colorectal Cancer Screening 04/22/2031 DTAP/TDAP/TD VACCINES (2 - Td or Tdap) 09/02/2032 Procedures Procedure Name Priority Date/Time Associated Diagnosis Comments BASIC METABOLIC PANEL Routine 05/01/2025 3:20 PM CDT CBC WITH DIFFERENTIAL Routine 05/01/2025 2:40 PM CDT from Last 3 Months Results * BASIC METABOLIC PANEL (05/01/2025 3:20 PM CDT) Blood us Marin Rhodes MD CHEMISTRY ORDERABLES Final Resu lt * CBC WITH DIFFERENTIAL (05/01/2025 2:40 PM CDT) Blood Marin Rhodes MD HEMATOLOGY ORDERABLES Final Res ult from Last [address] [place] [address] [place] [address] PPO MCR [facility] [employer] ACCESS/TRUE BLUE PPO
[2025-07-09 08:36] LABS: Hematocrit 36.1 % (42.0-52.0); Hemoglobin 10.9 g/dL (14.0-18.0); Mean Corpuscular HGB Conc 30.2 g/dl (32-36); Mean Corpuscular Hemoglobin 23.8 pg (26-34); Mean Corpuscular Volume 78.8 fl (80-100); Platelet Count Result 181 k/mm3 (150-375); Red Blood Count 4.58 M/mm3 (4.6-6.20); White Blood Count 4.8 K/mm3 (4.5-10.0)
[2025-07-09 10:02] LABS: Iron 45 ug/dL (49-181)
[2025-07-09 10:03] LABS: Anion Gap 5 mmol/L (4-12); Blood Urea Nitrogen 25 mg/dL (9-20); Calcium 8.9 mg/dL (8.4-10.2); Carbon Dioxide 27 mmol/L (22-30); Chloride 105 mmol/L (98-107); Estimated Glomerular Filt Rate 44; Glucose 127 mg/dL (65-110); Potassium 3.9 mmol/L (3.4-5.0); Sodium 137 mmol/L (137-145)
[2025-07-09 10:12] LABS: Percent Iron Saturation 18 % (20-50)
[2025-07-09 10:43] LABS: Ferritin 39.80 ng/mL (11.1-264)
== END 2025-07-09 08:22 | disposition home or self-care (01) ==
LOC: ANHLAB 08:22
PROVIDERS: PCP Family Medicine; Visit Provider Internal Medicine Hematology & Oncology
DX: D64.9 Anemia, unspecified (principal)
CPT/HCPCS: 36415; 80048; 82728; 83540; 83550; 85027